=== PATIENT | female | born 1940 | race Caucasian/White ===

== ENCOUNTER 2017-01-09 07:53 | Inpatient (IN) | payer OTHER, MEDICARE ==
[2017-01-04 14:30] VITALS: BMI 31.0
--- NOTE | 2017-01-04 15:19 | PAT Medication Instructions ---
Service Date Jan 04, 2017. Current Home Medication List Atenolol (Tenormin), 50 MG PO BID Cyclobenzaprine Hcl (Flexeril), 10 MG PO TID PRN for Muscle Spasms Fluticasone Propionate (Flonase Nasal [place] *), 2 SPRAYS KAYLA HS PRN for STUFFY NOSE Gabapentin (Neurontin), 300 MG PO BID Hydrocodone/Acetaminophen 5MG/325MG ([place] 5MG/325MG), 1 TABLET PO HS PRN for Pain Levothyroxine (Levothroid), 0.05 MG PO QAM Lisinopril (Zestril), 10 MG PO QAM Meloxicam (Meloxicam), 15 MG PO QAM Nunica-3 Fatty Acids (Fish Oil), 1 CAP PO QAM Omeprazole (Prilosec), 20 MG PO AFTERNOON Prednisone (Prednisone), 5 MG PO Q2D Tramadol (Ultram), 1 TAB PO Q6H PRN for Pain Zoledronic Acid (Reclast), 1 DOSE INJ [id number] Medication Instructions For Your Scheduled Surgery - Hold the following medications as of 01/05/16: [place]-3 Fatty Acids (Fish Oil), 1 CAP PO QAM - Hold the following medications the morning of surgery: Cyclobenzaprine Hcl (Flexeril), 10 MG PO TID PRN for Muscle Spasms Lisinopril (Zestril), 10 MG PO QAM Meloxicam (Meloxicam), 15 MG PO QAM (otherwise okay to continue per surgeon) - Take the following medications the morning of surgery with a sip of water OTHERWISE NOTHING TO EAT OR DRINK AFTER MIDNIGHT: Hydrocodone/Acetaminophen 5MG/325MG ([place] 5MG/325MG), 1 TABLET PO HS PRN for Pain (may take up to 4 hours prior to surgery if needed) Tramadol (Ultram), 1 TAB PO Q6H PRN for Pain (may take up to 4 hours prior to surgery if needed) Atenolol (Tenormin), 50 MG PO BID Gabapentin (Neurontin), 300 MG PO BID Levothyroxine (Levothroid), 0.05 MG PO QAM Omeprazole (Prilosec), 20 MG PO AFTERNOON - Take the following medications as scheduled the night before surgery: Hydrocodone/Acetaminophen 5MG/325MG ([place] 5MG/325MG), 1 TABLET PO HS PRN for Pain Tramadol (Ultram), 1 TAB PO Q6H PRN for Pain Atenolol (Tenormin), 50 MG PO BID Gabapentin (Neurontin), 300 MG PO BID Cyclobenzaprine Hcl (Flexeril), 10 MG PO TID PRN for Muscle Spasms Fluticasone Propionate (Flonase Nasal [place] *), 2 SPRAYS KAYLA HS PRN for STUFFY NOSE If you have any questions please call us at [phone] or [phone] or [phone]
--- NOTE | 2017-01-04 16:09 | DIAGNOSTIC IMAGING REPORT ---
CHEST PREADMISSION(PA/LAT) HISTORY: Preop. COMPARISON: Chest 06/14/2014. FINDINGS: There is a left-sided dual-chamber pacemaker. The heart is stable in size. Eventration of right hemidiaphragm persists. No new focal lung consolidations. No evidence for pulmonary edema. No pleural effusions. No pneumothorax. Old, healed right-sided rib fracture. IMPRESSION: No significant change compared to the prior study. No acute process. Electronically signed by: Keny Bermudez M.D. 01/04/2017 4:08 PM Dictated Date/Time: 01/04/2017 4:05 PM
[2017-01-04 16:18] LABS: BASO % 0.4 %; BASO ABS # 0.03 K/uL (0-0.2); COMPLETE YES; EOS % 1.6 %; HEMATOCRIT 35.3 % (37-47); IG% 0.6 %; LYMPH % 31.8 %; LYMPH ABS # 2.17 K/uL (1.2-3.4); MEAN CELL VOLUME 94.6 fL (80-100); MEAN CORPUSCULAR HEMOGLOBIN 30.8 pg (25-34); MEAN CORPUSCULAR HGB CONC 32.6 g/dl (32-36); MEAN PLATELET VOLUME 10.9 fL (7.4-10.4); MONO % 6.6 %; PLATELET COUNT 182 K/uL (130-400); RED BLOOD COUNT 3.73 M/uL (4.2-5.4); WHITE BLOOD COUNT 6.82 K/uL (4.8-10.8)
[2017-01-04 16:22] LABS: URINE APPEARANCE CLEAR (CLEAR); URINE BILIRUBIN NEG (NEG); URINE COLOR YELLOW; URINE NITRITE NEG (NEG); URINE PH 5.5 (4.5-7.5); URINE SPECIFIC GRAVITY 1.025 (1.000-1.030); UROBILINOGEN NEG (NEG)
[2017-01-04 16:24] LABS: MANUAL MICROSCOPIC REQUIRED? NO; REVIEW REQ? NO
[2017-01-04 16:27] LABS: INR 0.9 (0.9-1.1); PARTIAL THROMBOPLASTIN RATIO 1.3; PROTHROMBIN TIME (PATIENT) 10.1 SECONDS (9.0-12.0)
[2017-01-04 17:20] LABS: BUN/CREATININE RATIO 23.3 (10-20); CALCIUM 8.7 mg/dl (8.5-10.1); CREATININE 1.1 mg/dl (0.60-1.20); POTASSIUM 4.4 mmol/L (3.5-5.1)
--- NOTE | 2017-01-07 08:53 | HISTORY & PHYSICAL EXAMINATION ---
DATE OF ADMISSION: 01/09/2017 CHIEF COMPLAINT: Right hip pain. HISTORY OF PRESENT ILLNESS: This 76-year-old white female presents to the office with complaints of right hip pain that has been ongoing for several months. Symptoms began specifically on 11/22/2016. There was no specific injury. She has tried prednisone as well as Mobic and activity modification without improvement. Pain is worse with weightbearing and is affecting her ADLs. No numbness or tingling. She did receive a cortisone injection in the hip joint without improvement. Pain is in the anterior flexion crease and radiates around the hip laterally. There is a history of previous left knee replacement which is doing well. She elects to proceed with a right total hip arthroplasty in hopes of alleviating her pain. Preoperative x-rays have been obtained. PAST MEDICAL HISTORY: Significant for osteoarthritis, actinic keratosis, chronic sinusitis, history of squamous cell carcinoma, hypertension, mitral valve prolapse, history of pericarditis, PVCs, rheumatoid arthritis, kidney stones, GERD, spinal stenosis, hypothyroidism and history of thrombocytopenia in 1963. She does have a pacemaker. PREVIOUS SURGERIES: Toe PIP joint arthroplasty with pinning, shave biopsies of the skin, bilateral foot surgery, tonsillectomy with adenoidectomy, open meniscectomy, knee arthroscopy in 1991, pacemaker placement in 2001 and 2009, left knee TKA 2001, right long finger surgery 2003, right shoulder surgery 2007, left patellar debridement 2014, cardiac ablation 1995 and 2001, left thumb [facility]MC joint reconstruction, and bilateral cataract surgery. ALLERGIES: KNOWN ALLERGY TO ASPIRIN WHICH CAUSES THROMBOCYTOPENIA. AUGMENTIN CAUSES DIARRHEA. DILAUDID CAUSES NAUSEA AND VOMITING. SULFA CAUSES A RASH. CURRENT MEDICATIONS: Atenolol 100 mg p.o. b.i.d., fish oil daily, Flexeril 10 mg p.o. p.r.n., gabapentin 300 mg p.o. b.i.d., Synthroid 50 mcg p.o. daily, lisinopril 10 mg p.o. daily, Mobic 15 mg p.o. daily, omeprazole 20 mg q.i.d., prednisone 5 mg daily, Reclast annually, tramadol 50 mg p.o. q. 6 hours p.r.n. FAMILY HISTORY: Significant for stroke and osteoarthritis. SOCIAL HISTORY: The patient is . Retired. No tobacco use, occasional ETOH use. REVIEW OF SYSTEMS: Significant for above stated conditions, otherwise unremarkable. PHYSICAL EXAMINATION: GENERAL: Well-developed, well-nourished elderly white female in no acute distress. Sitting on a bed. Alert and oriented. SKIN: Warm and dry with good turgor. No rashes or lesions. No ecchymosis or erythema. HEENT: Normocephalic, atraumatic. Eyes: PERRLA, EOMI. Ears: Hearing aides are present bilaterally. TMs are intact bilaterally with good light reflexes. No erythema or bulging. A tube is present in her left TM. Nares: Patent bilaterally without turbinate enlargement. Oropharynx: Without erythema or exudate. No lesions noted. Uvula midline. Fair dentition. Fillings are noted. Caps are noted. HEART: RRR. No MGR. LUNGS: Clear to auscultation bilaterally. No crackles, rhonchi or wheezing. Good air movement. ABDOMEN: Bowel sounds present x4, soft, nontender. No organomegaly. MUSCULOSKELETAL: Right hip has no obvious asymmetry or deformity. Hip flexion to greater than 100 degrees. There is pain associated with internal and external rotation. There is difficulty with attempts at hip extension. There is discomfort with palpation over the anterior flexion crease. No pain over the greater trochanter. Ambulatory with an antalgic gait. No crepitus palpable with motion. NEUROLOGIC: Cranial nerves II-XII are intact. Gross sensation is intact across the lower extremities by soft touch. DATA: Radiographic images previously obtained show moderate osteoarthritic change in the right hip. There is joint space narrowing, periarticular osteophytes, and subchondral sclerosis. No evidence for fracture. Films have been read by radiology. IMPRESSION: Right hip degenerative joint disease. PLAN: Informed written consent was obtained to proceed with right total hip arthroplasty. Postoperative prescriptions for Percocet and Coumadin will be provided at discharge from the hospital. Anticipate discharge to home with 2 weeks of home health services and then outpatient PT. Preoperative lab work, EKG and chest x-ray have been ordered. Medical clearance has already been received from Dr. Edson Gardner. She saw Dr. Coleman last week for medical clearance. Prescription has been provided for a rolling walker.
[~2017-01-09] VITALS: Ht 152.4 cm; Wt 71.7 kg
[2017-01-09] VITALS (9 sets, daily range): BP systolic 119–146; BP diastolic 69–90; PULSE 64–80; TEMP 36.4–36.9; O2SAT 96–99; Ht 152.4 cm; Wt 71.7 kg
[~2017-01-09 07:53] MED LIST: ATEN-175 PO; BUPIVACAINE 0.5 % 5 MG/1 ML PF 10ML VIAL ONE; CEFAZOLIN 2000 MG/60 ML D5W 60 ML IV SCH; CYCL10TA6 PO; FENTANYL CITRATE INJ 50 MCG/1 ML 2 ML VIAL ONE; FLNIN NAE; GABA-113 PO; HYDR-5688 PO; HYDROCORTISONE IV 100 MG in SYRINGE 0 ML IV SCH; LACTATED RINGER'S 1000ML IV SCH; LEVO-217 PO; LIDOCAINE HCL 2% 2 ML VIAL (20MG/ML) ONE; LISI-461 PO; MELO15TA4 PO; MIDAZOLAM HCL 1 MG/ML 2ML VIAL ONE; OMEGCAP2 PO; POVIDONE-IODINE OP SOLN 30 ML BTL ONE; PRED-301 PO; PRLSR20 PO; PROPOFOL IV EMULSION 10 MG/ML 20 ML VIAL IV ONE; ROPIVACAINE 5MG/ML 30 ML 150 MG, BUPIVACAINE/EPINEPHR 0.5% MPF 30 ML, KETOROLAC TROMETH... INFIL SCH; TRAM-10 PO; TRANEXAMIC ACID INJ 1,000 MG in SODIUM CHLORIDE 0.9% 100ML 100 ML IV SCH; ZOLE5INJ INJ
--- NOTE | 2017-01-09 08:48 | History & Physical Bridge Note ---
H&P Re-Evaluation Bridge Note: I have examined the patient, reviewed the History & Physical and in the interval since the performance of the History & Physical I have noted the following changes of clinical significance: No changes noted
[2017-01-09] MEDS ORDERED: MoRPHine SULFATE PF 1 MG/ML 10 ML AMP/VIAL ONE (09:04)
[2017-01-09 09:17] LABS: BUN/CREATININE RATIO 33.3 (10-20); CREATININE 0.91 mg/dl (0.60-1.20); POTASSIUM 4.3 mmol/L (3.5-5.1)
--- NOTE | 2017-01-09 10:41 | [facility] Post Operative Brief Note ---
Immediate Operative Summary Operative Date Jan 09, 2017. Pre-Operative Diagnosis Right Hip Degenerative Joint Disease Post-Operative Diagnosis Right Hip Degenerative Joint Disease Procedure(s) Performed Right Total Hip Arthroplasty--Uncemented Surgeon Dr. Bains Wood Web Weaving Machine Operator Surgeon(s) LINDSEY Bar Estimated Blood Loss 200cc Findings djd Fluids (cc crystalloids) 600cc Specimens A. Right Femoral Head Drains none Anesthesia spinal Complication(s) None Disposition Recovery Room / PACU
[2017-01-09] MEDS ORDERED: CYCLOBENZAPRINE HCL 10 MG TAB PO PRN (11:00)
[2017-01-09] MEDS ORDERED: ALUMINUM/MAGNESIUM/SIMETH (MAALOX MAX) 30 ML UDC PO PRN (11:00)
[2017-01-09] MEDS ORDERED: MAGNESIUM HYDROXIDE SUSP 30 ML UDC PO PRN (11:00)
[2017-01-09] MEDS ORDERED: BISACODYL 10 MG SUPP PR PRN (11:00)
[2017-01-09] MEDS ORDERED: METOCLOPRAMIDE HCL INJ 5 MG/ML 2 ML VIAL IV PRN (11:00)
[2017-01-09] MEDS ORDERED: ONDANSETRON INJ 2 MG/ML 2 ML VIAL IV PRN ×2 (11:00→11:15)
[2017-01-09] MEDS ORDERED: FLUTICASONE PROPIONATE NA SPR 16 GM BTL NAE PRN (11:00)
--- NOTE | 2017-01-09 11:13 | OPERATIVE REPORT ---
DATE OF CONSULTATION: 01/09/2017 PREOPERATIVE DIAGNOSIS: Right hip endstage degenerative joint disease. POSTOPERATIVE DIAGNOSIS: Right hip same. PROCEDURE: Right hip total hip arthroplasty using DePuy implants. SURGEON: Dr. Bains. CERAMIC PAINTER: Zbigniew Pa PA-C. HISTORY OF PRESENT ILLNESS: This 76-year-old white female presented to the office with complaints of right hip pain that have been ongoing for several months. Her symptoms began in late November. No specific injury. She tried conservative care measures without success. She elected to proceed with surgical intervention after being educated about potential risks and outcomes. Preoperative x-rays were obtained. OPERATION: The patient was administered spinal anesthetic and then taken to the operating room where she was given sedation. She was prepped and draped in the usual sterile fashion. Please see Dr. Bains's operative report for specifics of the procedure. I was present for the entire case from initial patient positioning through final wound closure. Assistance was provided in tissue retraction, hemostasis, trial implant placement, final implant placement, and final wound closure. The patient was taken to the recovery room in satisfactory condition. CLEO
[2017-01-09] MEDS ORDERED: FLUMAZENIL 0.1 MG/1 ML 10 ML VIAL IV PRN (11:15)
[2017-01-09] MEDS ORDERED: PROMETHAZINE HCL INJ 12.5 MG in SODIUM CHLORIDE 0.9% 50ML 50 ML IV PRN (11:15)
[2017-01-09] MEDS ORDERED: EpHEDrine SULFATE INJ 50 MG/ML AMP IV PRN (11:15)
[2017-01-09] MEDS ORDERED: NALOXONE HCL 0.4 MG/1 ML VIAL/CARP IV PRN (11:15)
[2017-01-09] MEDS ORDERED: ATROPINE SULFATE 0.1 MG/ML 5ML SYR IV PRN (11:15)
[2017-01-09] MEDS ORDERED: MoRPHine SULFATE 2 MG/ML CARP IV PRN ×2 (11:15→13:45)
--- NOTE | 2017-01-09 11:25 | OPERATIVE REPORT ---
DATE OF OPERATION: 01/09/2017 PREOPERATIVE DIAGNOSIS: Osteoarthritis right hip. POSTOPERATIVE DIAGNOSIS: Same. OPERATION PERFORMED: Noncemented right hip replacement. SURGEON: Dr. Bains. DEVELOPMENT TECHNICIAN: Zbigniew Pa PA-C. SECOND DEVELOPMENT TECHNICIAN: Medical student, [employer]. SUMMARY OF IMPLANTS: Size 48 shell acetabular cup hole eliminator, 6.5 x 25 screw, liner 32 x 48 neutral, high offset size 3 femoral stem and femoral head size 32+1. ESTIMATED BLOOD LOSS: 200 mL. CRYSTALLOID: 600 mL. PERIOPERATIVE SITUATION: Medically cleared female with intractable hip pain, wants to proceed with right hip replacement. OPERATION AND FINDINGS: OPERATION: The patient appropriately identified, site verified, consent verified, 2 grams of Ancef and 1 gram of TXA confirmed as being given. The right lower extremity was prepped and draped in the usual routine fashion with the patient in left lateral decubitus position. Posterior approach to the hip was made. Sharp dissection carried through skin and blunt dissection down to the fascia. This was then incised under direct vision. Care was taken to protect the sciatic nerve. Short external rotators were released and preserved. The capsule was released and preserved, the hip dislocated, the femoral neck resected. The labrum was quite edematous and degenerated anteriorly. It was all resected. Posterior osteophytes were resected. Serial reaming carried up to a 48 and a 48 shell acetabular cup impacted into position with excellent rim fit and then an additional 6.5 x 25 screw placed with excellent purchase. The trial liner seated. The femur was then flexed and internally rotated, care taken to protect the sciatic nerve. The proximal femur prepared with box cut, lateralizing rasp and serial broaching up to a size 3 high offset stem with a +1 and +5 head. The +1 kept stability and made the leg lengths relatively equal. It was slightly long with the other head. The hip was then dislocated. All remaining trial elements were removed and irrigated with Betadine, irrigated with Pulsavac, hole eliminator seated, permanent liner seated, permanent head and stem seated. The hip reduced. It was stable. It was then irrigated with Betadine, irrigated with Pulsavac and then the short external rotators and the capsule were repaired with #2 Vicryl, IT band and gluteus maximum fascia with #2 Vicryl, the subcutaneous fat with 2-0 Vicryl and the skin with stainless steel clips. The Orthomix was injected into superficial layers only. Estimated blood loss again was as noted. The wound was then appropriate dressed after the wound was closed with oneyda and then the patient transferred to recovery room in satisfactory condition having tolerated the procedure well. DVT prophylaxis will be per protocol. I attest to the content of the Intraoperative Record and any orders documented therein. Any exceptio ns are noted below.
[2017-01-09] MEDS ORDERED: OXYC-57 PO (11:45)
[2017-01-09] MEDS ORDERED: WARF2TAB PO (11:45)
--- NOTE | 2017-01-09 11:55 | PROGRESS NOTE ---
DATE: 01/09/2017 DATE: 01/09/2017. SUBJECTIVE: Postop check status post right total hip replacement. The patient is comfortable. Denies any pain. Denies any chest pain, shortness of breath, fever, chills, headache, nausea or vomiting. Vital signs are stable. She is afebrile. Neurovascular check is limited by spinal, still has effects of that. Wound dressing clean, dry and intact. Postop x-rays look excellent. ASSESSMENT: Status post right total hip replacement. Continue postop care pathway, mobilize when block has worn off. Postural precautions. Continue care pathway.
--- NOTE | 2017-01-09 12:37 | Anesthesiology Progress Note ---
Anesthesia Post Op Note Date & Time Jan 09, 2017 at 12:37 Vital Signs Pain Intensity: 0 Vital Signs Past 12 Hours Date Time Temp Pulse Resp B/P Pulse Ox O2 Delivery O2 Flow Rate FiO2 01/09/17 12:24 36.4 62 16 126/66 100 Nasal Cannula 2 01/09/17 11:44 53 15 100 01/09/17 11:44 54 14 01/09/17 11:43 144/64 01/09/17 11:39 53 14 01/09/17 11:39 53 14 100 01/09/17 11:38 107/83 01/09/17 11:34 55 18 01/09/17 11:34 57 18 100 01/09/17 11:33 146/64 01/09/17 11:29 53 13 100 01/09/17 11:29 53 13 01/09/17 11:28 118/78 01/09/17 11:24 55 19 01/09/17 11:24 54 19 143/69 100 01/09/17 11:19 52 14 100 01/09/17 11:19 52 14 01/09/17 11:18 123/64 01/09/17 11:14 56 14 100 01/09/17 11:14 56 14 01/09/17 11:13 131/63 01/09/17 11:09 53 16 01/09/17 11:09 51 14 100 01/09/17 11:08 138/68 01/09/17 11:05 63 13 01/09/17 11:05 54 13 01/09/17 11:03 137/67 01/09/17 11:00 55 11 01/09/17 11:00 57 11 100 01/09/17 10:58 134/73 01/09/17 10:55 36.1 56 12 127/70 100 Nasal Cannula 2 01/09/17 10:55 58 14 100 01/09/17 10:55 57 14 01/09/17 08:14 36.7 72 18 146/90 99 Room Air Notes Mental Status: alert / awake / arousable, participated in evaluation Pt Amnestic to Procedure: Yes Nausea / Vomiting: adequately controlled Pain: adequately controlled Airway Patency, RR, SpO2: stable & adequate BP & HR: stable & adequate Hydration State: stable & adequate Neuraxial Anesthesia: was administered, sensory block is resolving Anesthetic Complications: no major complications apparent
--- NOTE | 2017-01-09 13:29 | DIAGNOSTIC IMAGING REPORT ---
PELVIS 1 OR 2 VIEW ROUTINE CLINICAL HISTORY: R hip s/p TIMMY postoperative evaluation COMPARISON: 12/04/2011 DISCUSSION: Status post total right hip replacement. Good contact between prosthetic and underlying bone. Expected soft tissue postoperative change. IMPRESSION: Total right hip replacement in good position. Electronically signed by: Lawson Gonsalez M.D. 01/09/2017 1:28 PM Dictated Date/Time: 01/09/2017 1:27 PM
[2017-01-09] MEDS ORDERED: SODIUM CHLORIDE 0.9% IV SCH (13:30)
[2017-01-09] MEDS ORDERED: VANCOMYCIN IV SCH (13:30)
[2017-01-09] MEDS ORDERED: ZOLPIDEM TARTRATE 5 MG TAB PO PRN (13:45)
--- NOTE | 2017-01-09 13:45 | Medical Consult ---
Consultation Date of Consultation: Jan 09, 2017. Attending Physician: Kj Bains M.D. Reason for Consultation: Postop Medical Management History of Present Illness Patient seen and examined. 76 year old female with PMHx of Rheumatoid Arthritis on chronic prednisone, Tachy jacinto syndrome s/p pacemaker, Hypothyroidism and other problems listed below is seen in consultation for postop medical management following elective RTHA by Dr. Marcum. Patient reports feeling well. She denies pain, fevers, chills, URI symptoms, chest pain, SOB, nausea, vomiting, diarrhea, dysuria, calf pain and edema. Reports last BM was last night. Denies history of VTE. Requests something for sleep tonight. Past Medical/Surgical History Medical Problems: (1) Amputated finger Status: Chronic (2) GERD (gastroesophageal reflux disease) Status: Chronic (3) History of PSVT (paroxysmal supraventricular tachycardia) Status: Chronic (4) Hypothyroidism Status: Chronic (5) Osteoporosis Status: Chronic (6) Pacemaker Status: Chronic (7) Rheumatoid arthritis Status: Chronic (8) Tachy-jacinto syndrome Status: Chronic Surgical Problems: (1) H/O breast biopsy Status: Resolved (2) H/O foot surgery Status: Chronic (3) H/O shoulder surgery Status: Chronic (4) History of carpal tunnel surgery Status: Chronic (5) History of hip surgery Status: Chronic (6) History of osteomyelitis Status: Resolved (7) History of recent maxillofacial surgery Status: Resolved (8) Hx of tonsillectomy Status: Chronic Family History Abdominal aortic aneurysm (AAA) Hypertension Stroke Social History Smoking Status: Never Smoker Alcohol Use: socially Marital Status: Housing Status: lives with family Occupation Status: retired Allergies Coded Allergies: Sulfa Antibiotics (Verified Allergy, Mild, rash, 01/09/17) Aspirin (Verified Allergy, Unknown, THROMBOCYTOPENIA, 01/09/17) Phenylbutazone (Verified Allergy, Unknown, THROMBOCYTOPENIA, 01/09/17) Amoxicillin (Verified Adverse Reaction, Intermediate, severe diarrhea, 01/09) Clavulanic Acid (Verified Adverse Reaction, Intermediate, severe diarrhea , 01/09/17) Hydromorphone (Verified Adverse Reaction, Mild, NAUSEA AND VOMITING, ) Morphine (Verified Adverse Reaction, Mild, NAUSEA/VOMITTING, 01/09/17) Current Inpatient Medications Current Inpatient Medications Medications (Trade) Dose Ordered Sig/Nitesh Route Start Time Stop Time Status Last Admin Dose Admin Cefazolin Sodium 60 ml @ 100 mls/hr PREOP IV 01/09/17 06:00 01/09/17 18:00 01/09/17 09:11 100 MLS/HR Tranexamic Acid 1000 mg/Sodium Chloride 110 ml @ 660 mls/hr TODAY@0600 IV 01/09/17 06:00 01/09/17 18:00 01/09/17 08:50 660 MLS/HR Hydrocortisone Sodium Succinate/ Syringe (Solu-Cortef IV/ Syringe) 2 ml @ 4 mls/min PREOP IV 01/09/17 06:00 01/09/17 18:00 01/09/17 08:42 4 MLS/MIN Naloxone HCl (Narcan Inj) 0.2 mg Q2M PRN IV 01/09/17 11:15 01/09/17 16:15 Flumazenil (Romazicon Inj) 0.2 mg Q2M PRN IV 01/09/17 11:15 01/09/17 16:15 Ondansetron HCl 4 mg 4 mg ONE PRN IV 01/09/17 11:15 01/09/17 16:15 Promethazine HCl/ Sodium Chloride (Phenergan Inj/ Nss 50ml) 50.5 ml @ 202 mls/hr ONE PRN IV 01/09/17 11:15 01/09/17 16:15 Ephedrine Sulfate (EpHEDrine SULFATE INJ) 5 mg Q5M PRN IV 01/09/17 11:15 01/09/17 16:15 Atropine Sulfate 0.5 mg 0.5 mg Q1M PRN IV 01/09/17 11:15 01/09/17 16:15 Potassium Chloride/Dextrose/ Sod Cl (D5W And 1/2nss + 20meq KCl) 1,000 ml @ 100 mls/hr Q10H IV 01/09/17 14:00 01/10/17 13:59 Ketorolac Tromethamine (Toradol Inj) 15 mg Q6H IV. 01/09/17 16:00 01/10/17 15:59 Oxycodone HCl 1 TABLET FOR PAIN RATING... Q4H PRN PO 01/09/17 11:00 01/23/17 10:59 Acetaminophen/ Empty Bag (Ofirmev Iv/ Empty Iv Bag 100ml) 100 ml @ 400 mls/hr Q8H IV 01/09/17 16:00 01/10/17 15:59 UNV Acetaminophen (Tylenol Tab) 650 mg Q6H PRN PO 01/10/17 16:00 02/09/17 15:59 Magnesium Hydroxide (Milk Of Magnesia Susp) 30 ml Q6H PRN PO 01/09/17 11:00 02/08/17 10:59 Bisacodyl (Dulcolax Supp) 10 mg DAILY PRN UT 01/09/17 11:00 02/08/17 10:59 Docusate Sodium (coLACE CAP) 100 mg BID PO 01/09/17 21:00 02/08/17 20:59 Diphenhydramine HCl (Benadryl Inj) 25 mg Q8H PRN IV 01/09/17 11:00 02/08/17 10:59 Al Hydrox/Mg Hydrox/Simethicone (Maalox Max Susp) 15 ml Q4H PRN PO 01/09/17 11:00 02/08/17 10:59 Multivitamins (Multivitamin Tab) 1 tab QAM PO 01/10/17 09:00 02/09/17 08:59 Ondansetron HCl (Zofran Inj) 4 mg Q6H PRN IV 01/09/17 11:00 02/08/17 10:59 Metoclopramide HCl (Reglan Inj) 10 mg Q6H PRN IV 01/09/17 11:00 02/08/17 10:59 Ferrous Gluconate (Ferrous Gluconate Tab) 324 mg TIDM PO 01/09/17 17:45 02/08/17 17:44 Pantoprazole Sodium 40 mg 40 mg QAM PO 01/10/17 09:00 02/09/17 08:59 Cefazolin Sodium 2000 mg/Dextrose 60 ml @ 100 mls/hr Q8H IV 01/09/17 18:00 01/10/17 02:35 Dexamethasone Sodium Phosphate/ Syringe (Decadron Inj/ Syringe) 2.5 ml @ 1 mls/min TODAY@0730 ONCE IV 01/10/17 07:30 01/10/17 07:32 Atenolol (Tenormin Tab) 50 mg BID PO 01/09/17 21:00 02/08/17 20:59 Cyclobenzaprine HCl (Flexeril Tab) 10 mg TID PRN PO 01/09/17 11:00 02/08/17 10:59 Fluticasone Propionate (Flonase Nasal Turner) 2 sprays HS PRN KAYLA 01/09/17 11:00 02/08/17 10:59 Gabapentin (Neurontin Cap) 300 mg BID PO 01/09/17 21:00 02/08/17 20:59 Levothyroxine Sodium (Synthroid Tab) 50 mcg DAILYBB PO 01/10/17 06:00 02/09/17 06:59 Lisinopril (Zestril Tab) 10 mg QAM PO 01/10/17 09:00 02/09/17 08:59 Prednisone (PredniSONE TAB) 5 mg Q2D PO 01/10/17 11:00 02/09/17 10:59 UNV Morphine Sulfate give 2mg for pain 3-6 g... Q1H PRN IV 01/09/17 11:15 01/23/17 11:14 UNV Vancomycin HCl 1075 mg/Sodium Chloride 271.5 ml @ 125 mls/hr TODAY@1330 IV 01/09/17 13:30 01/09/17 15:41 Tranexamic Acid/ Sodium Chloride (Cyklokapron Inj/ Nss 100ml) 110 ml @ 660 mls/hr TODAY@1700 ONCE IV 01/09/17 17:00 01/09/17 17:09 Miscellaneous Information (Nursing Ortho Warfarin Nomogram Dose) 1 ea TODAY N/A 01/09/17 13:30 01/09/17 13:31 UNV Review of Systems See above for pertinent positives & negatives. A total of 10 systems reviewed and were otherwise negative. Physical Exam Date Time Temp Pulse Resp B/P Pulse Ox O2 Delivery O2 Flow Rate FiO2 01/09/17 13:28 36.8 67 17 123/76 99 Room Air 01/09/17 13:00 36.9 64 16 119/75 99 Room Air 01/09/17 13:00 99 Room Air 01/09/17 13:00 99 Room Air 01/09/17 12:24 36.4 62 16 126/66 100 Nasal Cannula 2 01/09/17 11:44 53 15 100 01/09/17 11:44 54 14 2/8/17 11:43 144/64 01/09/17 11:39 53 14 01/09/17 11:39 53 14 100 01/09/17 11:38 107/83 01/09/17 11:34 55 18 01/09/17 11:34 57 18 100 01/09/17 11:33 146/64 01/09/17 11:29 53 13 100 01/09/17 11:29 53 13 01/09/17 11:28 118/78 01/09/17 11:24 55 19 01/09/17 11:24 54 19 143/69 100 01/09/17 11:19 52 14 100 01/09/17 11:19 52 14 01/09/17 11:18 123/64 01/09/17 11:14 56 14 100 01/09/17 11:14 56 14 01/09/17 11:13 131/63 01/09/17 11:09 53 16 01/09/17 11:09 51 14 100 01/09/17 11:08 138/68 01/09/17 11:05 63 13 01/09/17 11:05 54 13 01/09/17 11:03 137/67 01/09/17 11:00 55 11 01/09/17 11:00 57 11 100 01/09/17 10:58 134/73 01/09/17 10:55 36.1 56 12 127/70 100 Nasal Cannula 2 01/09/17 10:55 58 14 100 01/09/17 10:55 57 14 01/09/17 08:14 36.7 72 18 146/90 99 Room Air General Appearance: + pertinent finding (Very pleasant WD/WN 76 year old female lying in bed in NAD with at bedside ) Head: normocephalic, atraumatic Eyes: PERRL, EOMI, sclerae normal ENT: hearing grossly normal, pharynx normal Neck: supple, no JVD Respiratory/Chest: chest non-tender, lungs clear, normal breath sounds, no respiratory distress, no accessory muscle use Cardiovascular: regular rate, rhythm, no edema, no gallop, no JVD, no murmur, normal peripheral pulses Abdomen/GI: normal bowel sounds, non tender, soft, no organomegaly Extremities/Musculoskelatal: no calf tenderness, normal capillary refill, no pedal edema, + pertinent finding (dressing I/C/D right hip ) Neurologic/Psych: alert, oriented x 3, + pertinent finding (no motor or sensory deficits noted on gross exam ) Skin: normal color, warm/dry, no rash Lymphatic: no adenopathy Laboratory Results Last 24 Hours Test 01/09/17 08:29 Sodium Level 144 mmol/L Potassium Level 4.3 mmol/L Chloride Level 109 mmol/L Carbon Dioxide Level 26 mmol/L Anion Gap 9.0 mmol/L Blood Urea Nitrogen 30 mg/dl Creatinine 0.91 mg/dl Est Creatinine Clear Calc Drug Dose 46.5 ml/min Estimated GFR () 71.0 Estimated GFR (Non- 61.3 BUN/Creatinine Ratio 33.3 Random Glucose 92 mg/dl Calcium Level 9.0 mg/dl Assessment & Plan RIGHT TOTAL HIP ARTHROPLASTY -POD#[address] Bains -Management as per ortho to include- pain control, bowel regimen, DVT prophylaxis, PT/OT, incentive spirometry, wound care -Ambien added prn HS for sleep -EBL 200ml, Follow H&H daily for postop anemia, preop was 11.5 and 35.3 -CBC, PRP, Mg daily H/O TACHYBRADY SYNDROME -s/p pacemaker -continue Atenolol HYPOTHYROIDISM -continue Synthroid RHEUMATOID ARTHRITIS -continue Prednisone -BP stable, no indication for stress dosing of steroids at this time -will hold Lisinopril to avoid hypotension -monitor closely GERD -continue PPI H/O MRSA -contact precautions -perioperative Abx per ortho DVT PROPHYLAXIS: per ortho CODE STATUS: FULL CODE DISPO:per ortho Patient seen in collaboration with Dr. Powell Thank you for this consultation. We will follow the patient with you during their hospital stay. You can reach a member of the [facility] Hospitalist Team 24/06 via pager @ [phone]. ATTENDING ADDENDUM Record reviewed. Patient interviewed and examined. Pt is asymptomatic, tolerating PO with pain controlled. She is afebrile and hemodynamically stable with physical exam unremarkable except for RLE is NVI with 2+ pulses, sensation and movement of toes intact. Dressing to R hip is CDI. 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 Please refer to her documentation for patient's history. I agree with the assessment and plan above. Nasra Powell, Hospitalist
[2017-01-09] MEDS: D5W AND 1/2NSS + 20MEQ KCL 1,000 ML IV SCH (14:10)
[2017-01-09] MEDS: KETOROLAC TROMETHAMINE 15 MG/ML VIAL IV. SCH ×2 (15:25→21:54)
[2017-01-09] MEDS: ACETAMINOPHEN IV 1,000 MG in EMPTY BAG 0 ML IV SCH (15:26)
[2017-01-09] MEDS ORDERED: WARFARIN SOD 5 MG TAB PO ONE (16:00)
[2017-01-09] MEDS ORDERED: TRANEXAMIC ACID INJ 1,000 MG in SODIUM CHLORIDE 0.9% 100ML 100 ML IV ONE ×4 (17:00)
[2017-01-09] MEDS: FERROUS GLUCONATE 324 MG TAB PO SCH (18:20)
[2017-01-09] MEDS: CEFAZOLIN IV 2,000 MG in DEXTROSE 5% 50ML 50 ML IV SCH (18:20)
[2017-01-09] MEDS: DiphenhydrAMINE HCL 50 MG/ML VIAL IV PRN (18:25)
[2017-01-09] MEDS: DOCUSATE SODIUM 100 MG CAP PO SCH (20:48)
[2017-01-09] MEDS: GABAPENTIN 300 MG CAP PO SCH (20:48)
[2017-01-09] MEDS: OXYCODONE HCL IR 5 MG TAB (IMMEDIATE RELEASE) PO PRN (21:54)
[2017-01-10] MEDS: D5W AND 1/2NSS + 20MEQ KCL 1,000 ML IV SCH ×2 (00:01→08:56)
[2017-01-10] MEDS: CEFAZOLIN IV 2,000 MG in DEXTROSE 5% 50ML 50 ML IV SCH (02:04)
[2017-01-10] MEDS: KETOROLAC TROMETHAMINE 15 MG/ML VIAL IV. SCH ×3 (03:33→10:44)
[2017-01-10 04:00] VITALS: BP 154/74; PULSE 67; TEMP 36.6; O2SAT 97
[2017-01-10] MEDS: DiphenhydrAMINE HCL 50 MG/ML VIAL IV PRN (04:21)
[2017-01-10] MEDS ORDERED: LEVOTHYROXINE 50 MCG TAB PO SCH (06:00)
[2017-01-10 06:01] LABS: BASO % 0.1 %; BASO ABS # 0.01 K/uL (0-0.2); COMPLETE YES; HEMATOCRIT 26.9 % (37-47); IG% 0.4 %; LYMPH % 5.4 %; LYMPH ABS # 0.71 K/uL (1.2-3.4); MEAN CELL VOLUME 93.1 fL (80-100); MEAN CORPUSCULAR HEMOGLOBIN 31.1 pg (25-34); MEAN CORPUSCULAR HGB CONC 33.5 g/dl (32-36); MEAN PLATELET VOLUME 10.8 fL (7.4-10.4); MONO % 8.8 %; NEUT % 85.3 %; PLATELET COUNT 158 K/uL (130-400); RED BLOOD COUNT 2.89 M/uL (4.2-5.4); WHITE BLOOD COUNT 13.17 K/uL (4.8-10.8)
[2017-01-10 06:11] LABS: INR 1.1 (0.9-1.1); PROTHROMBIN TIME (PATIENT) 12.1 SECONDS (9.0-12.0)
[2017-01-10 06:45] LABS: BUN/CREATININE RATIO 19.6 (10-20); CALCIUM 7.9 mg/dl (8.5-10.1); CREATININE 0.91 mg/dl (0.60-1.20); POTASSIUM 4.1 mmol/L (3.5-5.1)
[2017-01-10] MEDS: ACETAMINOPHEN IV 1,000 MG in EMPTY BAG 0 ML IV SCH ×2 (07:10)
--- NOTE | 2017-01-10 07:11 | PROGRESS NOTE ---
DATE: 01/10/2017 Postop right total hip replacement. The patient is comfortable, has no major issues with pain, shortness of breath, fever, chills, headache, chest pain, etc. Neurovascular check femoral sciatic nerve is excellent. Hip is located. Wound dressing clean, dry and intact. Abdomen soft. Cast nontender. Hematocrit stable at 26.9. INR is 1.1. Chemistry is acceptable. ASSESSMENT: Doing well. Continue with care pathway PT, OT. Social service consult. Coumadin per nomogram and potential discharge later today if she does well.
--- NOTE | 2017-01-10 07:15 | DISCHARGE SUMMARY ---
CONDITIONAL DISCHARGE CHIEF COMPLAINT: Right hip pain. HISTORY OF PRESENT ILLNESS: The patient underwent elective right total hip replacement. Her postop course has been uneventful. She mobilized well. Pain is well managed. PAST MEDICAL HISTORY: Remarkable for osteoarthritis, actinic keratosis, chronic sinusitis, history of squamous cell carcinoma, hypertension, mitral valve prolapse, history of pericarditis, rheumatoid arthritis, kidney stones, GERD, spinal stenosis, thyroid disease, thrombocytopenia. She does have a pacemaker. PREVIOUS SURGERIES: Toe surgery, multiple skin surgeries, bilateral foot surgery, adenoidectomy, multiple knee surgeries, knee replacement, I\T\D of a ring finger infection in the past, cardiac ablation, thumb reconstruction and cataract surgery. ALLERGIES: ASPIRIN WHICH CAUSES THROMBOCYTOPENIA, AUGMENTIN DIARRHEA, DILAUDID NAUSEA AND VOMITING, SULFA CAUSES RASH. MEDICATIONS: Atenolol b.i.d. 100 mg, fish oil, Flexeril 10 mg p.r.n., gabapentin 300 mg b.i.d., Synthroid 50 mcg daily, lisinopril 10 mg daily, Mobic 15 mg daily, omeprazole 20 mg q.i.d., prednisone 5 mg daily, Reclast annually, tramadol 50 mg p.o. q. 6 hours p.r.n. and she will discontinue the Mobic. Continue all other medications. FAMILY HISTORY: Remarkable for stroke and osteoarthritis. SOCIAL HISTORY: Reveals she is , retired. No tobacco or alcohol use. REVIEW OF SYSTEMS: Noncontributory. HOSPITAL COURSE: Has been uneventful. Hip is located. Wound dressing clean, dry and intact. Neurovascular check is normal. Placed on Coumadin for DVT prophylaxis. She will followup in the office in 2 weeks for staple removal. Potential discharge later today if she does well with PT, OT. If not, will be discharged on Saturday.
[2017-01-10] MEDS ORDERED: DEXAMETHASONE INJ 10 MG in SYRINGE 0 ML IV ONE (07:30)
--- NOTE | 2017-01-10 08:13 | Discharge Instructions ---
Discharge Instructions Admission Reason for Admission: Right Hip Osteoarthritis Discharge Discharge Diagnosis / Problem: Right hip s/p total hip replacement Discharge Goals Goal(s): Decrease discomfort, Improve function, Increase independence Activity Recommendations Activity Limitations: as noted below Lifting Limitations: gradually increase as tolerated Exercise/Sports Limitations: until after follow-up appointment Shower/Bathe: keep incision dry Driving or Machine Use: No driving until cleared by Dr. Bains Weightbearing Status: Right weightbearing (as tolerated) . Instructions / Follow-Up Instructions / Follow-Up New Medicine: * You will likely be taking one or more of these medicines: 1. Percocet - Take, as directed, when you need it, every four to six hours to control your pain. 2. Iron Sulfate - Take three times each day for the month after surgery to help you replace the blood lost during surgery. 3. Coumadin - Thins your blood to lessen the chance of forming a blood clot. The dose of this is different for each person and is based on your blood tests that are done twice a week. * The most common side effects of pain medicine and iron are nausea and constipation. If nausea or constipation is too much of a problem or if you have any questions about your new medicines or doses, call [facility] at . We will try to help you manage these issues. VERY IMPORTANT TO READ AND REVIEW" Blood Clots and Blood Thinning Medicine: * You are given Coumadin during the immediate post-operative period to lessen the risk of blood clots forming in your legs and/or lungs. Coumadin is usually given for six weeks after surgery. * The prescription is for 2 mg tablets. At discharge, you should understand your dose and take it all at the same time every day, preferably after dinner. * You need to get your blood checked 1 - 2 times per week for six weeks, or as directed. * If your dose needs to change, we will call you. Do not take your medication on the day of the blood test until we call you. * If you don't hear from us after your blood draws, keep taking the same dose. Pain: * The immediate post-operative period after hip replacement surgery is often quite painful. * You are given a prescription for pain medicine. You should take it, as directed, when you need it, especially before physical therapy and before going to bed. Pain that interferes with sleep is very common and can last several months. * You will likely need pain medicine for the first two to four weeks. It will not stop all of the pain. The pain will lessen and as you feel better, you may change to milder pain medicine such as Tylenol. * The most common side effects of pain medicine are nausea and constipation, so don't take more than you need. Physical Therapy: * Follow the "Hip Precautions Instructions." * In some cases, the executive secretary social welfare at the hospital will arrange to have a therapist come to your house for the first couple of weeks to help you learn these skills. * You need to practice on your own or with the help of a family member as needed. * When you learn these skills, most of the therapy can be done on your own. Home Exercise: * You were shown a series of exercises in the hospital. Do these exercises three to four times each day including the exercises you were shown in physical therapy. Walking: * Get up and walk several times each day. For the first four weeks, try not to stand or walk for more than one hour at a time. If you do stand or walk for more than one hour, you will not hurt anything, but your leg will likely swell. * As you feel comfortable, you may change from the walker or crutches to a cane and then to independent walking. SELF CARE INSTRUCTIONS AFTER TOTAL HIP REPLACEMENT Until the incision and soft tissues around your hip have healed, there is a possibility that the hip prosthesis could dislocate. A. Observe the following precautions to prevent dislocation: 1. Don't bend your hip greater than 90 degrees. 2. Avoid crossing your legs or ankles while standing or lying. 3. Sit with your feet placed 6 inches apart. 4. When sitting, keep your knees below your hips. Sit on a firm surface, avoid deep, soft chairs and couches. Use an elevated toilet seat in the bathroom. 5. Don't bend over at the waist. Use a long handled shoehorn and a sock aid to help you put on your shoes and socks. A plant breeder scientist can help you diamond picker objects that are too high or too low to reach. 6. Keep car riding to a minimum for at least one month after surgery. B. Your balance may be shaky for a while. Use crutches or a walker until directed by your doctor. C. Use hand rails when walking on stairs. D. Wear low heeled shoes with non-slip soles. E. Be sure that your floors are free of things that could trip you - throw rugs , electrical cords, small objects. Avoid wet and waxed floors, especially with crutches and canes. F. Try to walk several times a day with rest periods between. G. Continue with all the exercises taught to you in the hospital. Again, make walking a part of your daily routine. VERY IMPORTANT TO READ AND REVIEW A. Take Coumadin, or Lovenox (blood thinning medications) as directed by your doctor. If you are on Coumadin, have a pro-time (blood test) drawn according to your doctor's instructions. This will tell the doctor how well the Coumadin is thinning your blood. B. There are a few signs you need to watch for after you are home. If you notice any of the followin. Increased severe hip pain. Some pain is expected especially when you exercise. 2. Increased swelling in your leg or knee; pain or swelling of the calf muscle in either lower leg. 3. Any fluid drainage from the incision. 4. Shortness of breath or chest pain. TEDs/Elastic Stockings: * The white elastic stockings help limit swelling and prevent blood clots from forming in your legs. The more you wear them, the more they work. * Wear them for six weeks. Prevention of Infection: * Take antibiotics one hour before any dental cleaning, dental work, urological procedure, gastrointestinal procedure or any invasive surgery in order to prevent your new joint from getting infected. * You may get the antibiotics from the doctor performing the procedure or we will call in a prescription to the pharmacy of your choice. Call the office for a prescription at least 2 days prior to your appointment. Things to Watch For: * Drainage from the incision site that occurs more than one week after your surgery. * Severely increased leg pain or swelling. * Increased redness at the incision site. * Fever above 101 degrees Fahrenheit. * Unusual chest pain or shortness of breath. * Unusual pain or burning with urination. Current Hospital Diet Patient's current hospital diet: AHA Diet (Heart Healthy) Discharge Diet Recommended Diet: AHA Diet (Heart Healthy) Procedures Procedures Performed: Right Total Hip Arthroplasty--Uncemented Pending Studies Studies pending at discharge: no Medical Emergencies . Who to Call and When: Medical Emergencies: If at any time you feel your situation is an emergency, please call 911 immediately. . Non-Emergent Contact Non-Emergency issues call your: Primary Care Provider, Surgeon Call Non-Emergent contact if: temperature is above 100.5, wound has increased drainage, wound has increased redness, wound has increased pain, you have any medication questions . "Provider Documentation" section prepared by Zbigniew Pa PA-C. VTE Core Measure Inpt VTE Proph given/why not?: Warfarin (Coumadin), T.E.D. Stockings, SCD's [place] Drug Monitoring Program Search Results: patient reviewed within database, no issues identified
--- NOTE | 2017-01-10 08:15 | Orthopedic Progress Note ---
Orthopedic Progress Note Date of Service Jan 10, 2017. Subjective Post OP Day: 1 Reports: feeling well, pain controlled w PO medications, Denies: SOB, calf pain , chest pain, complaints, light headedness, nausea / vomiting Additional Notes: desires to go home today Objective calves soft nontender, N/V intact, hip located, capillary refill less than 2 sec., dressing C/D/I, incision C/D/I, A&O x3, toes mobile, CMS intact wound looks very good, minimal drainage on dressings Date Time Temp Pulse Resp B/P Pulse Ox O2 Delivery O2 Flow Rate FiO2 01/10/17 07:30 Room Air 01/10/17 04:00 36.6 67 18 154/74 97 Room Air 01/10/17 00:05 Room Air 01/09/17 23:30 36.6 70 16 122/79 99 Room Air 01/09/17 20:47 70 120/69 01/09/17 19:00 Room Air 01/09/17 18:54 36.4 75 18 142/74 99 Room Air 01/09/17 16:17 36.8 80 18 137/71 97 Room Air 01/09/17 15:05 36.8 72 16 124/70 98 Room Air 01/09/17 14:18 36.7 73 17 122/72 96 Room Air 01/09/17 13:28 36.8 67 17 123/76 99 Room Air 01/09/17 13:00 36.9 64 16 119/75 99 Room Air 01/09/17 13:00 99 Room Air 01/09/17 13:00 99 Room Air 01/09/17 12:24 36.4 62 16 126/66 100 Nasal Cannula 2 01/09/17 11:44 53 15 100 01/09/17 11:44 54 14 01/09/17 11:43 144/64 01/09/17 11:39 53 14 01/09/17 11:39 53 14 100 01/09/17 11:38 107/83 01/09/17 11:34 55 18 01/09/17 11:34 57 18 100 01/09/17 11:33 146/64 01/09/17 11:29 53 13 100 01/09/17 11:29 53 13 01/09/17 11:28 118/78 01/09/17 11:24 55 19 2/8/17 11:24 54 19 143/69 100 01/09/17 11:19 52 14 100 01/09/17 11:19 52 14 01/09/17 11:18 123/64 01/09/17 11:14 56 14 100 01/09/17 11:14 56 14 01/09/17 11:13 131/63 01/09/17 11:09 53 16 01/09/17 11:09 51 14 100 01/09/17 11:08 138/68 01/09/17 11:05 63 13 01/09/17 11:05 54 13 01/09/17 11:03 137/67 01/09/17 11:00 55 11 01/09/17 11:00 57 11 100 01/09/17 10:58 134/73 01/09/17 10:55 36.1 56 12 127/70 100 Nasal Cannula 2 01/09/17 10:55 58 14 100 01/09/17 10:55 57 14 Laboratory Results 24 Hours: Test 01/10/17 05:28 White Blood Count 13.17 K/uL Red Blood Count 2.89 M/uL Hemoglobin 9.0 g/dL Hematocrit 26.9 % Mean Corpuscular Volume 93.1 fL Mean Corpuscular Hemoglobin 31.1 pg Mean Corpuscular Hemoglobin Concent 33.5 g/dl Platelet Count 158 K/uL Mean Platelet Volume 10.8 fL Neutrophils (%) (Auto) 85.3 % Lymphocytes (%) (Auto) 5.4 % Monocytes (%) (Auto) 8.8 % Eosinophils (%) (Auto) 0.0 % Basophils (%) (Auto) 0.1 % Neutrophils # (Auto) 11.24 K/uL Lymphocytes # (Auto) 0.71 K/uL Monocytes # (Auto) 1.16 K/uL Eosinophils # (Auto) 0.00 K/uL Basophils # (Auto) 0.01 K/uL Prothromb Time International Ratio 1.1 Prothrombin Time 12.1 SECONDS Assessment & Plan Assessment: Right hip post op day 1 total hip arthroplasty Plan: PT/OT today anticipate D/C to home with home health later today if she does well with therapy coumadin per nomogram continue total hip precautions dressing changed by me. wound looks good. No active drainage. Discharge Planning Discharge Planning: home with home health Pain Management: Percocet DVT Prophylaxis: TEDs, SCDs, Coumadin Therapy: Physical Therapy
--- NOTE | 2017-01-10 08:16 | Medical Student: [facility] ---
Med Student Progress Note Date of Service Jan 10, 2017. Subjective Pt evaluation today including: conversation w/ patient, physical exam, chart review, lab review, review of studies Pain: 0/10 PO Intake: Tolerating AHA diet Voiding: no voiding problems, no incontinence SS is a 76 y/o 1 day s/p R TIMMY for osteoarthritis. She denies fever, chills, chest pain, or SOB. Pain is well-controlled on current regimen. She reports feeling well and would like to go home today. Review of Systems Constitutional: No chills, No fever Eyes: No problem reported ENT: No problem reported Respiratory: No shortness of breath Cardiac: No chest pain Breast: No problem reported Abdomen: No nausea, No pain, No problem reported, No vomiting Musculoskeletal: No joint pain, No muscle pain, No swelling Female : No problem reported Neurologic: No problem reported Psychiatric: No problem reported Heme: No abnormal bleeding/bruising Endo: No problem reported Skin: No problem reported All Other Systems: Reviewed and Negative Objective Vital Signs Date Time Temp Pulse Resp B/P Pulse Ox O2 Delivery O2 Flow Rate FiO2 01/10/17 07:30 Room Air 01/10/17 04:00 36.6 67 18 154/74 97 Room Air 01/10/17 00:05 Room Air 01/09/17 23:30 36.6 70 16 122/79 99 Room Air 01/09/17 20:47 70 120/69 01/09/17 19:00 Room Air 01/09/17 18:54 36.4 75 18 142/74 99 Room Air 01/09/17 16:17 36.8 80 18 137/71 97 Room Air 01/09/17 15:05 36.8 72 16 124/70 98 Room Air 01/09/17 14:18 36.7 73 17 122/72 96 Room Air 01/09/17 13:28 36.8 67 17 123/76 99 Room Air 01/09/17 13:00 36.9 64 16 119/75 99 Room Air 01/09/17 13:00 99 Room Air 01/09/17 13:00 99 Room Air 01/09/17 12:24 36.4 62 16 126/66 100 Nasal Cannula 2 01/09/17 11:44 53 15 100 01/09/17 11:44 54 14 01/09/17 11:43 144/64 01/09/17 11:39 53 14 01/09/17 11:39 53 14 100 01/09/17 11:38 107/83 01/09/17 11:34 55 18 01/09/17 11:34 57 18 100 01/09/17 11:33 146/64 01/09/17 11:29 53 13 100 01/09/17 11:29 53 13 01/09/17 11:28 118/78 01/09/17 11:24 55 19 01/09/17 11:24 54 19 143/69 100 01/09/17 11:19 52 14 100 01/09/17 11:19 52 14 01/09/17 11:18 123/64 01/09/17 11:14 56 14 100 01/09/17 11:14 56 14 01/09/17 11:13 131/63 01/09/17 11:09 53 16 01/09/17 11:09 51 14 100 01/09/17 11:08 138/68 01/09/17 11:05 63 13 01/09/17 11:05 54 13 01/09/17 11:03 137/67 01/09/17 11:00 55 11 01/09/17 11:00 57 11 100 01/09/17 10:58 134/73 01/09/17 10:55 36.1 56 12 127/70 100 Nasal Cannula 2 01/09/17 10:55 58 14 100 01/09/17 10:55 57 14 01/09/17 08:14 36.7 72 18 146/90 99 Room Air Physical Exam General Appearance: WD/WN, no apparent distress Skin: normal color, warm/dry, no rash Comments: Incision site on R hip is clean with very minimal serous drainage. No erythema, swelling, or evidence of wound dehiscence is visible at the site. Laboratory Results Last 24 Hours Test 01/09/17 08:29 01/10/17 05:28 Sodium Level 144 mmol/L 141 mmol/L Potassium Level 4.3 mmol/L 4.1 mmol/L Chloride Level 109 mmol/L 110 mmol/L Carbon Dioxide Level 26 mmol/L 22 mmol/L Anion Gap 9.0 mmol/L 9.0 mmol/L Blood Urea Nitrogen 30 mg/dl 18 mg/dl Creatinine 0.91 mg/dl 0.91 mg/dl Est Creatinine Clear Calc Drug Dose 46.5 ml/min 46.5 ml/min Estimated GFR () 71.0 71.0 Estimated GFR (Non- 61.3 61.3 BUN/Creatinine Ratio 33.3 19.6 Random Glucose 92 mg/dl 157 mg/dl Calcium Level 9.0 mg/dl 7.9 mg/dl White Blood Count 13.17 K/uL Red Blood Count 2.89 M/uL Hemoglobin 9.0 g/dL Hematocrit 26.9 % Mean Corpuscular Volume 93.1 fL Mean Corpuscular Hemoglobin 31.1 pg Mean Corpuscular Hemoglobin Concent 33.5 g/dl Platelet Count 158 K/uL Mean Platelet Volume 10.8 fL Neutrophils (%) (Auto) 85.3 % Lymphocytes (%) (Auto) 5.4 % Monocytes (%) (Auto) 8.8 % Eosinophils (%) (Auto) 0.0 % Basophils (%) (Auto) 0.1 % Neutrophils # (Auto) 11.24 K/uL Lymphocytes # (Auto) 0.71 K/uL Monocytes # (Auto) 1.16 K/uL Eosinophils # (Auto) 0.00 K/uL Basophils # (Auto) 0.01 K/uL RDW Standard Deviation 44.9 fL RDW Coefficient of Variation 13.3 % Immature Granulocyte % (Auto) 0.4 % Immature Granulocyte # (Auto) 0.05 K/uL Prothrombin Time 12.1 SECONDS Prothromb Time International Ratio 1.1 Assessment and Plan Assessment and Plan: ASSESSMENT: SS is a 76 y/o female day 1 s/p R TIMMY for osteoarthritis. Her pain is well-controlled and there is no evidence of any surgical complications. Pending evaluation from PT, recommend discharge later today. PLAN: 1. History of atrial fibrillation -Resume warfarin today per nomogram 2. S/P R TIMMY -Discharge today with outpatient follow-up
[2017-01-10 08:20] VITALS: BP 133/76; PULSE 60; TEMP 36.3; O2SAT 98
[2017-01-10] MEDS ORDERED: PSEUDOEPHEDRINE HCL 30 MG TAB PO PRN (08:30)
[2017-01-10] MEDS: GABAPENTIN 300 MG CAP PO SCH (08:55)
[2017-01-10] MEDS: FERROUS GLUCONATE 324 MG TAB PO SCH (08:55)
[2017-01-10] MEDS: DOCUSATE SODIUM 100 MG CAP PO SCH (08:55)
[2017-01-10] MEDS: OXYCODONE HCL IR 5 MG TAB (IMMEDIATE RELEASE) PO PRN ×2 (08:56→12:10)
[2017-01-10] MEDS ORDERED: MULTIVITAMIN TAB PO SCH (09:00)
[2017-01-10] MEDS ORDERED: PANTOprazole SOD 40 MG TAB PO SCH (09:00)
[2017-01-10] MEDS ORDERED: LISINOPRIL 10 MG TAB PO SCH (09:00)
[2017-01-10 11:25] VITALS: BP 120/77; PULSE 67; TEMP 36.7; O2SAT 97
--- NOTE | 2017-01-10 14:22 | Progress Note ---
Internal Med Progress Note Date of Service: Jan 10, 2017. Provider Documentation: SUBJECTIVE: The patient was seen and examined Complains of some pain at the operated hip No0 other complaints OBJECTIVE: Vital Signs-as noted below Exam: General-No distress at rest Eyes-normal ENT-normal Neck-supple Lungs-Clear to auscultate bilaterally Heart-Regular,no murmur appreciated Abdomen-Benign,no masses,bowel sound present Extremities-No edema Neuro-AAOx3 Lab data as noted below. ASSESSMENT & PLAN: RIGHT TOTAL HIP ARTHROPLASTY -POD# [address] Bains -Management as per ortho to include- pain control, bowel regimen, DVT prophylaxis, PT/OT, incentive spirometry, wound care -Memoien added prn HS for sleep -No acute Issue -Getting PT -Likely discharge today H/O TACHYBRADY SYNDROME -s/p pacemaker -continue Atenolol -no acute issue HYPOTHYROIDISM -continue Synthroid RHEUMATOID ARTHRITIS -continue Prednisone -BP stable, no indication for stress dosing of steroids at this time -will hold Lisinopril to avoid hypotension -monitor closely -No acuet Arthritis GERD -continue PPI H/O MRSA -contact precautions -perioperative Abx per ortho DVT PROPHYLAXIS: per ortho CODE STATUS: FULL CODE DISPO:per ortho Medically stable Vital Signs: Date Time Temp Pulse Resp B/P Pulse Ox O2 Delivery O2 Flow Rate FiO2 01/10/17 11:25 36.7 67 16 120/77 97 Room Air 01/10/17 11:10 36.3 60 16 98 Room Air 01/10/17 08:20 36.3 60 16 133/76 98 Room Air 01/10/17 07:30 Room Air 01/10/17 04:00 36.6 67 18 154/74 97 Room Air 01/10/17 00:05 Room Air 01/09/17 23:30 36.6 70 16 122/79 99 Room Air 01/09/17 20:47 70 120/69 01/09/17 19:00 Room Air 01/09/17 18:54 36.4 75 18 142/74 99 Room Air 01/09/17 16:17 36.8 80 18 137/71 97 Room Air 01/09/17 15:05 36.8 72 16 124/70 98 Room Air Lab Results: Results Past 24 Hours Test 01/10/17 05:28 Range/Units White Blood Count 13.17 4.8-10.8 K/uL Red Blood Count 2.89 4.2-5.4 M/uL Hemoglobin 9.0 12.0-16.0 g/dL Hematocrit 26.9 37-47 % Mean Corpuscular Volume 93.1 80-100 fL Mean Corpuscular Hemoglobin 31.1 25-34 pg Mean Corpuscular Hemoglobin Concent 33.5 32-36 g/dl Platelet Count 158 130-400 K/uL Mean Platelet Volume 10.8 7.4-10.4 fL Neutrophils (%) (Auto) 85.3 % Lymphocytes (%) (Auto) 5.4 % Monocytes (%) (Auto) 8.8 % Eosinophils (%) (Auto) 0.0 % Basophils (%) (Auto) 0.1 % Neutrophils # (Auto) 11.24 1.4-6.5 K/uL Lymphocytes # (Auto) 0.71 1.2-3.4 K/uL Monocytes # (Auto) 1.16 0.11-0.59 K/uL Eosinophils # (Auto) 0.00 0-0.5 K/uL Basophils # (Auto) 0.01 0-0.2 K/uL RDW Standard Deviation 44.9 36.4-46.3 fL RDW Coefficient of Variation 13.3 11.5-14.5 % Immature Granulocyte % (Auto) 0.4 % Immature Granulocyte # (Auto) 0.05 0.00-0.02 K/uL Prothrombin Time 12.1 9.0-12.0 SECONDS Prothromb Time International Ratio 1.1 0.9-1.1 Sodium Level 141 136-145 mmol/L Potassium Level 4.1 3.5-5.1 mmol/L Chloride Level 110 98-107 mmol/L Carbon Dioxide Level 22 21-32 mmol/L Anion Gap 9.0 3-11 mmol/L Blood Urea Nitrogen 18 7-18 mg/dl Creatinine 0.91 0.60-1.20 mg/dl Est Creatinine Clear Calc Drug Dose 46.5 ml/min Estimated GFR () 71.0 Estimated GFR (Non- 61.3 BUN/Creatinine Ratio 19.6 10-20 Random Glucose 157 70-99 mg/dl Calcium Level 7.9 8.5-10.1 mg/dl
[2017-01-10] MEDS ORDERED: WARFARIN SOD 5 MG TAB PO SCH (16:00)
[2017-01-10] MEDS ORDERED: ACETAMINOPHEN 325 MG TAB PO PRN (16:00)
== END 2017-01-10 12:59 | disposition home health service (06) | DRG 470 ==
LOC: ENRESERVTM → ENRESERVDT → C.ACU 07:53 → UNDOADMIN 08:50 → C.3E 08:50
PROVIDERS: ADMIT Physical Medicine & Rehabilitation Sports Medicine; ATTEND Physical Medicine & Rehabilitation Sports Medicine
PROC: 0SR90JA Replacement of Right Hip Joint with Synthetic Substitute, Uncemented, Open Approach (ICD-10-PCS; principal; 2017-01-09 10:40)
DX: M16.11 Unilateral primary osteoarthritis, right hip (principal); I44.2 Atrioventricular block, complete; M06.9 Rheumatoid arthritis, unspecified; K21.9 Gastro-esophageal reflux disease without esophagitis; E03.9 Hypothyroidism, unspecified; M81.0 Age-related osteoporosis without current pathological fracture; J32.9 Chronic sinusitis, unspecified; I34.1 Nonrheumatic mitral (valve) prolapse; M48.00 Spinal stenosis, site unspecified; Q24.9 Congenital malformation of heart, unspecified; I49.1 Atrial premature depolarization; I49.3 Ventricular premature depolarization; I10 Essential (primary) hypertension; M54.5 Low back pain; M54.2 Cervicalgia; D64.9 Anemia, unspecified; E66.9 Obesity, unspecified; Z68.30 Body mass index [BMI] 30.0-30.9, adult; Z96.652 Presence of left artificial knee joint; Z79.899 Other long term (current) drug therapy; Z86.14 Personal history of Methicillin resistant Staphylococcus aureus infection; Z86.2 Personal history of diseases of the blood and blood-forming organs and certain disorders involving the immune mechanism; Z86.79 Personal history of other diseases of the circulatory system; Z87.442 Personal history of urinary calculi; Z95.0 Presence of cardiac pacemaker; Z85.828 Personal history of other malignant neoplasm of skin; Z79.891 Long term (current) use of opiate analgesic; Z79.1 Long term (current) use of non-steroidal anti-inflammatories (NSAID); Z79.52 Long term (current) use of systemic steroids; Z79.83 Long term (current) use of bisphosphonates

== ENCOUNTER → 2017-02-04 | Outpatient (CLI) | payer OTHER, MEDICARE ==
[~2017-02-04] MED LIST changes: +ATEN50TA8 PO; -BUPIVACAINE 0.5 % 5 MG/1 ML PF 10ML VIAL ONE; -CEFAZOLIN 2000 MG/60 ML D5W 60 ML IV SCH; +DOXY100C2 PO; -FENTANYL CITRATE INJ 50 MCG/1 ML 2 ML VIAL ONE; +FLUT0.15 NAE; -HYDR-5688 PO; -HYDROCORTISONE IV 100 MG in SYRINGE 0 ML IV SCH; -LACTATED RINGER'S 1000ML IV SCH; -LIDOCAINE HCL 2% 2 ML VIAL (20MG/ML) ONE; -MIDAZOLAM HCL 1 MG/ML 2ML VIAL ONE; +NITR0.4S UT; -OMEGCAP2 PO; +OXYC-57 PO; -POVIDONE-IODINE OP SOLN 30 ML BTL ONE; +PRED10TA PO; -PROPOFOL IV EMULSION 10 MG/ML 20 ML VIAL IV ONE; +RIFA150C15 PO; -ROPIVACAINE 5MG/ML 30 ML 150 MG, BUPIVACAINE/EPINEPHR 0.5% MPF 30 ML, KETOROLAC TROMETH... INFIL SCH; +SYN50 PO; -TRANEXAMIC ACID INJ 1,000 MG in SODIUM CHLORIDE 0.9% 100ML 100 ML IV SCH; +WARF2TAB PO
--- NOTE | 2017-02-04 13:55 | DIAGNOSTIC IMAGING REPORT ---
RIGHT PELVIS UNILATERAL HIP 1 VIEW CLINICAL HISTORY: F/U S/P RIGHT TIMMY Right. Right hip pain. COMPARISON STUDY: Pelvis and right hip 01/09/2017. FINDINGS: There is a right total hip arthroplasty. The hardware appears intact. No acute fracture or dislocation. 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 IMPRESSION: 1. No acute fracture or dislocation within the pelvis or hips. 2. Right total arthroplasty. The hardware appears intact. Electronically signed by: Keny Bermudez M.D. 02/04/2017 1:53 PM Dictated Date/Time: 02/04/2017 1:52 PM
== END | disposition home or self-care (01) ==
LOC: C.RDSM 13:24
PROVIDERS: ATTEND Physical Medicine & Rehabilitation Sports Medicine
DX: Z96.641 Presence of right artificial hip joint (principal)

== ENCOUNTER 2017-03-16 09:17 | Observation (INO) | payer OTHER, MEDICARE ==
[~2017-03-16] VITALS: Ht 152.4 cm; Wt 72.2 kg
[2017-03-16] VITALS (18 sets, daily range): BP systolic 101–149; BP diastolic 58–108; PULSE 64–80; TEMP 36.2–36.9; O2SAT 94–100; Ht 152.4 cm; Wt 72.2 kg
[~2017-03-16 09:17] MED LIST changes: -ATEN50TA8 PO; -DOXY100C2 PO; -FLUT0.15 NAE; -MELO15TA4 PO; -NITR0.4S UT; -PRED10TA PO; -RIFA150C15 PO; -SYN50 PO; -TRAM-10 PO
[2017-03-16] MEDS ORDERED: ONDANSETRON 8 MG/54 ML D5W IV STA (09:42)
[2017-03-16] MEDS: FENTANYL CITRATE INJ 50 MCG/1 ML 2 ML VIAL IV PRN ×4 (09:59→12:05)
[2017-03-16] MEDS ORDERED: DOXY100C2 PO (10:00)
[2017-03-16] MEDS ORDERED: SYN50 PO (10:00)
[2017-03-16 10:04] LABS: BASO % 0.6 %; BASO ABS # 0.05 K/uL (0-0.2); COMPLETE YES; EOS % 1.9 %; HEMATOCRIT 37.7 % (37-47); IG% 2.1 %; LYMPH % 29.3 %; LYMPH ABS # 2.27 K/uL (1.2-3.4); MEAN CORPUSCULAR HEMOGLOBIN 30.4 pg (25-34); MEAN CORPUSCULAR HGB CONC 32.4 g/dl (32-36); MEAN PLATELET VOLUME 10.4 fL (7.4-10.4); MONO % 7.6 %; NEUT % 58.5 %; PLATELET COUNT 201 K/uL (130-400); RED BLOOD COUNT 4.01 M/uL (4.2-5.4); WHITE BLOOD COUNT 7.76 K/uL (4.8-10.8)
[2017-03-16] MEDS ORDERED: MELO15TA4 PO (10:08)
[2017-03-16 10:12] LABS: PARTIAL THROMBOPLASTIN RATIO 1.2; PROTHROMBIN TIME (PATIENT) 10.8 SECONDS (9.0-12.0)
--- NOTE | 2017-03-16 10:14 | DIAGNOSTIC IMAGING REPORT ---
RIGHT HIP 2 VIEWS HISTORY: Fall, hip pain-right. 2 m/o sp replacement Right COMPARISON: None. FINDINGS: There is a right total hip arthroplasty. There is superior dislocation of the femoral prosthesis in relation to the acetabular cup. No fractures identified. IMPRESSION: Right femoral prosthesis dislocation. No fractures. Electronically signed by: Keny Bermudez M.D. 03/16/2017 10:12 AM Dictated Date/Time: 03/16/2017 10:11 AM
[2017-03-16 10:17] LABS: CALCIUM 8.9 mg/dl (8.5-10.1); CREATININE 0.81 mg/dl (0.60-1.20); POTASSIUM 3.8 mmol/L (3.5-5.1)
--- NOTE | 2017-03-16 10:17 | EMERGENCY ROOM VISIT NOTE ---
Post-Moderate Sedation Plan General Date of Moderate Sedation Mar 16, 2017. Vital Signs: Vital Signs Past 12 Hours Date Time Temp Pulse Resp B/P Pulse Ox O2 Delivery O2 Flow Rate FiO2 03/16/17 09:23 37.2 83 18 104/71 98 Review - Discharge Plan Post Moderate Sedation Plan: The patient received incremental boluses of ketamine and propofol. Good sedation was achieved however the procedure could not be completed. Orthopedics felt the patient would need general anesthesia and will consult with them for intervention. On clinical assessment, the patient appears to have tolerated the conscious sedation without complications. Patient has recovered as anticipated. Patient will continue to be monitored by nursing and taken to the operative suite for further intervention for the persistent dislocation.
--- NOTE | 2017-03-16 10:17 | EMERGENCY ROOM VISIT NOTE ---
Pre-Mod Sedation Assessment General Date of Moderate Sedation: Mar 16, 2017. Vital Signs: Vital Signs Past 12 Hours Date Time Temp Pulse Resp B/P Pulse Ox O2 Delivery O2 Flow Rate FiO2 03/16/17 09:23 37.2 83 18 104/71 98 Review Cardiovascular: regular rate, rhythm, no edema, no JVD Abdomen: non tender, soft Lungs: chest non-tender, lungs clear, normal breath sounds, no respiratory distress Pre-Sedation Airway Assessment Oral Cavity: WNL Short Thick Neck: No Hx of Sleep Apnea: No Smoking Status: Never Smoker Mallampati Classification: Class I ASA Classification: Class III Procedure Planning Contraindications-for Mod Sed: None Notes The planned sedation has been discussed with the patient and consent obtained. I have identified the patient, determined the appropriateness of sedation and have assessed the patient immediately prior to the procedure. All medicine(s) and interventions are by my order.
[2017-03-16] MEDS ORDERED: KETAMINE HCL INJ 50 MG/ML 10 ML VIAL IV STA (10:21)
[2017-03-16] MEDS ORDERED: PROPOFOL IV EMULSION 10 MG/ML 20 ML VIAL IV STA (10:21)
--- NOTE | 2017-03-16 10:36 | HISTORY & PHYSICAL EXAMINATION ---
attDATE OF CONSULTATION: 03/16/2017 DATE OF CONSULTATION: 03/16/2017. HISTORY OF PRESENT ILLNESS: The patient is recently status post total hip replacement. This was done on 01/09/2017. She was in her usual state of good health until she slipped in the shower this morning sustaining a traumatic fall and dislocated her right hip replacement that was performed again on 01/09/2017. She has not eaten or drank in pain. She has some IV sedation by ER physician, Dr. Hernandez. He has consented her for conscious sedation and I will do a closed reduction. I have obtained verbal consent from her. PHYSICAL EXAMINATION: EXTREMITIES: Exam reveals the right leg to be shortened and internally rotated. Neurovascular check femoral sciatic nerve is intact. ABDOMEN: Soft, nontender. HEAD: Without trauma. X-rays are reviewed revealing a superior lateral dislocation. Likely occurred with her adducting and hyperflexing her leg with the fall. ASSESSMENT: Closed dislocation, right total hip replacement traumatically induced. At this point in time, we will proceed with closed reduction with sedation by ER physician. Again verbal consent obtained from patient. attemps at reduction in ER without success....will need general anesthesia. ROSAD
--- NOTE | 2017-03-16 11:13 | DIAGNOSTIC IMAGING REPORT ---
PELVIS ONE VIEW HISTORY: postreduction right hip COMPARISON: Right hip 03/16/2017. FINDINGS: Persistent superior dislocation of the right femoral prosthesis in relation to the acetabular cup. Degenerative changes at the symphysis pubis. No fractures within the visualized pelvis or hips. IMPRESSION: No change in the dislocated right femoral prosthesis Electronically signed by: Keny Bermudez M.D. 03/16/2017 11:11 AM Dictated Date/Time: 03/16/2017 11:10 AM
--- NOTE | 2017-03-16 11:28 | HISTORY & PHYSICAL EXAMINATION ---
DATE OF ADMISSION: 03/16/2017 CHIEF COMPLAINT: Right hip pain. HISTORY OF PRESENT ILLNESS: The patient slipped and fell in the shower sustained a traumatic induced right total hip replacement. Attempts at closed reduction in the ER were unsuccessful, could not get the patient to relax enough. X-rays did not reveal any fracture. PAST MEDICAL HISTORY: Remarkable for osteoarthritis, actinic keratosis, chronic sinusitis, history of squamous cell carcinoma, hypertension, mitral valve prolapse, history of pericarditis, PVCs, rheumatoid arthritis, kidney stones, GERD, spinal stenosis, hypothyroidism, thrombocytopenia, does have a pacemaker. PAST SURGICAL HISTORY: Include toe surgeries, left total knee replacement, multiple hand surgeries, shoulder surgery, left patellar tendon debridement, cardiac ablation x2, CMC reconstruction, and bilateral cataracts. PREADMISSION MEDICATIONS: Include atenolol, Flexeril, gabapentin, Synthroid, Mobic, omeprazole, prednisone, and Reclast. Also uses tramadol. FAMILY HISTORY: Remarkable for stroke and osteoarthritis. SOCIAL HISTORY: Reveals she is , retired, does not use tobacco or alcohol. REVIEW OF SYSTEMS: Reveals no chest pain, shortness of breath, fevers, chills or other trauma to her head or neck. PHYSICAL EXAMINATION: HEENT: Reveals to be without trauma. CHEST: Is clear. HEART: Regular rate and rhythm. I do not hear any loud murmur. ABDOMEN: Soft, nontender. NEUROLOGIC: Neurologic function in her upper and lower extremity within normal limits. LABORATORY WORK: Reveals no issues. X-ray reveals no fracture, dislocated hip. ASSESSMENT: Dislocated traumatically induced right total hip replacement. Will need general anesthesia to reduce. Consent obtained. Also obtained permission for open reduction if necessary. CLEO
[2017-03-16] MEDS ORDERED: ATROPINE SULFATE 0.1 MG/ML 5ML SYR IV PRN (11:45)
[2017-03-16] MEDS ORDERED: PHENYLEPHRINE 100MCG/ML 5ML SYR IV PRN (11:45)
[2017-03-16] MEDS ORDERED: ONDANSETRON INJ 2 MG/ML 2 ML VIAL IV PRN ×3 (11:45→15:45)
[2017-03-16] MEDS ORDERED: EpHEDrine SULFATE INJ 50 MG/ML AMP IV PRN (11:45)
[2017-03-16] MEDS ORDERED: FLUMAZENIL 0.1 MG/1 ML 10 ML VIAL IV PRN (11:45)
[2017-03-16] MEDS ORDERED: NALOXONE HCL 0.4 MG/1 ML VIAL/CARP IV PRN (11:45)
[2017-03-16] MEDS ORDERED: FENTANYL CITRATE INJ 50 MCG/1 ML 2 ML VIAL IV PRN (11:45)
[2017-03-16] MEDS ORDERED: HYDROmorphone INJ 2 MG/ML SYR/VIAL IV PRN (11:45)
[2017-03-16] MEDS ORDERED: MEPERIDINE HCL 25 MG/ML CARP IV PRN (11:45)
[2017-03-16] MEDS ORDERED: LABETALOL HCL IV 5 MG/ML 20ML IV PRN (11:45)
[2017-03-16] MEDS ORDERED: FENTANYL CITRATE INJ 50 MCG/1 ML 2 ML VIAL ONE ×2 (12:28→12:57)
[2017-03-16] MEDS ORDERED: ROCURONIUM BROMID 50MG/5ML SYR ONE (12:28)
[2017-03-16] MEDS ORDERED: PROPOFOL IV EMULSION 10 MG/ML 20 ML VIAL IV ONE (12:28)
[2017-03-16] MEDS ORDERED: LIDOCAINE HCL 2% 2 ML VIAL (20MG/ML) ONE (12:28)
[2017-03-16] MEDS ORDERED: SUCCINYLCHOLINE CHLORIDE 20 MG/ML 10 ML VIAL IV ONE (12:28)
--- NOTE | 2017-03-16 12:33 | [facility] Post Operative Brief Note ---
Immediate Operative Summary Operative Date Mar 16, 2017. Pre-Operative Diagnosis Traumatic dilocation of R hip TIMMY Post-Operative Diagnosis same Procedure(s) Performed closed reduction Surgeon ivett Cadd Drafter Surgeon(s) germán Estimated Blood Loss 0 Findings dilocated/stable post reduction Fluids (cc crystalloids) 300cc Specimens none Drains none Anesthesia General with succinylcholine Complication(s) None Disposition Recovery Room / PACU
--- NOTE | 2017-03-16 12:45 | Discharge Instructions ---
Discharge Instructions Date of Service Mar 16, 2017. Visit Reason for Visit: FALL Discharge Discharge Diagnosis / Problem: Right total hip dislocation Discharge Goals Goal(s): Decrease discomfort, Improve function, Increase independence Activity Recommendations Activity Limitations: per Instructions/Follow-up section Weightbearing Status: Left weightbearing (as tolerated), Right partial Anesthesia . Post Anesthesia Instructions: If you have had General Anesthesia or IV Sedation: * Do not drive today. * Resume driving when surgeon permits. * Do not make important decisions or sign legal documents today. * Call surgeon for: 1. Temperature elevations greater than 101 degrees F. 2. Uncontrollable pain. 3. Excessive bleeding. 4. Persistent nausea and vomiting. 5. Medication intolerance (nausea, vomiting or rash). * For nausea and vomiting use only clear liquids such as: tea, soda, bouillon until nausea subsides, then gradually increase diet as tolerated. * If you have any concerns or questions, call your surgeon's office. If physician is unavailable and it is an emergency, call 911 or go to the nearest emergency room. . Instructions / Follow-Up Instructions / Follow-Up DIET: * Resume previous diet. MEDICATIONS: * Please take your prescriptions as instructed at your pre-op appointment and/ or see medication discharge instructions listed above. * If concerns develop, call your physician's office at . SPECIAL CARE INSTRUCTIONS: * Ice to right hip as needed for pain/swelling * Keep knee immobilizer on right leg at all times. May loosen to readjust. * Use walker to assist with ambulation at all times * Partial weight bearing right lower extremity * Posterior hip precautions at all times. - Observe the following precautions to prevent dislocation: 1. Don't bend your hip greater than 90 degrees. 2. Avoid crossing your legs or ankles while standing or lying. 3. Sit with your feet placed 6 inches apart. 4. When sitting, keep your knees below your hips. Sit on a firm surface, avoid deep, soft chairs and couches. Use an elevated toilet seat in the bathroom. 5. Don't bend over at the waist. Use a long handled shoehorn and a sock aid to help you put on your shoes and socks. A media center specialist can help you continuous pickling line pickler helper objects that are too high or too low to reach. 6. Keep car riding to a minimum for at least one month after surgery. B. Your balance may be shaky for a while. Use crutches or a walker until directed by your doctor. C. Use hand rails when walking on stairs. D. Wear low heeled shoes with non-slip soles. E. Be sure that your floors are free of things that could trip you - throw rugs , electrical cords, small objects. Avoid wet and waxed floors, especially with crutches and canes. F. Try to walk several times a day with rest periods between. G. Continue with all the exercises taught to you in the hospital. Again, make walking a part of your daily routine. Call your doctor at [phone] if: * Temperature above 101 degrees * Pain not relieved by pain medicine ordered * There is increased drainage or redness from any incision * You have any unanswered questions, problems or concerns. FOLLOW UP VISIT: * If not already scheduled, please call the office at to schedule a follow-up appointment. * Call Dr. Bains's office to scheduled a 1 week follow up appointment. Diet Recommendations Recommended Home Diet: no limitations, resume previous diet Procedures Procedures Performed: closed reduction Pending Studies Studies pending at discharge: no Medical Emergencies . Who to Call and When: Medical Emergencies: If at any time you feel your situation is an emergency, please call [phone] immediately. . Non-Emergent Contact Non-Emergency issues call your: Surgeon Call Non-Emergent contact if: your pain is not controlled, your pain is worsening . . "Provider Documentation" section prepared by Michelle Mitchell. [place] Drug Monitoring Program Search Results: patient reviewed within database, no issues identified
--- NOTE | 2017-03-16 12:53 | OPERATIVE REPORT ---
DATE OF OPERATION: 03/16/2017 SURGEON: Kj Bains MD TREASURY SPECIALIST: Michelle Mitchell PA-C PREOPERATIVE DIAGNOSIS: Dislocated traumatically induced right total hip replacement. POSTOPERATIVE DIAGNOSIS: Same. OPERATION PERFORMED: Closed reduction. PERIOPERATIVE SITUATION: Medically cleared female who had an attempt at a deep sedation in the ER, but was unable to get enough relaxation. At this point in time we will proceed with succinylcholine induced general anesthetic LMA and reduction. PROCEDURE: The patient appropriately identified, site verified, consent verified, time out performed. The right lower extremity was reduced with significant traction, internal rotation, adduction and pressure on the trochanter, it then reduced with an audible and visible clunk. Post-reduction revealed the implant to be reduced with on untoward effects on the implant or on the bone. At this point in time, she will be weightbearing to tolerance, postural indiscretion precautions, can be discharged from holding area. Estimated blood loss trace. Crystalloid 300 mL. Follow up in the office in a week. No DVT prophylaxis required. I attest to the content of the Intraoperative Record and any orders documented therein. Any exceptio ns are noted below.
[2017-03-16] MEDS ORDERED: PRED10TA PO (12:54)
[2017-03-16] MEDS ORDERED: TRAM-10 PO (12:54)
[2017-03-16] MEDS ORDERED: SODIUM CHLORIDE 0.9% 1000ML 1,000 ML IV SCH (12:54)
--- NOTE | 2017-03-16 12:57 | DIAGNOSTIC IMAGING REPORT ---
HIP OR FILMS CLINICAL HISTORY: RIGHT HIP CLOSED REDUCTION COMPARISON STUDY: 03/16/2017. FLUOROSCOPY TIME: 22 seconds. FINDINGS: 4 fluoroscopic spot images. Patient is status post closed reduction of a right hip femoral prosthesis dislocation. Alignment appears anatomic. No fractures. IMPRESSION: Fluoroscopy provided for reduction of a right femoral prosthesis dislocation. The alignment appears anatomic. Electronically signed by: Keny Bermudez M.D. 03/16/2017 12:54 PM Dictated Date/Time: 03/16/2017 12:54 PM
[2017-03-16] MEDS ORDERED: MoRPHine SULFATE 2 MG/ML CARP IV PRN ×2 (13:00)
[2017-03-16] MEDS ORDERED: OXYCODONE/ACETAMINOPHEN 5-325 TAB PO PRN ×2 (13:00)
--- NOTE | 2017-03-16 13:13 | [facility] Operative Report ---
Operative Report Operative Date Mar 16, 2017. Pre-Operative Diagnosis Traumatic dislocation of R hip TIMMY Post-Operative Diagnosis Traumatic dislocation or right TIMMY Procedure(s) Performed Closed reduction right Total Hip Replacement Surgeon ivett Emergency Operator Surgeon(s) Michelle Mitchell PA-C Estimated Blood Loss 0 Findings dislocation right total hip replacement Fluids 300cc Specimens none Drains none Anesthesia General with succinylcholine Complication(s) None Disposition Recovery Room / PACU (stable) Indications Patient is a 76 year old female who presented to the ED after a slip in the shower today injuring her right hip. She is s/p a right total hip replacement in January with Dr. Bains. X-rays were taken, she was found to have a right total hip dislocation. Attempted closed reduction in the ED. She was not able to be relaxed enough, recommended to go to OR for reduction. Risks/ complications discussed, informed consent obtained. Description of Procedure Patient was taken to the operating room, no antibiotics were indication. She was sedated. Time out performed. Closed reduction was attempted and successful with fluoroscopy guidance. She was awakened and taken to the recovery room in stable condition. I was present the entire case,please see Dr. Bains's operative report for further details. I attest to the content of the Intraoperative Record and any orders documented therein. Any exceptions are noted below.
--- NOTE | 2017-03-16 13:29 | Anesthesiology Progress Note ---
Anesthesia Post Op Note Date & Time Mar 16, 2017 at 13:28 Vital Signs Pain Intensity: 3 Vital Signs Past 12 Hours Date Time Temp Pulse Resp B/P Pulse Ox O2 Delivery O2 Flow Rate FiO2 03/16/17 13:20 71 19 137/40 98 Nasal Cannula 2 03/16/17 13:10 68 22 132/66 100 Nasal Cannula 2 03/16/17 13:00 68 14 115/66 100 Mask 10 03/16/17 12:50 71 16 120/71 100 Mask 10 03/16/17 12:43 36.1 79 16 114/53 100 Mask 10 03/16/17 12:02 72 37 135/59 100 Room Air 03/16/17 11:37 72 32 145/83 100 Room Air 03/16/17 11:23 36.9 73 22 146/74 100 Room Air 03/16/17 11:15 72 12 131/67 100 Nasal Cannula 2.0 03/16/17 11:10 67 35 136/108 100 Non-Rebreather 03/16/17 11:04 64 22 127/77 100 Non-Rebreather 03/16/17 10:59 68 30 139/94 100 Non-Rebreather 03/16/17 10:55 66 24 146/76 100 03/16/17 10:51 67 28 101/85 100 Non-Rebreather 03/16/17 10:44 68 29 101/85 100 Non-Rebreather 03/16/17 10:41 70 11 149/76 100 Non-Rebreather 03/16/17 10:39 67 35 138/71 100 Non-Rebreather 03/16/17 10:37 69 03/16/17 09:23 37.2 83 18 104/71 98 Notes Mental Status: alert / awake / arousable, participated in evaluation Pt Amnestic to Procedure: Yes Nausea / Vomiting: adequately controlled Pain: adequately controlled Airway Patency, RR, SpO2: stable & adequate BP & HR: stable & adequate Hydration State: stable & adequate Anesthetic Complications: no major complications apparent
[2017-03-16] MEDS ORDERED: ONDANSETRON INJ 2 MG/ML 2 ML VIAL ONE (13:58)
[2017-03-16] MEDS ORDERED: KETOROLAC TROMETHAMINE 15 MG/ML VIAL IV. PRN (15:45)
[2017-03-16] MEDS ORDERED: ACETAMINOPHEN 325 MG TAB PO PRN (15:45)
[2017-03-16] MEDS ORDERED: TRAMADOL HCL 50 MG TAB PO PRN (16:00)
[2017-03-16] MEDS ORDERED: CYCLOBENZAPRINE HCL 5 MG TAB PO PRN (16:00)
--- NOTE | 2017-03-16 16:01 | DIAGNOSTIC IMAGING REPORT ---
CHEST ONE VIEW PORTABLE CLINICAL HISTORY: Right lower rib pain. COMPARISON STUDY: Chest radiograph January 04, 2017. FINDINGS: A dual lead left subclavian pacemaker is in place. Cardiomediastinal silhouette is stable. No evidence for pulmonary edema. Elevation/eventration of the right hemidiaphragm is unchanged. There is an old fracture of the posterior right fourth rib. No acute fracture is identified although sensitivity is diminished on this portable AP exam. There is no pneumothorax. IMPRESSION: 1. No acute findings. 2. No pneumothorax. No acute right rib fractures identified although sensitivity diminished on portable AP exam. Electronically signed by: Rashel Ochoa M.D. 03/16/2017 3:59 PM Dictated Date/Time: 03/16/2017 3:56 PM
--- NOTE | 2017-03-16 16:04 | DIAGNOSTIC IMAGING REPORT ---
RIGHT TIBIA/FIBULA 2 VIEWS ROUTINE CLINICAL HISTORY: Right lower leg pain. COMPARISON: Knee radiographs September 19, 2015. FINDINGS: Note is made of a transverse lucency through a healed fracture of the proximal shaft of the right fibula. This suggests an acute nondisplaced fracture superimposed upon a healed fracture. No acute fracture of the right tibia is identified. Postsurgical findings within the right midfoot are noted. Alignment of the right ankle and knee appears anatomic. IMPRESSION: Acute nondisplaced fracture extending through a healed fracture of the proximal shaft of the right fibula. Electronically signed by: Rashel Ochoa M.D. 03/16/2017 4:02 PM Dictated Date/Time: 03/16/2017 3:59 PM
--- NOTE | 2017-03-16 16:12 | PROGRESS NOTE ---
DATE: 03/16/2017 SUBJECTIVE: At this point in time the patient was noted on secondary survey by nursing that she had significant lower leg pain about 3 cm below the knee. She does have a remote history of osteopenia and fracture there. Secondary survey by me today reveals pain there. X-ray AP and lateral of the tib-fib reveals a nondisplaced bayonet type fracture through the old area of injury consistent with a blunt contusion. She states that there is ledge on the shower and her leg likely fell on to that when she landed on her right side. Also, complaining of some chest tenderness. She has a history of rib fractures. Chest x-ray taken today which will be officially read by radiology is pending. There is some subtle rib deformity, but no significant rib stepoff. There is old trauma there. ASSESSMENT: Status post traumatic dislocation of right hip associated with traumatic induced pain at fracture of the right fibula. Has some scuff dozier along the right leg as well, but there is no tenderness and no area of other bony injury noted or tendon injury noted. PLAN: At this point in time since she is so uncomfortable, weightbearing requires assist of 2, is to admit for observation overnight and get some PT, OT. Can be weightbearing to tolerance on the right leg. Will adjust pain medications as indicated. CLEO
--- NOTE | 2017-03-16 16:13 | Pharmacy Progress Note ---
Anticoagulant Dosing Consult Date of Service: Mar 16, 2017. Pharmacy Dosing Scope Pharmacy is consulted to initiate/evaluate heparin 5000 units SQ q12 dosing therapy, order appropriate labs and adjust drug dose/frequency. 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 Objective Height (Feet): 5 Height (Inches): 0 Weight (Kilograms): 72.200 Laboratory Results: Last 24 Hours Test 03/16/17 09:50 Activated Partial Thromboplast Time 30.1 SECONDS (21.0-31.0) Blood Urea Nitrogen 31 mg/dl (7-18) Creatinine 0.81 mg/dl (0.60-1.20) White Blood Count 7.76 K/uL (4.8-10.8) Red Blood Count 4.01 M/uL (4.2-5.4) Hemoglobin 12.2 g/dL (12.0-16.0) Hematocrit 37.7 % (37-47) Mean Corpuscular Volume 94.0 fL (80-100) Mean Corpuscular Hemoglobin 30.4 pg (25-34) Mean Corpuscular Hemoglobin Concent 32.4 g/dl (32-36) Platelet Count 201 K/uL (130-400) Mean Platelet Volume 10.4 fL (7.4-10.4) Neutrophils (%) (Auto) 58.5 % Lymphocytes (%) (Auto) 29.3 % Monocytes (%) (Auto) 7.6 % Eosinophils (%) (Auto) 1.9 % Basophils (%) (Auto) 0.6 % Neutrophils # (Auto) 4.54 K/uL (1.4-6.5) Lymphocytes # (Auto) 2.27 K/uL (1.2-3.4) Monocytes # (Auto) 0.59 K/uL (0.11-0.59) Eosinophils # (Auto) 0.15 K/uL (0-0.5) Basophils # (Auto) 0.05 K/uL (0-0.2) Partial Thromboplastin Ratio 1.2 Last 72 Hours Test 03/16/17 09:50 White Blood Count 7.76 K/uL Red Blood Count 4.01 M/uL Hemoglobin 12.2 g/dL Hematocrit 37.7 % Mean Corpuscular Volume 94.0 fL Mean Corpuscular Hemoglobin 30.4 pg Mean Corpuscular Hemoglobin Concent 32.4 g/dl Platelet Count 201 K/uL Mean Platelet Volume 10.4 fL Neutrophils (%) (Auto) 58.5 % Lymphocytes (%) (Auto) 29.3 % Monocytes (%) (Auto) 7.6 % Eosinophils (%) (Auto) 1.9 % Basophils (%) (Auto) 0.6 % Neutrophils # (Auto) 4.54 K/uL Lymphocytes # (Auto) 2.27 K/uL Monocytes # (Auto) 0.59 K/uL Eosinophils # (Auto) 0.15 K/uL Basophils # (Auto) 0.05 K/uL Prothromb Time International Ratio 1.0 Assessment & Plan Regarding PROPHYLACTIC heparin: Continue heparin 5000 units SQ every 12 hours. Labs: Will order CBC including platelets to be drawn every 3 days according to profiles. Ongoing Labs (P&T Approved): We will continue to monitor this patient and make adjustments as needed. Thank you.
[2017-03-16] MEDS ORDERED: [UNRECOGNIZED DRUG - REMARK] PRN (16:15)
--- NOTE | 2017-03-16 16:44 | EMERGENCY ROOM VISIT NOTE ---
History Report prepared by Amber: Thania Coats Under the Supervision of: Dr. Jono Hernandez M.D. 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 She rates her discomfort a 3/10 while resting. It worsens with movement. The patient was in her shower this morning when she slipped and fell onto her right side. She does mention that she has "grab bars" in her shower that helped ease her fall. The patient states that she can feel that her hip is "dislocated." She has a history of hip replacement surgery 2 months ago, on January 09 2017 , by Dr. Bains ([facility]). Patient denies recent anticoagulant use. She has not eaten since last night. Patient has a history of osteoarthritis and osteoporosis. Pt denies LOC, headache, visual changes, neck pain, chest pain, breathing difficulties, nausea, vomiting, abdominal pain, back pain, numbness, weakness, open wounds, active bleeding, or other complaints. 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 A total of ten systems were reviewed and were otherwise negative. Past Medical & Surgical Medical Problems: (1) Amputated finger (2) GERD (gastroesophageal reflux disease) (3) History of PSVT (paroxysmal supraventricular tachycardia) (4) Hypothyroidism (5) Osteoporosis (6) Pacemaker (7) Rheumatoid arthritis (8) Tachy-jacinto syndrome Surgical Problems: (1) H/O breast biopsy (2) H/O foot surgery (3) H/O shoulder surgery (4) History of carpal tunnel surgery (5) History of hip surgery (6) History of osteomyelitis (7) History of recent maxillofacial surgery (8) Hx of tonsillectomy Family History Abdominal aortic aneurysm (AAA) Hypertension Stroke Social History Smoking Status: Never Smoker Marital Status: Housing Status: lives with family Occupation Status: retired Current/Historical Medications Scheduled Atenolol (Tenormin), 50 MG PO BID Doxycycline Hyclate (Vibramycin), 100 MG PO BID Gabapentin (Neurontin), 300 MG PO BID Levothyroxine Sodium (Synthroid), 50 MCG PO QAM Lisinopril (Zestril), 10 MG PO QAM Meloxicam (Meloxicam), 15 MG PO DAILY Omeprazole (Prilosec), 20 MG PO AFTERNOON Prednisone Tab (Prednisone), 10 MG PO DIRECTED Zoledronic Acid (Reclast), 1 DOSE INJ [id number] Scheduled PRN Cyclobenzaprine Hcl (Flexeril), 10 MG PO TID PRN for Muscle Spasms Fluticasone Propionate (Flonase Nasal [place] *), 2 SPRAYS KAYLA HS PRN for STUFFY NOSE Tramadol (Ultram), 1-2 TAB PO Q6H PRN for Pain Allergies Coded Allergies: Sulfa Antibiotics (Verified Allergy, Mild, rash, 03/16/17) Aspirin (Verified Allergy, Unknown, THROMBOCYTOPENIA, 03/16/17) Phenylbutazone (Verified Allergy, Unknown, THROMBOCYTOPENIA, 03/16/17) Amoxicillin (Verified Adverse Reaction, Intermediate, severe diarrhea, ) Clavulanic Acid (Verified Adverse Reaction, Intermediate, severe diarrhea , 03/16/17) Hydromorphone (Verified Adverse Reaction, Mild, NAUSEA AND VOMITING, ) Morphine (Verified Adverse Reaction, Mild, NAUSEA/VOMITTING, 03/16/17) Physical Exam Vital Signs Date Time Temp Pulse Resp B/P Pulse Ox O2 Delivery O2 Flow Rate FiO2 03/16/17 16:00 36.2 85 16 110/64 98 Room Air 03/16/17 15:30 36.0 82 15 123/92 100 Room Air 03/16/17 15:00 36.0 81 14 106/66 100 Room Air 03/16/17 14:15 36.0 77 19 110/77 97 Room Air 03/16/17 14:00 36.0 78 18 125/60 97 Room Air 03/16/17 13:45 36.3 79 17 121/71 95 Room Air 03/16/17 13:33 36.2 80 15 125/64 94 Room Air 03/16/17 13:30 36.2 71 20 125/64 100 Nasal Cannula 2 03/16/17 13:20 71 19 137/40 98 Nasal Cannula 2 03/16/17 13:10 68 22 132/66 100 Nasal Cannula 2 03/16/17 13:00 68 14 115/66 100 Mask 10 03/16/17 12:50 71 16 120/71 100 Mask 10 03/16/17 12:43 36.1 79 16 114/53 100 Mask 10 03/16/17 12:02 72 37 135/59 100 Room Air 03/16/17 11:37 72 32 145/83 100 Room Air 03/16/17 11:23 36.9 73 22 146/74 100 Room Air 03/16/17 11:15 72 12 131/67 100 Nasal Cannula 2.0 03/16/17 11:10 67 35 136/108 100 Non-Rebreather 03/16/17 11:04 64 22 127/77 100 Non-Rebreather 03/16/17 10:59 68 30 139/94 100 Non-Rebreather 03/16/17 10:55 66 24 146/76 100 03/16/17 10:51 67 28 101/85 100 Non-Rebreather 03/16/17 10:44 68 29 101/85 100 Non-Rebreather 03/16/17 10:41 70 11 149/76 100 Non-Rebreather 03/16/17 10:39 67 35 138/71 100 Non-Rebreather 03/16/17 10:37 69 03/16/17 09:23 37.2 83 18 104/71 98 Physical Exam GENERAL: Awake, alert, uncomfortable appearing, in no significant distress. HENT: Normocephalic, atraumatic. Oropharynx unremarkable. EYES: Normal conjunctiva. Sclera non-icteric. NECK: Supple. No nuchal rigidity. FROM. No JVD. RESPIRATORY: Clear to auscultation. CARDIAC: Regular rate, normal rhythm. Extremities warm and well perfused. Pulses equal. ABDOMEN: Soft, non-distended. No tenderness to palpation. No rebound or guarding. No masses. RECTAL: Deferred. MUSCULOSKELETAL: Right hip tenderness noted. ROM limited secondary to pain, right lower extremity shortening noted. Upper extremity and left lower extremity atraumatic. Remainder or right lower extremity atraumatic. Chest examination reveals no tenderness. LOWER EXTREMITIES: Calves are equal size bilaterally and non-tender. No edema. No discoloration. NEURO: Normal sensorium. No sensory or motor deficits noted. SKIN: No rash or jaundice noted. Medical Decision & Procedures ER Provider Diagnostic Interpretation: X-ray: Per my interpretation, radiologist review. RIGHT HIP 2 VIEWS HISTORY: Fall, hip pain-right. 2 m/o sp replacement Right COMPARISON: None. FINDINGS: There is a right total hip arthroplasty. There is superior dislocation of the femoral prosthesis in relation to the acetabular cup. No fractures identified. IMPRESSION: Right femoral prosthesis dislocation. No fractures. Electronically signed by: Keny Bermudez M.D. 03/16/2017 10:12 AM Dictated Date/Time: 03/16/2017 10:11 AM PELVIS ONE VIEW HISTORY: postreduction right hip COMPARISON: Right hip 03/16/2017. FINDINGS: Persistent superior dislocation of the right femoral prosthesis in relation to the acetabular cup. Degenerative changes at the symphysis pubis. No fractures within the visualized pelvis or hips. IMPRESSION: No change in the dislocated right femoral prosthesis Electronically signed by: Keny Bermudez M.D. 03/16/2017 11:11 AM Dictated Date/Time: 03/16/2017 11:10 AM Laboratory Results 03/16/17 09:50 Red Blood Count 4.01, Mean Corpuscular Volume 94.0, Mean Corpuscular Hemoglobin 30.4, Mean Corpuscular Hemoglobin Concent 32.4, Mean Platelet Volume 10.4, Neutrophils (%) (Auto) 58.5, Lymphocytes (%) (Auto) 29.3, Monocytes (%) (Auto) 7.6, Eosinophils (%) (Auto) 1.9, Basophils (%) (Auto) 0.6, Neutrophils # (Auto) 4.54, Lymphocytes # (Auto) 2.27, Monocytes # (Auto) 0.59, Eosinophils # (Auto) 0.15, Basophils # (Auto) 0.05 03/16/17 09:50 Test 03/16/17 09:50 White Blood Count 7.76 K/uL (4.8-10.8) Red Blood Count 4.01 M/uL (4.2-5.4) Hemoglobin 12.2 g/dL (12.0-16.0) Hematocrit 37.7 % (37-47) Mean Corpuscular Volume 94.0 fL (80-100) Mean Corpuscular Hemoglobin 30.4 pg (25-34) Mean Corpuscular Hemoglobin Concent 32.4 g/dl (32-36) Platelet Count 201 K/uL (130-400) Mean Platelet Volume 10.4 fL (7.4-10.4) Neutrophils (%) (Auto) 58.5 % Lymphocytes (%) (Auto) 29.3 % Monocytes (%) (Auto) 7.6 % Eosinophils (%) (Auto) 1.9 % Basophils (%) (Auto) 0.6 % Neutrophils # (Auto) 4.54 K/uL (1.4-6.5) Lymphocytes # (Auto) 2.27 K/uL (1.2-3.4) Monocytes # (Auto) 0.59 K/uL (0.11-0.59) Eosinophils # (Auto) 0.15 K/uL (0-0.5) Basophils # (Auto) 0.05 K/uL (0-0.2) RDW Standard Deviation 49.0 fL (36.4-46.3) RDW Coefficient of Variation 14.3 % (11.5-14.5) Immature Granulocyte % (Auto) 2.1 % Immature Granulocyte # (Auto) 0.16 K/uL (0.00-0.02) Prothrombin Time 10.8 SECONDS (9.0-12.0) Prothromb Time International Ratio 1.0 (0.9-1.1) Activated Partial Thromboplast Time 30.1 SECONDS (21.0-31.0) Partial Thromboplastin Ratio 1.2 Anion Gap 7.0 mmol/L (3-11) Est Creatinine Clear Calc Drug Dose 52.4 ml/min Estimated GFR () 81.8 Estimated GFR (Non- 70.5 BUN/Creatinine Ratio 38.0 (10-20) Calcium Level 8.9 mg/dl (8.5-10.1) Laboratory results reviewed by me Medications Administered Medications (Trade) Dose Ordered Sig/Nitesh Route Start Time Stop Time Status Last Admin Dose Admin Fentanyl Citrate (Fentanyl Inj) 50 mcg Q15M PRN IV 03/16/17 09:45 03/30/17 09:44 03/16/17 12:05 50 MCG Ondansetron HCl (Zofran 8mg Iv) 8 mg NOW STAT IV 03/16/17 09:42 03/16/17 09:43 DC 03/16/17 09:59 8 MG Ketamine HCl (Ketalar Steri-Vial Inj) 30 mg NOW STAT IV 03/16/17 10:21 03/16/17 10:23 DC 03/16/17 10:21 50 MG Propofol (Diprivan Iv Emulsion 20ml Vial) 200 mg NOW STAT IV 03/16/17 10:21 03/16/17 10:23 DC 03/16/17 10:21 100 MG Fentanyl Citrate (Fentanyl Inj) 100 mcg STK-MED ONCE .ROUTE 03/16/17 12:57 03/16/17 12:58 DC 03/16/17 13:13 25 MCG Oxycodone/ Acetaminophen (Percocet 5-325mg Tab) 1 tab Q4H PRN PO 03/16/17 13:00 03/17/17 12:59 03/16/17 14:02 1 TAB Ondansetron HCl (Zofran Inj) 4 mg STK-MED ONCE .ROUTE 03/16/17 13:58 03/16/17 13:59 DC 03/16/17 13:53 4 MG Procedure Procedural Sedation Indication Right hip dislocation. Total time: 26 minutes. Written consent was obtained after the risks and benefits were explained to the patient, including, but not limited to aspiration, allergic reaction, breathing difficulties, cardiac complications, vomiting, pain, event recall, bleeding, and /or infection. Pre-sedation examination and paperwork completed. The patient was on 100% oxygen via NRB prior to the procedure. Continous end tidal CO2 monitoring, pulse oximetry, and cardiac monitoring were utilized. Suction, airway equipment, medications, respiratory equipment, and appropriate personnel were prepared prior to the initiation of the procedure. A time out was taken. Sedation was achieved utilizing a total of 40 mg of Ketamine and 100 mg of Propofol. The patient received incremental boluses of each. Please see the nursing note for details. After I observed the patient had reached the appropriate level of sedation the main procedure was performed without complication. Hip was unable to be reduced. Patient was monitored to full recovery then taken to OR by Dr. Bains ([facility]) for further intervention. ED Course 33: The patient was evaluated in room B7. A complete history and physical exam was performed. 0942: Ordered Zofran 8 mg IV 0945: Ordered Fentanyl Citrate 50 mcg IV. 0950: Upon x-ray review, it was determined that the patient's right hip has been dislocated. 1002: I discussed the patient's case with Dr. Bains ([facility]). He will further evaluate the patient. 1021: Ordered Propofol 200 mg IV, Ketamine HCL 30 mg IV. 1023: The patient was consented for procedural sedation and right hip reduction procedure. 1036: With Dr. Bains in room (B1), procedural sedation was initiated. See above procedure note. 1044: Dr. Bains began hip reduction procedure. 1056: Hip reduction was unsuccessful. Dr. Bains will take patient to OR for general anesthesia and further intervention. 1112: Upon reevaluation, the patient is doing okay. Medical Decision Triage Nursing notes reviewed. The patient's presentation and history were concerning for right hip dislocation. Etiologies such as soft tissue injury, fracture, dislocation, neurovascular compromise, compartment syndrome, as well as others were entertained. The patient was evaluated. Her right leg examination revealed findings concerning for right hip dislocation. She suffered no other trauma. X-ray imaging revealed the dislocation. The patient was consented for sedation and reduction. The patient was NPO since yesterday. I did consult with Dr. Bains orthopedics. He presented to the Emergency Room for reduction. I did sedate the patient. Reduction was attempted. Unfortunately despite several attempts the patient had a persistent dislocation. She recovered uneventfully from her sedation in the emergency department. She did exceptionally well with this. The patient was taken to the OR for further intervention. The chart was completed utilizing [employer] Speech voice recognition software. Grammatical errors, random word insertions, pronoun errors, and incomplete sentences are an occasional consequence of this system due to software limitations, ambient noise, and hardware issues. Any formal questions or concerns about the content, text, or information contained within the body of this dictation should be directly addressed to the physician for clarification. Consults Time Called: 1000 Consulting Physician: Dr. Bains ([facility]) Returned Call: 1002 I discussed the patient's case with Dr. Bains ([facility]). He will further evaluate the patient. Impression Primary Impression: Hip dislocation, right Scribe Attestation The scribe's documentation has been prepared under my direction and personally reviewed by me in its entirety. I confirm that the note above accurately reflects all work, treatment, procedures, and medical decision making performed by me. Departure Information Dispostion Being Evaluated By Surgeon Prescriptions Prednisone Tab (PREDNISONE) 10 Mg Tab 10 MG PO DIRECTED for 6 Days, #21 TAB TAPERED DOSE: TAKE 60MG X 1 DAY; TAKE 50 MG X 1 DAY, TAKE 40 MG X 1 DAY, TAKE 30MG X 1 DAY, TAKE 20MG X 1 DAY, TAKE 10 MG X 1 DAY Prov: Jennifer. Mitchell R (ORTHO) 03/16/17 Tramadol (Ultram) 50 Mg Tab 1-2 TAB PO Q6H Y for Pain, #50 TAB Prov: Jennifer. Mitchell R (ORTHO) 03/16/17 Referrals Leandra Coleman M.D. (PCP) Patient Instructions My [facility]
[2017-03-16] MEDS ORDERED: IV FLUIDS COMPLETED PRN (17:00)
[2017-03-16] MEDS ORDERED: LEVOTHYROXINE 50 MCG TAB PO ONE (17:31)
--- NOTE | 2017-03-16 17:37 | Medical Consult ---
Consultation Date of Consultation: Mar 16, 2017. Attending Physician: Jono Enciso M.D. Past Medical/Surgical History Medical Problems: (1) Hip dislocation, right Status: Acute Family History Abdominal aortic aneurysm (AAA) Hypertension Stroke Social History Smoking Status: Never Smoker Marital Status: Housing Status: lives with family Occupation Status: retired Allergies Coded Allergies: Sulfa Antibiotics (Verified Allergy, Mild, rash, 03/16/17) Aspirin (Verified Allergy, Unknown, THROMBOCYTOPENIA, 03/16/17) Phenylbutazone (Verified Allergy, Unknown, THROMBOCYTOPENIA, 03/16/17) Amoxicillin (Verified Adverse Reaction, Intermediate, severe diarrhea, ) Clavulanic Acid (Verified Adverse Reaction, Intermediate, severe diarrhea , 03/16/17) Hydromorphone (Verified Adverse Reaction, Mild, NAUSEA AND VOMITING, ) Morphine (Verified Adverse Reaction, Mild, NAUSEA/VOMITTING, 03/16/17) Current Inpatient Medications Current Inpatient Medications Medications (Trade) Dose Ordered Sig/Nitesh Route Start Time Stop Time Status Last Admin Dose Admin Sodium Chloride (Nss 1000ml) 1,000 ml @ 15 mls/hr Q24H IV 03/16/17 12:54 03/17/17 12:53 Oxycodone/ Acetaminophen (Percocet 5-325mg Tab) 1 tab Q4H PRN PO 03/16/17 13:00 03/17/17 12:59 03/16/17 14:02 1 TAB Oxycodone/ Acetaminophen (Percocet 5-325mg Tab) 2 tab Q4H PRN PO 03/16/17 13:00 03/17/17 12:59 Morphine Sulfate (MoRPHine SULFATE INJ) 1 mg Q1H PRN IV 03/16/17 13:00 03/17/17 12:59 Morphine Sulfate (MoRPHine SULFATE INJ) 2 mg Q1H PRN IV 03/16/17 13:00 03/17/17 12:59 Ondansetron HCl (Zofran Inj) 4 mg Q6H PRN IV 03/16/17 13:00 03/17/17 12:59 Ketorolac Tromethamine (Toradol Inj) 15 mg Q6 PRN IV. 03/16/17 15:45 03/19/17 15:44 Acetaminophen (Tylenol Tab) 650 mg Q6H PRN PO 03/16/17 15:45 5/15/17 15:44 Docusate Sodium (coLACE CAP) 100 mg BID PO 03/16/17 21:00 04/15/17 20:59 Pantoprazole Sodium (Protonix Tab) 40 mg QAM PO 03/17/17 09:00 04/16/17 08:59 Miscellaneous Information (Pharmacy Consult) 1 ea UD PRN N/A 03/16/17 16:15 04/15/17 16:14 Heparin Sodium (Porcine) (Heparin Sq 5000 Unit/0.5ml) 5,000 unit Q12 SQ 03/16/17 21:00 04/15/17 20:59 Tramadol HCl (Ultram Tab) 50 mg Q4H PRN PO 03/16/17 16:00 04/15/17 15:59 Atenolol (Tenormin Tab) 50 mg BID PO 03/16/17 21:00 04/15/17 20:59 Cyclobenzaprine HCl (Flexeril Tab) 5 mg TID PRN PO 03/16/17 16:00 04/15/17 15:59 Doxycycline Hyclate (Vibramycin Cap) 100 mg BID PO 03/16/17 21:00 03/18/17 21:01 Fluticasone Propionate (Flonase Nasal [place]) 2 sprays DAILY NA 03/17/17 09:00 04/16/17 08:59 Gabapentin (Neurontin Cap) 300 mg BID PO 03/16/17 21:00 04/15/17 20:59 Levothyroxine Sodium (Synthroid Tab) 50 mcg DAILYBB PO 03/17/17 06:00 04/16/17 06:59 Enalapril Maleate (Vasotec Tab) 10 mg QAM PO 03/17/17 09:00 04/16/17 08:59 Miscellaneous (Iv Fluids Completed) 1 ea PRN PRN N/A 03/16/17 17:00 03/16/18 16:59 Physical Exam Date Time Temp Pulse Resp B/P Pulse Ox O2 Delivery O2 Flow Rate FiO2 03/16/17 16:00 36.2 85 16 110/64 98 Room Air 03/16/17 15:30 36.0 82 15 123/92 100 Room Air 03/16/17 15:00 36.0 81 14 106/66 100 Room Air 03/16/17 14:15 36.0 77 19 110/77 97 Room Air 03/16/17 14:00 36.0 78 18 125/60 97 Room Air 03/16/17 13:45 36.3 79 17 121/71 95 Room Air 03/16/17 13:33 36.2 80 15 125/64 94 Room Air 03/16/17 13:30 36.2 71 20 125/64 100 Nasal Cannula 2 03/16/17 13:20 71 19 137/40 98 Nasal Cannula 2 03/16/17 13:10 68 22 132/66 100 Nasal Cannula 2 03/16/17 13:00 68 14 115/66 100 Mask 10 03/16/17 12:50 71 16 120/71 100 Mask 10 03/16/17 12:43 36.1 79 16 114/53 100 Mask 10 03/16/17 12:02 72 37 135/59 100 Room Air 03/16/17 11:37 72 32 145/83 100 Room Air 03/16/17 11:23 36.9 73 22 146/74 100 Room Air 03/16/17 11:15 72 12 131/67 100 Nasal Cannula 2.0 03/16/17 11:10 67 35 136/108 100 Non-Rebreather 03/16/17 11:04 64 22 127/77 100 Non-Rebreather 03/16/17 10:59 68 30 139/94 100 Non-Rebreather 03/16/17 10:55 66 24 146/76 100 03/16/17 10:51 67 28 101/85 100 Non-Rebreather 03/16/17 10:44 68 29 101/85 100 Non-Rebreather 03/16/17 10:41 70 11 149/76 100 Non-Rebreather 03/16/17 10:39 67 35 138/71 100 Non-Rebreather 03/16/17 10:37 69 03/16/17 09:23 37.2 83 18 104/71 98 Laboratory Results Last 24 Hours Test 03/16/17 09:50 White Blood Count 7.76 K/uL Red Blood Count 4.01 M/uL Hemoglobin 12.2 g/dL Hematocrit 37.7 % Mean Corpuscular Volume 94.0 fL Mean Corpuscular Hemoglobin 30.4 pg Mean Corpuscular Hemoglobin Concent 32.4 g/dl Platelet Count 201 K/uL Mean Platelet Volume 10.4 fL Neutrophils (%) (Auto) 58.5 % Lymphocytes (%) (Auto) 29.3 % Monocytes (%) (Auto) 7.6 % Eosinophils (%) (Auto) 1.9 % Basophils (%) (Auto) 0.6 % Neutrophils # (Auto) 4.54 K/uL Lymphocytes # (Auto) 2.27 K/uL Monocytes # (Auto) 0.59 K/uL Eosinophils # (Auto) 0.15 K/uL Basophils # (Auto) 0.05 K/uL RDW Standard Deviation 49.0 fL RDW Coefficient of Variation 14.3 % Immature Granulocyte % (Auto) 2.1 % Immature Granulocyte # (Auto) 0.16 K/uL Prothrombin Time 10.8 SECONDS Prothromb Time International Ratio 1.0 Activated Partial Thromboplast Time 30.1 SECONDS Partial Thromboplastin Ratio 1.2 Sodium Level 144 mmol/L Potassium Level 3.8 mmol/L Chloride Level 108 mmol/L Carbon Dioxide Level 29 mmol/L Anion Gap 7.0 mmol/L Blood Urea Nitrogen 31 mg/dl Creatinine 0.81 mg/dl Est Creatinine Clear Calc Drug Dose 52.4 ml/min Estimated GFR () 81.8 Estimated GFR (Non- 70.5 BUN/Creatinine Ratio 38.0 Random Glucose 104 mg/dl Calcium Level 8.9 mg/dl Assessment & Plan Thank you for this consultation. We will follow the patient with you during their hospital stay. You can reach a member of the [facility]ist Team 24/06 via pager @ . You can reach me via cell @ [phone]. .
--- NOTE | 2017-03-16 17:43 | History and Physical ---
History & Physical Date & Time of Service: Mar 16, 2017 at ~ 17:00 . Chief Complaint: pain right chest wall, right hip, right leg . Primary Care Physician: Leandra Coleman M.D. . History of Present Illness Source: patient, clinic records, hospital records 76 YO female followed by Dr. Coleman for Family Medicine, Dr. Gardner for Cardiology, and Dr. Bains for Orthopedics. History of paroxysmal SVT, left ventricular diastolic dysfunction, RA on chronic steroids, and other problems noted below. Slipped and fell in shower today. No associated angina, palpitations, neuro symptoms, loss of consciousness. Injured her right chest wall and right hip. Came to ED for evaluation. Found to have dislocation of right TIMMY. Dislocation reduced by Ortho. Attempted to ambulate with assistance after reduction, but experienced severe right leg pain. X-rays demonstrated fracture right fibula. Referred for admission. Doing fairl well postoperatively. No chest pain. No cough or dyspnea. Had some nausea and vomiting which has resolved. Pain fairly well-controlled. . Past Medical/Surgical History Chronic and Resolved Medical Problems: (1) Amputated finger Status: Chronic (2) GERD (gastroesophageal reflux disease) Status: Chronic (3) History of PSVT (paroxysmal supraventricular tachycardia) Status: Chronic (4) Hypothyroidism Status: Chronic (5) Osteoporosis Status: Chronic (6) Pacemaker Status: Chronic (7) Rheumatoid arthritis Status: Chronic (8) Tachy-jacinot syndrome Status: Chronic Surgical Problems: (1) H/O breast biopsy Status: Resolved (2) H/O foot surgery Status: Chronic (3) H/O shoulder surgery Status: Chronic (4) History of carpal tunnel surgery Status: Chronic (5) History of hip surgery Status: Chronic (6) History of osteomyelitis Status: Resolved (7) History of recent maxillofacial surgery Status: Resolved (8) Hx of tonsillectomy Status: Chronic . Family History Abdominal aortic aneurysm (AAA) Hypertension Stroke Social History Smoking Status: Never Smoker Alcohol Use: occasionally Marital Status: Occupational Status: retired Immunizations History of Tetanus Vaccine?: 1999 History of Pneumococcal: 1999 History of Hepatitis B Vaccine: 1982 Multi-Drug Resistant Organisms History of MDRO: Yes Type of MDRO: MRSA Allergies Coded Allergies: Sulfa Antibiotics (Verified Allergy, Mild, rash, 03/16/17) Aspirin (Verified Allergy, Unknown, THROMBOCYTOPENIA, 03/16/17) Phenylbutazone (Verified Allergy, Unknown, THROMBOCYTOPENIA, 03/16/17) Amoxicillin (Verified Adverse Reaction, Intermediate, severe diarrhea, ) Clavulanic Acid (Verified Adverse Reaction, Intermediate, severe diarrhea , 03/16/17) Hydromorphone (Verified Adverse Reaction, Mild, NAUSEA AND VOMITING, ) Morphine (Verified Adverse Reaction, Mild, NAUSEA/VOMITTING, 03/16/17) Home Medications Scheduled Atenolol (Tenormin), 50 MG PO BID Doxycycline Hyclate (Vibramycin), 100 MG PO BID Gabapentin (Neurontin), 300 MG PO BID Levothyroxine Sodium (Synthroid), 50 MCG PO QAM Lisinopril (Zestril), 10 MG PO QAM Meloxicam (Meloxicam), 15 MG PO DAILY Omeprazole (Prilosec), 20 MG PO AFTERNOON Prednisone Tab (Prednisone), 10 MG PO DIRECTED Zoledronic Acid (Reclast), 1 DOSE INJ [id number] Scheduled PRN Cyclobenzaprine Hcl (Flexeril), 10 MG PO TID PRN for Muscle Spasms Fluticasone Propionate (Flonase Nasal [place] *), 2 SPRAYS KAYLA HS PRN for STUFFY NOSE Tramadol (Ultram), 1-2 TAB PO Q6H PRN for Pain Review of Systems ENT: + nasal symptoms (receiving treatment for sinus infection) Respiratory: No cough, No shortness of breath Cardiovascular: No chest pain, No palpitations Abdomen: + nausea (postop), + vomiting (postop), No GI bleeding Genitourinary - Female: No dysuria, No hematuria Hematologic / Lymphatic: No abnormal bleeding/bruising Physical Exam Vital Signs Date Time Temp Pulse Resp B/P Pulse Ox O2 Delivery O2 Flow Rate FiO2 03/16/17 17:26 36.4 75 18 135/58 100 Room Air 03/16/17 16:55 36.6 75 18 125/64 100 Room Air 03/16/17 16:25 36.3 78 18 125/59 95 Room Air 03/16/17 16:00 36.2 85 16 110/64 98 Room Air 03/16/17 15:30 36.0 82 15 123/92 100 Room Air 03/16/17 15:00 36.0 81 14 106/66 100 Room Air 03/16/17 14:15 36.0 77 19 110/77 97 Room Air 03/16/17 14:00 36.0 78 18 125/60 97 Room Air 03/16/17 13:45 36.3 79 17 121/71 95 Room Air 03/16/17 13:33 36.2 80 15 125/64 94 Room Air 03/16/17 13:30 36.2 71 20 125/64 100 Nasal Cannula 2 03/16/17 13:20 71 19 137/40 98 Nasal Cannula 2 03/16/17 13:10 68 22 132/66 100 Nasal Cannula 2 03/16/17 13:00 68 14 115/66 100 Mask 10 03/16/17 12:50 71 16 120/71 100 Mask 10 03/16/17 12:43 36.1 79 16 114/53 100 Mask 10 03/16/17 12:02 72 37 135/59 100 Room Air 03/16/17 11:37 72 32 145/83 100 Room Air 03/16/17 11:23 36.9 73 22 146/74 100 Room Air 03/16/17 11:15 72 12 131/67 100 Nasal Cannula 2.0 03/16/17 11:10 67 35 136/108 100 Non-Rebreather 03/16/17 11:04 64 22 127/77 100 Non-Rebreather 03/16/17 10:59 68 30 139/94 100 Non-Rebreather 03/16/17 10:55 66 24 146/76 100 03/16/17 10:51 67 28 101/85 100 Non-Rebreather 03/16/17 10:44 68 29 101/85 100 Non-Rebreather 03/16/17 10:41 70 11 149/76 100 Non-Rebreather 03/16/17 10:39 67 35 138/71 100 Non-Rebreather 03/16/17 10:37 69 03/16/17 09:23 37.2 83 18 104/71 98 General Appearance: WD/WN, no apparent distress Head: normocephalic, atraumatic Eyes: EOMI, sclerae normal ENT: normal ENT inspection, pharynx normal Neck: supple, no adenopathy, thyroid normal, no JVD, trachea midline Respiratory/Chest: lungs clear, no respiratory distress, no accessory muscle use Cardiovascular: regular rate, rhythm, no edema, no gallop, no JVD, no murmur Abdomen/GI: normal bowel sounds, non tender, soft, no organomegaly, no pulsatile mass Extremities/Musculoskelatal: + pertinent finding (immobilizer applied RLE; no edema or calf tenderness LLE) Neurologic/Psych: operations assistant II-XII nml as tested (PERRL, EOMI), alert, oriented x 3 Skin: normal color, warm/dry Lymphatic: no adenopathy (no cervical adenopathy) Diagnostics Laboratory Results Results Past 24 Hours Test 03/16/17 09:50 Range/Units White Blood Count 7.76 4.8-10.8 K/uL Red Blood Count 4.01 4.2-5.4 M/uL Hemoglobin 12.2 12.0-16.0 g/dL Hematocrit 37.7 37-47 % Mean Corpuscular Volume 94.0 80-100 fL Mean Corpuscular Hemoglobin 30.4 25-34 pg Mean Corpuscular Hemoglobin Concent 32.4 32-36 g/dl Platelet Count 201 130-400 K/uL Mean Platelet Volume 10.4 7.4-10.4 fL Neutrophils (%) (Auto) 58.5 % Lymphocytes (%) (Auto) 29.3 % Monocytes (%) (Auto) 7.6 % Eosinophils (%) (Auto) 1.9 % Basophils (%) (Auto) 0.6 % Neutrophils # (Auto) 4.54 1.4-6.5 K/uL Lymphocytes # (Auto) 2.27 1.2-3.4 K/uL Monocytes # (Auto) 0.59 0.11-0.59 K/uL Eosinophils # (Auto) 0.15 0-0.5 K/uL Basophils # (Auto) 0.05 0-0.2 K/uL RDW Standard Deviation 49.0 36.4-46.3 fL RDW Coefficient of Variation 14.3 11.5-14.5 % Immature Granulocyte % (Auto) 2.1 % Immature Granulocyte # (Auto) 0.16 0.00-0.02 K/uL Prothrombin Time 10.8 9.0-12.0 SECONDS Prothromb Time International Ratio 1.0 0.9-1.1 Activated Partial Thromboplast Time 30.1 21.0-31.0 SECONDS Partial Thromboplastin Ratio 1.2 Sodium Level 144 136-145 mmol/L Potassium Level 3.8 3.5-5.1 mmol/L Chloride Level 108 98-107 mmol/L Carbon Dioxide Level 29 21-32 mmol/L Anion Gap 7.0 3-11 mmol/L Blood Urea Nitrogen 31 7-18 mg/dl Creatinine 0.81 0.60-1.20 mg/dl Est Creatinine Clear Calc Drug Dose 52.4 ml/min Estimated GFR () 81.8 Estimated GFR (Non- 70.5 BUN/Creatinine Ratio 38.0 10-20 Random Glucose 104 70-99 mg/dl Calcium Level 8.9 8.5-10.1 mg/dl Diagnostic Radiology RIGHT HIP 2 VIEWS. FINDINGS: There is a right total hip arthroplasty. There is superior dislocation of the femoral prosthesis in relation to the acetabular cup. No fractures identified. IMPRESSION: Right femoral prosthesis dislocation. No fractures. Electronically signed by: Keny Bermudez M.D. 03/16/2017 10:12 AM RIGHT TIBIA/FIBULA 2 VIEWS ROUTINE FINDINGS: Note is made of a transverse lucency through a healed fracture of the proximal shaft of the right fibula. This suggests an acute nondisplaced fracture superimposed upon a healed fracture. No acute fracture of the right tibia is identified. Postsurgical findings within the right midfoot are noted. Alignment of the right ankle and knee appears anatomic. IMPRESSION: Acute nondisplaced fracture extending through a healed fracture of the proximal shaft of the right fibula. Electronically signed by: Rashel Ochoa M.D. 03/16/2017 4:02 PM CHEST ONE VIEW PORTABLE FINDINGS: A dual lead left subclavian pacemaker is in place. Cardiomediastinal silhouette is stable. No evidence for pulmonary edema. Elevation/eventration of the right hemidiaphragm is unchanged. There is an old fracture of the posterior right fourth rib. No acute fracture is identified although sensitivity is diminished on this portable AP exam. There is no pneumothorax. IMPRESSION: 1. No acute findings. 2. No pneumothorax. No acute right rib fractures identified although sensitivity diminished on portable AP exam. Electronically signed by: Rashel Ochoa M.D. 03/16/2017 3:59 PM . Impression Assessment and Plan DISLOCATION RIGHT TIMMY Closed reduction performed by Ortho. FRACTURE RIGHT FIBULA Management per Ortho. RIGHT CHEST WALL PAIN No fractures appreciated by port chest x-ray, but may be difficult to visualize. Incentive spirometry. Follow-up imaging if pain persists. PAROXYSMAL SVT Currently in NSR. Continue atenolol. LEFT VENTRICULAR DIASTOLIC DYSFUNCTION No signs of CHF. Continue lisinopril. GERD Continue PPI. HYPOTHYROIDISM Continue levothyroxine. RA On chronic prednisone therapy. Received 50 mg prednisone today. Taper per Ortho. SINUSITIS Continue course of doxycycline. VTE PROPHYLAXIS Moderate risk for VTE. SQ heparin ordered. RESUSCITATION STATUS Full resuscitation. DISPOSITION Observation status on Med/Surg/Ortho. Expected discharge to home if able to ambulate comfortably. Family Medicine follow-up with Dr. Coleman. Orthopedics follow-up with Dr. Bains. . VTE Prophylaxis VTE Risk Assessment Done? Y/N: Yes Risk Level: Low Given or contraindicated: Unfractionated heparin SQ
[2017-03-16] MEDS ORDERED: SODIUM CHLORIDE 0.65% NA SOLN 45 ML (OCEAN) PRN (18:00)
[2017-03-16] MEDS ORDERED: LISINOPRIL 5 MG TAB PO ONE (18:00)
[2017-03-16] MEDS ORDERED: PANTOprazole SOD 40 MG TAB PO SCH (21:00)
[2017-03-16] MEDS: DOXYCYCLINE HYCLATE 100 MG CAP PO SCH (21:11)
[2017-03-16] MEDS: HEPARIN SOD 5000 UNIT/0.5 ML CARP SQ SCH (21:11)
[2017-03-16] MEDS: DOCUSATE SODIUM 100 MG CAP PO SCH (21:13)
[2017-03-16] MEDS: GABAPENTIN 300 MG CAP PO SCH (21:13)
[2017-03-17 03:07] VITALS: BP 102/62; PULSE 71; TEMP 36.6; O2SAT 96
[2017-03-17] MEDS ORDERED: LEVOTHYROXINE 50 MCG TAB PO SCH (06:00)
[2017-03-17 07:07] VITALS: BP 119/73; PULSE 75; TEMP 36.7; O2SAT 97
--- NOTE | 2017-03-17 07:49 | PROGRESS NOTE ---
DATE: 03/17/2017 She is sitting up in bed, listening to the radio. She has no major discomfort when at rest. She is starting to move a little bit better. She was able to get up and void. She denies any numbness or tingling. Does have some low back pain. Notes that the leg does not have any numbness or tingling. Vital signs are stable. She is afebrile. Physical examination reveals abdomen to be soft. Both lower extremities have normal femoral sciatic nerve functioning. Knee immobilizer was removed. Area of the nondisplaced fibular fracture without any major swelling. No sign of compartment syndrome. Hip exam is benign with motion. She does have a small bruise on the back near the SI joint, consistent with following in that area. There is no midline back pain. ASSESSMENT: Overall, doing well status post closed reduction of traumatically induced hip dislocation on the right. Also has an associated nondisplaced fibula fracture on the right. Plan is to continue with PT/OT. At this point in time, she is not quite sure if she is ready to be discharged today, but if she does well PT/OT and wants to be discharged. I will leave that up to medicine. Continue DVT prophylaxis for one more day with the subcutaneous heparin until she is up and movable more. She will follow up with us in the office in roughly a week. Discharge instructions per ortho are already available in the paperwork. CLEO
[2017-03-17] MEDS: DOCUSATE SODIUM 100 MG CAP PO SCH (08:54)
[2017-03-17] MEDS: GABAPENTIN 300 MG CAP PO SCH (08:54)
[2017-03-17] MEDS: DOXYCYCLINE HYCLATE 100 MG CAP PO SCH (08:54)
[2017-03-17] MEDS: HEPARIN SOD 5000 UNIT/0.5 ML CARP SQ SCH (08:55)
[2017-03-17] MEDS ORDERED: PANTOprazole SOD 40 MG TAB PO SCH (09:00)
[2017-03-17] MEDS ORDERED: ENALAPRIL MALEATE 10 MG TAB PO SCH (09:00)
[2017-03-17] MEDS ORDERED: FLUTICASONE PROPIONATE NA SPR 16 GM BTL SCH (09:00)
[2017-03-17] MEDS ORDERED: LISINOPRIL 10 MG TAB PO SCH (09:00)
[2017-03-17] MEDS ORDERED: NURSING VERBAL MED ORDER ONE (09:45)
[2017-03-17 12:00] VITALS: BP 111/68; PULSE 72; TEMP 36.9; O2SAT 97
--- NOTE | 2017-03-17 14:14 | Progress Note ---
Medicine Progress Note Date & Time of Visit: Mar 17, 2017 @ 11:15 . Subjective Doing better. Less RLE pain; ambulating with immobilizer without too much discomfort. Less right posterior chest wall / flank pain. Performing incentive spirometry. No angina or palpitations. No nausea or vomiting. . Objective Last 8 Hrs Date Time Temp Pulse Resp B/P Pulse Ox O2 Delivery O2 Flow Rate FiO2 03/17/17 12:00 36.9 72 16 111/68 97 Room Air 03/17/17 09:42 Room Air 03/17/17 07:07 36.7 75 16 119/73 97 Room Air Physical Exam: General- no distress Neck- no JVD Lungs- clear Heart- RRR Abdomen- + BS, soft, nontender Extremities- immobilizer applied to RLE; no edema or calf tenderness LLE Neuro- alert . Assessment & Plan DISLOCATION RIGHT TIMMY Closed reduction performed by Ortho. FRACTURE RIGHT FIBULA Nonsurgical management. Continue to use immobilizer. RIGHT CHEST WALL PAIN No fractures appreciated by port chest x-ray, but may be difficult to visualize. Continue incentive spirometry. Follow-up imaging if pain persists. PAROXYSMAL SVT Currently in NSR. Continue atenolol. LEFT VENTRICULAR DIASTOLIC DYSFUNCTION No signs of CHF. Continue lisinopril. GERD Continue PPI. HYPOTHYROIDISM Continue levothyroxine. RA On chronic prednisone therapy. Receiving prednisone pulse / taper per Ortho. SINUSITIS Finish course of doxycycline. VTE PROPHYLAXIS Moderate risk for VTE. Received SQ heparin. RESUSCITATION STATUS Full resuscitation. DISPOSITION Discharge to home with home health services. Family Medicine follow-up with Dr. Coleman. Orthopedics follow-up with Dr. Bains. . Consultants: Orthopedics - Dr. Bains . Procedures: reduction of dislocation right TIMMY physical therapy . Current Inpatient Medications: Current Inpatient Medications Medications (Trade) Dose Ordered Sig/Nitesh Route Start Time Stop Time Status Last Admin Dose Admin Ketorolac Tromethamine (Toradol Inj) 15 mg Q6 PRN IV. 03/16/17 15:45 03/19/17 15:44 Acetaminophen (Tylenol Tab) 650 mg Q6H PRN PO 03/16/17 15:45 04/15/17 15:44 Docusate Sodium (coLACE CAP) 100 mg BID PO 03/16/17 21:00 04/15/17 20:59 03/17/17 08:54 100 MG Miscellaneous Information (Pharmacy Consult) 1 ea UD PRN N/A 03/16/17 16:15 04/15/17 16:14 Heparin Sodium (Porcine) (Heparin Sq 5000 Unit/0.5ml) 5,000 unit Q12 SQ 03/16/17 21:00 04/15/17 20:59 03/17/17 08:55 5,000 UNIT Tramadol HCl (Ultram Tab) 50 mg Q4H PRN PO 03/16/17 16:00 04/15/17 15:59 Atenolol (Tenormin Tab) 50 mg BID PO 03/16/17 21:00 04/15/17 20:59 03/17/17 08:54 50 MG Cyclobenzaprine HCl (Flexeril Tab) 5 mg TID PRN PO 03/16/17 16:00 04/15/17 15:59 03/16/17 18:55 5 MG Doxycycline Hyclate (Vibramycin Cap) 100 mg BID PO 03/16/17 21:00 03/18/17 21:01 03/17/17 08:54 100 MG Fluticasone Propionate (Flonase Nasal [place]) 2 sprays DAILY NA 03/17/17 09:00 04/16/17 08:59 03/16/17 18:56 2 SPRAYS Gabapentin (Neurontin Cap) 300 mg BID PO 03/16/17 21:00 04/15/17 20:59 03/17/17 08:54 300 MG Levothyroxine Sodium (Synthroid Tab) 50 mcg DAILYBB PO 03/17/17 06:00 04/15/17 05:59 03/17/17 05:49 50 MCG Miscellaneous (Iv Fluids Completed) 1 ea PRN PRN N/A 03/16/17 17:00 03/16/18 16:59 Lisinopril (Zestril Tab) 10 mg QAM PO 03/17/17 09:00 04/16/17 08:59 03/17/17 08:54 10 MG Pantoprazole Sodium (Protonix Tab) 40 mg HS PO 03/16/17 21:00 04/15/17 20:59 03/16/17 21:14 40 MG Diphenhydramine HCl (Benadryl Cap) 25 mg Q6H PRN PO 4/15/17 18:00 04/15/17 17:59 03/16/17 18:56 25 MG Sodium Chloride ([place] Nasal [place]) 2 sprays Q4H PRN NA 03/16/17 18:00 04/15/17 17:59 Prednisone (PredniSONE TAB) 40 mg TODAY@1900 PO 03/17/17 19:00 03/17/17 19:01
[2017-03-17 19:41] VITALS: BP 111/68; PULSE 72; TEMP 36.9; O2SAT 97
--- NOTE | 2017-03-17 20:09 | Discharge Summary ---
Discharge Summary Date of Service Mar 17, 2017. Discharge Summary Admission Date: Mar 16, 2017 at 15:50 Discharge Date: Mar 16, 2017 Discharge Disposition: Home with services Principal Diagnosis: dislocation right TIMMY fracture right fibula . Secondary Diagnoses/Problems: Chronic and Resolved Medical Problems: (1) Amputated finger Status: Chronic (2) GERD (gastroesophageal reflux disease) Status: Chronic (3) History of PSVT (paroxysmal supraventricular tachycardia) Status: Chronic (4) Hypothyroidism Status: Chronic (5) Osteoporosis Status: Chronic (6) Pacemaker Status: Chronic (7) Rheumatoid arthritis Status: Chronic (8) Tachy-jacinto syndrome Status: Chronic Surgical Problems: (1) H/O breast biopsy Status: Resolved (2) H/O foot surgery Status: Chronic (3) H/O shoulder surgery Status: Chronic (4) History of carpal tunnel surgery Status: Chronic (5) History of hip surgery Status: Chronic (6) History of osteomyelitis Status: Resolved (7) History of recent maxillofacial surgery Status: Resolved (8) Hx of tonsillectomy Status: Chronic . Procedures: reduction of dislocation right TIMMY physical therapy . Consultations: Orthopedics - Dr. Bains . Medication Reconciliation New Medications: Prednisone Tab (Prednisone) 10 Mg Tab 10 MG PO DIRECTED for 6 Days, #21 TAB TAPERED DOSE: TAKE 60MG X 1 DAY; TAKE 50 MG X 1 DAY, TAKE 40 MG X 1 DAY, TAKE 30MG X 1 DAY, TAKE 20MG X 1 DAY, TAKE 10 MG X 1 DAY Tramadol (Ultram) 50 Mg Tab 1-2 TAB PO Q6H PRN for Pain, #50 TAB Continued Medications: Atenolol (Tenormin) 100 Mg Tab 50 MG PO BID Cyclobenzaprine Hcl (Flexeril) 10 Mg Tab 10 MG PO TID PRN for Muscle Spasms, #21 TAB Doxycycline Hyclate (Vibramycin) 100 Mg Cap 100 MG PO BID, #20 Fluticasone Propionate (Flonase Nasal [place] *) Inha 2 SPRAYS KAYLA HS PRN for STUFFY NOSE, 0 Refills Gabapentin (Neurontin) 300 Mg Cap 300 MG PO BID, CAP Levothyroxine Sodium (Synthroid) 50 Mcg Tab 50 MCG PO QAM Lisinopril (Zestril) 10 Mg Tab 10 MG PO QAM, TAB Meloxicam (Meloxicam) 15 Mg Tab 15 MG PO DAILY, #90 Omeprazole (Prilosec) 20 Mg Capcr 20 MG PO AFTERNOON, 0 Refills Zoledronic Acid (Reclast) 5 Mg/100 Ml Inj 1 DOSE INJ [id number] Discontinued Medications: Oxycodone/Acetaminophen 5MG/325MG (Percocet 5MG/325MG) Tab 1-2 TABLETS PO Q4H PRN for Pain, #30 TAB PAIN Prednisone (Prednisone) 5 Mg Tab 5 MG PO Q2D Admission Information HPI (per Admitting provider): 76 YO female followed by Dr. Coleman for Family Medicine, Dr. Gardner for Cardiology, and Dr. Bains for Orthopedics. History of paroxysmal SVT, left ventricular diastolic dysfunction, RA on chronic steroids, and other problems noted below. Slipped and fell in shower today. No associated angina, palpitations, neuro symptoms, loss of consciousness. Injured her right chest wall and right hip. Came to ED for evaluation. Found to have dislocation of right TIMMY. Dislocation reduced by Ortho. Attempted to ambulate with assistance after reduction, but experienced severe right leg pain. X-rays demonstrated fracture right fibula. Referred for admission. Doing fairl well postoperatively. No chest pain. No cough or dyspnea. Had some nausea and vomiting which has resolved. Pain fairly well-controlled. . Physical Exam (per Admitting): General Appearance: WD/WN, no apparent distress Head: normocephalic, atraumatic Eyes: EOMI, sclerae normal ENT: normal ENT inspection, pharynx normal Neck: supple, no adenopathy, thyroid normal, no JVD, trachea midline Respiratory/Chest: lungs clear, no respiratory distress, no accessory muscle use Cardiovascular: regular rate, rhythm, no edema, no gallop, no JVD, no murmur Abdomen/GI: normal bowel sounds, non tender, soft, no organomegaly, no pulsatile mass Extremities/Musculoskelatal: + pertinent finding (immobilizer applied RLE; no edema or calf tenderness LLE) Neurologic/Psych: rod puller II-XII nml as tested (PERRL, EOMI), alert, oriented x 3 Skin: normal color, warm/dry Lymphatic: no adenopathy (no cervical adenopathy) Hospital Course DISLOCATION RIGHT TIMMY Closed reduction performed by Ortho. FRACTURE RIGHT FIBULA Nonsurgical management. Continue to use immobilizer. RIGHT CHEST WALL PAIN No fractures appreciated by port chest x-ray, but may be difficult to visualize. Continue incentive spirometry. Follow-up imaging if pain persists. PAROXYSMAL SVT Currently in NSR. Continue atenolol. LEFT VENTRICULAR DIASTOLIC DYSFUNCTION No signs of CHF. Continue lisinopril. GERD Continue PPI. HYPOTHYROIDISM Continue levothyroxine. RA On chronic prednisone therapy. Receiving prednisone pulse / taper per Ortho. SINUSITIS Finish course of doxycycline. VTE PROPHYLAXIS Moderate risk for VTE. Received SQ heparin. RESUSCITATION STATUS Full resuscitation. DISPOSITION Discharge to home with home health services. Family Medicine follow-up with Dr. Coleman. Orthopedics follow-up with Dr. Bains. . Discharge Instructions Date of Service Mar 16, 2017. Visit Reason for Visit: FALL Discharge Discharge Diagnosis / Problem: Right total hip dislocation Discharge Goals Goal(s): Decrease discomfort, Improve function, Increase independence Activity Recommendations Activity Limitations: per Instructions/Follow-up section Weightbearing Status: Left weightbearing (as tolerated), Right partial Anesthesia . Post Anesthesia Instructions: If you have had General Anesthesia or IV Sedation: * Do not drive today. * Resume driving when surgeon permits. * Do not make important decisions or sign legal documents today. * Call surgeon for: 1. Temperature elevations greater than 101 degrees F. 2. Uncontrollable pain. 3. Excessive bleeding. 4. Persistent nausea and vomiting. 5. Medication intolerance (nausea, vomiting or rash). * For nausea and vomiting use only clear liquids such as: tea, soda, bouillon until nausea subsides, then gradually increase diet as tolerated. * If you have any concerns or questions, call your surgeon's office. If physician is unavailable and it is an emergency, call 911 or go to the nearest emergency room. . Instructions / Follow-Up Instructions / Follow-Up DIET: * Resume previous diet. MEDICATIONS: * Please take your prescriptions as instructed at your pre-op appointment and/ or see medication discharge instructions listed above. * If concerns develop, call your physician's office at . SPECIAL CARE INSTRUCTIONS: * Ice to right hip as needed for pain/swelling * Keep knee immobilizer on right leg at all times. May loosen to readjust. * Use walker to assist with ambulation at all times * Partial weight bearing right lower extremity * Posterior hip precautions at all times. - Observe the following precautions to prevent dislocation: 1. Don't bend your hip greater than 90 degrees. 2. Avoid crossing your legs or ankles while standing or lying. 3. Sit with your feet placed 6 inches apart. 4. When sitting, keep your knees below your hips. Sit on a firm surface, avoid deep, soft chairs and couches. Use an elevated toilet seat in the bathroom. 5. Don't bend over at the waist. Use a long handled shoehorn and a sock aid to help you put on your shoes and socks. A agile java developer can help you picker and sorter load and unload objects that are too high or too low to reach. 6. Keep car riding to a minimum for at least one month after surgery. B. Your balance may be shaky for a while. Use crutches or a walker until directed by your doctor. C. Use hand rails when walking on stairs. D. Wear low heeled shoes with non-slip soles. E. Be sure that your floors are free of things that could trip you - throw rugs , electrical cords, small objects. Avoid wet and waxed floors, especially with crutches and canes. F. Try to walk several times a day with rest periods between. G. Continue with all the exercises taught to you in the hospital. Again, make walking a part of your daily routine. Call your doctor at [phone] if: * Temperature above 101 degrees * Pain not relieved by pain medicine ordered * There is increased drainage or redness from any incision * You have any unanswered questions, problems or concerns. FOLLOW UP VISIT: * If not already scheduled, please call the office at to schedule a follow-up appointment. * Call Dr. Bians's office to scheduled a 1 week follow up appointment. Diet Recommendations Recommended Home Diet: no limitations, resume previous diet Procedures Procedures Performed: closed reduction Pending Studies Studies pending at discharge: no Medical Emergencies . Who to Call and When: Medical Emergencies: If at any time you feel your situation is an emergency, please call 911 immediately. . Non-Emergent Contact Non-Emergency issues call your: Surgeon Call Non-Emergent contact if: your pain is not controlled, your pain is worsening . . "Provider Documentation" section prepared by Michelle Mitchell. [place] Drug Monitoring Program Search Results: patient reviewed within database, no issues identified Addendum: Jennifer. Mitchell R (ORTHO) on 03/16/17 @ 20:32 Discharge Inst - Addendum Addendum Notes: Okay to readjust knee immobilizer as needed for comfort. Ice to right knee as needed for pain/swelling. Ankle pumps bilateral lower extremities to help with swelling and circulation Use walker to assist with ambulation at all times. Pain medication as prescribed. Follow up with [facility]/Dr. Bains in 1 week. Addendum Provider: Addendum Notes were documented by provider Michelle Mitchell. Addendum: Jono Enciso M.D. on 03/17/17 @ 14:18 Discharge Inst - Addendum Addendum Notes: Family Medicine follow-up with Dr. Coleman. Seek medical attention if you have: * temperature above 101 * chest pain or trouble breathing * abdominal pain, nausea, vomiting * diarrhea, dark stools or bloody stools * any unanswered questions or concerns Call [phone] if symptoms are severe. Call if you have any questions or problems. My cell # is [phone]. You can also reach a [facility] hospitalist on duty at [facility] 24 hours a day by calling [phone]. Please take good care of yourself. Jono Enciso . Addendum Provider: Addendum Notes were documented by provider Jono Enciso. Additional Copies To Leandra Coleman M.D.; Kj Bains M.D.
== END 2017-03-17 20:30 | disposition home health service (06) ==
LOC: ENRESERVTM → ENRESERVDT → EDBD 09:17 → C.EDB 09:19 → C.MSW 15:50
PROVIDERS: ADMIT Physical Medicine & Rehabilitation Sports Medicine; ATTEND Hospitalist
DX: T84.020A Dislocation of internal right hip prosthesis, initial encounter (principal); S82.454A Nondisplaced comminuted fracture of shaft of right fibula, initial encounter for closed fracture; W01.0XXA Fall on same level from slipping, tripping and stumbling without subsequent striking against object, initial encounter; Y93.E1 Activity, personal bathing and showering; R07.89 Other chest pain; M06.9 Rheumatoid arthritis, unspecified; J32.9 Chronic sinusitis, unspecified; K21.9 Gastro-esophageal reflux disease without esophagitis; E03.9 Hypothyroidism, unspecified; M81.0 Age-related osteoporosis without current pathological fracture; Z79.899 Other long term (current) drug therapy; Z96.641 Presence of right artificial hip joint; Z79.52 Long term (current) use of systemic steroids; Z53.8 Procedure and treatment not carried out for other reasons

== ENCOUNTER → 2017-03-22 | Outpatient (CLI) | payer OTHER, MEDICARE ==
[~2017-03-22] MED LIST changes: +ATEN50TA8 PO; +DOXY100C2 PO; +FLUT0.15 NAE; -LEVO-217 PO; +MELO15TA4 PO; +NITR0.4S UT; -OXYC-57 PO; +PRED10TA PO; +RIFA150C15 PO; +SYN50 PO; +TRAM-10 PO; -WARF2TAB PO
--- NOTE | 2017-03-22 14:38 | DIAGNOSTIC IMAGING REPORT ---
RIGHT TIBIA/FIBULA 2 VIEWS CLINICAL HISTORY: Right leg pain COMPARISON: 03/16/2017 DISCUSSION: Again evident is a nondisplaced transverse fracture through an old proximal fibular fracture. There is no change in alignment. No tibial fractures are evident. IMPRESSION: No change in alignment of the nondisplaced fracture extending through an old healed proximal fibular fracture Electronically signed by: Nuno Robin M.D. 03/22/2017 2:36 PM Dictated Date/Time: 03/22/2017 2:35 PM
--- NOTE | 2017-03-22 14:40 | DIAGNOSTIC IMAGING REPORT ---
RIGHT PELVIS UNILATERAL HIP 1 VIEW CLINICAL HISTORY: RIGHT HIP AND LOWER LEG PAIN Right COMPARISON STUDY: Pelvis and right hip 02/04/2017. FINDINGS: There is a right total hip arthroplasty. The hardware is intact. No acute fracture or dislocation within the pelvis or hips. Mild degenerative changes within the bilateral sacral iliac joints. 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 IMPRESSION: 1. No acute fracture or dislocation within the pelvis or hips. 2. Right total hip arthroplasty. The hardware appears intact. Electronically signed by: Keny Bermudez M.D. 03/22/2017 2:38 PM Dictated Date/Time: 03/22/2017 2:35 PM
== END | disposition home or self-care (01) ==
LOC: C.RDSM 14:15
PROVIDERS: ATTEND Physician Assistant
DX: S82.424A Nondisplaced transverse fracture of shaft of right fibula, initial encounter for closed fracture (principal); S73.001A Unspecified subluxation of right hip, initial encounter; X58.XXXA Exposure to other specified factors, initial encounter; Z96.641 Presence of right artificial hip joint

== ENCOUNTER → 2017-04-18 | Outpatient (CLI) | payer OTHER, MEDICARE ==
[~2017-04-18] MED LIST changes: -PRED10TA PO
--- NOTE | 2017-04-18 10:19 | DIAGNOSTIC IMAGING REPORT ---
RIGHT TIBIA/FIBULA 2 VIEWS CLINICAL HISTORY: Follow-up fibular fracture. COMPARISON STUDY: Right lower leg 03/22/2017. FINDINGS: There is progressive healing within the proximal right fibular fracture. The alignment remains unchanged. The tibia appears intact. No acute fractures identified. IMPRESSION: Progressive healing within the proximal right fibular fracture. Electronically signed by: Keny Bermudez M.D. 04/18/2017 10:17 AM Dictated Date/Time: 04/18/2017 10:16 AM
== END | disposition home or self-care (01) ==
LOC: C.RDSM 10:05
PROVIDERS: ATTEND Physician Assistant
DX: S82.831D Other fracture of upper and lower end of right fibula, subsequent encounter for closed fracture with routine healing (principal); X58.XXXD Exposure to other specified factors, subsequent encounter

== ENCOUNTER → 2017-05-27 | Outpatient (CLI) | payer OTHER, MEDICARE | END | disposition home or self-care (01) | LOC: C.RDSM 10:45 | PROVIDERS: ATTEND Physical Medicine & Rehabilitation Sports Medicine | DX: M89.8X6 Other specified disorders of bone, lower leg (principal) ==

== ENCOUNTER 2017-06-15 12:55 | Observation (INO) | payer OTHER, MEDICARE ==
[2017-06-15] VITALS (7 sets, daily range): BP systolic 122–144; BP diastolic 66–82; PULSE 65–72; TEMP 36.5–36.9; O2SAT 93–100; Ht 152.4 cm; Wt 80.0 kg
[~2017-06-15] VITALS: Ht 152.4 cm; Wt 80.0 kg
[~2017-06-15 12:55] MED LIST changes: -ATEN50TA8 PO; -FLUT0.15 NAE; -NITR0.4S UT; -PRED-301 PO; -RIFA150C15 PO
[2017-06-15] MEDS ORDERED: FLUT0.15 NAE (13:25)
[2017-06-15] MEDS ORDERED: RIFA150C15 PO (13:25)
[2017-06-15] MEDS ORDERED: NITR0.4S UT (13:25)
[2017-06-15] MEDS ORDERED: ATEN50TA8 PO (13:25)
[2017-06-15] MEDS ORDERED: PRED-301 PO (13:25)
[2017-06-15] MEDS ORDERED: FENTANYL CITRATE INJ 50 MCG/1 ML 2 ML VIAL IV ONE (14:00)
--- NOTE | 2017-06-15 14:30 | DIAGNOSTIC IMAGING REPORT ---
RIGHT HIP UNILATERAL 2 VIEWS CLINICAL HISTORY: fall Right pain COMPARISON: 03/16/2017 DISCUSSION: Total right hip replacement. Evidence for dislocation of the femoral prosthetic in relation to the acetabulum. Partially displaced in a superior fashion IMPRESSION: Dislocation right hip The above report was generated using voice recognition software. It may contain grammatical, syntax or spelling errors. Electronically signed by: Lawson Gonsalez M.D. 06/15/2017 2:29 PM Dictated Date/Time: 06/15/2017 2:27 PM
[2017-06-15] MEDS ORDERED: FENTANYL CITRATE INJ 50 MCG/1 ML 2 ML VIAL IV PRN (15:30)
[2017-06-15] MEDS ORDERED: PROPOFOL IV EMULSION 10 MG/ML 20 ML VIAL IV ONE ×2 (16:02→16:03)
[2017-06-15] MEDS ORDERED: KETAMINE HCL INJ 50 MG/ML 10 ML VIAL ONE (16:02)
[2017-06-15] MEDS ORDERED: NITROGLYCERIN 0.4 MG SL PER TAB CHARGE UT PRN (16:30)
[2017-06-15] MEDS ORDERED: TRAMADOL HCL 50 MG TAB PO PRN (16:30)
[2017-06-15] MEDS ORDERED: FLUTICASONE PROPIONATE NA SPR 16 GM BTL NAE PRN (16:30)
[2017-06-15] MEDS ORDERED: CYCLOBENZAPRINE HCL 10 MG TAB PO PRN (16:30)
--- NOTE | 2017-06-15 16:34 | DIAGNOSTIC IMAGING REPORT ---
RIGHT HIP UNILATERAL 2 VIEWS CLINICAL HISTORY: dislocation Right dislocation COMPARISON: None. DISCUSSION: The bones and joint spaces appear intact. There is no evidence of fracture, dislocation or bony disease. There is no evidence for soft tissue swelling. IMPRESSION: Anatomic alignment postreduction The above report was generated using voice recognition software. It may contain grammatical, syntax or spelling errors. Electronically signed by: Lawson Gonsalez M.D. 06/15/2017 4:32 PM Dictated Date/Time: 06/15/2017 4:32 PM
[2017-06-15] MEDS ORDERED: ONDANSETRON INJ 2 MG/ML 2 ML VIAL IV PRN (16:45)
[2017-06-15] MEDS ORDERED: OXYCODONE/ACETAMINOPHEN 5-325 TAB PO PRN (16:45)
--- NOTE | 2017-06-15 16:53 | History and Physical ---
History & Physical Date & Time of Service: Jun 15, 2017 at 16:45 Chief Complaint: right hip pain Primary Care Physician: Leandra Coleman M.D. History of Present Illness Source: patient, family Patient is a 76-year-old female. Patient Dr. Bains. She is status post right total hip arthroplasty. Index surgery in January. Traumatic dislocation secondary to a fall in March. He was pulling weeds out in the garden today when her hip dislocated again. She is brought to the emergency room for further evaluation and treatment she denies other injury there is no numbness or tingling. She last ate at 10 AM. Past Medical/Surgical History Medical Problems: (1) Amputated finger Status: Chronic (2) GERD (gastroesophageal reflux disease) Status: Chronic (3) History of PSVT (paroxysmal supraventricular tachycardia) Status: Chronic (4) Hypothyroidism Status: Chronic (5) Osteoporosis Status: Chronic (6) Pacemaker Status: Chronic (7) Rheumatoid arthritis Status: Chronic (8) Tachy-jacinto syndrome Status: Chronic Surgical Problems: (1) H/O breast biopsy Status: Resolved (2) H/O foot surgery Status: Chronic (3) H/O shoulder surgery Status: Chronic (4) History of carpal tunnel surgery Status: Chronic (5) History of hip surgery Status: Chronic (6) History of osteomyelitis Status: Resolved (7) History of recent maxillofacial surgery Status: Resolved (8) Hx of tonsillectomy Status: Chronic Family History Abdominal aortic aneurysm (AAA) Hypertension Stroke Social History Smoking Status: Never Smoker Marital Status: Occupational Status: retired Immunizations History of Tetanus Vaccine?: 1999 History of Pneumococcal: 1999 History of Hepatitis B Vaccine: 1982 Multi-Drug Resistant Organisms History of MDRO: Yes Type of MDRO: MRSA Allergies Coded Allergies: Sulfa Antibiotics (Verified Allergy, Mild, rash, 03/16/17) Aspirin (Verified Allergy, Unknown, THROMBOCYTOPENIA, 03/16/17) Phenylbutazone (Verified Allergy, Unknown, THROMBOCYTOPENIA, 03/16/17) Amoxicillin (Verified Adverse Reaction, Intermediate, severe diarrhea, ) Clavulanic Acid (Verified Adverse Reaction, Intermediate, severe diarrhea , 03/16/17) Hydromorphone (Verified Adverse Reaction, Mild, NAUSEA AND VOMITING, ) Morphine (Verified Adverse Reaction, Mild, NAUSEA/VOMITTING, 03/16/17) Home Medications Scheduled Atenolol (Tenormin), 50 MG PO BID Doxycycline Hyclate (Vibramycin), 100 MG PO DIRECTED Gabapentin (Neurontin), 300 MG PO TID Levothyroxine Sodium (Synthroid), 50 MCG PO QAM Lisinopril (Zestril), 10 MG PO QAM Meloxicam (Meloxicam), 15 MG PO DAILY Nitroglycerin (Nitrostat), 0.4 MG UT PRN Omeprazole (Prilosec), 20 MG PO AFTERNOON Prednisone (Prednisone), 5 MG PO 4XWK Rifampin (Rifadin), Unknown Dose PO DIRECTED Scheduled PRN Cyclobenzaprine Hcl (Flexeril), 10 MG PO HS PRN for Muscle Spasms Fluticasone Propionate (Nasal) (Flonase Allergy Relief), 2 SPRAYS KAYLA DAILY PRN for ALLERGIES Tramadol (Ultram), 1-2 TAB PO Q6H PRN for Pain Physical Exam Vital Signs Date Time Temp Pulse Resp B/P (MAP) Pulse Ox O2 Delivery O2 Flow Rate FiO2 06/15/17 16:00 36.8 72 16 130/66 98 Room Air 06/15/17 15:46 73 20 143/82 99 Room Air 06/15/17 14:24 77 06/15/17 13:50 75 19 132/87 98 Room Air 06/15/17 13:00 36.7 76 20 117/71 93 Room Air She is lying on the ER stretcher. Right hip and knee flexed and internally rotated. She is awake alert and oriented in no acute distress. 5 out of 5 ankle and toe plantar flexion and dorsiflexion strength 1+ her cells pedis pulses normal sensation there is no tenderness to palpation but movement of the right hip is painful Her chest is clear to auscultation bilaterally her heart is regular in rate and rhythm her abdomen is soft and nontender with active bowel sounds she does not have a cardiac murmur Diagnostics Diagnostic Radiology Prereduction radiographs demonstrate a posterior superior dislocation of a right total hip prosthesis without evidence of fracture. 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 I recommended conscious sedation and closed reduction. She has been nothing by mouth for [address] Almonte will administer conscious sedation. An informed consent is obtained in case a operative reduction is necessary. This was required to last time. I reviewed with her the risks of closed reduction which include things like bleeding pain nerve or blood vessel injury blood clot embolism heart attack stroke damaged implants recurrent instability foot drop I personally obtained informed consent and she agrees to proceed Procedure a timeout was performed. The procedure site was identified as the right hip I marked with my initials. Pinedo sedation was administered and after adequate relaxation and analgesia a gentle closed reduction maneuver was performed by flexing the hip to 90 and applying traction with gentle internal and internal and external rotation. The hip easily reduced within about 5 seconds. The hip was stable in flexion and abduction with external rotation. The hip dislocated with adduction to the midline any internal rotation beyond 80 of flexion. The hip was redislocated and reduced 1. Postreduction radiographs demonstrated a [place] reduction without evidence of complications such as fracture loosening or implant damage. My findings discussed with the patient's family. Given that this is her second dislocation within 5 months of surgery I have recommended that she be admitted to the hospital observation status and that we obtain a hip abduction brace for use. Abduction pillow. Her regular medicines will be continued. She can weight-bear as tolerated. Once she has the hip orthosis she can be discharged home. She can ambulate with a walker. Hip precautions will be reinforced. After the reduction maneuver her neurovascular function sensation motor function and pulses remained intact VTE Prophylaxis VTE Risk Assessment Done? Y/N: Yes Risk Level: Low
--- NOTE | 2017-06-15 17:46 | EMERGENCY ROOM VISIT NOTE ---
History Report prepared by Amber: Michelle Ly Under the Supervision of: Dr. Jt Arita D.O. First contact with patient: 13:49 Chief Complaint: HIP PAIN Stated Complaint: right hip pain History of Present Illness The patient is a 76 year old female who presents to the Emergency Room via ALS with complaints of persistent right hip pain starting this morning. The patient bent over to pull out a weed when she felt her right hip dislocation. She received 150 mcg Fentanyl and 4 mg Zofran prior to arrival with some relief in pain. She currently rates a pain intensity of 4/10. The patient has a history of hip dislocation occurring in March 2017 with similar symptoms. She had a hip replacement in January 2017. Source of History: patient Onset: this morning Position: other (right hip) Symptom Intensity: 4/10 Timing: other (persistent) Modifying Factors (Relieving): other (150 mcg Fentanyl and 4 mg Zofran prior to arrival with some relief in pain) Review of Systems See HPI for pertinent positives & negatives. A total of 10 systems reviewed and were otherwise negative. Past Medical & Surgical Medical Problems: (1) Amputated finger (2) GERD (gastroesophageal reflux disease) (3) History of PSVT (paroxysmal supraventricular tachycardia) (4) Hypothyroidism (5) Osteoporosis (6) Pacemaker (7) Rheumatoid arthritis (8) Tachy-jacinto syndrome Surgical Problems: (1) H/O breast biopsy (2) H/O foot surgery (3) H/O shoulder surgery (4) History of carpal tunnel surgery (5) History of hip surgery (6) History of osteomyelitis (7) History of recent maxillofacial surgery (8) Hx of tonsillectomy (9) S/P closed reduction of dislocated total hip prosthesis Family History Abdominal aortic aneurysm (AAA) Hypertension Stroke Social History Smoking Status: Never Smoker Marital Status: Housing Status: lives with family Occupation Status: retired Current/Historical Medications Scheduled Atenolol (Tenormin), 50 MG PO BID Doxycycline Hyclate (Vibramycin), 100 MG PO DIRECTED Gabapentin (Neurontin), 300 MG PO TID Levothyroxine Sodium (Synthroid), 50 MCG PO QAM Lisinopril (Zestril), 10 MG PO QAM Meloxicam (Meloxicam), 15 MG PO DAILY Nitroglycerin (Nitrostat), 0.4 MG UT PRN Omeprazole (Prilosec), 20 MG PO AFTERNOON Prednisone (Prednisone), 5 MG PO 4XWK Rifampin (Rifadin), Unknown Dose PO DIRECTED Scheduled PRN Cyclobenzaprine Hcl (Flexeril), 10 MG PO HS PRN for Muscle Spasms Fluticasone Propionate (Nasal) (Flonase Allergy Relief), 2 SPRAYS KAYLA DAILY PRN for ALLERGIES Tramadol (Ultram), 1-2 TAB PO Q6H PRN for Pain Allergies Coded Allergies: Sulfa Antibiotics (Verified Allergy, Mild, rash, 03/16/17) Aspirin (Verified Allergy, Unknown, THROMBOCYTOPENIA, 03/16/17) Phenylbutazone (Verified Allergy, Unknown, THROMBOCYTOPENIA, 03/16/17) Amoxicillin (Verified Adverse Reaction, Intermediate, severe diarrhea, ) Clavulanic Acid (Verified Adverse Reaction, Intermediate, severe diarrhea , 03/16/17) Hydromorphone (Verified Adverse Reaction, Mild, NAUSEA AND VOMITING, ) Morphine (Verified Adverse Reaction, Mild, NAUSEA/VOMITTING, 03/16/17) Physical Exam Vital Signs Date Time Temp Pulse Resp B/P (MAP) Pulse Ox O2 Delivery O2 Flow Rate FiO2 06/15/17 17:36 36.9 69 10 130/70 98 Nasal Cannula 2.0 06/15/17 17:26 70 4 132/79 87 06/15/17 17:21 66 8 142/72 91 06/15/17 17:16 66 3 155/83 98 06/15/17 17:16 Room Air 06/15/17 17:12 36.7 65 10 136/81 99 Nasal Cannula 2.0 06/15/17 17:11 65 8 136/81 98 06/15/17 17:09 99 Nasal Cannula 2.0 06/15/17 17:06 66 8 137/74 100 06/15/17 17:01 68 8 152/86 100 06/15/17 16:56 71 13 148/95 100 06/15/17 16:51 145/94 06/15/17 16:50 74 16 99 06/15/17 16:46 147/80 06/15/17 16:45 73 9 98 06/15/17 16:41 131/85 06/15/17 16:40 76 11 98 06/15/17 16:36 162/89 06/15/17 16:35 78 8 98 06/15/17 16:31 144/77 06/15/17 16:30 78 6 98 06/15/17 16:26 146/82 06/15/17 16:25 78 7 98 06/15/17 16:21 126/73 06/15/17 16:20 75 3 95 06/15/17 16:19 125/67 06/15/17 16:17 Nasal Cannula 6.0 06/15/17 16:16 120/71 06/15/17 16:15 77 0 69 06/15/17 16:14 Ambu-Bag 15.0 06/15/17 16:11 130/66 06/15/17 16:11 Nasal Cannula 6.0 06/15/17 16:10 75 11 94 06/15/17 16:00 36.8 72 16 130/66 98 Room Air 06/15/17 15:46 73 20 143/82 99 Room Air 06/15/17 14:24 77 06/15/17 13:50 75 19 132/87 98 Room Air 06/15/17 13:00 36.7 76 20 117/71 93 Room Air Physical Exam CONSTITUTIONAL/VITAL SIGNS: Reviewed / noted above. GENERAL: Non-toxic in appearance. INTEGUMENTARY: Warm, dry, and [place]. HEAD: Normocephalic. EYES: without scleral icterus or trauma. ENT/OROPHARYNX: clear and moist. LYMPHADENOPATHY/NECK: Is supple without lymphadenopathy or meningismus. RESPIRATORY: Lungs clear and equal. CARDIOVASCULAR: Regular rate and rhythm. GI/ABDOMEN: Soft and nontender. No organomegaly or pulsatile mass. No rebound or guarding. Normal bowel sounds. EXTREMITIES: Warm and well perfused. Shortening of right leg with some pain with movement, neurovascularly intact distally. BACK: No CVA tenderness. NEUROLOGICAL: Intact without focal deficits. PSYCHIATRIC: normal affect. MUSCULOSKELETAL: Normally developed with good muscle tone. Medical Decision & Procedures ER Provider Diagnostic Interpretation: X ray results and stated below per my interpretation and radiology interpretation. RIGHT HIP UNILATERAL 2 VIEWS CLINICAL HISTORY: fall Right pain COMPARISON: 03/16/2017 DISCUSSION: Total right hip replacement. Evidence for dislocation of the femoral prosthetic in relation to the acetabulum. Partially displaced in a superior fashion IMPRESSION: Dislocation right hip The above report was generated using voice recognition software. It may contain grammatical, syntax or spelling errors. Electronically signed by: Lawson Gonsalez M.D. 06/15/2017 2:29 PM Dictated Date/Time: 06/15/2017 2:27 PM RIGHT HIP UNILATERAL 2 VIEWS CLINICAL HISTORY: dislocation Right dislocation COMPARISON: None. DISCUSSION: The bones and joint spaces appear intact. There is no evidence of fracture, dislocation or bony disease. There is no evidence for soft tissue swelling. IMPRESSION: Anatomic alignment postreduction The above report was generated using voice recognition software. It may contain grammatical, syntax or spelling errors. Electronically signed by: Lawson Gonsalez M.D. 06/15/2017 4:32 PM Dictated Date/Time: 06/15/2017 4:32 PM Medications Administered Medications (Trade) Dose Ordered Sig/Nitesh Route Start Time Stop Time Status Last Admin Dose Admin Fentanyl Citrate (Fentanyl Inj) 100 mcg ONE ONCE IV 06/15/17 14:00 06/15/17 14:01 DC 06/15/17 14:00 100 MCG Fentanyl Citrate (Fentanyl Inj) 100 mcg Q1H PRN IV 06/15/17 15:30 06/29/17 15:29 06/15/17 15:44 100 MCG Procedure Procedural Sedation Indication Hip dislocation reduction. Total time: 22 minutes. Written consent was obtained after the risks and benefits were explained to the patient, including, but not limited to aspiration, allergic reaction, breathing difficulties, cardiac complications, vomiting, pain, event recall, bleeding, and /or infection. Pre-sedation examination and paperwork completed. The patient was on 100% oxygen via NRB prior to the procedure. Continuos end tidal CO2 monitoring, pulse oximetry, and cardiac monitoring were utilized. Suction, airway equipment, medications, respiratory equipment, and appropriate personnel were prepared prior to the initiation of the procedure. A time out was taken. Sedation was achieved utilizing 40 mg of IV Ketamine, 40 mg IV of Propofol. After I observed the patient had reached the appropriate level of sedation the main procedure was performed without complication. Sedation was discontinued and the monitoring continued. The patient recovered quickly from the effects of the medication without complication or adverse event. ED Course 1349: Previous medical records were reviewed. The patient was evaluated in room B08. A complete history and physical examination was performed. 1400: Fentanyl Inj 100 mcg IV 1428: I discussed the patient's case with Dr. Bridges, orthopedic surgeon with [facility]. He may attempt the conscious sedation and hip dislocation reduction in about an hour. 1530: Fentanyl Inj 100 mcg IV 1725: On reevaluation, the patient is resting comfortably. I discussed the results and findings with her. She verbalized agreement of the treatment plan. The patient will be evaluated for further management and care. Medical Decision Medication Reconciliation: I attest that I have personally reviewed the patient' s current medication list. Blood pressure Screening: Patient was found to have normal blood pressure on screening and does not require follow-up. Differential diagnosis: Etiologies such as fracture, dislocation, neurovascular compromise, compartment syndrome, soft tissue injury, as well as others were entertained. This is a 76-year-old female who presents to the ED with a chief complaint of right hip pain. The patient was bending over to steel pickler some weeds and feels like she dislocated her right hip. An x-ray shows a dislocation. This occurred around shortly prior to arrival. She last ate at around 10 AM. The patient's exam is suggestive of a hip dislocation as is her x-ray. I spoke with Dr. Bridges. He came in and relocated the hip. I provided conscious sedation using 40 mg of IV propofol and 40 mg of IV ketamine. The patient had a brief episode of apnea and hypoxia which was easily relieved with BVM ventilation for a short time. The patient awoke from the sedation without complication or other issues. The hip was relocated, subsequently dislocated and then was relocated again. The patient is being admitted by Dr. Bridges for observation. Consults Time Called: 1428 Consulting Physician: Dr. Bridges, orthopedic surgeon with [facility] Returned Call: [phone] I discussed the patient's case with Dr. Bridges, orthopedic surgeon with [facility]. He may attempt the conscious sedation and hip dislocation reduction in about an hour. Impression Primary Impression: Hip dislocation, right Scribe Attestation The scribe's documentation has been prepared under my direction and personally reviewed by me in its entirety. I confirm that the note above accurately reflects all work, treatment, procedures, and medical decision making performed by me. Departure Information Dispostion Being Evaluated By Hospitalist Leandra Moran M.D. (PCP) Patient Instructions My [facility]
[2017-06-15] MEDS ORDERED: ONDANSETRON INJ 2 MG/ML 2 ML VIAL IV STA (17:52)
[2017-06-15] MEDS ORDERED: IV FLUIDS COMPLETED PRN (18:45)
[2017-06-15] MEDS: DOCUSATE SODIUM 100 MG CAP PO SCH (21:37)
[2017-06-15] MEDS: RIFAMPIN 150 MG CAP PO SCH (21:38)
[2017-06-15] MEDS: DOXYCYCLINE HYCLATE 100 MG CAP PO SCH (21:38)
[2017-06-15] MEDS: GABAPENTIN 300 MG CAP PO SCH (21:39)
[2017-06-16 03:44] VITALS: BP 118/70; PULSE 67; TEMP 36.6; O2SAT 97
[2017-06-16] MEDS ORDERED: LEVOTHYROXINE 50 MCG TAB PO SCH (06:00)
[2017-06-16 07:13] VITALS: BP 118/75; PULSE 64; TEMP 36.6; O2SAT 100
[2017-06-16] MEDS: DOXYCYCLINE HYCLATE 100 MG CAP PO SCH (08:08)
[2017-06-16] MEDS: DOCUSATE SODIUM 100 MG CAP PO SCH (08:08)
[2017-06-16] MEDS: RIFAMPIN 150 MG CAP PO SCH (08:09)
[2017-06-16] MEDS: GABAPENTIN 300 MG CAP PO SCH (08:09)
[2017-06-16] MEDS ORDERED: LISINOPRIL 10 MG TAB PO SCH (09:00)
[2017-06-16] MEDS ORDERED: MELOXICAM 7.5 MG TAB PO SCH (09:00)
--- NOTE | 2017-06-16 09:09 | Progress Note ---
Progress Note Date of Service Jun 16, 2017. Progress Note Patient is sitting up comfortably in a chair. This point time she notes that she is ambulatory has been in the bathroom. She has no pain. Vital signs are stable she's afebrile. Neurovascular check femoral sciatic nerve is good. Assessment doing reasonably well. At this point and can be discharged. She cannot cross her leg beyond the midline with any internal rotation. We will get her set up with a brace as an outpatient. She'll be discharged with an abduction pillow. She was advised once again regarding postural indiscretion's and the potential need for a lot locked acetabular liner if she continues to have issues. She is amenable to discharge. Will follow up in the office in 1 week.
--- NOTE | 2017-06-16 09:12 | Discharge Summary ---
Orthopedic Discharge Summary Admission Date/Reason Jun 15, 2017 at 16:36 right hip pain. Discharge Date/Disposition Jun 16, 2017 Home Diagnosis Principal Diagnosis: Right hip instability status post closed reduction Secondary Diagnoses/Problems: See H&P Procedure(s) Performed Conscious sedation closed reduction, documentation of excellent stability with the exception of adduction and internal rotation. These position should be avoidable. She needs to be more compliant. He understands if this continues she'll need a lock acetabular liner. Vaccinations None Consultations None Medication Reconciliation Resume all preadmission medications, nothing new added. Admission Physical Exam As per Admitting History & Physical. Hospital Course Uneventful Discharge Instructions Please refer to the electronic Patient Visit Report (Discharge Instructions) for additional information.
--- NOTE | 2017-06-16 09:18 | Discharge Instructions ---
Discharge Instructions Date of Service Jun 16, 2017. Admission Reason for Admission: right hip pain Discharge Discharge Diagnosis / Problem: right hip postural instability Discharge Goals Goal(s): Improve function Activity Recommendations Activity Limitations: as noted below Lifting Limitations: no more than 5 pounds Exercise/Sports Limitations: none May Resume Sexual Activity: after follow-up appointment Shower/Bathe: may shower/bathe in 3 days (no tub bathing ) Weightbearing Status: Right weightbearing (as tolerated) New Medicine: * You will likely be taking one or more of these medicines: 1. Percocet - Take, as directed, when you need it, every four to six hours to control your pain. 2. Iron Sulfate - Take three times each day for the month after surgery to help you replace the blood lost during surgery. 3. Coumadin - Thins your blood to lessen the chance of forming a blood clot. The dose of this is different for each person and is based on your blood tests that are done twice a week. * The most common side effects of pain medicine and iron are nausea and constipation. If nausea or constipation is too much of a problem or if you have any questions about your new medicines or doses, call [facility] at . We will try to help you manage these issues. VERY IMPORTANT TO READ AND REVIEW" Blood Clots and Blood Thinning Medicine: * You are given Coumadin during the immediate post-operative period to lessen the risk of blood clots forming in your legs and/or lungs. Coumadin is usually given for six weeks after surgery. * The prescription is for 2 mg tablets. At discharge, you should understand your dose and take it all at the same time every day, preferably after dinner. * You need to get your blood checked 1 - 2 times per week for six weeks, or as directed. * If your dose needs to change, we will call you. Do not take your medication on the day of the blood test until we call you. * If you don't hear from us after your blood draws, keep taking the same dose. Pain: * The immediate post-operative period after hip replacement surgery is often quite painful. * You are given a prescription for pain medicine. You should take it, as directed, when you need it, especially before physical therapy and before going to bed. Pain that interferes with sleep is very common and can last several months. * You will likely need pain medicine for the first two to four weeks. It will not stop all of the pain. The pain will lessen and as you feel better, you may change to milder pain medicine such as Tylenol. * The most common side effects of pain medicine are nausea and constipation, so don't take more than you need. Physical Therapy: * Follow the "Hip Precautions Instructions." * In some cases, the director social at the hospital will arrange to have a therapist come to your house for the first couple of weeks to help you learn these skills. * You need to practice on your own or with the help of a family member as needed. * When you learn these skills, most of the therapy can be done on your own. Home Exercise: * You were shown a series of exercises in the hospital. Do these exercises three to four times each day including the exercises you were shown in physical therapy. Walking: * Get up and walk several times each day. For the first four weeks, try not to stand or walk for more than one hour at a time. If you do stand or walk for more than one hour, you will not hurt anything, but your leg will likely swell. * As you feel comfortable, you may change from the walker or crutches to a cane and then to independent walking. SELF CARE INSTRUCTIONS AFTER TOTAL HIP REPLACEMENT Until the incision and soft tissues around your hip have healed, there is a possibility that the hip prosthesis could dislocate. A. Observe the following precautions to prevent dislocation: 1. Don't bend your hip greater than 90 degrees. 2. Avoid crossing your legs or ankles while standing or lying. 3. Sit with your feet placed 6 inches apart. 4. When sitting, keep your knees below your hips. Sit on a firm surface, avoid deep, soft chairs and couches. Use an elevated toilet seat in the bathroom. 5. Don't bend over at the waist. Use a long handled shoehorn and a sock aid to help you put on your shoes and socks. A bilingual medical receptionist can help you shredder picker objects that are too high or too low to reach. 6. Keep car riding to a minimum for at least one month after surgery. B. Your balance may be shaky for a while. Use crutches or a walker until directed by your doctor. C. Use hand rails when walking on stairs. D. Wear low heeled shoes with non-slip soles. E. Be sure that your floors are free of things that could trip you - throw rugs , electrical cords, small objects. Avoid wet and waxed floors, especially with crutches and canes. F. Try to walk several times a day with rest periods between. G. Continue with all the exercises taught to you in the hospital. Again, make walking a part of your daily routine. VERY IMPORTANT TO READ AND REVIEW A. Take Coumadin, or Lovenox (blood thinning medications) as directed by your doctor. If you are on Coumadin, have a pro-time (blood test) drawn according to your doctor's instructions. This will tell the doctor how well the Coumadin is thinning your blood. B. There are a few signs you need to watch for after you are home. If you notice any of the followin. Increased severe hip pain. Some pain is expected especially when you exercise. 2. Increased swelling in your leg or knee; pain or swelling of the calf muscle in either lower leg. 3. Any fluid drainage from the incision. 4. Shortness of breath or chest pain. TEDs/Elastic Stockings: * The white elastic stockings help limit swelling and prevent blood clots from forming in your legs. The more you wear them, the more they work. * Wear them for six weeks. Prevention of Infection: * Take antibiotics one hour before any dental cleaning, dental work, urological procedure, gastrointestinal procedure or any invasive surgery in order to prevent your new joint from getting infected. * You may get the antibiotics from the doctor performing the procedure or we will call in a prescription to the pharmacy of your choice. Call the office for a prescription at least 2 days prior to your appointment. Things to Watch For: * Drainage from the incision site that occurs more than one week after your surgery. * Severely increased leg pain or swelling. * Increased redness at the incision site. * Fever above 101 degrees Fahrenheit. * Unusual chest pain or shortness of breath. * Unusual pain or burning with urination. . Instructions / Follow-Up Instructions / Follow-Up do no tale percocet/coumadin/iron supplements they are not for this admission Current Hospital Diet Patient's current hospital diet: Regular Diet Discharge Diet Recommended Diet: Regular Diet (resume previous diet) Procedures Procedures Performed: closed reduction with conscious sedation Pending Studies Studies pending at discharge: no Medical Emergencies . Who to Call and When: Medical Emergencies: If at any time you feel your situation is an emergency, please call 911 immediately. . Non-Emergent Contact Non-Emergency issues call your: Specialist . "Provider Documentation" section prepared by Kj Bains. . VTE Core Measure Inpt VTE Proph given/why not?: Treatment not indicated (not indicated)
[2017-06-16 09:49] VITALS: BP 118/75; PULSE 64; TEMP 36.6; O2SAT 100
[2017-06-16] MEDS ORDERED: PANTOprazole SOD 40 MG TAB PO SCH (12:00)
== END 2017-06-16 10:35 | disposition home or self-care (01) ==
LOC: EDBD 12:55 → C.EDB 12:56 → C.MSW 16:36 → EDBEDREQ 16:44 → ENRESERV 16:53 → C.MSW 18:00
PROVIDERS: ADMIT Physical Medicine & Rehabilitation Sports Medicine; ATTEND Physical Medicine & Rehabilitation Sports Medicine
DX: T84.020A Dislocation of internal right hip prosthesis, initial encounter (principal); X50.0XXA Overexertion from strenuous movement or load, initial encounter; Y93.H2 Activity, gardening and landscaping; Y92.007 Garden or yard of unspecified non-institutional (private) residence as the place of occurrence of the external cause; I49.5 Sick sinus syndrome; I47.1 Supraventricular tachycardia; K21.9 Gastro-esophageal reflux disease without esophagitis; E03.9 Hypothyroidism, unspecified; M81.0 Age-related osteoporosis without current pathological fracture; M06.9 Rheumatoid arthritis, unspecified; Z95.0 Presence of cardiac pacemaker; Z79.899 Other long term (current) drug therapy

== ENCOUNTER → 2017-07-29 | Outpatient (CLI) | payer OTHER, MEDICARE ==
[~2017-07-29] MED LIST changes: -ATEN-175 PO; +ATEN50TA8 PO; -FLNIN NAE; +FLUT0.15 NAE; +NITR0.4S UT; +PRED-301 PO; +RIFA150C15 PO; -ZOLE5INJ INJ
--- NOTE | 2017-07-29 08:21 | DIAGNOSTIC IMAGING REPORT ---
RIGHT PELVIS UNILATERAL HIP 1 VIEW CLINICAL HISTORY: 76 years-old Female presenting with S/P RIGHT TOTAL HIP ARTHROPLASTY Right. TECHNIQUE: Single frontal view of the pelvis and frog-leg lateral view of the right hip were obtained. COMPARISON: 03/22/2017. FINDINGS: Redemonstration of total right hip arthroplasty. No subluxation. No hardware competition is evident. No acute fracture. Heterotopic ossification along the posterior aspect of the greater trochanter. Significant deformity of the left superior and inferior pubic rami subjacent to the pubic symphysis. Apparent increased lucency at this region likely represents superimposed bowel gas. This is most consistent with osteitis pubis. Left hip joint congruent. IMPRESSION: Postsurgical changes of total right hip arthroplasty without evidence of hardware competition. No acute osseous injury. Electronically signed by: Vadim Guerrero M.D. 07/29/2017 8:20 AM Dictated Date/Time: 07/29/2017 8:18 AM
== END | disposition home or self-care (01) ==
LOC: C.RDSM 08:30
PROVIDERS: ATTEND Physician Assistant
DX: Z96.649 Presence of unspecified artificial hip joint (principal)

== ENCOUNTER → 2017-09-02 | Outpatient (CLI) | payer OTHER, MEDICARE | END | disposition home or self-care (01) | LOC: C.RDSM 12:27 | PROVIDERS: ATTEND Physical Medicine & Rehabilitation Sports Medicine | DX: M17.5 Other unilateral secondary osteoarthritis of knee (principal); Z96.651 Presence of right artificial knee joint ==

== ENCOUNTER → 2018-07-07 | Outpatient (CLI) | payer OTHER, MEDICARE ==
[~2018-07-07] MED LIST changes: +MELO-83 PO; -MELO15TA4 PO; -TRAM-10 PO
--- NOTE | 2018-07-08 08:39 | DIAGNOSTIC IMAGING REPORT ---
L ELBOW MIN 3 VIEWS CLINICAL HISTORY: Left elbow pain. COMPARISON: None FINDINGS: Alignment of the left elbow is anatomic. No fracture or suspicious lesion is noted. A few small soft tissue calcifications within the proximal left forearm are of no clinical significance. There is minimal osteophytosis of the left elbow. Anterior fat pad is slightly prominent. There is no definite evidence for a left elbow joint effusion. IMPRESSION: 1. No acute fracture. 2. Mild osteoarthritis of the left elbow. 3. Equivocal joint effusion, likely within normal limits. Electronically signed by: Rashel Ochoa M.D. 07/08/2018 8:38 AM Dictated Date/Time: 07/08/2018 8:35 AM
--- NOTE | 2018-07-08 08:43 | DIAGNOSTIC IMAGING REPORT ---
L SHOULDER MIN 2 VIEWS CLINICAL HISTORY: Left shoulder pain. COMPARISON: None FINDINGS: A left subclavian pacemaker is partially imaged. Alignment of the left shoulder is anatomic. No fracture or suspicious lesion is noted. Irregularity of the greater tuberosity is noted. Moderate osteoarthritis of the acromioclavicular joint is noted. There is mild glenohumeral joint osteoarthritis. IMPRESSION: 1. No acute fracture or dislocation of the left shoulder. 2. Moderate osteoarthritis of the left acromioclavicular joint and mild osteoarthritis of the glenohumeral joint. Electronically signed by: Rashel Ochoa M.D. 07/08/2018 8:42 AM Dictated Date/Time: 07/08/2018 8:41 AM
== END | disposition home or self-care (01) ==
LOC: C.RDSM 08:07
PROVIDERS: ATTEND Physician Assistant
DX: M25.522 Pain in left elbow (principal); M25.512 Pain in left shoulder

== ENCOUNTER 2020-05-16 07:59 | Inpatient (IN) ==
--- NOTE | 2020-05-03 16:18 | PAT Medication Instructions ---
Medication Instructions Date of Service May 03, 2020 Home Medications atenolol 50 mg PO BID cyclobenzaprine 10 mg PO Q6H PRN levothyroxine 50 mcg PO QAM lisinopril 10 mg PO QAM omeprazole 1 tab PO PM Flonase Sensimist 2 spray INTRANASAL QPM hydrochlorothiazide 25 mg PO 3XWK rosuvastatin [Crestor] 10 mg PO PM DO NOT take the morning of surgery cyclobenzaprine 10 mg PO Q6H PRN lisinopril 10 mg PO QAM hydrochlorothiazide 25 mg PO 3XWK Take morning of surgery With a small sip of water, OTHERWISE NOTHING TO EAT OR DRINK AFTER MIDNIGHT: atenolol 50 mg PO BID levothyroxine 50 mcg PO QAM Take evening before surgery atenolol 50 mg PO BID cyclobenzaprine 10 mg PO Q6H PRN (if needed) omeprazole 1 tab PO PM Flonase Sensimist 2 spray INTRANASAL QPM rosuvastatin [Crestor] 10 mg PO PM Other Notes If you have any questions please call us at [phone] or [phone] or [phone] or [phone]
--- NOTE | 2020-05-04 14:34 | Anesthesiology Consultation ---
Date of Service May 04, 2020 Assessment & Plan (1) Encounter for pre-operative examination: COVID Status: As of 05/02 nurse assessment, patient denies travel to endemic area, known exposure/sick contacts, symptoms, or testing for coronavirus. Her granddaughter was tested for covid 1 week ago but resulted negative. Cardio Clearance 03/15/20: Recommend uninterrupted continuation of atenolol throughout the perioperative period. Recommend holding lisinopril the morning of surgery, resuming postoperatively as hemodynamics permit. Standard pacemaker precautions (Medtronic) should be performed. *Pt has L sided pacemaker, for L TSA. Requesting pacer rep DOS, OR made aware. Chart Review Chart Review: Acceptable Risk for Surgery and Patient seen in Pre Admission Testing Teaching & Discussion Instructed NPO after midnight before surgery, except medications with 15 cc of water. Medication instructions provided according to the PAT guidelines. History Surgery Operation Date: 05/16/20 10:30 Proposed Procedures p Left Reverse Total Shoulder Arthroplasty - Carlos Mendoza, Height/Weight Height: 5 ft Weight: 67.8 kg Allergies Allergy/AdvReac Type Severity Reaction Status Date / Time aspirin Allergy Intermediate THROMBOCYTO Verified 05/02/20 14:12 PENIA phenylbutazone Allergy Intermediate THROMBOCYTO Verified 05/02/20 14:12 PENIA Sulfa (Sulfonamide Allergy Mild rash Verified 05/02/20 14:12 Antibiotics) clavulanic acid AdvReac Intermediate severe Verified 05/02/20 14:12 diarrhea hydromorphone AdvReac Mild NAUSEA AND Verified 05/02/20 14:12 VOMITING ketamine AdvReac Mild Hallucinati Verified 05/02/20 14:12 ons morphine AdvReac Mild NAUSEA/VOMI Verified 05/02/20 14:12 TTING Medications Home Medications Medication Instructions Recorded Confirmed Last Taken atenolol 50 mg PO BID 10/21/18 05/04/20 11/20/18 08:00 cyclobenzaprine 10 mg PO Q6H PRN 10/21/18 05/04/20 11/19/18 22:00 levothyroxine 50 mcg PO QAM 10/21/18 05/04/20 11/20/18 08:00 lisinopril 10 mg PO QAM 10/21/18 05/04/20 11/19/18 08:00 omeprazole 1 tab PO PM 10/21/18 05/04/20 11/19/18 16:00 Flonase Sensimist 2 spray INTRANASAL QPM 10/30/18 05/04/20 11/19/18 22:00 rosuvastatin [Crestor] 10 mg PO PM 05/02/20 05/04/20 Unknown Cold and Allergy PE 1 tab PO PRN 05/04/20 Unknown hydrochlorothiazide 25 mg tablet 25 mg PO Q OTHER DAY 05/04/20 05/04/20 Unknown hydrochlorothiazide 25 mg tablet 25 mg PO QAM 05/04/20 05/04/20 Unknown Past Medical History Medical History (Updated 05/05/20 @ 10:28 by Vaughn Shetty) 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 Placed for sinus arrest 2/2 esophageal spasm with strong vagal response. Rheumatoid arthritis Spinal stenosis CERVICAL AND LUMBAR Thrombocytopenia CAUSED FROM NSAID USE (MANY YEARS AGO) Exercise / Class Metabolic Activity III < 4 Walking/Shop/Light housework (Denies CP or SOB with ambuilation on one level; maybe mild SOB with 1 FOS but does not have stairs) Past Surgical History Surgical History History of adenoidectomy History of amputation RT MIDDLE FINGER (INFECTION) History of anesthesia reaction KETAMINE-BAD DREAMS History of arthroscopy RT SHOULDER - ATTEMPT TO REPAIR ROTATOR CUFF History of bunionectomy X2 ON RIGHT SIDE, X1 ON LEFT SIDE History of cardiac radiofrequency ablation 1995 AND 2001 (BOBBI RAMOS) History of carpal tunnel release RT History of cataract surgery RT/LEFT History of colonoscopy History of dilatation and curettage History of endoscopic sinus surgery History of esophagogastroduodenoscopy (EGD) History of myringotomy LEFT EAR History of repair of rotator cuff LEFT History of tonsillectomy History of tooth extraction History of total hip arthroplasty RT HIP (2 SURGERY) History of total knee replacement LEFT Hx of knee surgery LEFT KNEE (7 TOTAL SURGERIES) Hx of thumb surgery LEFT HAND Macular hole REPAIRED> RIGHT Past Anesthesia History No Hx of Anesthesia Complications (other than hallucinations with ketamine) and No Family Hx of Anesthesia Complications History of PONV No Hx of PONV and No Hx of Motion Sickness Social History Smoking Status: Never smoker Do You Dip or Chew Tobacco: No Hx Alcohol Use: Yes Alcohol type: wine alcohol intake frequency: a few times a week Hx Substance Use: No substance use type: does not use Review of Systems Pt denies any recent chest pain, shortness of breath, cough, fever or URI. +palpitations from SVT occasionally. Physical Exam Vital Signs BP: 98/54 P: 71bpm SPO2: 98% RA T: 98.7 F R: 16 ENMT Mouth: + dental bridge (upper and lower R side) and + dental restorations; no ch ipped teeth and no loose teeth Thyromental Distance: > or= 3.5 Finger Breadths (3.5) Mallampati Class: I Neck + short neck and + limited neck extension (mildly) Respiratory normal respiratory effort Auscultation: lungs clear to auscultation bilaterally Cardiovascular Rate/Rhythm: regular rate and regular rhythm Heart Sounds: no murmur Extremities: no edema Testing Laboratory Results PT 10.5 Seconds (9.0-12.0) 05/04/20 14:46 INR 1.0 (0.9-1.1) 05/04/20 14:46 APTT 39.3 Seconds (21.0-31.0) H 05/04/20 14:46 Blood Type O Positive 05/04/20 14:46 Antibody Screen NEGATIVE 05/04/20 14:46 04/22/20 WBC: 9.58 H/H: 11.6/35.8 PLATELETS: 231 05/02/20 SODIUM: 134 POTASSIUM: 4.7 CHLORIDE: 99 CO2: 25 BUN: 31 CREATININE: 1.1 GLUCOSE: 106 Electrocardiogram Date: 04/22/20 Findings: + SB @ (59bpm) Chest X-Ray Date: 05/04/20 Findings: + NAD Echocardiogram Date: 04/22/20 EF: 55-59% There is normal sinus rhythm during the examination. LV cavity size is normal. LV wall thickness and wall motion are normal. Mild MR and TR present. No evidence of pulmonary hypertension. Compared to prior study of 11/12/2018, there is no significant change. Stress Test Date: 05/17/15 Type: nuclear Resting EF: >70% Lexiscan nuclear cardiac stress test negative for ischemia. Gated SPECT imaging reveals normal myocardial thickening and wall motion. No prior study available for comparison. Other Testing Pacer Check 03/08/20 Model: [employer] Implant date: 12/19/01 with generator change 06/21/19 Presenting rhythm: NSR Monitored episodes: 1798 Atrial High Rate episodes of which the longest is 25 seconds with a ventricular response rate of 145 bpm (May be noise on lead.) 34 VHR episodes of which the longest is 4 minutes with a ventricular rate of 137 bpm Battery: 2.79 volts, est longevity 12.5 years Mode: AAI <=> DDD
--- NOTE | 2020-05-04 16:02 | XRay Report ---
XR chest Pre-admission PA/Lat CLINICAL HISTORY: PAT preoperative COMPARISON STUDY: 03/16/2017 FINDINGS: Bipolar cardiac pacemaker. Lungs are clear. Mild chronic elevation right hemidiaphragm. IMPRESSION: Chronic and postoperative change. No acute process. ACT 112: Negative or not required by law. The above report was generated using voice recognition software. It may contain grammatical, syntax or spelling errors. Electronically signed by: Lawson Gonsalez M.D. 05/04/2020 4:01 PM
[2020-05-04 16:31] LABS: Partial Thromboplastin Ratio 1.4; Partial Thromboplastin Time 39.3 Seconds (21.0-31.0); Prothrombin Time 10.5 Seconds (9.0-12.0)
--- NOTE | 2020-05-11 07:37 | History & Physical Report ---
Date of Service May 11, 2020 Assessment & Plan (1) Rotator cuff arthropathy of left shoulder: We will proceed with a left reverse shoulder arthroplasty. Postoperatively she will be placed in a sling and kept overnight in the hospital for postoperative medical management. She plans to go to [place] therapy as an outpatient upon discharge. Barby is a low risk for joint replacement surgery without any major comorbidities. Present on Admission?: Yes History of Present Illness Chief Complaint: Rotator cuff arthropathy of the left shoulder Primary Care Provider: Tim Looney PA-C Barby is a pleasant 79-year-old female who is been dealing with chronic left shoulder pain. I did a left shoulder arthroscopy on her over a year ago and found her to have advancing arthritis of her shoulder as well as a very thin rotator cuff. Later, she felt a tear in her shoulder and has been unable to el evate her arm. X-rays show progressive flattening of the humeral head. After failing conservative treatment, she has elected to proceed with a left reverse shoulder arthroplasty. Allergies Allergy/AdvReac Type Severity Reaction Status Date / Time aspirin Allergy Intermediate THROMBOCYTO Verified 05/02/20 14:12 PENIA phenylbutazone Allergy Intermediate THROMBOCYTO Verified 05/02/20 14:12 PENIA Sulfa (Sulfonamide Allergy Mild rash Verified 05/02/20 14:12 Antibiotics) clavulanic acid AdvReac Intermediate severe Verified 05/02/20 14:12 diarrhea hydromorphone AdvReac Mild NAUSEA AND Verified 05/02/20 14:12 VOMITING ketamine AdvReac Mild Hallucinati Verified 05/02/20 14:12 ons morphine AdvReac Mild NAUSEA/VOMI Verified 05/02/20 14:12 TTING Home Medications Home Medications Medication Instructions Recorded Confirmed Type atenolol 50 mg PO BID 10/21/18 05/04/20 History cyclobenzaprine 10 mg PO Q6H PRN 10/21/18 05/04/20 History levothyroxine 50 mcg PO QAM 10/21/18 05/04/20 History lisinopril 10 mg PO QAM 10/21/18 05/04/20 History omeprazole 1 tab PO PM 10/21/18 05/04/20 History Flonase Sensimist 2 spray INTRANASAL QPM 10/30/18 05/04/20 History rosuvastatin [Crestor] 10 mg PO PM 05/02/20 05/04/20 History Cold and Allergy PE 1 tab PO PRN 05/04/20 History hydrochlorothiazide 25 mg tablet 25 mg PO Q OTHER DAY 05/04/20 05/04/20 History hydrochlorothiazide 25 mg tablet 25 mg PO QAM 05/04/20 05/04/20 History Past Med/Surg History Medical History 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 Placed for sinus arrest 2/2 esophageal spasm with strong vagal response. Rheumatoid arthritis Spinal stenosis CERVICAL AND LUMBAR Thrombocytopenia CAUSED FROM NSAID USE (MANY YEARS AGO) Surgical History History of adenoidectomy History of amputation RT MIDDLE FINGER (INFECTION) History of anesthesia reaction KETAMINE-BAD DREAMS History of arthroscopy RT SHOULDER - ATTEMPT TO REPAIR ROTATOR CUFF History of bunionectomy X2 ON RIGHT SIDE, X1 ON LEFT SIDE History of cardiac radiofrequency ablation 1995 AND 2001 (BOBBI RAMOS) History of carpal tunnel release RT History of cataract surgery RT/LEFT History of colonoscopy History of dilatation and curettage History of endoscopic sinus surgery History of esophagogastroduodenoscopy (EGD) History of myringotomy LEFT EAR History of repair of rotator cuff LEFT History of tonsillectomy History of tooth extraction History of total hip arthroplasty RT HIP (2 SURGERY) History of total knee replacement LEFT Hx of knee surgery LEFT KNEE (7 TOTAL SURGERIES) Hx of thumb surgery LEFT HAND Macular hole REPAIRED> RIGHT Social History Preferred Language: Haitian Communication Ability: Effective Forensic Identification Specialist Required: No Beliefs That Will Affect Care: None Current Living Situation: Spouse Other Information That Helps Us Care for You: No Feels Safe at Home: Yes Safety Concerns: Feels Safe At This Time Smoking Status: Never smoker Do You Dip or Chew Tobacco: No ; Second Hand Exposure: No ; Tobacco Cessation Education Requested by Patient: No Hx Alcohol Use: Yes Alcohol type: wine Hx Substance Use: No Review of Systems Review of Systems: All systems reviewed & are unremarkable except as noted in HPI & below Physical Exam Constitutional: WD/WN, vitals as above Eyes: PERRL, conjunctivae normal, anicteric sclerae ENMT: external ear and nose normal, oropharynx normal Neck: trachea midline, no thyromegaly Respiratory: normal respiratory effort Cardiovascular: RRR, no murmur, no edema Gastrointestinal (Abdomen): normal bowel sounds, soft, nontender, no hepatosplenomegaly Musculoskeletal: Physical examination of the left shoulder reveals decreased range of motion and significant weakness. There is tenderness palpation along the anterior glenohumeral joint line. The right upper extremity is neurovascularly intact. Psychiatric: A+Ox3, euthymic affect Results & Data Results & Data ([facility]) Diagnostic Findings Radiographs of the left shoulder show some signs of osteoarthritis with blunting of the greater tuberosity and some superior migration of the humeral head on the glenoid. PG Care Time/CCT Total # of Minutes Spent Total Time Spent with Patient: Total time spent is greater than 50% in coordination of care (as documented) at patient's floor/unit and/or counseling patient: Coding Level of Care Code 27976 Initial Inpt Care Lvl 3 Diagnoses Rotator cuff arthropathy of left shoulder M12.812
--- NOTE | 2020-05-16 07:10 | History & Physical Bridge Note ---
Date of Service May 16, 2020 History & Physical Bridge Note I have examined the patient, reviewed the History & Physical and in the interval since the performance of the History & Physical I have noted the following changes of clinical significance: no changes noted
[~2020-05-16 07:59] MED LIST changes: +ACETAMINOPHEN 500 MG TAB PO SCH; -ATEN50TA8 PO; +CEFAZOLIN 1000MG 1,000 MG/7.5 ML SYR IV SCH; -CYCL10TA6 PO; -DOXY100C2 PO; +FAMOTIDINE 20 MG TAB PO SCH; -FLUT0.15 NAE; -GABA-113 PO; +GABAPENTIN 300 MG CAP PO SCH; -LISI-461 PO; +LR 15ML/HR IV SCH; +LR 60ML/HR IV SCH; -MELO-83 PO; -NITR0.4S UT; -PRED-301 PO; -PRLSR20 PO; -RIFA150C15 PO; +ROPIVACAINE 0.5% HCL/PF 150 MG, BUPIVACAINE 0.5% MPF 30 ML, EPINEPHrine 30MG/30ML (OR U... INSTIL SCH; -SYN50 PO; +TRANEXAMIC ACID / 0.7% NACL 1,000 MG/100 ML BAG IV SCH; +dexAMETHasone 4 MG TAB PO SCH
[2020-05-16] MEDS ORDERED: fentaNYL citrate 100 MCG/2 ML VIAL ONE (08:13)
[2020-05-16] MEDS ORDERED: MIDAZOLAM HCL 1 MG/ML 2ML VIAL ONE (08:13)
[2020-05-16] MEDS ORDERED: BUPIVACAINE 0.5 % 5 MG/1 ML PF 10ML VIAL ONE (08:27)
[2020-05-16] MEDS ORDERED: DEXAMETHASONE SOD INJ 4 MG/ML VIAL ONE (09:22)
[2020-05-16] MEDS ORDERED: LIDOCAINE HCL 2% 2 ML VIAL/AMP(20MG/ML) INFIL ONE (09:22)
[2020-05-16] MEDS ORDERED: ONDANSETRON INJ 2 MG/ML 2 ML VIAL ONE ×2 (09:22→11:04)
[2020-05-16] MEDS ORDERED: ROCURONIUM BROMIDE 10 MG/ML 5 ML VIAL IV ONE (09:22)
[2020-05-16] MEDS ORDERED: PROPOFOL IV EMULSION 10 MG/ML 20 ML VIAL IV ONE (09:22)
[2020-05-16] MEDS ORDERED: ORTHO JOINT ANESTHETIC ONE (10:39)
[2020-05-16] MEDS ORDERED: GLYCOPYRROLATE 0.2 MG/ML VIAL ONE (12:25)
[2020-05-16] MEDS ORDERED: NEOSTIGMINE METHYLSULFATE 5 MG/5 ML SYR ONE (12:25)
--- NOTE | 2020-05-16 12:32 | Operative Report ---
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 head of the biceps tendon Post-Op Diagnosis: Left Shoulder Degenerative Joint Disease with disease of the long head of the biceps tendon I identified the patient and participated in the time-out.: Yes Procedure Operation Date: 05/16/20 09:55 Actual Procedures p Left Reverse Total Shoulder Arthroplasty with open biceps tenodesis as a separate procedure (modifier 59) (Left) - Carlos Mendoza DO Surgeon Carlos Mendoza DO Secretary Administrative Assistant Carlos Sparks PAC Estimated Blood Loss 250 Findings Consistent with Post-Op Diagnosis Specimens Left humeral head Complications none Disposition Disposition: Recovery Room Indications Barby is a pleasant 79-year-old female who recently underwent a left arthros copic rotator cuff repair. Unfortunately she went on to develop advancing arthritis with collapse of the humeral head. After failing conservative treatment, she elected proceed with a left reverse shoulder arthroplasty. Description of Procedure A CPT code modifier 59: The long head of the biceps tendon was enlarged and inflamed consistent with tendinopathy. A tenodesis was opted. This was a separate and distinct portion of the procedure. For these reasons, a CPT code modifier 59 will be added to this case. Implants used: I used a [employer] Comprehensive reverse total shoulder arthroplasty system with a size 9 press fit micro-humeral stem, a standard humeral tray and a standard humeral bearing, a 25 mm mini baseplate with a 6.5 mm central screw and superior and inferior locking screws, and a size 36 mm eccentric glenosphere. Barby arrived at [facility] for the above procedure. She was seen in the preoperative holding area and the operative extremity was identified and signed. She was given a preoperative antibiotic, TXA, and an interscalene nerve block. She was taken back to the operating room, laid on table in supine position, and put under general anesthesia. She was then put into the beachchair position. The shoulder was then prepped and draped in sterile fashion. A timeout was done and the patient and the operative extremity was properly identified. A deltopectoral approach was used. Dissection was taken down through the fascia and the deltoid was retracted laterally and the conjoined tendon was retracted medially. The anterior shoulder was exposed. The biceps groove was opened up and the biceps tendon was examined extensively. The biceps tendon demonstrated enlargement and inflammatory changes consistent with longstanding inflammation in the context of osteoarthritis and cuff arthropathy. The long head of the biceps tendon was then tenodesed to the upper border of the pectoralis major. This was a separate and distinct portion of the procedure. The subscapularis was then directly released off the lesser tuberosity with a peel technique. The inferior capsule was released and the humeral head was dislocated. A canal finding reamer was sent down the center of the humeral canal. Sequential reaming up to a size 9 reamer was done. Off that reamer, a proximal humeral resection guide was placed. The proximal humerus was resected at 135 of inclination and 25 of retroversion. Osteophytes were then removed and the glenoid was exposed. Time was spent doing a complete capsular and labral release. The glenoid guide was then placed in the inferior aspect of the glenoid. A 3.2 mm Steinmann pin was then placed into the glenoid vault at 10 of inclination. The glenoid baseplate was then reamed. The final size 25 mm mini baseplate was then impacted in the place. A 6.5 mm central screw was then placed followed by superior and inferior locking screws. A 36 mm eccentric glenosphere was then impacted into place. Surrounding soft tissues were then injected with 100 cc an orthopedic pain control cocktail. The proximal humerus was then exposed. Sequential broaching of the humerus up to a size 9 micro-broach was done. Off that broach a standard humeral tray was trialed. The shoulder was then reduced, brought through a full range of motion, and felt to be stable. The shoulder was then dislocated and the broach was removed. The final size 9 micro press-fit humeral stem was then impacted into place. A standard humeral bearing was then snapped onto a standard humeral tray. The humeral tray was then impacted onto the humeral stem. The shoulder was once again reduced, brought through a full range of motion, and felt to be stable. The subscapularis was then tenodesed back to the lesser tuberosity with transosseous FiberWire sutures and side to side sutures with the arm in 45 of external rotation. A dilute betadyne lavage was then done for 3 minutes. The joint was then irrigated with normal saline solution. Hemostasis was obtained. The interval was closed with 2-0 Vicryl suture. The skin was then closed with 2-0 Vicryl and oneyda. A soft dressing was placed and the arm was rested in a regular arm sling. She was then extubated and transferred to a hospital bed. She taken to the postanesthesia care unit in stable condition. She tolerated the procedure well. Carlos Sparks PA-C, was present for the entire procedure. He was critical for patient positioning, prepping, draping, retraction exposure, wound closure and application of sterile dressing. I attest to the content of the Intraoperative Record and any orders documented therein. Any exceptions are noted below.
--- NOTE | 2020-05-16 13:28 | Anesthesiology Progress Note ---
Date of Service May 16, 2020 Anesthesia Post Procedure Vital Signs Vital Signs: Temp Pulse Pulse Resp BP Pulse Ox 05/16/20 13:20 36.4 C L 75 16 145/89 H 99 05/16/20 13:10 75 16 144/89 H 100 05/16/20 13:00 75 16 137/91 100 05/16/20 12:54 36.3 C L 75 14 148/77 H 100 05/16/20 08:32 36.6 C 62 18 147/79 H 100 Transfer of Care Handoff Completed per policy Notes Mental Status: alert / awake / arousable and participated in evaluation Patient Amnestic to Procedure: Yes Nausea / Vomiting: adequately controlled Pain: adequately controlled Airway Patency, RR, SpO2: stable & adequate BP & HR: stable & adequate Hydration State: stable & adequate Anesthetic Complications: no major complications apparent and Pt Satisfied with anesthetic care Notes: Block is functioning well
--- NOTE | 2020-05-16 13:42 | XRay Report ---
LEFT SHOULDER 2 VIEWS CLINICAL HISTORY: Postoperative examination. FINDINGS: 2 portable views of the left shoulder are compared to study dated 07/08/2018. The skeletal st ructures are osteopenic. A left shoulder arthroplasty is in near-anatomic alignment. No acute fractur e is seen. Productive degenerative change is noted at the acromioclavicular joint. Skin clips, subcut aneous gas, and soft tissue swelling are expected postoperative findings. Atelectasis is noted at the left lung base. A pacemaker projects over the left chest. IMPRESSION: Expected postoperative findings status post left shoulder arthroplasty. No acute fracture is seen. Electronically signed by: Medardo Elizondo M.D. 05/16/2020 1:41 PM
[2020-05-16] MEDS ORDERED: ONDANSETRON INJ 2 MG/ML 2 ML VIAL IV PRN (13:53)
[2020-05-16] MEDS ORDERED: MAGNESIUM HYDROXIDE SUSP 30 ML UDC PO PRN (13:53)
[2020-05-16] MEDS ORDERED: NALOXONE HCL 0.4 MG/1 ML VIAL/CARP IV PRN (13:53)
[2020-05-16] MEDS ORDERED: METOCLOPRAMIDE HCL INJ 5 MG/ML 2 ML VIAL IV PRN (13:53)
[2020-05-16] MEDS ORDERED: OXYCODONE HCL IR 5 MG TAB (IMMEDIATE RELEASE) PO PRN (13:53)
[2020-05-16] MEDS ORDERED: bisacodyL 10 MG SUPP PR PRN (13:53)
[2020-05-16] MEDS: SODIUM CHLORIDE 0.9% 1000ML 1,000 ML IV SCH (15:21)
[2020-05-16] MEDS: ACETAMINOPHEN 500 MG TAB PO SCH (15:22)
[2020-05-16] MEDS: KETOROLAC TROMETHAMINE 15 MG/ML VIAL IV SCH (17:55)
[2020-05-16] MEDS: CEFAZOLIN 2000MG 2,000 MG/15 ML SYR IV SCH (19:07)
[2020-05-16] MEDS ORDERED: CYCLOBENZAPRINE HCL 10 MG TAB PO PRN (20:35)
[2020-05-16] MEDS ORDERED: FLUTICASONE PROPIONATE NA SPR 16 GM BTL SCH (21:00)
[2020-05-16] MEDS ORDERED: SENNA 8.6 MG TAB PO SCH (21:00)
[2020-05-16] MEDS ORDERED: ROSUVASTATIN CALCIUM 10 MG TAB PO SCH (21:00)
[2020-05-16] MEDS ORDERED: PANTOprazole 40 MG TAB PO SCH (21:00)
[2020-05-16] MEDS ORDERED: lisinopriL 10 MG TAB PO SCH (21:00)
[2020-05-16] MEDS: DOCUSATE SODIUM 100 MG CAP PO SCH (21:19)
[2020-05-16] MEDS: ATENOLOL 50 MG TABLET PO SCH (21:22)
[2020-05-17] MEDS: KETOROLAC TROMETHAMINE 15 MG/ML VIAL IV SCH ×3 (00:38→11:44)
[2020-05-17] MEDS: ACETAMINOPHEN 500 MG TAB PO SCH ×2 (00:38→07:51)
[2020-05-17] MEDS: SODIUM CHLORIDE 0.9% 1000ML 1,000 ML IV SCH (02:04)
[2020-05-17] MEDS: CEFAZOLIN 2000MG 2,000 MG/15 ML SYR IV SCH (02:06)
[2020-05-17 05:42] LABS: Hematocrit (blood only) 31.3 % (37-47); Immature Granulocytes # (auto) 0.03 K/uL (0.00-0.02); Immature Granulocytes % (auto) 0.2 %; Lymphocytes # (auto) 0.68 K/uL (1.2-3.4); Lymphocytes % (auto) 5.6 %; Mean Corpuscular Hemoglobin 29.3 pg (25-34); Mean Corpuscular Hgb Conc 31.9 g/dL (32-36); Mean Corpuscular Volume 91.8 fL (80-100); Mean Platelet Volume 10.8 fL (7.4-10.4); Monocytes # (auto) 0.45 K/uL (0.11-0.59); Monocytes % (auto) 3.7 %; Neutrophils # (auto) 10.91 K/uL (1.4-6.5); Neutrophils % (auto) 90.5 %; Platelet Count 188 K/uL (130-400); RDW Coefficient of Variation 13.1 % (11.5-14.5); RDW Standard Deviation 43.7 fL (36.4-46.3); Red Blood Count 3.41 M/uL (4.2-5.4); White Blood Count 12.07 K/uL (4.8-10.8)
[2020-05-17 06:09] LABS: BUN Creatinine Ratio 20.9 (10-20); Calcium 7.7 mg/dl (8.5-10.1); Creatinine Clr Calc Pharmacy 36.8 ml/min; Est GFR (African American) 57.2; Est GFR (Non-African American) 49.3; Potassium 4.6 mmol/L (3.5-5.1)
[2020-05-17] MEDS ORDERED: LEVOTHYROXINE SODIUM 50 MCG TABLET PO SCH (06:30)
--- NOTE | 2020-05-17 07:03 | Orthopedic Progress Note ---
Date of Service May 17, 2020 Assessment & Plan (1) History of reverse total replacement of left shoulder joint: Overall she is doing very well. She is not having much pain in the left shoulder. She will be seen by physical therapy this morning for ambulation and range of motion exercises. She can be discharged home later today. She will follow-up with orthopedics in 2 weeks. Present on Admission?: Yes Viky Dior was seen and examined at bedside this morning. Overall she is doing very well. She is not having any pain in the left shoulder. She was able to get some sleep last night. She has no complaints. Physical Exam Musculoskeletal: On physical examination of the left shoulder, the dressing is clean and dry. She is wearing her sling as instructed. Her radial, median, and ulnar nerves are checked and intact at her wrist. Her axillary nerve was not checked yet. Results & Data ([facility]) Vital Signs (Past 12 Hours) Vital Signs Temp Pulse Resp BP Pulse Ox 05/17/20 03:05 36.3 C L 63 16 110/70 99 05/16/20 23:39 36.4 C L 63 16 117/62 95 Laboratory Results H & H 05/17/20 Range/Units 05:15 Hgb 10.0 L (12.0-16.0) g/dL Hct 31.3 L (37-47) % Coagulation 05/04/20 Range/Units 14:46 INR 1.0 (0.9-1.1) Diagnostic Findings Postoperative x-rays of the left shoulder show the prosthesis to be in anatomic alignment without any evidence of fracture, dislocation, or loosening. PG Care Time/CCT Total # of Minutes Spent Total Time Spent with Patient: Total time spent is greater than 50% in coordination of care (as documented) at patient's floor/unit and/or counseling patient: Coding Level of Care Code None Diagnoses History of reverse total replacement of left shoulder joint Z98.890
--- NOTE | 2020-05-17 07:05 | Discharge Summary ---
Date of Service May 17, 2020 Admission HPI Per Admitting Provider Barby is a pleasant 79-year-old female who is been dealing with chronic left shoulder pain. I did a left shoulder arthroscopy on her over a year ago and found her to have advancing arthritis of her shoulder as well as a very thin rotator cuff. Later, she felt a tear in her shoulder and has been unable to elevate her arm. X-rays show progressive flattening of the humeral head. After failing conservative treatment, she has elected to proceed with a left reverse shoulder arthroplasty. Principal Diagnosis Left reverse shoulder arthroplasty Discharge Data Allergies Allergy/AdvReac Type Severity Reaction Status Date / Time aspirin Allergy Intermediate THROMBOCYTO Verified 05/16/20 08:26 PENIA phenylbutazone Allergy Intermediate THROMBOCYTO Verified 05/16/20 08:26 PENIA Sulfa (Sulfonamide Allergy Mild rash Verified 05/16/20 08:26 Antibiotics) clavulanic acid AdvReac Intermediate severe Verified 05/16/20 08:26 diarrhea hydromorphone AdvReac Mild NAUSEA AND Verified 05/16/20 08:26 VOMITING ketamine AdvReac Mild Hallucinati Verified 05/16/20 08:26 ons morphine AdvReac Mild NAUSEA/VOMI Verified 05/16/20 08:26 TTING Consultations 05/16/20 13:53 Consult Case Management - Discharge Planning Routine Procedures Performed Operation Date: 05/16/20 09:55 Actual Procedures p Left Reverse Total Shoulder Arthroplasty(Left) - Carlos Mendoza DO Ordered Studies 05/16/20 05:00 US - OR guided needle placemen Routine Hospital Course (1) History of reverse total replacement of left shoulder joint: On May 16, 2020 Barby arrived at [facility] and underwent a left reverse shoulder arthroplasty without complication. She had a general anesthetic and a left interscalene nerve block. Postoperatively she was placed in a sling and transferred to the general orthopedic floors. Her hospital course was uneventful. On postop day #1 her H&H was stable and her pain was well controlled. She was able to participate well with physical therapy doing ambulation and range of motion exercises. She was then discharged home. She will follow-up with orthopedics in 2 weeks. Total Time Total Time Spent Total Time Spent (In Minutes): 20 Discharge Plan Discharge Items Patient Disposition: Home - Home Health Services Reason For Visit: Left Shoulder Degenerative Joint Disease Discharge Diagnosis: Left reverse shoulder arthroplasty Activity: As commented below Non-emergency contact: Surgeon Call non-emergency contact if: your wound has increased redness and your wound has increased drainage Follow-up/Referrals: Tim Looney PA-C [Primary Care Provider] - Diet: Regular Addtl Attending Provider Instructions: Activity and Therapy Recommendations: * If you are using [facility] then therapy will be provided at your home until they feel you have accomplished all of your goals. * If you are using [facility] then Physical Therapy will be provided until they feel you are ready to start Outpatient Physical Therapy. * If you are not using home therapy then Outpatient Physical Therapy should start about 3-5 days from your day of surgery. Therapy will last about 8-12 weeks * Wear your sling for 3 weeks, unless otherwise instructed. You may remove your sling to shower and to dress, but otherwise, you should be in your sling at all times, including while sleeping * The shoulder replacement is very stable and you can use your hand while in the sling * You were shown a series of exercises in the hospital. Do these exercises daily including the exercises you were shown in physical therapy. Medications: * Narcotic You will likely be sent home from the hospital with a prescription for the narcotic pain medication that worked best throughout your stay. * Other medications may be prescribed for specific circumstances. If you have any questions, please call the office at . * Resume previous home medications unless otherwise instructed Dressing Care: Leave the silver dressing on for 7 days. After 7 days you may remove the dressing. If the incision is not draining then you may leave the oneyda open to air. If there is a little bit of drainage or if the oneyda are getting stuck on your clothing then cover the incision with a dry dressing. The oneyda will be removed at your 2 week follow-up appointment. Showering: You may shower with the silver dressing in place. Do not scrub or soak the dressing. Pat it dry. After 7 days you may remove the dressing. At that time you can shower with the oneyda exposed. Let the soapy shower water run over the oneyda and pat them dry. Do not scrub or soak the incision. Things To Watch For: * Drainage from the incision site that occurs more than one week after your surgery. * Increased redness at the incision site. * Fever above 102 degrees Fahrenheit. * Unusual chest pain or shortness of breath. * Call [facility] at with any of the above problems Follow-Up Visit: Follow-up with Dr. Mendoza's PA (Carlos Sparks) 2-3 weeks after your day of surgery. He will remove your oneyda and answer any questions. If you have any additional questions or concerns, Dr Mendoza is usually in the office at the same time and will be available An appointment was probably scheduled when you signed-up for surgery in the office. If you have any questions call More detailed instructions as well as Frequently Asked Questions were provided in a folder by our office when you signed-up for surgery. Please review these instructions when you get home. If you have any further questions or concerns, please feel free to call the office at [phone] Pending Studies at Discharge: No Stand-Alone Forms: My [facility], Smoking Cessation Medications and DC Order Prescriptions: Continued cyclobenzaprine 10 mg Tablet 10 mg PO Q6H PRN (Reason: Pain) RF: 0 lisinopril 10 mg Tablet 10 mg PO QPM RF: 0 atenolol 50 mg Tablet 50 mg PO BID RF: 0 levothyroxine 50 mcg Capsule 50 mcg PO QAM RF: 0 omeprazole 20 mg Tablet,Disintegrat, Delay Rel 1 tab PO PM RF: 0 Flonase Sensimist 27.5 mcg/actuation [place],Suspension 2 spray INTRANASAL QPM RF: 0 rosuvastatin [Crestor] 10 mg Tablet 10 mg PO PM RF: 0 Cold and Allergy PE 4-10 mg Tablet 1 tab PO DAILY PRN (Reason: sinus headache) RF: 0 Discharge Orders: Discharge Order (Routine); Ordered 05/17/20 Ordered By: Carlos Mendoza Admission Data Admit Date/Time: 05/16/20 12:56 Attending Provider: Carlos Mendoza Admit Provider: Carlos Mendoza Primary Care Provider: Tim Looney Coding Level of Care Code D/C Day Management <30 mins Diagnoses History of reverse total replacement of left shoulder joint Z98.890
[2020-05-17] MEDS ORDERED: dexAMETHasone 4 MG TAB PO SCH (08:00)
[2020-05-17] MEDS: DOCUSATE SODIUM 100 MG CAP PO SCH (08:42)
[2020-05-17] MEDS: ATENOLOL 50 MG TABLET PO SCH (08:43)
[2020-05-17] MEDS ORDERED: MULTIVITAMIN TAB PO SCH (09:00)
== END 2020-05-17 12:10 | disposition home health service (06) | DRG 483 ==
LOC: ASU 07:59 → 3E 12:56
DX: M12.812 Other specific arthropathies, not elsewhere classified, left shoulder

== ENCOUNTER 2020-05-19 04:33 | Inpatient (IN) ==
--- NOTE | 2020-05-19 04:51 | Emergency Department Note ---
History of Present Illness General Chief complaint: Shortness of Breath/Dyspnea Stated complaint: SHORT OF BREATH Time Seen by Provider: 05/19/20 04:34 Source: patient Mode of arrival: ambulatory Limitations: no limitations History of Present Illness Provider complaint: shortness of breath, chest pain Onset (ago): hour(s) Location: chest and back Severity: moderate Pain Consistency: + constant Relieved By: + none Exacerbated By: + movement Associated symptoms: + shortness of breath; no fever/chills and no nausea /vomiting Treatments prior to arrival: none Is a 79-year-old female who presents from home via EMS due to complaints of shortness of breath and chest pain. Patient is 2 days status post left shoulder reverse arthroplasty by Dr. Mendoza. Patient states earlier in the day today she began having pain in her right back that seem to radiate into her right chest. Patient does have a prior cardiac history as well and has a pacemaker. Patient states at home she took a dose of Flexeril thinking it was related to her recent surgery. Patient denies using any additional Tylenol or ibuprofen. Patient states she has been taking medications to help have bowel movement. She states she still has an increased amount of gas but she has had a bowel movement. No difficulty urinating. Patient denies fevers or chills. EMS reported when they got to her house patient was tachypneic with room air sats of 89%. Patient was placed on 4 L/min via nasal cannula and oxygen saturations came up into the mid to upper 90s. Pt seen during a time of high acuity and national emergency pandemic while wearing PPE. Home Medications Home Medications Medication Instructions Recorded Confirmed Type atenolol 50 mg PO BID 10/21/18 05/19/20 History cyclobenzaprine 10 mg PO Q8H PRN 10/21/18 05/19/20 History levothyroxine 50 mcg PO QAM 10/21/18 05/19/20 History lisinopril 10 mg PO QPM 10/21/18 05/19/20 History omeprazole 1 tab PO DAILY 10/21/18 05/19/20 History rosuvastatin [Crestor] 10 mg PO PM 05/02/20 05/19/20 History fluticasone propionate 2 spray INTRANASAL PM 05/19/20 05/19/20 History tramadol 50 mg PO Q6H 05/19/20 05/19/20 History Allergies Allergy/AdvReac Type Severity Reaction Status Date / Time Sulfa (Sulfonamide Allergy Mild rash Verified 05/19/20 04:35 Antibiotics) aspirin AdvReac Intermediate THROMBOCYTO Verified 05/19/20 12:36 PENIA clavulanic acid AdvReac Intermediate severe Verified 05/19/20 04:35 diarrhea phenylbutazone AdvReac Intermediate THROMBOCYTO Verified 05/19/20 12:36 PENIA hydromorphone AdvReac Mild NAUSEA AND Verified 05/19/20 04:35 VOMITING ketamine AdvReac Mild Hallucinati Verified 05/19/20 04:35 ons morphine AdvReac Mild NAUSEA/VOMI Verified 05/19/20 04:35 TTING Past Med/Surg History Medical History 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 Placed for sinus arrest 2/2 esophageal spasm with strong vagal response. Rheumatoid arthritis Spinal stenosis CERVICAL AND LUMBAR Thrombocytopenia CAUSED FROM NSAID USE (MANY YEARS AGO) Surgical History History of adenoidectomy History of amputation RT MIDDLE FINGER (INFECTION) History of anesthesia reaction KETAMINE-BAD DREAMS History of arthroscopy RT SHOULDER - ATTEMPT TO REPAIR ROTATOR CUFF History of bunionectomy X2 ON RIGHT SIDE, X1 ON LEFT SIDE History of cardiac radiofrequency ablation 1995 AND 2001 (BOBBI RAMOS) History of carpal tunnel release RT History of cataract surgery RT/LEFT History of colonoscopy History of dilatation and curettage History of endoscopic sinus surgery History of esophagogastroduodenoscopy (EGD) History of myringotomy LEFT EAR History of repair of rotator cuff LEFT History of reverse total replacement of left shoulder joint (~05/2020) History of tonsillectomy History of tooth extraction History of total hip arthroplasty RT HIP (2 SURGERY) History of total knee replacement LEFT Hx of knee surgery LEFT KNEE (7 TOTAL SURGERIES) Hx of thumb surgery LEFT HAND Macular hole REPAIRED> RIGHT Family History Father AAA (abdominal aortic aneurysm) Stroke Hypertension Social History Preferred Language: German Communication Ability: Effective Nonprofit Manager Required: No Beliefs That Will Affect Care: None Current Living Situation: Alone Other Information That Helps Us Care for You: No Feels Safe at Home: Yes Safety Concerns: Feels Safe At This Time Smoking Status: Never smoker Second Hand Exposure: No ; Hx Alcohol Use: Yes Alcohol type: wine Hx Substance Use: No Review of Systems See HPI for pertinent positives & negatives. and A total of 10 systems reviewed and were otherwise negative Physical Exam Vital Signs Vital Signs - 24 hr 05/19/20 04:27 05/19/20 06:27 05/19/20 08:00 Temperature 37 C Temperature Source Oral Pulse Rate 85 Pulse Rate [Apical] 84 75 Pulse Rhythm [Apical] Regular Respiratory Rate 28 H 24 18 Respiratory Effort / Characteristics Short of Breath Non-Labored Respiratory Depth Deep Normal Blood Pressure 170/92 H Blood Pressure [Right Arm] 150/97 H 112/59 L Blood Pressure Mean 118 Blood Pressure Mean [Right Arm] 114 76 Blood Pressure Position Lying Pulse Oximetry 98 94 95 Oxygen Delivery Method Nasal Cannula Nasal Cannula Room Air Oxygen Flow Rate 2 2 Sepsis Recent Fever Within 48 Hours No Sepsis New/Unexplained Change in Mental Status No Sepsis Action Taken by Nursing No Action Required GENERAL: alert, ill appearing, well nourished, moderate distress, non-toxic EYE EXAM: normal conjunctiva, PERRL and EOM's grossly intact OROPHARYNX: no exudate, no erythema, lips, buccal mucosa, and tongue normal and mucous membranes are moist NECK: supple, no nuchal rigidity, no adenopathy, non-tender LUNGS: Clear to auscultation. Normal chest wall mechanics, no w/r/r HEART: no murmurs, S1 normal and S2 normal ABDOMEN: abdomen soft, non-tender, normo-active bowel sounds, no masses, no rebound or guarding. BACK: Back is symmetrical on inspection and there is no deformity, no midline tenderness, no CVA tenderness. SKIN: no rashes and no bruising UPPER EXTREMITIES: nml pulses b/l, LUE in sling with overlying patch anteriorly, no tenderness distal to shoulder LOWER EXTREMITIES: No pitting edema. FROM, nml pulses b/l. NEURO EXAM: Normal sensorium, cranial nerves II-XII grossly intact, normal speech, no gross weakness of arms, no gross weakness of legs. Gross sensation intact. Course Course 0510: Patient updated on results. Discussed CT imaging, patient in agreement. Patient still having significant pain. 0652: Patient updated on results. Discussed CT results. I did try to take patient off her oxygen and her saturations dropped to 89%. 0740: Case discussed with David Pedroza hospitalist services. Administered Medications Acetaminophen (Tylenol) 1,000 mg PO Q8H [facility] Stop: 06/18/20 13:59 Last Admin: 05/19/20 21:20 Dose: 1,000 mg Documented by: [id number] Admin: 05/19/20 13:45 Dose: 1,000 mg Documented by: [id number] Atenolol (Tenormin) 50 mg PO BID SAVI Stop: 06/18/20 20:59 Last Admin: 05/19/20 19:27 Dose: 50 mg Documented by: [id number] Cyclobenzaprine HCl (Flexeril) 10 mg PO Q8H PRN PRN Reason: Pain Stop: 06/18/20 10:07 Last Admin: 05/19/20 23:47 Dose: 10 mg Documented by: [id number] Admin: 05/19/20 10:57 Dose: 10 mg Documented by: [id number] Fentanyl Citrate (Fentanyl Citrate) 50 mcg IV Q15M PRN PRN Reason: Pain Stop: 06/02/20 05:13 Last Admin: 05/19/20 06:22 Dose: 50 mcg Documented by: [id number] Admin: 05/19/20 05:53 Dose: 50 mcg Documented by: [id number] Admin: 05/19/20 05:21 Dose: 50 mcg Documented by: [id number] Fluticasone Propionate (Flonase) 2 sprays KAYLA PM [facility] Stop: 06/18/20 20:59 Last Admin: 05/19/20 19:27 Dose: 2 sprays Documented by: [id number] Ceftriaxone Sodium 1,000 mg/ (Dextrose) 50 mls @ 100 mls/hr IV Q24H SAVI; Protocol Stop: 05/26/20 10:29 Last Infusion: 05/19/20 11:25 Dose: 0 mls/hr Documented by: [id number] Admin: 05/19/20 10:54 Dose: 100 mls/hr Documented by: [id number] Azithromycin 500 mg/ Dextrose 255 mls @ 125 mls/hr IV Q24H SAVI; Protocol Stop: 05/26/20 07:59 Last Infusion: 05/19/20 14:13 Dose: 0 mls/hr Documented by: [id number] Admin: 05/19/20 11:27 Dose: 125 mls/hr Documented by: [id number] Ketorolac Tromethamine (Toradol) 15 mg IV Q8H [facility] Stop: 05/24/20 17:59 Last Admin: 05/19/20 17:50 Dose: 15 mg Documented by: [id number] Lisinopril (Zestril) 10 mg PO QPM [facility] Stop: 06/18/20 20:59 Last Admin: 05/19/20 19:28 Dose: 10 mg Documented by: [id number] Rosuvastatin Calcium (Crestor) 10 mg PO PM S[facility]I Stop: 06/18/20 20:59 Last Admin: 05/19/20 19:27 Dose: 10 mg Documented by: [id number] Trolamine Salicylate (Myoflex) 1 appln EXT Q6H PRN PRN Reason: BACK/SHOULDER PAIN Stop: 06/18/20 12:35 Last Admin: 05/19/20 13:46 Dose: 1 appln Documented by: [id number] Discontinued Medications Diazepam (Valium) 1 mg IV NOW STA Stop: 05/19/20 06:22 Last Admin: 05/19/20 08:20 Dose: Not Given Documented by: [id number] Acetaminophen (Ofirmev) 1,000 mg in 100 mls @ 400 mls/hr IV NOW STA Stop: 05/19/20 06:36 Last Infusion: 05/19/20 06:42 Dose: 0 mls/hr Documented by: [id number] Admin: 05/19/20 06:25 Dose: 400 mls/hr Documented by: [id number] Sodium Chloride (Nss 1000ml) 1,000 mls @ 200 mls/hr IV .Q5H SAVI Stop: 05/19/20 11:59 Last Infusion: 05/19/20 14:50 Dose: 0 mls/hr Documented by: [id number] Admin: 05/19/20 09:50 Dose: 200 mls/hr Documented by: [id number] Ioversol (Optiray 320 125ml) 125 ml IV ONCE PRN PRN Reason: Interaction Checking Stop: 05/23/20 05:37 Last Admin: 05/19/20 05:38 Dose: 78 ml Documented by: [id number] Ketorolac Tromethamine (Toradol) 15 mg IV Q6H PRN PRN Reason: Moderate Pain Stop: 05/21/20 09:24 Last Admin: 05/19/20 10:57 Dose: 15 mg Documented by: [id number] Medical Decision Making Differential Diagnosis Differential diagnoses includes but is not limited to pneumonia, bronchitis, COPD/Asthma exacerbation, pneumothorax, pulmonary embolism, congestive heart failure, acute coronary syndrome Medical Records Attestation: I reviewed the patient's medical records. Home Medications Current Medication List: was personally reviewed by me Laboratory Data Attestation: I reviewed the patient's lab results. Result diagrams: 05/19/20 04:45 05/19/20 04:45 Lab Results 05/19/20 05/19/20 05/19/20 Range/Units 04:45 04:45 04:45 WBC 13.30 H (4.8-10.8) K/uL RBC 3.79 L (4.2-5.4) M/uL Hgb 11.6 L (12.0-16.0) g/dL Hct 35.5 L (37-47) % MCV 93.7 (80-100) fL MCH 30.6 (25-34) pg MCHC 32.7 (32-36) g/dL RDW Std Deviation 47.0 H (36.4-46.3) fL RDW Coeff of Octavia 13.9 (11.5-14.5) % Plt Count 232 (130-400) K/uL MPV 10.0 (7.4-10.4) fL Immature Gran % (Auto) 0.8 % Neut % (Auto) 79.3 % Lymph % (Auto) 12.7 % Cassia % (Auto) 6.7 % Eos % (Auto) 0.4 % Baso % (Auto) 0.1 % Immature Gran # (Auto) 0.10 H (0.00-0.02) K/uL Neut # (Auto) 10.56 H (1.4-6.5) K/uL Lymph # (Auto) 1.69 (1.2-3.4) K/uL Cassia # (Auto) 0.89 H (0.11-0.59) K/uL Eos # (Auto) 0.05 (0-0.5) K/uL Baso # (Auto) 0.01 (0-0.2) K/uL Sodium 140 (136-145) mmol/L Potassium 4.0 (3.5-5.1) mmol/L Chloride 106 (98-107) mmol/L Carbon Dioxide 28 (21-32) mmol/L Anion Gap 6.0 (3-11) BUN 17 (7-18) mg/dl Creatinine 0.80 (0.6-1.2) mg/dl Est Cr Clr Drug Dosing 50.5 ml/min Est GFR ( Amer) 81.3 Est GFR (Non-Af Amer) 70.1 BUN/Creatinine Ratio 20.8 H (10-20) Glucose 110 H (70-99) mg/dl Calcium 8.5 (8.5-10.1) mg/dl Magnesium 2.0 (1.8-2.4) mg/dl Total Bilirubin 0.6 (0.2-1) mg/dl AST 16 (15-37) U/L ALT 18 (12-78) U/L Alkaline Phosphatase 88 (45-117) U/L Troponin I < 0.015 (0-0.045) ng/ml NT-Pro-B Natriuret Pep 1169 (0-1800) pg/ml Total Protein 7.4 (6.4-8.2) gm/dl Albumin 3.3 L (3.4-5.0) gm/dl Globulin 4.1 H (2.5-4.0) gm/dl Albumin/Globulin Ratio 0.8 L (0.9-2) Lipase 54 L (73-393) U/L Procalcitonin 0.05 (0-0.5) ng/ml Imaging Data My Impression: X-ray: I interpreted the following studies. Chest: A single view study of the chest was reviewed and was negative for cardiomegaly, focal infiltrate, pulmonary edema, or wide mediastinum. POssible increased markings noted at right base and small right pleural effusion. Radiologist's Impression: CTA chest: No pulmonary embolism. Prominent main pulmonary arteries which can be seen in setting of pulmonary arterial hypertension. Mildly enlarged heart. No acute aortic syndrome. Postsurgical changes in the left shoulder with subcutaneous emphysema and fat stranding in the left chest wall. Partial left lower lobe collapse with consolidation. The consolidation is favored to represent atelectatic lung, less likely infection however it should remain on the differential. Correlate clinically. Right lower lobe lingular and middle lobe atelectasis. Small right pleural effusion. Radiologist: Moris Dykes MD ECG Data Attestation: I personally reviewed and interpreted this ECG as follows: Indication: + chest pain Rate (beats per minute): 90 Rhythm: + normal sinus ECG Intervals/blocks: + Normal QRS and + Normal QT ECG Malcolm: + Normal ECG ST segments: + ST depression (I, aVL) and + T-wave inversions (V2) Comparison ECG Date: from (02/15/2017) Blood Pressure Blood Pressure Findings: Elevated blood pressure Blood Pressure Disposition: further management by hospitalist MDM Narrative This is a 79-year-old female who presents from home 2 days postop from left shoulder surgery. Patient has had worsening pain throughout the day and then developed shortness of breath this evening. Patient with no prior pulmonary history. Patient does have extensive cardiac history. Patient was tachycardic on arrival, and EMS reported patient was hypoxic at 89% on room air upon their arrival as well. Patient kept on oxygen via nasal cannula as a precaution, labs drawn and sent, EKG performed. No evidence of dysrhythmia or MN on the EKG. Patient given medication for pain. Chest x-ray was slightly abnormal and given postop condition and advanced age I discussed with her additional CT imaging and she was in agreement. CT did not reveal any PE or pneumonia. Radiology did read likely atelectasis and small pleural effusion. No evidence of aneurysm or dissection. Patient's white blood cell count is slightly elevated compared to her last while she was admitted, although patient is afebrile. No change in her cough. Patient given additional medication for pain as well as a small dose of muscle relaxer. Due to concern for increased work of breathing, and relative hypoxia, I discussed case with hospitalist for additional evaluation and management. Given no clear consolidation we will did not start the patient on antibiotics, however this could be the evolution of a postop pulmonary infection. Patient was kept up-to-date on all results and was in agreement with plan. An order was placed for continuous cardiac monitoring. The monitor shows a rate of 96 with _normal sinus_ rhythm. Impression & Plan Dyspnea, Chest pain, Hypoxia Discharge Plan Visit Data *Final* Discharge Date/Time: 05/19/20 08:47 Chief Complaint: Shortness of Breath/Dyspnea Stated Complaint: SHORT OF BREATH ED Provider: Ginny Chilel Discharge Problem: Dyspnea, Chest pain, Hypoxia Patient Disposition: Admitted As Inpatient Discharge Instructions Interventions: ED Discharge Assessment Last Done: 05/19/20 08:47 Discharge Problem: Dyspnea Qualifiers: Dyspnea type: shortness of breath Qualified Code(s): R06.02 - Shortness of breath Chest pain Qualifiers: Chest pain type: unspecified Qualified Code(s): R07.9 - Chest pain, unspecified
[2020-05-19 05:00] LABS: Basophils # (auto) 0.01 K/uL (0-0.2); Basophils % (auto) 0.1 %; Eosinophils # (auto) 0.05 K/uL (0-0.5); Eosinophils % (auto) 0.4 %; Hematocrit (blood only) 35.5 % (37-47); Hemoglobin 11.6 g/dL (12.0-16.0); Immature Granulocytes % (auto) 0.8 %; Lymphocytes # (auto) 1.69 K/uL (1.2-3.4); Lymphocytes % (auto) 12.7 %; Mean Corpuscular Hemoglobin 30.6 pg (25-34); Mean Corpuscular Hgb Conc 32.7 g/dL (32-36); Mean Corpuscular Volume 93.7 fL (80-100); Monocytes # (auto) 0.89 K/uL (0.11-0.59); Monocytes % (auto) 6.7 %; Neutrophils # (auto) 10.56 K/uL (1.4-6.5); Neutrophils % (auto) 79.3 %; Platelet Count 232 K/uL (130-400); RDW Coefficient of Variation 13.9 % (11.5-14.5); Red Blood Count 3.79 M/uL (4.2-5.4)
[2020-05-19 05:14] LABS: Alanine Aminotransferase 18 U/L (12-78); Albumin Level 3.3 gm/dl (3.4-5.0); Aspartate Aminotransferase 16 U/L (15-37); BUN Creatinine Ratio 20.8 (10-20); Blood Urea Nitrogen 17 mg/dl (7-18); Calcium 8.5 mg/dl (8.5-10.1); Carbon Dioxide 28 mmol/L (21-32); Chloride 106 mmol/L (98-107); Creatinine Clr Calc Pharmacy 50.5 ml/min; Est GFR (African American) 81.3; Est GFR (Non-African American) 70.1; Glucose 110 mg/dl (70-99); Lipase 54 U/L (73-393); Sodium 140 mmol/L (136-145)
[2020-05-19 05:20] LABS: Albumin Globulin Ratio 0.8 (0.9-2); Alkaline Phosphatase 88 U/L (45-117); Bilirubin,Total 0.6 mg/dl (0.2-1); Globulin 4.1 gm/dl (2.5-4.0); NT Pro B Type Natriuretic Pept 1169 pg/ml (0-1800); Total Protein 7.4 gm/dl (6.4-8.2); Troponin I < 0.015 ng/ml (0-0.045)
[2020-05-19] MEDS: fentaNYL citrate 100 MCG/2 ML VIAL IV PRN ×3 (05:21→06:22)
[2020-05-19] MEDS ORDERED: OPTIRAY 320 125ml IV PRN (05:38)
[2020-05-19] MEDS ORDERED: DIAZEPAM 5 MG/ML INJ 10ML VIAL IV STA (06:21)
[2020-05-19] MEDS ORDERED: ACETAMINOPHEN 1,000 MG/100 ML VIAL IV STA (06:22)
[2020-05-19] MEDS ORDERED: SODIUM CHLORIDE 0.9% 1000ML 1,000 ML IV SCH (07:00)
--- NOTE | 2020-05-19 07:06 | XRay Report ---
XR chest 1V portable CLINICAL HISTORY: chest pain COMPARISON STUDY: Chest radiograph May 04, 2020. FINDINGS: Interval left shoulder arthroplasty is noted. There is a dual lead left subclavian pacemake r. Note is made of cardiomegaly without evidence for pulmonary edema. Small bilateral pleural effusio ns. Left basilar airspace opacity has developed. There is no pneumothorax. IMPRESSION: 1. Small bilateral pleural effusions with left basilar airspace opacity that may reflect atelectasis or pneumonia. 2. Cardiomegaly without evidence for pulmonary edema. ACT 112: Negative or not required by law. Electronically signed by: Rashel Ochoa M.D. 05/19/2020 7:05 AM
--- NOTE | 2020-05-19 07:29 | CT Scan Report ---
CT ANGIOGRAM OF THE CHEST CLINICAL HISTORY: Dyspnea. COMPARISON STUDY: Chest x-ray dated 05/19/2020. TECHNIQUE: Following the IV administration of 78 cc of Optiray 320, CT angiogram of the chest was per formed from the upper abdomen to the thoracic inlet utilizing the pulmonary embolus protocol. Images are reviewed in the axial, sagittal, and coronal planes. 3-D MIPS images are created and assessed. IV contrast was administered without complication. A dose lowering technique was utilized adhering to the principles of ALARA. The examination is degraded by motion artifact. CT DOSE: 392.59 mGy.cm FINDINGS: Thyroid: Atrophic. Thoracic aorta: The thoracic aorta is normal in caliber and demonstrates standard 3-vessel arch anato my. No dissection is seen. Pulmonary vasculature: The main pulmonary arteries are dilated indicating pulmonary artery hypertensi on. There are no filling defects identified in main, lobar, or segmental pulmonary branches to sugges t pulmonary embolus. Heart: A 2-lead cardiac pacemaker is present in the left chest wall. The heart is markedly enlarged a nd there is a small pericardial effusion. Lungs and pleural spaces: Evaluation of the lung parenchyma is degraded by motion artifact. There are small pleural effusions with dense consolidation at the left lung base. The trachea and central airw ays are clear. Mild intralobular septal thickening is noted. Mediastinum: There is no mediastinal lymphadenopathy. Brittani: Clear. Axillae: There is no axillary lymphadenopathy. Upper abdomen: The liver is steatotic. A small hiatal hernia is noted. Skeletal structures: The skeletal structures are osteopenic. Advanced degenerative change is noted in the right shoulder and the thoracic spine. There is chronic posttraumatic deformity of the manubrium . There are healed bilateral rib fractures. No lytic or blastic bony lesions are seen. A left shoulde r arthroplasty is in place. Soft tissues: Soft tissue induration with subcutaneous gas and fluid overlies the left shoulder. Skin clips are in place and is this is consistent with recent surgery. No organized fluid collection is i dentified. IMPRESSION: 1. There is no evidence of pulmonary embolus in the main, lobar, or segmental pulmonary arteries. 2. Marked cardiomegaly and cardiac pacemaker. 3. Mild intralobular septal thickening could be related to acute versus chronic congestive change. Cl inical correlation will be required. 4. Small pleural effusions. 5. Dense left basilar consolidation likely represents segmental atelectasis. Correlate clinically for evidence of an infectious/inflammatory pneumonitis. 6. Postoperative change is noted overlying the left shoulder. 7. Hepatic steatosis. 8. Additional findings as above. ACT 112: Negative or not required by law. Electronically signed by: Medardo Elizondo M.D. 05/19/2020 7:28 AM
--- NOTE | 2020-05-19 09:21 | History & Physical Report ---
Date of Service May 19, 2020 Assessment & Plan (1) Hypoxia: (2) Dyspnea: (3) Chest pain: Pt is 79 y/o F with PMH RA, HTN, dyslipidemia, tachybrady syndrome s/p pacemaker presented to ER with c/o SOB described as pain to anterior right chest and pain with deep inspiration starting yesterday. Denies fever/chills, cough. Reported O2 sat 89% on RA by EMS. In ER pt afebrile, P: 85, R: 28 down to 20, BP: 170/92 down to 112/59, 93% on RA up to 98% on 2L. WBC: 13, Hgb: 11.6. Negative troponin. Normal procalcitonin. No acute EKG changes. Pt had negative covid 19 testing on 05/11/2020 prior to shoulder surgery CXR: Small bilateral pleural effusions with left basilar airspace opacity that may reflect atelectasis or pneumonia. Cardiomegaly without evidence for pulmonary edema. CTA CHEST: no evidence of pulmonary embolus in the main, lobar, or segmental pulmonary arteries. Mild intralobular septal thickening could be related to acute versus chronic congestive change. Small pleural effusions. Dense left basilar consolidation likely represents segmental atelectasis. Dx Atelectasis vs Pneumonia. Most likely atelectasis as pt without fever, cough. PE and pneumothorax r/o on CTA chest -In ER given IVF, Tylenol, Fentanyl with moderate relief of chest and shoulder/neck pain -blood cultures pending -Will treat with Rocephin and Zithromax for now -Continue supplemental oxygen prn -Encourage incentive spirometry and ambulate as able -Scheduled Tylenol -CBC, BMP in am -fountain dispenser oracle specialist able to view CT chest and feels atelectasis more likely secondary to pt's absence of fever and cough and suggests incentive spirometery (4) Shoulder pain: Right posterior shoulder and neck pain. May be muscular secondary to sling -Pt reports h/o intolerance to pain meds -Scheduled Tylenol, Toradol prn (5) History of reverse total replacement of left shoulder joint: 05/16/2020 Left reverse total shoulder arthroplasty by Dr Mendoza Post op without significant left shoulder pain -Ortho consult (6) Tachy-jacinto syndrome: S/P pacemaker (7) HTN (hypertension): -Continue atenolol, lisinopril (8) Rheumatoid arthritis: Follows with Dr Rincon. Off Evista and not taking meloxicam or tramadol (9) Hypothyroidism: -Continue levothyroxine (10) GERD (gastroesophageal reflux disease): -Continue PPI DVT Prophylaxis -SCDs DNR/DNI as per discussion with pt Follows with Dr Looney for routine care Pt was seen and care coordinated with Dr Powell. See addendum History of Present Illness Chief Complaint: SOB Primary Care Provider: Jt Looney DO Pt is 79 y/o F with PMH RA, HTN, dyslipidemia, tachybrady syndrome s/p pac margot presented to ER with c/o SOB. Pt with recent left total reverse shoulder on 05/16/2020 and was discharged home on 05/17/2020. Pt states not having left shoulder pain but upon return home was having a lot of gas pains and took simethicone with some relief. She states wasn't eating or drinking as much secondary to gas pains. States was to keep arm in sling and slept in sling and upon awakening sling was irritating her neck and c/o pain to posterior right neck, shoulder and upper back. She thought it felt like muscular pain and took Flexeril with a little relief. Last night pain radiated from right upper back and neck to right chest. She reports pain to right chest and upper back with deep inspiration and admits to not taking deep breathes secondary to discomfort. Denies any cough, hemoptysis, fever/chills, N/V, diaphoresis, dizziness. Not taking anything else for pain. Reports having BM's, urinating without difficulty. It is reported that upon EMS arrival pt with O2 sats at 89% on RA. Denies CARSON, syncope, vision changes, orthopnea, palpitations, sore throat, choking, otalgia, rhinorrhea, abdominal pain, paresthesias, weakness, extremity edema, rashes, urinary symptoms. Allergies Allergy/AdvReac Type Severity Reaction Status Date / Time Sulfa (Sulfonamide Allergy Mild rash Verified 05/19/20 04:35 Antibiotics) aspirin AdvReac Intermediate THROMBOCYTO Verified 05/19/20 12:36 PENIA clavulanic acid AdvReac Intermediate severe Verified 05/19/20 04:35 diarrhea phenylbutazone AdvReac Intermediate THROMBOCYTO Verified 05/19/20 12:36 PENIA hydromorphone AdvReac Mild NAUSEA AND Verified 05/19/20 04:35 VOMITING ketamine AdvReac Mild Hallucinati Verified 05/19/20 04:35 ons morphine AdvReac Mild NAUSEA/VOMI Verified 05/19/20 04:35 TTING Home Medications Home Medications Medication Instructions Recorded Confirmed Type atenolol 50 mg PO BID 10/21/18 05/19/20 History cyclobenzaprine 10 mg PO Q8H PRN 10/21/18 05/19/20 History levothyroxine 50 mcg PO QAM 10/21/18 05/19/20 History lisinopril 10 mg PO QPM 10/21/18 05/19/20 History omeprazole 1 tab PO DAILY 10/21/18 05/19/20 History rosuvastatin [Crestor] 10 mg PO PM 05/02/20 05/19/20 History fluticasone propionate 2 spray INTRANASAL PM 05/19/20 05/19/20 History tramadol 50 mg PO Q6H 05/19/20 05/19/20 History Past Med/Surg History Medical History 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 Placed for sinus arrest 2/2 esophageal spasm with strong vagal response. Rheumatoid arthritis Spinal stenosis CERVICAL AND LUMBAR Thrombocytopenia CAUSED FROM NSAID USE (MANY YEARS AGO) Surgical History History of adenoidectomy History of amputation RT MIDDLE FINGER (INFECTION) History of anesthesia reaction KETAMINE-BAD DREAMS History of arthroscopy RT SHOULDER - ATTEMPT TO REPAIR ROTATOR CUFF History of bunionectomy X2 ON RIGHT SIDE, X1 ON LEFT SIDE History of cardiac radiofrequency ablation 1995 AND 2001 (BOBBI RAMOS) History of carpal tunnel release RT History of cataract surgery RT/LEFT History of colonoscopy History of dilatation and curettage History of endoscopic sinus surgery History of esophagogastroduodenoscopy (EGD) History of myringotomy LEFT EAR History of repair of rotator cuff LEFT History of reverse total replacement of left shoulder joint (~05/2020) History of tonsillectomy History of tooth extraction History of total hip arthroplasty RT HIP (2 SURGERY) History of total knee replacement LEFT Hx of knee surgery LEFT KNEE (7 TOTAL SURGERIES) Hx of thumb surgery LEFT HAND Macular hole REPAIRED> RIGHT Family History (Updated 05/19/20 @ 10:15 by Jayda Lugo PA-C) Father AAA (abdominal aortic aneurysm) Stroke Hypertension Social History Preferred Language: Citizen Of [place] Communication Ability: Effective Long Filler Cig[employer] Roller Machine Required: No Beliefs That Will Affect Care: None Current Living Situation: Alone Other Information That Helps Us Care for You: No Feels Safe at Home: Yes Safety Concerns: Feels Safe At This Time Smoking Status: Never smoker Second Hand Exposure: No ; Hx Alcohol Use: Yes Alcohol type: wine Hx Substance Use: No Review of Systems Review of Systems: All systems reviewed & are unremarkable except as noted in HPI & below Physical Exam Physical Exam: General: no acute distress, WDWN Head: normocephalic, atraumatic Eyes: PERRL, EOM's intact, conjunctiva non-injected, anicteric ENT: normal inspection external ears, nose, mucous membranes moist Neck: supple, trachea midline, +tenderness to palpation right posterior paraspinous muscles extending to trapezius region, no discoloration, ROM intact Lungs: On 2L O2 with sats at 96%, no respiratory distress, +diminished breath sounds worse at bases, faint rales bases, slight scattered wheezing CV: RRR, no murmur, no JVD, no pretibial edema Abd: normal BS, soft, non-tender Ext: no calf tenderness; Left shoulder with surgical dressing in place is dry, left arm in sling, able to move left hand and fingers. Right shoulder with ROM intact with some discomfort reproduced to right anterior chest and upper director oncology ior back/shoulder. Distal pulses intact bilateral upper and lower extremities with sensation to light touch bilateral upper and lower extremities Neuro: A&O x 3, no focal deficits noted, normal affect Skin: warm, dry Results & Data Results & Data ([facility]) Vital Signs (Past 12 Hours) Vital Signs Temp Pulse Pulse Resp BP BP Pulse Ox 05/19/20 08:00 75 18 112/59 L 95 05/19/20 06:27 84 24 150/97 H 94 05/19/20 04:27 37 C 85 28 H 170/92 H 98 Laboratory Results Short CBC 05/19/20 Range/Units 04:45 WBC 13.30 H (4.8-10.8) K/uL Hgb 11.6 L (12.0-16.0) g/dL Hct 35.5 L (37-47) % Plt Count 232 (130-400) K/uL BMP 05/19/20 04:45 Sodium 140 Potassium 4.0 Chloride 106 Carbon Dioxide 28 BUN 17 Creatinine 0.80 Glucose 110 H Calcium 8.5 Cardiac Enzymes 05/19/20 Range/Units 04:45 Troponin I < 0.015 (0-0.045) ng/ml Liver Function 05/19/20 Range/Units 04:45 Total Bilirubin 0.6 (0.2-1) mg/dl AST 16 (15-37) U/L ALT 18 (12-78) U/L Alkaline Phosphatase 88 (45-117) U/L Albumin 3.3 L (3.4-5.0) gm/dl Diagnostic Findings CXR: IMPRESSION: 1. Small bilateral pleural effusions with left basilar airspace opacity that may reflect atelectasis or pneumonia. 2. Cardiomegaly without evidence for pulmonary edema. CTA CHEST: IMPRESSION: 1. There is no evidence of pulmonary embolus in the main, lobar, or segmental pulmonary arteries. 2. Marked cardiomegaly and cardiac pacemaker. 3. Mild intralobular septal thickening could be related to acute versus chronic congestive change. Clinical correlation will be required. 4. Small pleural effusions. 5. Dense left basilar consolidation likely represents segmental atelectasis. Correlate clinically for evidence of an infectious/inflammatory pneumonitis. 6. Postoperative change is noted overlying the left shoulder. 7. Hepatic steatosis. 8. Additional findings as above. Code Status & VTE Plan VTE Prophylaxis Plan VTE Prophylaxis will be ordered: Yes Supervising Physician Co-Signing Physician Notes I have seen and examined the patient and have discussed the case with the provider above. I agree with the assessment and plan as stated with the following exceptions. 79 yo F s/p reverse TSA on the left by Dr. Mendoza on 05/16/20 presented with acute right upper back and right lateral chest pain. She has worn the left sided sling consistently per activity restrictions, which has likely played a role in the development of her pain. She has significant tenderness to palpation on the right paraspinal region, right mid-axillary intercostals and when palpating on the right anterior intercostals, she reports referred pain to her back. Normal ROM of her right shoulder. Bilateral hand strength intact with bilateral upper extremities are NVI. Skin is warm and dry. Left shoulder incision covered with surgical dressing and no surrounding erythema. Normal cardiac exam. Lungs are clear to auscultation throughout. No increased respiratory effort and no conversational dyspnea is present. She has a topical lidocaine patch which has not helped her much. CT chest revealed no PE, and some > atelectasis with a questionable area of consolidation at the base. She denies any cough, fevers, or chills. Procalcitonin is negative. Covering with empiric antibiotics for today, but feel this is more likely atelectasis instead of a post-operative pneumonia. Blood and sputum cultures are pending. She has had some relief from the Toradol, which I am scheduling q8h and alternating this with Tylenol q8h. Myoflex gel and ice to affected area. Ortho consulted to assist with comfort an placement of her sling moving forward so this pain has a chance to improve. Incentive spirometer q1 hours while awake and monitor for improvement in hypoxia. DO Andre (1) Dyspnea Dyspnea type: shortness of breath Qualified Code(s): R06.02 - Shortness of breath (2) Chest pain Chest pain type: unspecified Qualified Code(s): R07.9 - Chest pain, unspecified
[2020-05-19] MEDS ORDERED: POLYETHYLENE (MIRALAX) 17 GM PACK PO PRN (09:25)
[2020-05-19] MEDS ORDERED: KETOROLAC TROMETHAMINE 15 MG/ML VIAL IV PRN (09:25)
[2020-05-19] MEDS ORDERED: ONDANSETRON INJ 2 MG/ML 2 ML VIAL IV PRN (09:25)
[2020-05-19] MEDS: cefTRIAXone SODIUM 1,000 MG in DEXTROSE 5% 50 ML IV SCH (10:54)
[2020-05-19] MEDS: CYCLOBENZAPRINE HCL 10 MG TAB PO PRN ×2 (10:57→23:47)
[2020-05-19] MEDS: AZITHROMYCIN 500 MG in DEXTROSE 5% 250 ML IV SCH (11:27)
[2020-05-19] MEDS ORDERED: TROLAMINE SALICYLATE 10% CRM 255 APPLN/85 GM TUBE EXT PRN (12:36)
[2020-05-19] MEDS: ACETAMINOPHEN 500 MG TAB PO SCH ×2 (13:45→21:20)
--- NOTE | 2020-05-19 13:59 | Orthopedic Consultation ---
Date of Consultation May 19, 2020 Assessment & Plan (1) History of reverse total replacement of left shoulder joint: She seems to be doing well with her shoulder. She is not having much shoulder pain. She will be in an arm sling for a total of 3 weeks. Physical therapy is not necessary during her visit at this time. She can resume physical therapy when she returns home. I want her to keep her scheduled postoperative visit. Present on Admission?: Yes History of Present Illness Reason for Consultation: 3 days status post left reverse shoulder arthroplasty Attending Physician: Nasra Powell, DO History of Present Illness Barby is a pleasant 79-year-old female who is now 3 days status post a left reverse shoulder arthroplasty. She initially did well postoperatively and was discharged home. Unfortunately she began having a little bit of chest tightness and difficulty breathing. She came to the emergency room and chest x-ray showed possible mild pneumonia versus atelectasis. She was admitted to the hospital and started on some antibiotics. Orthopedics was consulted for her left shoulder. Allergies Allergy/AdvReac Type Severity Reaction Status Date / Time Sulfa (Sulfonamide Allergy Mild rash Verified 05/19/20 04:35 Antibiotics) aspirin AdvReac Intermediate THROMBOCYTO Verified 05/19/20 12:36 PENIA clavulanic acid AdvReac Intermediate severe Verified 05/19/20 04:35 diarrhea phenylbutazone AdvReac Intermediate THROMBOCYTO Verified 05/19/20 12:36 PENIA hydromorphone AdvReac Mild NAUSEA AND Verified 05/19/20 04:35 VOMITING ketamine AdvReac Mild Hallucinati Verified 05/19/20 04:35 ons morphine AdvReac Mild NAUSEA/VOMI Verified 05/19/20 04:35 TTING Home Medications Home Medications Medication Instructions Recorded Confirmed Type atenolol 50 mg PO BID 10/21/18 05/19/20 History cyclobenzaprine 10 mg PO Q8H PRN 10/21/18 05/19/20 History levothyroxine 50 mcg PO QAM 10/21/18 05/19/20 History lisinopril 10 mg PO QPM 10/21/18 05/19/20 History omeprazole 1 tab PO DAILY 10/21/18 05/19/20 History rosuvastatin [Crestor] 10 mg PO PM 05/02/20 05/19/20 History fluticasone propionate 2 spray INTRANASAL PM 05/19/20 05/19/20 History tramadol 50 mg PO Q6H 05/19/20 05/19/20 History Patient History Medical History 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 Placed for sinus arrest 2/2 esophageal spasm with strong vagal response. Rheumatoid arthritis Spinal stenosis CERVICAL AND LUMBAR Thrombocytopenia CAUSED FROM NSAID USE (MANY YEARS AGO) Surgical History History of adenoidectomy History of amputation RT MIDDLE FINGER (INFECTION) History of anesthesia reaction KETAMINE-BAD DREAMS History of arthroscopy RT SHOULDER - ATTEMPT TO REPAIR ROTATOR CUFF History of bunionectomy X2 ON RIGHT SIDE, X1 ON LEFT SIDE History of cardiac radiofrequency ablation 1995 AND 2001 (BOBBI RAMOS) History of carpal tunnel release RT History of cataract surgery RT/LEFT History of colonoscopy History of dilatation and curettage History of endoscopic sinus surgery History of esophagogastroduodenoscopy (EGD) History of myringotomy LEFT EAR History of repair of rotator cuff LEFT History of reverse total replacement of left shoulder joint (~05/2020) History of tonsillectomy History of tooth extraction History of total hip arthroplasty RT HIP (2 SURGERY) History of total knee replacement LEFT Hx of knee surgery LEFT KNEE (7 TOTAL SURGERIES) Hx of thumb surgery LEFT HAND Macular hole REPAIRED> RIGHT Family History Father AAA (abdominal aortic aneurysm) Stroke Hypertension Social History Preferred Language: [place] Communication Ability: Effective Corporate Driver Required: No Beliefs That Will Affect Care: None Current Living Situation: Alone Other Information That Helps Us Care for You: No Feels Safe at Home: Yes Safety Concerns: Feels Safe At This Time Smoking Status: Never smoker Second Hand Exposure: No ; Hx Alcohol Use: Yes Alcohol type: wine Hx Substance Use: No Review of Systems Review of Systems: All systems reviewed & are unremarkable except as noted in HPI & below Physical Exam Musculoskeletal: On physical examination of the left shoulder, the dressing is clean and dry. She is wearing her sling as instructed. Her radial median ulnar nerves are checked and intact at her wrist. Results & Data ([facility]) Vital Signs (Past 12 Hours) Vital Signs Temp Pulse Pulse Pulse Resp BP BP 05/19/20 11:08 36.7 C 93 H 21 111/72 05/19/20 09:37 90 05/19/20 09:07 36.9 C 89 20 136/67 05/19/20 08:00 75 18 112/59 L 05/19/20 06:27 84 24 150/97 H 05/19/20 04:27 37 C 85 28 H 170/92 H Pulse Ox 05/19/20 11:08 97 05/19/20 09:37 05/19/20 09:07 97 05/19/20 08:00 95 05/19/20 06:27 94 05/19/20 04:27 98 PG Care Time/CCT Total # of Minutes Spent Total Time Spent with Patient: Total time spent is greater than 50% in co ordination of care (as documented) at patient's floor/unit and/or counseling patient: Coding Level of Care Code None Diagnoses History of reverse total replacement of left shoulder joint Z98.890
--- NOTE | 2020-05-19 17:07 | Electrocardiogram Report ---
Test Reason : Blood Pressure : / mmHG Vent. Rate : 090 BPM Atrial Rate : 090 BPM P-R Int : 182 ms QRS Dur : 072 ms QT Int : 336 ms P-R-T Axes : 027 -08 121 degrees QTc Int : 411 ms Normal sinus rhythm Minimal voltage criteria for LVH, may be normal variant Nonspecific T wave abnormality Abnormal ECG When compared with ECG of 04-JAN-2017 15:20, Nonspecific T wave abnormality, worse in Inferior leads T wave inversion now evident in Lateral leads Confirmed by Pardeep Castañeda ([id number]) on 05/19/2020 5:06:47 PM Referred By: REFERRED SELF Confirmed By:Roddy Castañeda
[2020-05-19] MEDS: KETOROLAC TROMETHAMINE 15 MG/ML VIAL IV SCH (17:50)
[2020-05-19] MEDS: ATENOLOL 50 MG TABLET PO SCH (19:27)
[2020-05-19] MEDS ORDERED: lisinopriL 10 MG TAB PO SCH (21:00)
[2020-05-19] MEDS ORDERED: FLUTICASONE PROPIONATE NA SPR 16 GM BTL NAE SCH (21:00)
[2020-05-19] MEDS ORDERED: ROSUVASTATIN CALCIUM 10 MG TAB PO SCH (21:00)
[2020-05-20] MEDS: KETOROLAC TROMETHAMINE 15 MG/ML VIAL IV SCH ×2 (02:51→10:36)
[2020-05-20 06:18] LABS: Hematocrit (blood only) 31.3 % (37-47); Hemoglobin 10.2 g/dL (12.0-16.0); Mean Corpuscular Hgb Conc 32.6 g/dL (32-36); Mean Corpuscular Volume 92.1 fL (80-100); Mean Platelet Volume 8.7 fL (7.4-10.4); Platelet Count 209 K/uL (130-400); RDW Coefficient of Variation 13.8 % (11.5-14.5); RDW Standard Deviation 46.4 fL (36.4-46.3); White Blood Count 7.93 K/uL (4.8-10.8)
[2020-05-20] MEDS ORDERED: LEVOTHYROXINE SODIUM 50 MCG TABLET PO SCH (06:30)
[2020-05-20] MEDS: ACETAMINOPHEN 500 MG TAB PO SCH ×2 (06:38→14:32)
[2020-05-20 06:42] LABS: BUN Creatinine Ratio 18.2 (10-20); Calcium 8.2 mg/dl (8.5-10.1); Creatinine Clr Calc Pharmacy 59.5 ml/min; Est GFR (African American) 96.4; Est GFR (Non-African American) 83.2
[2020-05-20] MEDS: ATENOLOL 50 MG TABLET PO SCH (08:50)
[2020-05-20] MEDS ORDERED: PANTOprazole 40 MG TAB PO SCH (09:00)
[2020-05-20] MEDS: cefTRIAXone SODIUM 1,000 MG in DEXTROSE 5% 50 ML IV SCH (10:45)
[2020-05-20] MEDS: AZITHROMYCIN 500 MG in DEXTROSE 5% 250 ML IV SCH (11:29)
--- NOTE | 2020-05-20 13:21 | Discharge Summary ---
Date of Service May 20, 2020 Admission HPI Per Admitting Provider Pt is 79 y/o F with PMH RA, HTN, dyslipidemia, tachybrady syndrome s/p pacemaker presented to ER with c/o SOB. Pt with recent left total reverse shoulder on 05/16/2020 and was discharged home on 05/17/2020. Pt states not having left shoulder pain but upon return home was having a lot of gas pains and took simethicone with some relief. She states wasn't eating or drinking as much secondary to gas pains. States was to keep arm in sling and slept in sling and upon awakening sling was irritating her neck and c/o pain to posterior right neck, shoulder and upper back. She thought it felt like muscular pain and took Flexeril with a little relief. Last night pain radiated from right upper back and neck to right chest. She reports pain to right chest and upper back with deep inspiration and admits to not taking deep breathes secondary to discomfort. Denies any cough, hemoptysis, fever/chills, N/V, diaphoresis, dizziness. Not taking anything else for pain. Reports having BM's, urinating without difficulty. It is reported that upon EMS arrival pt with O2 sats at 89% on RA. Denies CARSON, syncope, vision changes, orthopnea, palpitations, sore throat, choking, otalgia, rhinorrhea, abdominal pain, paresthesias, weakness, extremity edema, rashes, urinary symptoms. Principal Diagnosis Transient hypoxia 2/2 atelectasis-resolved Musculoskeletal back/chest pain s/p shoulder surgery Discharge Exam General: no acute distress, WDWN Head: normocephalic, atraumatic Eyes: conjunctiva non-injected, anicteric ENT: normal inspection external ears, nose, mucous membranes moist Neck: supple, trachea midline Lungs: clear to auscultation bilaterally, normal respiratory effort. CV: RRR, no murmur, no JVD, no pretibial edema Abd: normal BS, soft, non-tender MSK: Left shoulder with surgical dressing in place is dry, left arm in sling, able to move left hand and fingers. Neuro: A&O x 3, no focal deficits noted, normal affect Skin: warm, dry Discharge Data Allergies Allergy/AdvReac Type Severity Reaction Status Date / Time Sulfa (Sulfonamide Allergy Mild rash Verified 05/19/20 04:35 Antibiotics) aspirin AdvReac Intermediate THROMBOCYTO Verified 05/19/20 12:36 PENIA clavulanic acid AdvReac Intermediate severe Verified 05/19/20 04:35 diarrhea phenylbutazone AdvReac Intermediate THROMBOCYTO Verified 05/19/20 12:36 PENIA hydromorphone AdvReac Mild NAUSEA AND Verified 05/19/20 04:35 VOMITING ketamine AdvReac Mild Hallucinati Verified 05/19/20 04:35 ons morphine AdvReac Mild NAUSEA/VOMI Verified 05/19/20 04:35 TTING Consultations 05/19/20 07:46 ED Decision to Admit Stat 05/19/20 09:25 Consult Case Management - Discharge Planning Routine Consult Orthopedic Surgery Routine Ordered Studies 05/19/20 05:10 CT angio chest PE protocol Urgent Hospital Course (1) Hypoxia: (2) Chest pain: (3) Shoulder pain: (4) History of reverse total replacement of left shoulder joint: 79-year-old female status post left reverse total shoulder arthroplasty by Dr. Mendoza on 05/16/2020. She was discharged home and subsequently developed right sided upper to mid back pain with radiation to her lateral chest wall in addition to significant dyspnea. She was seen in the ER with work-up including a CT chest with contrast. This revealed no evidence of PE, however, did reveal some left basilar consolidation likely maintenance representative of segmental atelectasis. She was mildly hypoxic requiring 2 L via nasal cannula. She denied any classic symptoms of pneumonia including no cough, fever, rigors. She was admitted to the hospitalist service and monitored on telemetry overnight. She was empirically placed on Rocephin and azithromycin for initial coverage of pneumonia however, she continued to do well clinically, initial blood cultures were negative and pro calcitonin was negative at 0.05. In the setting of history of C. difficile and with the lack of classic symptoms of pneumonia, antibiotics were discontinued at time of discharge, the next day. Additionally, overnight with pulmonary toilet and control of her pain her hypoxia resolved and she looked much better the following day. It was noted that on her chest CT there was a question of septal thickening that could be related to congestive changes. However with her clinical improvement without diuretics, congestive heart failure was thought to be less likely. Successful pain regimen for her included alternating Tylenol and Toradol every 4 hours and this was recommended going home with ibuprofen replacing Toradol. She was given guidance on long- term side effects of NSAID therapy. A close primary care follow-up was recommended to ensure she continues to have a smooth recovery process postoperatively and that her pain has resolved in the short-term. Her chest and back pain is thought to be secondary to her sling which has to be worn continuously per orthopedics. Orthopedics was consulted and recommended to continue the sling for a total of 3 weeks and keep her scheduled postoperative visit. She was discharged in stable condition. Also of note, she did get a two-step test prior to discharge which was negative. Total Time Total Time Spent Total Time Spent (In Minutes): 60 Total Time Includes: Examination of the Patient, Discharge Planning, Medication Reconciliation and Communication With Other Providers Discharge Plan Discharge Items Patient Disposition: Home - Self-Care Reason For Visit: HYPOXIA, CHEST AND L SHOULDER PAIN S/P SURGERY Discharge Diagnosis: Transient hypoxia 2/2 atelectasis-resolved Musculoskeletal back/chest pain s/p shoulder surgery Condition on Discharge: Good Activity: As commented below Activity Comment: per orthopedics post-op activity restrictions Non-emergency contact: Primary Care Provider Call non-emergency contact if: you have any medication questions, your symptoms worsen, your pain is not controlled, your pain is worsening, your pain is unusual for you, your pain is concerning for you and you have a fever Follow-up/Referrals: Jt Looney, [Primary Care Provider] - 05/25/20 11:40 am (05/25/2020 11:40 AM Provider Vipul Kelly MD Department Family [facility] ) Diet: Regular Addtl Attending Provider Instructions: Please take all medications as instructed on discharge list below. Please consider following the proposed plan for your current back/chest pain: alternate Ibuprofen 800mg every 8 hours with Tylenol 1000mg every 8 hours use ice packs and sports creams as tolerated Please continue to follow all previous orthopedic post-operative recommendations. It appears you do not have a pneumonia, however, please seek immediate medical attention if you experience fever, shaking chills/rigors, worsening shortness of breath, concerning chest pain or any other concerning symptoms. Please continue to use your incentive spirometer regularly. It is recommended that you follow-up with your primary care provider at the appointment time/date above. This will be important to ensure your breathing is improved and you are experiencing a smooth recovery from your recent operation. It was a pleasure taking care of you! Please call if you have any questions or problems. You can reach a [facility] Hospitalist on duty at [facility] 24 hours a day by calling [phone]. Take care of yourself. Nasra Powell, DO [facility] Hospitalist Pending Studies at Discharge: Yes Studies:: final blood cultures pending at time of discharge but are preliminarily negative. Stand-Alone Forms: My [facility], Smoking Cessation Medications and DC Order Prescriptions: New acetaminophen 500 mg Tablet 1,000 mg PO Q8H Qty: 100 RF: 0 ibuprofen 800 mg tablet 800 mg PO Q8H PRN (Reason: pain) Qty: 30 RF: 1 Continued cyclobenzaprine 10 mg Tablet 10 mg PO Q8H PRN (Reason: Pain) RF: 0 lisinopril 10 mg Tablet 10 mg PO QPM RF: 0 atenolol 50 mg Tablet 50 mg PO BID RF: 0 levothyroxine 50 mcg Capsule 50 mcg PO QAM RF: 0 omeprazole 20 mg Tablet,Disintegrat, Delay Rel 1 tab PO DAILY RF: 0 rosuvastatin [Crestor] 10 mg Tablet 10 mg PO PM RF: 0 tramadol 50 mg tablet 50 mg PO Q6H RF: 0 fluticasone propionate 50 mcg/actuation spray,suspension 2 spray INTRANASAL PM RF: 0 Discharge Orders: Discharge Order (Routine); Ordered 05/20/20 Ordered By: Nasra Powell Admission Data Admit Date/Time: 05/19/20 08:09 Attending Provider: Nasra Powell Admit Provider: Nasra Powell Primary Care Provider: Jt Looney Other Providers: Vaughn Marcano ; Carlos Mendoza
== END 2020-05-20 15:00 | disposition home or self-care (01) | DRG 206 ==
LOC: ED 04:33 → 2S 08:09 → 2W 21:43

== ENCOUNTER 2022-05-14 15:32 | Inpatient (IN) ==
[2022-05-14] MEDS ORDERED: XYLOCAINE 1%/SOD BICARB 20 ML VIAL INFIL ONE (15:40)
--- NOTE | 2022-05-14 15:48 | Emergency Department Note ---
History of Present Illness General Chief complaint: Fall Stated complaint: FALL Time Seen by Provider: 05/14/22 15:33 Source: patient Mode of arrival: EMS History of Present Illness Provider complaint: Syncope Onset (ago): minute(s) Location: head Pain Consistency: + now resolved Quality: + other (Passed out in the parking lot) Exacerbated By: + none Associated symptoms: + headaches and + syncope; no chest pain, no cough, no fever/chills, no nausea/vomiting or no shortness of breath This is an 81-year-old female who presents with a syncopal episode just prior to arrival. The patient was going to her car in a parking garage when she just suddenly passed out. She woke up on the ground. She injured her knee and her left head. She denies being on any blood thinners. She did have a slight headache prior to the syncopal episode but states that she is prone to headaches and they are triggered by changes in barometric pressure. She continues to have a headache at this time behind her left brow where she injured her head. She denies any nausea or vomiting. She had no symptoms prior to passing out. She does not remember what happened. She had no lightheadedness, palpitations, ta chycardia, chest discomfort or pain, shortness of breath, recent illness or cough. She does state that she thought she had a slight fever last week when she was in [place]. She had an infection to her left leg where she excellently cut it. She was originally on doxycycline and then placed on a different antibiotic which she stopped taking about a day or 2 ago because it was giving her a rash. She states the wound is now well-healed. Her tetanus is up-to-date. She denies any black or bloody stools, abdominal pain, vomiting, diarrhea or urinary symptoms. She does have a pacemaker due to a history of paroxysmal atrial tachycardia. Home Medications Medication Instructions Recorded Confirmed Type atenolol 50 mg tablet 50 mg PO BID 10/21/18 12/19/21 History cyclobenzaprine 10 mg tablet 10 mg PO Q8H PRN 10/21/18 12/19/21 History levothyroxine 50 mcg capsule 50 mcg PO QAM 10/21/18 12/19/21 History omeprazole 20 mg delayed 1 tab PO HS 10/21/18 12/19/21 History release,disintegrating tablet rosuvastatin 10 mg tablet (Crestor) 10 mg PO PM 05/02/20 12/19/21 History fluticasone propionate 50 2 spray INTRANASAL PM 05/19/20 12/19/21 History mcg/actuation nasal spray,suspension ibuprofen 800 mg tablet 800 mg PO Q8H PRN #30 tab 05/20/20 12/19/21 Rx acetaminophen 500 mg tablet 1,000 mg PO Q8H PRN 11/03/21 12/19/21 History losartan 50 mg tablet 50 mg PO QAM 11/03/21 12/19/21 History vitamin B complex 1 tab PO BID 11/03/21 12/19/21 History Allergies Allergy/AdvReac Type Severity Reaction Status Date / Time Sulfa (Sulfonamide Allergy Mild rash Verified 11/03/21 08:53 Antibiotics) aspirin AdvReac Intermediate THROMBOCYTO Verified 11/03/21 08:53 PENIA clavulanic acid AdvReac Intermediate severe Verified 11/03/21 08:53 diarrhea phenylbutazone AdvReac Intermediate THROMBOCYTO Verified 11/03/21 08:53 PENIA hydromorphone AdvReac Mild NAUSEA AND Verified 11/03/21 08:53 VOMITING ketamine AdvReac Mild Hallucinati Verified 11/03/21 08:53 ons morphine AdvReac Mild NAUSEA/VOMI Verified 11/03/21 08:53 TTING Past Med/Surg History Medical History 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 Placed for sinus arrest 2/2 esophageal spasm with strong vagal response. Rheumatoid arthritis Spinal cord stimulator status Spinal stenosis CERVICAL AND LUMBAR Thrombocytopenia CAUSED FROM NSAID USE (MANY YEARS AGO) Surgical History History of adenoidectomy History of amputation RT MIDDLE FINGER (INFECTION) History of anesthesia reaction KETAMINE-BAD DREAMS History of arthroscopy RT SHOULDER - ATTEMPT TO REPAIR ROTATOR CUFF History of bunionectomy X2 ON RIGHT SIDE, X1 ON LEFT SIDE History of cardiac radiofrequency ablation 1995 AND 2001 ([facility]) History of carpal tunnel release RT History of cataract surgery RT/LEFT History of colonoscopy History of dilatation and curettage History of endoscopic sinus surgery History of esophagogastroduodenoscopy (EGD) History of lumbar laminectomy (~07/2020) L4-L5 @ [facility] History of myringotomy LEFT EAR History of repair of rotator cuff LEFT History of reverse total replacement of left shoulder joint (~05/2020) History of tonsillectomy History of tooth extraction History of total hip arthroplasty RT HIP (2 SURGERY) History of total knee replacement LEFT Hx of knee surgery LEFT KNEE (7 TOTAL SURGERIES) Hx of thumb surgery LEFT HAND Macular hole REPAIRED> RIGHT S/P insertion of spinal cord stimulator (~07/2021) Family History Father AAA (abdominal aortic aneurysm) Hypertension Stroke Other No family history of adverse response to anesthesia Social History Smoking Status: Never smoker Second Hand Exposure: No; Hx Alcohol Use: Yes Alcohol type: wine Hx Substance Use: No Preferred Language: Maltese Communication Ability: Effective 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 and A total of 10 systems reviewed and were otherwise negative Physical Exam Vital Signs Vital Signs - 24 hr 05/14/22 15:40 05/14/22 16:08 05/14/22 16:19 Pulse Rate - Lying Pulse Rate - Sitting Pulse Rate - Standing Pulse Rate 81 Pulse Rate from SpO2 Sensor Respiratory Rate 14 17 Blood Pressure - Lying Blood Pressure - Sitting Blood Pressure- Standing Blood Pressure Blood Pressure [Left Arm] 160/120 H Blood Pressure Mean Blood Pressure Mean [Left Arm] 133 Pulse Oximetry Oxygen Delivery Method Sepsis Recent Fever Within 48 Hours No Sepsis New/Unexplained Change in Mental Status N/A Sepsis Action Taken by Nursing No Action Required 05/14/22 16:30 05/14/22 16:43 05/14/22 16:53 Pulse Rate - Lying Pulse Rate - Sitting Pulse Rate - Standing Pulse Rate 83 75 Pulse Rate from SpO2 Sensor 82 Respiratory Rate 16 18 Blood Pressure - Lying Blood Pressure - Sitting Blood Pressure- Standing Blood Pressure 160/120 H 170/75 H Blood Pressure [Left Arm] Blood Pressure Mean 133 106 Blood Pressure Mean [Left Arm] Pulse Oximetry 99 96 Oxygen Delivery Method Room Air Sepsis Recent Fever Within 48 Hours Sepsis New/Unexplained Change in Mental Status Sepsis Action Taken by Nursing 05/14/22 17:00 05/14/22 17:30 05/14/22 18:00 Pulse Rate - Lying Pulse Rate - Sitting Pulse Rate - Standing Pulse Rate 75 78 77 Pulse Rate from SpO2 Sensor 74 78 76 Respiratory Rate 17 17 15 Blood Pressure - Lying Blood Pressure - Sitting Blood Pressure- Standing Blood Pressure 154/73 H Blood Pressure [Left Arm] Blood Pressure Mean 100 Blood Pressure Mean [Left Arm] Pulse Oximetry 100 99 99 Oxygen Delivery Method Sepsis Recent Fever Within 48 Hours Sepsis New/Unexplained Change in Mental Status Sepsis Action Taken by Nursing 05/14/22 18:30 05/14/22 18:53 05/14/22 19:00 Pulse Rate - Lying 80 Pulse Rate - Sitting 81 Pulse Rate - Standing 87 Pulse Rate 80 82 Pulse Rate from SpO2 Sensor 80 Respiratory Rate 19 14 Blood Pressure - Lying 139/74 Blood Pressure - Sitting 140/88 Blood Pressure- Standing 147/94 H Blood Pressure Blood Pressure [Left Arm] Blood Pressure Mean Blood Pressure Mean [Left Arm] Pulse Oximetry 100 Oxygen Delivery Method Sepsis Recent Fever Within 48 Hours Sepsis New/Unexplained Change in Mental Status Sepsis Action Taken by Nursing 05/14/22 19:09 05/14/22 19:11 05/14/22 19:12 Pulse Rate - Lying Pulse Rate - Sitting Pulse Rate - Standing Pulse Rate 83 91 H 99 H Pulse Rate from SpO2 Sensor Respiratory Rate 12 21 23 Blood Pressure - Lying Blood Pressure - Sitting Blood Pressure- Standing Blood Pressure 139/71 140/94 142/94 H Blood Pressure [Left Arm] Blood Pressure Mean 93 109 110 Blood Pressure Mean [Left Arm] Pulse Oximetry Oxygen Delivery Method Sepsis Recent Fever Within 48 Hours Sepsis New/Unexplained Change in Mental Status Sepsis Action Taken by Nursing Constitutional: Vital signs reviewed. Eyes: Pupils are equal round reactive to light. Conjunctiva are noninjected. ENT: Pharynx is clear without erythema or exudate. Mucous membranes are moist. Tenderness over the left cheekbone with ecchymosis. No midline tenderness to the cervical spine. Respiratory: Clear to auscultation bilaterally. Breath sounds are equal bilaterally. Cardiovascular: Regular rate and rhythm. No rubs or gallops. GI: Soft, nondistended and nontender. Bowel sounds are present. Musculoskeletal: Small skin tear to the right knee without bony tenderness. 1 cm round lesion to the right lower calf healing without cellulitis. Large avulsion to the left knee over the entire anterior surface with diffuse bony tenderness. Normal distal pulses in both feet. No hip tenderness. Superficial abrasion and ecchymosis to the right second toe with some tenderness. No tenderness to the ankle. Tenderness to the left wrist and hand over the ulnar aspect. No deformity. Integumentary: No cyanosis. or jaundice. 5 cm laceration over the left brow. Neurologic: The patient is awake and alert. Cranial nerves II-XII are intact. Motor is 5 out of 5 all extremities. Sensation is intact to light touch all extremities. Normal speech. No pronator drift. Psychiatric: Normal affect. Not anxious appearing. Course Administered Medications Discontinued Medications Lidocaine HCl (Xylocaine 1%/Sod Bicarb 20 Ml Vial) 20 ml INFIL NOW ONE Stop: 05/14/22 15:41 Last Admin: 05/14/22 17:24 Dose: 20 ml Documented by: [id number] Medical Decision Making Differential Diagnosis Syncope, dysrhythmia, intracranial hemorrhage, facial fracture, metabolic derangement, pacemaker failure. Medical Records Attestation: I reviewed the patient's medical records. I did perform a limited focused review of portions of the patient's old chart on the electronic medical record. The patient has had no recent pertinent visits to this hospital. Home Medications Current Medication List: was personally reviewed by me Laboratory Data Attestation: I reviewed the patient's lab results. Result diagrams: 05/14/22 16:09 05/14/22 16:09 Lab Results 05/14/22 05/14/22 05/14/22 Range/Units 16:09 16:09 16:09 WBC 11.39 H (4.8-10.8) K/uL RBC 3.85 L (4.2-5.4) M/uL Hgb 12.2 (12.0-16.0) g/dL Hct 37.1 (37-47) % MCV 96.4 (80-100) fL MCH 31.7 (25-34) pg MCHC 32.9 (32-36) g/dL RDW Std Deviation 50.0 H (36.4-46.3) fL RDW Coeff of Octavia 14.0 (11.5-14.5) % Plt Count 222 (130-400) K/uL MPV 10.8 H (7.4-10.4) fL Immature Gran % (Auto) 1.8 % Neut % (Auto) 72.5 % Lymph % (Auto) 17.2 % Desha % (Auto) 7.6 % Eos % (Auto) 0.6 % Baso % (Auto) 0.3 % Neut # (Auto) 8.26 H (1.4-6.5) K/uL Lymph # (Auto) 1.96 (1.2-3.4) K/uL Desha # (Auto) 0.87 H (0.11-0.59) K/uL Eos # (Auto) 0.07 (0-0.5) K/uL Baso # (Auto) 0.03 (0-0.2) K/uL Immature Gran # (Auto) 0.20 H (0.00-0.02) K/uL Sodium 138 (136-145) mmol/L Potassium 4.1 (3.5-5.1) mmol/L Chloride 103 (98-107) mmol/L Carbon Dioxide 27 (21-32) mmol/L Anion Gap 8 (3-11) BUN 20 (6-23) mg/dl Creatinine 0.72 (0.6-1.2) mg/dl Est Cr Clr Drug Dosing Not Reportable Est GFR ( Amer) 91.0 ml/min Est GFR (Non-Af Amer) 78.5 ml/min BUN/Creatinine Ratio 27.8 H (10-20) Glucose 121 H (70-99(Fasting)) mg/dl POC Glucose (70-99) mg/dl Calcium 9.1 (8.5-10.1) mg/dl Magnesium 1.9 (1.7-2.4) mg/dl Total Bilirubin 0.5 (0.2-1.0) mg/dl AST 20 (13-39) U/L ALT 19 (7-52) U/L Alkaline Phosphatase 69 (34-104) U/L Troponin I High Sens 6.0 (0-14) pg/ml Total Protein 7.2 (6.0-8.3) gm/dl Albumin 4.2 (3.4-5.0) gm/dl Globulin 3.0 (2.5-4.0) gm/dl Albumin/Globulin Ratio 1.4 (0.9-2) TSH 4.090 (0.300-4.500) uIu/ml SARS-CoV-2, RNA, NAAT (NEGATIVE) 05/14/22 05/14/22 Range/Units 16:36 18:58 WBC (4.8-10.8) K/uL RBC (4.2-5.4) M/uL Hgb (12.0-16.0) g/dL Hct (37-47) % MCV (80-100) fL MCH (25-34) pg MCHC (32-36) g/dL RDW Std Deviation (36.4-46.3) fL RDW Coeff of Octavia (11.5-14.5) % Plt Count (130-400) K/uL MPV (7.4-10.4) fL Immature Gran % (Auto) % Neut % (Auto) % Lymph % (Auto) % Desha % (Auto) % Eos % (Auto) % Baso % (Auto) % Neut # (Auto) (1.4-6.5) K/uL Lymph # (Auto) (1.2-3.4) K/uL Desha # (Auto) (0.11-0.59) K/uL Eos # (Auto) (0-0.5) K/uL Baso # (Auto) (0-0.2) K/uL Immature Gran # (Auto) (0.00-0.02) K/uL Sodium (136-145) mmol/L Potassium (3.5-5.1) mmol/L Chloride (98-107) mmol/L Carbon Dioxide (21-32) mmol/L Anion Gap (3-11) BUN (6-23) mg/dl Creatinine (0.6-1.2) mg/dl Est Cr Clr Drug Dosing Est GFR ( Amer) ml/min Est GFR (Non-Af Amer) ml/min BUN/Creatinine Ratio (10-20) Glucose (70-99(Fasting)) mg/dl POC Glucose 101 H (70-99) mg/dl Calcium (8.5-10.1) mg/dl Magnesium (1.7-2.4) mg/dl Total Bilirubin (0.2-1.0) mg/dl AST (13-39) U/L ALT (7-52) U/L Alkaline Phosphatase (34-104) U/L Troponin I High Sens (0-14) pg/ml Total Protein (6.0-8.3) gm/dl Albumin (3.4-5.0) gm/dl Globulin (2.5-4.0) gm/dl Albumin/Globulin Ratio (0.9-2) TSH (0.300-4.500) uIu/ml SARS-CoV-2, RNA, NAAT NEGATIVE (NEGATIVE) Imaging Data Radiologist's Impression: Cervical Spine CT 05/14/22 15:40 CT cervical spine wo con CLINICAL HISTORY: fall eval for fx . Neck pain COMPARISON STUDY: No previous studies for comparison. CT DOSE: TECHNIQUE: Standard CT of the Cervical Spine was performed without IV contrast. A dose lowering technique was utilized adhering to the principles of ALARA. FINDINGS: Bones: Bones are osteopenic. There is no evidence for an acute fracture or malalignment. There is absence of perfusion of the arch of C1 anteriorly with smooth sclerotic margins present. The heights of the vertebral bodies are maintained. The vertebral bodies are in anatomic alignment. The odontoid is intact. Degenerative changes are seen at the atlantoaxial articulation. Disc spaces: There is marked disc space narrowing from C4 through T1 with endplate sclerosis and osteophyte formation. Apophyseal joints: Degenerative apophyseal joint disease is also seen bilaterally. Soft tissues: The prevertebral soft tissues are within normal limits. IMPRESSION: 1. Osteopenia with no acute osseous pathology. 2. Marked degenerative disc and degenerative joint disease. ACT 112: Negative or not required by law. Electronically signed by: Joseph Encinas M.D. 05/14/2022 5:[address] 05/14/22 15:40 CT SCAN OF THE FACIAL BONES WITHOUT IV CONTRAST CLINICAL HISTORY: Fall. COMPARISON STUDY: No priors. TECHNIQUE: High-resolution CT scan of the facial bones is performed. Images are reviewed in the axial, sagittal, and coronal planes. IV contrast was not administered for this examination. A dose lowering technique was utilized adhering to the principles of ALARA. FINDINGS: The skeletal structures are osteopenic. There is no evidence of facial bone fracture. The bony orbits are intact and the orbital contents are within normal limits noting bilateral ocular lens implants. The zygomatic arches, nasal bones, and pterygoid plates are preserved. The maxilla and mandible are intact. There are no layering blood products within the paranasal sinuses. The sinuses and mastoids are clear. The visualized calvarium and upper cervical spine are maintained. Partially imaged brain parenchyma is within normal limits. There is mild left temporal scalp contusion. IMPRESSION: There is no evidence of facial bone fracture. ACT 112: Negative or not required by law. Electronically signed by: eMdardo Elizondo M.D. 05/14/2022 5:07 PM Knee X-Ray 05/14/22 15:40 LEFT KNEE 2 VIEWS CLINICAL HISTORY: Fall with left knee pain. FINDINGS: AP and crosstable lateral views of the left knee are compared to study dated 09/02/2017. The skeletal structures are osteopenic. A hinged left knee arthroplasty is in near-anatomic alignment. There has been undersurface remodeling of the patella. No acute fracture is identified. No periprosthetic lucency is seen. There is a small joint effusion. Mild prepatellar soft tissue swelling is observed. IMPRESSION: No acute fracture is identified. Electronically signed by: Medardo Elizondo M.D. 05/14/2022 4:[address] 05/14/22 15:41 CT head/brain wo con CLINICAL HISTORY: syncope eval for bleed COMPARISON STUDY: No previous studies for comparison. CT DOSE: 888.61 mGy.cm TECHNIQUE: Standard CT of the Brain was performed without IV contrast. A dose lowering technique was utilized adhering to the principles of ALARA. FINDINGS: Extraaxial space: There is no evidence for subdural hematoma. There are no extra-axial fluid collections. Ventricles and cisterns: The ventricles are mildly dilated bilaterally. There is no evidence for midline shift or mass effect. Parenchyma: There is no subarachnoid or intraparenchymal hemorrhage. There is no evidence for an acute infarct or cerebral edema. There is mild cerebral cortical atrophy and decreased attenuation in the periventricular white matter representing remote small vessel disease. Basal ganglia calcifications are present bilaterally. There are no gross mass lesions. Osseous structures: There is no evidence for an acute fracture. The visualized paranasal sinuses are clear. The mastoid air cells are clear bilaterally. Soft tissues: There is no evidence for focal soft tissue swelling. IMPRESSION: 1. No acute intracerebral pathology. 2. Mild cerebral cortical atrophy and remote small vessel disease. ACT 112: Negative or not required by law. Electronically signed by: Joseph Encinas M.D. 05/14/2022 5:00 PM Chest X-Ray 05/14/22 15:48 XR chest 1V portable CLINICAL HISTORY: syncope eval pacemaker. . Evaluate cardiopulmonary status COMPARISON STUDY: 05/19/2020 TECHNIQUE: 1 view of the chest FINDINGS: Single frontal view of the chest demonstrates the cardiomediastinal silhouette to be within normal limits. There is no change in the patient's dual lead permanent cardiac pacer. There is again asymmetric elevation of the right hemidiaphragm. The lungs are clear of alveolar opacities. There is no evidence for pleural effusion. There is no evidence for vascular congestion. There is no acute osseous pathology. IMPRESSION: 1. No acute cardiopulmonary disease. There is no significant interval change. ACT 112: Negative or not required by law. Electronically signed by: Joseph Encinas M.D. 05/14/2022 4:40 PM Foot X-Ray 05/14/22 16:24 XR foot RT min 3V routine CLINICAL HISTORY: Status post fall with right foot pain. COMPARISON STUDY: No previous studies for comparison. TECHNIQUE: 3 right foot views FINDINGS: Bones: The bones are osteopenic. There is a qzrv-zk-zrbdhale Mir valgus deformity present. The patient is status post plate and screw fixation with fusion of the Lisfranc joint at the bases of the first and second metatarsals and first 2 cuneiform bones. There is no evidence for an acute fracture. There is a small calcaneal spur at the origin of the plantar fascia. There is no lytic or blastic lesion. Joints: Moderate to marked narrowing of the IP joints is present. There is mild narrowing of the first MTP joint. Moderate joint space narrowing is present involving the intertarsal and remaining tarsometatarsal joints. There is e vidence for mild pes planus deformity. Soft tissues: There is no focal soft tissue abnormality. There is no radiopaque foreign body. IMPRESSION: 1. No acute osseous pathology. 2. Previous internal fixation and degenerative changes. ACT 112: Negative or not required by law. Electronically signed by: Joseph Encinas M.D. 05/14/2022 4:56 PM Hand X-Ray 05/14/22 16:24 XR wrist LT w scaphoid, XR hand LT min 3V routine CLINICAL HISTORY: fall eval for fx. COMPARISON STUDY: No previous studies for comparison. TECHNIQUE: 5 left wrist and 3 left hand views FINDINGS: Bones: The bones are osteopenic. There is a nondisplaced fracture through the waist of the scaphoid bone. The remaining bones are intact with no evidence for additional fracture. There is no lytic or blastic lesion. Joints: The patient is status post resection of the scaphoid and lunate bones with marked degenerative change at the base of the first metacarpal. There is marked narrowing of the IP joints as well particularly the DIP joints. The remaining bones are in anatomic alignment. Soft tissues: There is no focal soft tissue abnormality. There is no radiopaque foreign body. IMPRESSION: 1. Nondisplaced fracture through the waist of the scaphoid bone. 2. Marked osteoarthritis. ACT 112: Negative or not required by law. Electronically signed by: Joseph Encinas M.D. 05/14/2022 4:52 PM Wrist X-Ray 05/14/22 16:24 XR wrist LT w scaphoid, XR hand LT min 3V routine CLINICAL HISTORY: fall eval for fx. COMPARISON STUDY: No previous studies for comparison. TECHNIQUE: 5 left wrist and 3 left hand views FINDINGS: Bones: The bones are osteopenic. There is a nondisplaced fracture through the waist of the scaphoid bone. The remaining bones are intact with no evidence for additional fracture. There is no lytic or blastic lesion. Joints: The patient is status post resection of the scaphoid and lunate bones with marked degenerative change at the base of the first metacarpal. There is marked narrowing of the IP joints as well particularly the DIP joints. The remaining bones are in anatomic alignment. Soft tissues: There is no focal soft tissue abnormality. There is no radiopaque foreign body. IMPRESSION: 1. Nondisplaced fracture through the waist of the scaphoid bone. 2. Marked osteoarthritis. ACT 112: Negative or not required by law. Electronically signed by: Joseph Encinas M.D. 05/14/2022 4:52 PM ECG Data Attestation: I personally reviewed and interpreted this ECG as follows: Indication: + syncope Rate (beats per minute): 79 Rhythm: + normal sinus ECG ST segments: + Nonspecific ST abnormalities; no ST elevation ECG Findings: no PVCs Comparison ECG Date: from (01/20/2020) Change: no significant change (Anterolateral ST depressions were present on previous EKG.) Head Trauma GCS Score: 15 MDM Narrative I did evaluate the patient as noted above. Patient is presenting with a syncopal episode. She had no prodromal symptoms prior to the incident. She woke up on the ground. She has injuries to her right foot, left knee and wrist. She does state that she has a pacemaker for paroxysmal atrial tachycardia. She denies being on any blood thinners. IV access was established. I did place an order for continuous cardiac monitoring. The monitor showed normal sinus rhythm at a rate of 80 bpm. Her pacemaker was interrogated. I did order and personally review the patient's 12-lead EKG as described above. She has anterior lateral ST depressions which were present on her previous EKG from 2019. She denies having any chest pain or shortness of breath. I did order and personally reviewed the images of the patient's chest x-ray as described above. There is no acute process. Pacemaker leads are in place. X-rays of the left knee and right foot show no evidence of fracture or dislocation. X-ray of the left hand and wrist demonstrate fracture to the scaphoid bone. She was placed in a sugar-tong Ortho-Glass splint. I did order and review the patient's blood work as noted in the electronic medical record. CBC demonstrates a white count 11.3. She is not anemic. Platelet count is 222. CMP is unremarkable. Glucose is 101. TSH is 4. High sensitive troponin is negative. I did order a CT of the head, facial bones and cervical spine. I did review the images myself as well as the radiology report as described above. There is no evidence of intracranial abnormality. No cervical or facial fractures are noted. I did discuss the test results with the patient and her daughter who is now at the bedside. The wounds were repaired by FLORY Tai. Please see her note for further details. I did discuss the case with the hospitalist and case folder. The interrogation report from the pacemaker still pending. Impression & Plan Syncope, Acute head injury, Avulsion of skin of left lower leg, Facial laceration, Fracture of left wrist Discharge Plan Visit Data Chief Complaint: Fall Stated Complaint: FALL ED Provider: Ghanshyam Thornton Discharge Problem: Syncope, Acute head injury, Avulsion of skin of left lower leg, Facial laceration, Fracture of left wrist Patient Disposition: Being Evaluated by Hospitalist Forms Stand Alone Forms: [facility] Prescriptions Prescriptions: No Action cyclobenzaprine 10 mg Tablet 10 mg PO Q8H PRN (Reason: Pain) RF: 0 atenolol 50 mg Tablet 50 mg PO BID RF: 0 levothyroxine 50 mcg Capsule 50 mcg PO QAM RF: 0 omeprazole 20 mg Tablet,Disintegrat, Delay Rel 1 tab PO HS RF: 0 rosuvastatin [Crestor] 10 mg Tablet 10 mg PO PM RF: 0 fluticasone propionate 50 mcg/actuation spray,suspension 2 spray INTRANASAL PM RF: 0 ibuprofen 800 mg tablet 800 mg PO Q8H PRN (Reason: pain) Qty: 30 RF: 1 losartan 50 mg Tablet 50 mg PO QAM RF: 0 acetaminophen 500 mg tablet 1,000 mg PO Q8H PRN (Reason: Pain) RF: 0 vitamin B complex Tablet 1 tab PO BID RF: 0 Referrals Referrals: Jt Looney DO [Primary Care Provider] - Discharge Problem: Syncope Qualifiers: Syncope type: unspecified Qualified Code(s): R55 - Syncope and collapse Acute head injury Qualifiers: Encounter type: initial encounter Qualified Code(s): S09.90XA - Unspecified injury of head, initial encounter Avulsion of skin of left lower leg Qualifiers: Encounter type: initial encounter Qualified Code(s): S81.802A - Unspecified open wound, left lower leg, initial encounter Facial laceration Qualifiers: Encounter type: initial encounter Qualified Code(s): S01.81XA - Laceration without foreign body of other part of head, initial encounter Fracture of left wrist Qualifiers: Encounter type: initial encounter Fracture type: closed Qualified Code(s): S62.102A - Fracture of unspecified carpal bone, left wrist, initial encounter for closed fracture
[2022-05-14 16:35] LABS: Basophils # (auto) 0.03 K/uL (0-0.2); Basophils % (auto) 0.3 %; Eosinophils # (auto) 0.07 K/uL (0-0.5); Eosinophils % (auto) 0.6 %; Hematocrit (blood only) 37.1 % (37-47); Hemoglobin 12.2 g/dL (12.0-16.0); Immature Granulocytes % (auto) 1.8 %; Lymphocytes # (auto) 1.96 K/uL (1.2-3.4); Lymphocytes % (auto) 17.2 %; Mean Corpuscular Hemoglobin 31.7 pg (25-34); Mean Corpuscular Hgb Conc 32.9 g/dL (32-36); Mean Corpuscular Volume 96.4 fL (80-100); Mean Platelet Volume 10.8 fL (7.4-10.4); Monocytes # (auto) 0.87 K/uL (0.11-0.59); Monocytes % (auto) 7.6 %; Neutrophils # (auto) 8.26 K/uL (1.4-6.5); Neutrophils % (auto) 72.5 %; Platelet Count 222 K/uL (130-400); Red Blood Count 3.85 M/uL (4.2-5.4); White Blood Count 11.39 K/uL (4.8-10.8)
--- NOTE | 2022-05-14 16:42 | XRay Report ---
XR chest 1V portable CLINICAL HISTORY: syncope eval pacemaker. . Evaluate cardiopulmonary status COMPARISON STUDY: 05/19/2020 TECHNIQUE: 1 view of the chest FINDINGS: Single frontal view of the chest demonstrates the cardiomediastinal silhouette to be within normal li mits. There is no change in the patient's dual lead permanent cardiac pacer. There is again asymmetri c elevation of the right hemidiaphragm. The lungs are clear of alveolar opacities. There is no eviden ce for pleural effusion. There is no evidence for vascular congestion. There is no acute osseous path ology. IMPRESSION: 1. No acute cardiopulmonary disease. There is no significant interval change. ACT 112: Negative or not required by law. Electronically signed by: Joseph Encinas M.D. 05/14/2022 4:40 PM
--- NOTE | 2022-05-14 16:53 | XRay Report ---
XR wrist LT w scaphoid, XR hand LT min 3V routine CLINICAL HISTORY: fall eval for fx. COMPARISON STUDY: No previous studies for comparison. TECHNIQUE: 5 left wrist and 3 left hand views FINDINGS: Bones: The bones are osteopenic. There is a nondisplaced fracture through the waist of the scaphoid b one. The remaining bones are intact with no evidence for additional fracture. There is no lytic or bl astic lesion. Joints: The patient is status post resection of the scaphoid and lunate bones with marked degenerativ e change at the base of the first metacarpal. There is marked narrowing of the IP joints as well part icularly the DIP joints. The remaining bones are in anatomic alignment. Soft tissues: There is no focal soft tissue abnormality. There is no radiopaque foreign body. IMPRESSION: 1. Nondisplaced fracture through the waist of the scaphoid bone. 2. Marked osteoarthritis. ACT 112: Negative or not required by law. Electronically signed by: Joseph Encinas M.D. 05/14/2022 4:52 PM
--- NOTE | 2022-05-14 16:53 | XRay Report ---
LEFT KNEE 2 VIEWS CLINICAL HISTORY: Fall with left knee pain. FINDINGS: AP and crosstable lateral views of the left knee are compared to study dated 09/02/2017. The skeletal structures are osteopenic. A hinged left knee arthroplasty is in near-anatomic alignment. T here has been undersurface remodeling of the patella. No acute fracture is identified. No periprosthe tic lucency is seen. There is a small joint effusion. Mild prepatellar soft tissue swelling is observ ed. IMPRESSION: No acute fracture is identified. Electronically signed by: Medardo Elizondo M.D. 05/14/2022 4:52 PM
--- NOTE | 2022-05-14 16:57 | XRay Report ---
XR foot RT min 3V routine CLINICAL HISTORY: Status post fall with right foot pain. COMPARISON STUDY: No previous studies for comparison. TECHNIQUE: 3 right foot views FINDINGS: Bones: The bones are osteopenic. There is a ggge-ub-khfmtoap Mir valgus deformity present. The patie nt is status post plate and screw fixation with fusion of the Lisfranc joint at the bases of the firs t and second metatarsals and first 2 cuneiform bones. There is no evidence for an acute fracture. The re is a small calcaneal spur at the origin of the plantar fascia. There is no lytic or blastic lesion . Joints: Moderate to marked narrowing of the IP joints is present. There is mild narrowing of the firs t MTP joint. Moderate joint space narrowing is present involving the intertarsal and remaining tarsom etatarsal joints. There is evidence for mild pes planus deformity. Soft tissues: There is no focal soft tissue abnormality. There is no radiopaque foreign body. IMPRESSION: 1. No acute osseous pathology. 2. Previous internal fixation and degenerative changes. ACT 112: Negative or not required by law. Electronically signed by: Joseph Encinas M.D. 05/14/2022 4:56 PM
--- NOTE | 2022-05-14 17:02 | CT Scan Report ---
CT head/brain wo con CLINICAL HISTORY: syncope eval for bleed COMPARISON STUDY: No previous studies for comparison. CT DOSE: 888.61 mGy.cm TECHNIQUE: Standard CT of the Brain was performed without IV contrast. A dose lowering technique was utilized adhering to the principles of ALARA. FINDINGS: Extraaxial space: There is no evidence for subdural hematoma. There are no extra-axial fluid collecti ons. Ventricles and cisterns: The ventricles are mildly dilated bilaterally. There is no evidence for midl ine shift or mass effect. Parenchyma: There is no subarachnoid or intraparenchymal hemorrhage. There is no evidence for an acut e infarct or cerebral edema. There is mild cerebral cortical atrophy and decreased attenuation in the periventricular white matter representing remote small vessel disease. Basal ganglia calcifications are present bilaterally. There are no gross mass lesions. Osseous structures: There is no evidence for an acute fracture. The visualized paranasal sinuses are clear. The mastoid air cells are clear bilaterally. Soft tissues: There is no evidence for focal soft tissue swelling. IMPRESSION: 1. No acute intracerebral pathology. 2. Mild cerebral cortical atrophy and remote small vessel disease. ACT 112: Negative or not required by law. Electronically signed by: Joseph Encinas M.D. 05/14/2022 5:00 PM
--- NOTE | 2022-05-14 17:09 | CT Scan Report ---
CT SCAN OF THE FACIAL BONES WITHOUT IV CONTRAST CLINICAL HISTORY: Fall. COMPARISON STUDY: No priors. TECHNIQUE: High-resolution CT scan of the facial bones is performed. Images are reviewed in the axia l, sagittal, and coronal planes. IV contrast was not administered for this examination. A dose lower ing technique was utilized adhering to the principles of ALARA. FINDINGS: The skeletal structures are osteopenic. There is no evidence of facial bone fracture. The b kimmy orbits are intact and the orbital contents are within normal limits noting bilateral ocular lens implants. The zygomatic arches, nasal bones, and pterygoid plates are preserved. The maxilla and dyllan ible are intact. There are no layering blood products within the paranasal sinuses. The sinuses and m astoids are clear. The visualized calvarium and upper cervical spine are maintained. Partially imaged brain parenchyma is within normal limits. There is mild left temporal scalp contusion. IMPRESSION: There is no evidence of facial bone fracture. ACT 112: Negative or not required by law. Electronically signed by: Medardo Elizondo M.D. 05/14/2022 5:07 PM
--- NOTE | 2022-05-14 17:10 | CT Scan Report ---
CT cervical spine wo con CLINICAL HISTORY: fall eval for fx . Neck pain COMPARISON STUDY: No previous studies for comparison. CT DOSE: TECHNIQUE: Standard CT of the Cervical Spine was performed without IV contrast. A dose lowering rajiv hnique was utilized adhering to the principles of ALARA. FINDINGS: Bones: Bones are osteopenic. There is no evidence for an acute fracture or malalignment. There is abs ence of perfusion of the arch of C1 anteriorly with smooth sclerotic margins present. The heights of the vertebral bodies are maintained. The vertebral bodies are in anatomic alignment. The odontoid is intact. Degenerative changes are seen at the atlantoaxial articulation. Disc spaces: There is marked disc space narrowing from C4 through T1 with endplate sclerosis and oste ophyte formation. Apophyseal joints: Degenerative apophyseal joint disease is also seen bilaterally. Soft tissues: The prevertebral soft tissues are within normal limits. IMPRESSION: 1. Osteopenia with no acute osseous pathology. 2. Marked degenerative disc and degenerative joint disease. ACT 112: Negative or not required by law. Electronically signed by: Joseph Encinas M.D. 05/14/2022 5:08 PM
[2022-05-14 17:22] LABS: Alanine Aminotransferase 19 U/L (7-52); Albumin Globulin Ratio 1.4 (0.9-2); Albumin Level 4.2 gm/dl (3.4-5.0); Alkaline Phosphatase 69 U/L (34-104); Anion Gap 8 (3-11); Aspartate Aminotransferase 20 U/L (13-39); BUN Creatinine Ratio 27.8 (10-20); Bilirubin,Total 0.5 mg/dl (0.2-1.0); Blood Urea Nitrogen 20 mg/dl (6-23); Calcium 9.1 mg/dl (8.5-10.1); Carbon Dioxide 27 mmol/L (21-32); Chloride 103 mmol/L (98-107); Est GFR (Non-African American) 78.5 ml/min; Glucose 121 mg/dl (70-99(Fasting)); Magnesium 1.9 mg/dl (1.7-2.4); Potassium 4.1 mmol/L (3.5-5.1); Sodium 138 mmol/L (136-145); Total Protein 7.2 gm/dl (6.0-8.3)
--- NOTE | 2022-05-14 18:44 | Electrocardiogram Report ---
Test Reason : Blood Pressure : / mmHG Vent. Rate : 079 BPM Atrial Rate : 079 BPM P-R Int : 180 ms QRS Dur : 068 ms QT Int : 394 ms P-R-T Axes : 044 001 020 degrees QTc Int : 451 ms Normal sinus rhythm Nonspecific ST and T wave abnormality Abnormal ECG When compared with ECG of 19-MAY-2020 04:38, Nonspecific T wave abnormality, improved in Inferior leads Confirmed by Pardeep Castañeda ([id number]) on 05/14/2022 6:44:05 PM Referred By: REFERRED SELF Confirmed By:Roddy Castañeda
--- NOTE | 2022-05-14 19:01 | Emergency Department Note ---
ED Visit Note .
[2022-05-14] MEDS ORDERED: NITROGLYCERIN SL 0.4 MG/TAB TAB SL PRN (22:26)
[2022-05-14] MEDS ORDERED: diphenhydrAMINE Capsule 25 MG CAP PO PRN (22:26)
[2022-05-14] MEDS ORDERED: SODIUM CHLORIDE 0.9% 1000ML 1,000 ML IV SCH (22:26)
[2022-05-14] MEDS ORDERED: Patient's HEIGHT &/or WEIGHT Needed SCH (22:45)
--- NOTE | 2022-05-14 23:14 | History and Physical Report ---
DATE OF ADMISSION: 05/14/2022. CHIEF COMPLAINT: Syncope and fall. HISTORY OF PRESENT ILLNESS: An 81-year-old female with past medical history significant for hypothyroidism, hyperlipidemia, chronic rhinitis, tachybrady syndrome, status post pacemaker, hypertension, GERD, history of diffuse esophageal spasm, osteoporosis, degenerative disc disease, sensorineural hearing loss bilateral, epiretinal membrane of the right eye, preseptal cellulitis of the right eye, psoriasis, history of long-term use of steroids, history of right hip replacement and DVT prophylaxis, history of supraventricular tachycardia, history of rheumatoid arthritis, medical marijuana, dizziness and ataxic gait presents with syncope. The [place]. She says she does not know how she fell. Next she remember was some bystanders helping her. She had bleeding from the left forehead. She has a big bruise on the left knee and called 911 and was brought to the hospital. She thinks she might have passed out for a couple of minutes, no premonitory symptoms. No chest pain, no shortness of breath, no dizziness. Vision in one eye is somewhat blurred vision, but she reports going to follow neuro ophthalmology at [facility] No earache, no runny nose, no sore throat, no cough, no fever, no chest pain or shortness of breath. Appetite is good. She has some difficulty swallowing dry food,because of diffuse esophageal spasms. No abdominal pain, no diarrhea or constipation. No blood in stools or black stools. Micturating okay. No swelling in the legs. She ambulates without support, but she has sometimes incontinence because of the history of cauda equina syndrome, back surgery and a back stimulator. Had PT and sometimes she has imbalance while ambulating. The patient also has a right lower peres wound since March. Initially, she was treated with doxycycline for 10 days. On tenth day, she again spiked fever and she was prescribed clindamycin. Says she might have taken that for 7-8 days, when she developed rash and clindamycin was stopped a couple of days ago and the wound in the right lower extremity is almost resolved.Patient thinks she had a temperature spike today. ALLERGIES: CLINDAMYCIN, SULFA ANTIBIOTICS, ASPIRIN, CLAVULANIC ACID, PHENYLBUTAZONE, HYDROMORPHONE, KETAMINE, MORPHINE. PAST MEDICAL HISTORY: As mentioned above. 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 MEDICATIONS: The patient is on Tylenol 1000 mg p.o. q.8 hours p.r.n., atenolol 50 mg p.o. b.i.d., cyclobenzaprine 10 mg p.o. q.8 hours p.r.n., diphenhydramine 25 mg p.o. p.r.n., Flonase 2 sprays intranasal p.m., ibuprofen 800 mg p.o. t.i.d. p.r.n., levothyroxine 50 mcg p.o. a.m., losartan 50 mg p.o. daily, omeprazole 1 tablet at bedtime, Crestor 10 mg p.o. p.m., vitamin B complex 1 tablet p.o. b.i.d. FAMILY HISTORY: Significant for, mother has arthritis. Father has heart disorder, hypertension, stroke. Mother has lung disorder, osteoporosis. SOCIAL HISTORY: . No smoking. Alcohol rarely. No drugs. Medical marijuana. REVIEW OF SYSTEMS: As per HPI. Rest of review of systems is negative. PHYSICAL EXAMINATION: GENERAL: The patient is of moderate build, not in acute distress. VITAL SIGNS: Temperature currently afebrile, pulse 99, respiratory rate 23, blood pressure 142/94, oxygen 100% on room air. HEENT: Pupils equal, round and reactive to light. Bruise seen on the left brow region, which was sutured. NECK: No JVD. No masses. CARDIOVASCULAR: S1 and S2 heard. Regular rate and rhythm. No murmur, no gallop. RESPIRATORY SYSTEM: Normal AP diameter. No accessory muscle use. No wheezing, no crackles. ABDOMEN: Soft. Bowel sounds are present, nontender, no distention. CENTRAL NERVOUS SYSTEM: Alert and awake. No facial droop. Speech is clear. Insight is good. Moves extremities. EXTREMITIES: Open bruise seen on the left knee, which was sutured in the ER. No edema or erythema seen. LABORATORY: WBC 11.3, hemoglobin 12.2, hematocrit 37.1, platelets 222. Sodium 138, potassium 4.1, chloride 103, CO2 27, BUN 20, creatinine 0.7, serum glucose 121, calcium 9.1, magnesium 1.9, total bilirubin 0.5, AST 20, ALT 19, alkaline phosphatase 69. Troponin I high sensitivity 6. TSH is 4.09. SARS-CoV-2 rapid test negative. Wrist x-ray shows nondisplaced fracture through the waist of the scaphoid bone on the left wrist. Left hand x-ray, nondisplaced fracture of the base of the scaphoid bone. Right foot x-ray, no acute findings. Chest x-ray, no acute findings. CT of the head, no acute findings. Left knee x-ray, no acute fractures identified. Facial CT no evidence of facial bone fracture. Cervical spine CT: Osteopenia with no acute osseous pathology, marked degenerative disc and degenerative joint disease. EKG: Normal sinus rhythm at a rate of 70, nonspecific ST-T wave abnormalities. ASSESSMENT AND PLAN: This 81-year-old female with a syncopal episode. 1. Syncope. The patient had right knee injury. No history of syncope in the past. Pacemaker interrogated in the ER. We will follow the results. We will monitor in the [place]. We will check orthostatics,gentle fluids. We will order echocardiogram, consult cardiology in the a.m. Closely monitor. 2. History of hypertension: Continue atenolol and losartan with holding parameters. 3. Hyperlipidemia: Continue statin. 4. Hypothyroidism. Continue Synthroid. 5. Gastroesophageal reflux disease: Continue omeprazole. 6. History of tachybrady syndrome, status post pacemaker. Follow the pacemaker interrogation. 7. History of esophageal spasms. 8. History of ataxic gait. PT, OT when stable. 9. Deep venous thrombosis prophylaxis: We will place on Lovenox. 10. Right knee open wound. We will empirically start on Rocephin for now to prevent any secondary infection. 11. Nondisplaced fracture through the waist of the scaphoid bone, status post splint in the ER. We will consult orthopedics in the a.m. DISPOSITION: Admit to med tele. PT/OT prior to discharge. Expect to discharge home and follow with family doctor. Job ID: [id number] [facility]
[2022-05-14] MEDS: ACETAMINOPHEN 325 MG TAB PO PRN (23:37)
[2022-05-14] MEDS: ROSUVASTATIN CALCIUM 10 MG TAB PO SCH (23:38)
[2022-05-14] MEDS: PANTOprazole 40 MG TAB PO SCH (23:39)
[2022-05-14] MEDS: ATENOLOL 50 MG TABLET PO SCH (23:39)
[2022-05-14] MEDS: cefTRIAXone SODIUM 1,000 MG in DEXTROSE 5% 50 ML IV SCH (23:40)
[2022-05-14] MEDS: FLUTICASONE PROPIONATE NA SPR 16 GM BTL SCH (23:40)
[2022-05-14] MEDS: VITAMIN B COMPLEX TAB PO SCH (23:40)
[2022-05-15] MEDS: ENOXAPARIN INJ 40 MG/0.4 ML SYR SQ SCH ×2 (00:25→20:35)
[2022-05-15] MEDS: CYCLOBENZAPRINE HCL 10 MG TAB PO PRN ×3 (00:51→23:13)
[2022-05-15] MEDS ORDERED: HYDROmorphone INJ 0.5 MG/0.5 ML SYR IV PRN (02:28)
[2022-05-15] MEDS ORDERED: KETOROLAC TROMETHAMINE 15 MG/ML VIAL IV ONE (02:32)
[2022-05-15] MEDS ORDERED: oxyCODONE HCL 10 MG TABCR (OxyCONTIN) PO STA (02:40)
[2022-05-15 04:28] LABS: Appearance Urine Clear (Clear); Bacteria Urine Automated Negative (Negative); Bilirubin Urine Negative (Negative); Blood Urine Negative (Negative); Cast Urine Automated 0 /lpf (0-5); Color Urine Yellow; Glucose Urine UA Negative (Negative); Ketones Urine Negative (Negative); Leukocyte Esterase Urine 1+ (Negative); Nitrite Urine Negative (Negative); Protein Urine Negative (Negative); RBC Urine Automated 0-4 /hpf (0-4); Specific Gravity Urine 1.015 (1.000-1.030); Urobilinogen Urine Negative (Negative); pH Urine 6.5 (4.5-7.5)
[2022-05-15] MEDS: LEVOTHYROXINE SODIUM 50 MCG TABLET PO SCH (06:17)
[2022-05-15 06:55] LABS: Basophils # (auto) 0.03 K/uL (0-0.2); Basophils % (auto) 0.3 %; Eosinophils # (auto) 0.07 K/uL (0-0.5); Eosinophils % (auto) 0.6 %; Hematocrit (blood only) 34.4 % (37-47); Hemoglobin 11.3 g/dL (12.0-16.0); Immature Granulocytes % (auto) 1.2 %; Lymphocytes # (auto) 1.57 K/uL (1.2-3.4); Lymphocytes % (auto) 14.4 %; Mean Corpuscular Hemoglobin 31.7 pg (25-34); Mean Corpuscular Hgb Conc 32.8 g/dL (32-36); Mean Corpuscular Volume 96.6 fL (80-100); Mean Platelet Volume 10.2 fL (7.4-10.4); Monocytes # (auto) 1.03 K/uL (0.11-0.59); Monocytes % (auto) 9.5 %; Neutrophils # (auto) 8.05 K/uL (1.4-6.5); Platelet Count 197 K/uL (130-400); RDW Standard Deviation 49.6 fL (36.4-46.3); Red Blood Count 3.56 M/uL (4.2-5.4); White Blood Count 10.88 K/uL (4.8-10.8)
[2022-05-15 06:56] LABS: Immature Granulocytes # (auto) 0.13 K/uL (0.00-0.02)
[2022-05-15 07:22] LABS: Calcium 8.2 mg/dl (8.5-10.1); Creatinine Clr Calc Pharmacy 54.3 ml/min; Est GFR (African American) 95.1 ml/min; Magnesium 1.8 mg/dl (1.7-2.4); Potassium 3.8 mmol/L (3.5-5.1)
[2022-05-15] MEDS: LOSARTAN POTASSIUM 50 MG TAB PO SCH (07:49)
[2022-05-15] MEDS: ATENOLOL 50 MG TABLET PO SCH ×2 (07:49→20:33)
[2022-05-15] MEDS: VITAMIN B COMPLEX TAB PO SCH ×2 (07:49→20:32)
[2022-05-15] MEDS: ACETAMINOPHEN 325 MG TAB PO PRN ×2 (07:49→23:13)
--- NOTE | 2022-05-15 11:34 | Orthopedic Consultation ---
Date of Consultation May 15, 2022 Assessment & Plan (1) Fracture of scaphoid bone of left wrist: A new splint was applied to the patient's left wrist. A well molded thumb spica splint made of Ortho-Glass Was applied to the patient's left wrist. She was neurovascularly intact before and after application of the splint. Patient now has full range of motion at her elbow joint. The dressing over the cat scratches was also changed. I recommended icing 3-4 times a day for 15 to 20 minutes. Patient states that she has been given IV Toradol as needed I advised her that she needs to be seen by her regular orthopedist in 10 to 14 days to have a cast applied to her left hand/wrist. Patient states that she follows with [facility] orthopedics in [facility] and will call them to set up an appointment when she is discharged from the hospital. Supervising Physician Co-Signing Physician Notes I reviewed the patient's radiographs showing a nondisplaced scaphoid waist fracture, SL interval widening with DISI deformity, and suture anchor in the base of the second metacarpal with absence of the trapezium consistent with prior surgery. I also reviewed her history and physical exam, and formulated the above plan, and agree with the above note. I performed the substantial portion of the visit as outlined above. History of Present Illness Reason for Consultation: Nondisplaced left scaphoid fracture Requesting Physician: Dr. Vadim Mulligan Attending Physician: Marifer Luna MD History of Present Illness This 81-year-old female seen today in consultation for nondisplaced Scaphoid fracture that she sustained yesterday When she had an apparent syncopal episode while downtown. Patient is not sure what caused her to pass out. She states that she has abrasions to both knees the left wrist pain and also had a laceration to the left side of her forehead that required suturing. Patient states that the current splint on her left upper extremity is very uncomfortable and limits her range of motion of her elbow she wonders if we could transition her to some sort of other splints to immobilize the fracture. 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 Patient states that she does have some numbness in the tip of her fingers, but states that this is not new. She has had it for several years and attributes it to having carpal tunnel syndrome. She states that she has no difficulty moving her digits. Allergies Allergy/AdvReac Type Severity Reaction Status Date / Time clindamycin Allergy Intermediate Rash Unverified 05/14/22 20:28 Sulfa (Sulfonamide Allergy Mild rash Verified 05/14/22 20:28 Antibiotics) aspirin AdvReac Intermediate THROMBOCYTO Verified 05/14/22 20:28 PENIA clavulanic acid AdvReac Intermediate severe Verified 05/14/22 20:28 diarrhea phenylbutazone AdvReac Intermediate THROMBOCYTO Verified 05/14/22 20:28 PENIA hydromorphone AdvReac Mild NAUSEA AND Verified 05/14/22 20:28 VOMITING ketamine AdvReac Mild Hallucinati Verified 05/14/22 20:28 ons morphine AdvReac Mild NAUSEA/VOMI Verified 05/14/22 20:28 TTING Home Medications Medication Instructions Recorded Confirmed Type atenolol 50 mg tablet 50 mg PO BID 10/21/18 05/14/22 History cyclobenzaprine 10 mg tablet 10 mg PO Q8H PRN 10/21/18 05/14/22 History levothyroxine 50 mcg capsule 50 mcg PO QAM 10/21/18 05/14/22 History omeprazole 20 mg delayed 1 tab PO HS 10/21/18 05/14/22 History release,disintegrating tablet rosuvastatin 10 mg tablet (Crestor) 10 mg PO PM 05/02/20 05/14/22 History fluticasone propionate 50 2 spray INTRANASAL PM 05/19/20 05/14/22 History mcg/actuation nasal spray,suspension ibuprofen 800 mg tablet 800 mg PO Q8H PRN #30 tab 05/20/20 05/14/22 Rx acetaminophen 500 mg tablet 1,000 mg PO Q8H PRN 11/03/21 05/14/22 History losartan 50 mg tablet 50 mg PO QAM 11/03/21 05/14/22 History vitamin B complex 1 tab PO BID 11/03/21 05/14/22 History diphenhydramine HCl 25 mg tablet 25 mg PO DIRECTED PRN 05/14/22 05/14/22 History (Allergy Medicine) triprolidine-pseudoephedrine 2.5 1 tab PO QID PRN 05/14/22 05/14/22 History mg-60 mg tablet Patient History Medical History 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 Placed for sinus arrest 2/2 esophageal spasm with strong vagal response. Rheumatoid arthritis Spinal cord stimulator status Spinal stenosis CERVICAL AND LUMBAR Thrombocytopenia CAUSED FROM NSAID USE (MANY YEARS AGO) Surgical History History of adenoidectomy History of amputation RT MIDDLE FINGER (INFECTION) History of anesthesia reaction KETAMINE-BAD DREAMS History of arthroscopy RT SHOULDER - ATTEMPT TO REPAIR ROTATOR CUFF History of bunionectomy X2 ON RIGHT SIDE, X1 ON LEFT SIDE History of cardiac radiofrequency ablation 1995 AND 2001 (BOBBI RAMOS) History of carpal tunnel release RT History of cataract surgery RT/LEFT History of colonoscopy History of dilatation and curettage History of endoscopic sinus surgery History of esophagogastroduodenoscopy (EGD) History of lumbar laminectomy (~07/2020) L4-L5 @ C History of myringotomy LEFT EAR History of repair of rotator cuff LEFT History of reverse total replacement of left shoulder joint (~05/2020) History of tonsillectomy History of tooth extraction History of total hip arthroplasty RT HIP (2 SURGERY) History of total knee replacement LEFT Hx of knee surgery LEFT KNEE (7 TOTAL SURGERIES) Hx of thumb surgery LEFT HAND Macular hole REPAIRED> RIGHT S/P insertion of spinal cord stimulator (~07/2021) Family History Father AAA (abdominal aortic aneurysm) Hypertension Stroke Other No family history of adverse response to anesthesia Social History Smoking Status: Never smoker Second Hand Exposure: No; Hx Alcohol Use: Yes Alcohol type: wine Hx Substance Use: No Preferred Language: [place] Communication Ability: Effective Yacht Rigger Required: No Beliefs That Will Affect Care: None marital status: / Current Living Situation: Alone Current Living Situation Comment: Lives with son and daughter in law Other Information That Helps Us Care for You: No Feels Safe at Home: Yes Safety Concerns: Feels Safe At This Time Assistive Devices: Cane and Walker Review of Systems Review of Systems: All systems reviewed & are unremarkable except as noted in Subjective Physical Exam Physical Exam: Left wrist: Sugar-tong splint was removed from the patient's left upper extremity. There is note of superficial abrasions over the dorsal surface of the wrist. Patient states that her cat scratched her a few days ago. A nonstick dressing was applied over these areas and kept in place with Kerlix. While the splint was off patient was able to flex and wrist without any pain or difficulty but had pain with extension. She also had pain with some passive radial deviation and resisted extension at the IP and MCP joint of her thumb. There was point tenderness to palpation over the anatomic snuffbox as well as the dorsal surface of the wrist/scaphoid. There is mild edema at this area but no erythema, ecchymosis or palpable bony deformity. Patient does have appropriate dexterity of her fingers. She was able to resist compression of digits 2 through 5. She was able to perform pincer grasp and had some slight weakness with distraction. She was able to detect light sensation to touch over the pads of all of her digits. Her peripheral pulses were 2+. Her capillary fill was less than 2 seconds. Patient is neurovascularly intact in the left upper extremity. She had full range of motion of her elbow and shoulder. Results & Data ([facility]) Vital Signs (Past 12 Hours) Vital Signs Temp Pulse Pulse Resp BP Pulse Ox 05/15/22 11:01 36.6 C 64 18 134/80 95 05/15/22 08:17 36.7 C 77 18 121/65 97 05/15/22 07:25 68 05/15/22 03:39 36.8 C 74 18 136/78 94 05/15/22 03:09 82 Diagnostic Findings Laboratory Results WBC 10.88 K/uL (4.8-10.8) H 05/15/22 05:30 RBC 3.56 M/uL (4.2-5.4) L 05/15/22 05:30 Hgb 11.3 g/dL (12.0-16.0) L 05/15/22 05:30 Hct 34.4 % (37-47) L 05/15/22 05:30 MCV 96.6 fL (80-100) 05/15/22 05:30 MCH 31.7 pg (25-34) 05/15/22 05:30 MCHC 32.8 g/dL (32-36) 05/15/22 05:30 RDW Std Deviation 49.6 fL (36.4-46.3) H 05/15/22 05:30 RDW Coeff of Octavia 14.0 % (11.5-14.5) 05/15/22 05:30 Plt Count 197 K/uL (130-400) 05/15/22 05:30 MPV 10.2 fL (7.4-10.4) 05/15/22 05:30 Immature Gran % (Auto) 1.2 % 05/15/22 05:30 Neut % (Auto) 74.0 % 05/15/22 05:30 Lymph % (Auto) 14.4 % 05/15/22 05:30 [place] % (Auto) 9.5 % 05/15/22 05:30 Eos % (Auto) 0.6 % 05/15/22 05:30 Baso % (Auto) 0.3 % 05/15/22 05:30 Neut # (Auto) 8.05 K/uL (1.4-6.5) H 05/15/22 05:30 Lymph # (Auto) 1.57 K/uL (1.2-3.4) 05/15/22 05:30 [place] # (Auto) 1.03 K/uL (0.11-0.59) H 05/15/22 05:30 Eos # (Auto) 0.07 K/uL (0-0.5) 05/15/22 05:30 Baso # (Auto) 0.03 K/uL (0-0.2) 05/15/22 05:30 Immature Gran # (Auto) 0.13 K/uL (0.00-0.02) H 05/15/22 05:30 Sodium 138 mmol/L (136-145) 05/15/22 05:30 Potassium 3.8 mmol/L (3.5-5.1) 05/15/22 05:30 Chloride 106 mmol/L (98-107) 05/15/22 05:30 Carbon Dioxide 27 mmol/L (21-32) 05/15/22 05:30 Anion Gap 5 (3-11) 05/15/22 05:30 BUN 17 mg/dl (6-23) 05/15/22 05:30 Creatinine 0.68 mg/dl (0.6-1.2) 05/15/22 05:30 Est Cr Clr Drug Dosing 54.3 ml/min 05/15/22 05:30 Est GFR ( Amer) 95.1 ml/min 05/15/22 05:30 Est GFR (Non-Af Amer) 82.0 ml/min 05/15/22 05:30 BUN/Creatinine Ratio 25.0 (10-20) H 05/15/22 05:30 Glucose 117 mg/dl (70-99(Fasting)) H 05/15/22 05:30 POC Glucose 101 mg/dl (70-99) H 05/14/22 16:36 Calcium 8.2 mg/dl (8.5-10.1) L 05/15/22 05:30 Magnesium 1.8 mg/dl (1.7-2.4) 05/15/22 05:30 Total Bilirubin 0.5 mg/dl (0.2-1.0) 05/14/22 16:09 AST 20 U/L (13-39) 05/14/22 16:09 ALT 19 U/L (7-52) 05/14/22 16:09 Alkaline Phosphatase 69 U/L (34-104) 05/14/22 16:09 Troponin I High Sens 4.7 pg/ml (0-14) 05/15/22 05:30 Total Protein 7.2 gm/dl (6.0-8.3) 05/14/22 16:09 Albumin 4.2 gm/dl (3.4-5.0) 05/14/22 16:09 Globulin 3.0 gm/dl (2.5-4.0) 05/14/22 16:09 Albumin/Globulin Ratio 1.4 (0.9-2) 05/14/22 16:09 TSH 4.090 uIu/ml (0.300-4.500) 05/14/22 16:09 Urine Color Yellow 05/15/22 04:02 Urine Appearance Clear (Clear) 05/15/22 04:02 Urine pH 6.5 (4.5-7.5) 05/15/22 04:02 Ur Specific [place] 1.015 (1.000-1.030) 05/15/22 04:02 Urine Protein Negative (Negative) 05/15/22 04:02 Urine Glucose (UA) Negative (Negative) 05/15/22 04:02 Urine Ketones Negative (Negative) 05/15/22 04:02 Urine Blood Negative (Negative) 05/15/22 04:02 Urine Nitrite Negative (Negative) 05/15/22 04:02 Urine Bilirubin Negative (Negative) 05/15/22 04:02 Urine Urobilinogen Negative (Negative) 05/15/22 04:02 Ur Leukocyte Esterase 1+ (Negative) H 05/15/22 04:02 Urine WBC (Auto) 10-30 /hpf (0-5) H 05/15/22 04:02 Urine RBC (Auto) 0-4 /hpf (0-4) 05/15/22 04:02 U Hyaline Cast (Auto) 0 /lpf (0-5) 05/15/22 04:02 U Epithel Cells (Auto) 5-10 /lpf (0-5) H 05/15/22 04:02 Urine Bacteria (Auto) Negative (Negative) 05/15/22 04:02 SARS-CoV-2, RNA, NAAT NEGATIVE (NEGATIVE) 05/14/22 18:[address] 05/14/22 15:40 CT cervical spine wo con CLINICAL HISTORY: fall eval for fx . Neck pain COMPARISON STUDY: No previous studies for comparison. CT DOSE: TECHNIQUE: Standard CT of the Cervical Spine was performed without IV contrast. A dose lowering technique was utilized adhering to the principles of ALARA. FINDINGS: Bones: Bones are osteopenic. There is no evidence for an acute fracture or malalignment. There is absence of perfusion of the arch of C1 anteriorly with smooth sclerotic margins present. The heights of the vertebral bodies are maintained. The vertebral bodies are in anatomic alignment. The odontoid is intact. Degenerative changes are seen at the atlantoaxial ar ticulation. Disc spaces: There is marked disc space narrowing from C4 through T1 with endplate sclerosis and osteophyte formation. Apophyseal joints: Degenerative apophyseal joint disease is also seen bilaterally. Soft tissues: The prevertebral soft tissues are within normal limits. IMPRESSION: 1. Osteopenia with no acute osseous pathology. 2. Marked degenerative disc and degenerative joint disease. ACT 112: Negative or not required by law. Electronically signed by: Joseph Encinas M.D. 05/14/2022 5:[address] 05/14/22 15:40 CT SCAN OF THE FACIAL BONES WITHOUT IV CONTRAST CLINICAL HISTORY: Fall. COMPARISON STUDY: No priors. TECHNIQUE: High-resolution CT scan of the facial bones is performed. Images are reviewed in the axial, sagittal, and coronal planes. IV contrast was not administered for this examination. A dose lowering technique was utilized adhering to the principles of ALARA. FINDINGS: The skeletal structures are osteopenic. There is no evidence of facial bone fracture. The bony orbits are intact and the orbital contents are within normal limits noting bilateral ocular lens implants. The zygomatic arches, nasal bones, and pterygoid plates are preserved. The maxilla and mandible are intact. There are no layering blood products within the paranasal sinuses. The sinuses and mastoids are clear. The visualized calvarium and upper cervical spine are maintained. Partially imaged brain parenchyma is within normal limits. There is mild left temporal scalp contusion. IMPRESSION: There is no evidence of facial bone fracture. ACT 112: Negative or not required by law. Electronically signed by: Medardo Elizondo M.D. 05/14/2022 5:07 PM Knee X-Ray 05/14/22 15:40 LEFT KNEE 2 VIEWS CLINICAL HISTORY: Fall with left knee pain. FINDINGS: AP and crosstable lateral views of the left knee are compared to study dated 09/02/2017. The skeletal structures are osteopenic. A hinged left knee arthroplasty is in near-anatomic alignment. There has been undersurface remodeling of the patella. No acute fracture is identified. No periprosthetic lucency is seen. There is a small joint effusion. Mild prepatellar soft tissue swelling is observed. IMPRESSION: No acute fracture is identified. Electronically signed by: Medardo Elizondo M.D. 05/14/2022 4:[address] 05/14/22 15:41 CT head/brain wo con CLINICAL HISTORY: syncope eval for bleed COMPARISON STUDY: No previous studies for comparison. CT DOSE: 888.61 mGy.cm TECHNIQUE: Standard CT of the Brain was performed without IV contrast. A dose lowering technique was utilized adhering to the principles of ALARA. FINDINGS: Extraaxial space: There is no evidence for subdural hematoma. There are no extra-axial fluid collections. Ventricles and cisterns: The ventricles are mildly dilated bilaterally. There is no evidence for midline shift or mass effect. Parenchyma: There is no subarachnoid or intraparenchymal hemorrhage. There is no evidence for an acute infarct or cerebral edema. There is mild cerebral cortical atrophy and decreased attenuation in the periventricular white matter representing remote small vessel disease. Basal ganglia calcifications are present bilaterally. There are no gross mass lesions. Osseous structures: There is no evidence for an acute fracture. The visualized paranasal sinuses are clear. The mastoid air cells are clear bilaterally. Soft tissues: There is no evidence for focal soft tissue swelling. IMPRESSION: 1. No acute intracerebral pathology. 2. Mild cerebral cortical atrophy and remote small vessel disease. ACT 112: Negative or not required by law. Electronically signed by: Joseph Encinas M.D. 05/14/2022 5:00 PM Chest X-Ray 05/14/22 15:48 XR chest 1V portable CLINICAL HISTORY: syncope eval pacemaker. . Evaluate cardiopulmonary status COMPARISON STUDY: 05/19/2020 TECHNIQUE: 1 view of the chest FINDINGS: Single frontal view of the chest demonstrates the cardiomediastinal silhouette to be within normal limits. There is no change in the patient's dual lead permanent cardiac pacer. There is again asymmetric elevation of the right hemidiaphragm. The lungs are clear of alveolar opacities. There is no evidence for pleural effusion. There is no evidence for vascular congestion. There is no acute osseous pathology. IMPRESSION: 1. No acute cardiopulmonary disease. There is no significant interval change. ACT 112: Negative or not required by law. Electronically signed by: Joseph Encinas M.D. 05/14/2022 4:40 PM Foot X-Ray 05/14/22 16:24 XR foot RT min 3V routine CLINICAL HISTORY: Status post fall with right foot pain. COMPARISON STUDY: No previous studies for comparison. TECHNIQUE: 3 right foot views FINDINGS: Bones: The bones are osteopenic. There is a [id number] Mir valgus deformity present. The patient is status post plate and screw fixation with fusion of the Lisfranc joint at the bases of the first and second metatarsals and first 2 cuneiform bones. There is no evidence for an acute fracture. There is a small calcaneal spur at the origin of the plantar fascia. There is no lytic or blastic lesion. Joints: Moderate to marked narrowing of the IP joints is present. There is mild narrowing of the first MTP joint. Moderate joint space narrowing is present involving the intertarsal and remaining tarsometatarsal joints. There is evidence for mild pes planus deformity. Soft tissues: There is no focal soft tissue abnormality. There is no radiopaque foreign body. IMPRESSION: 1. No acute osseous pathology. 2. Previous internal fixation and degenerative changes. ACT 112: Negative or not required by law. Electronically signed by: Joseph Encinas M.D. 05/14/2022 4:56 PM Hand X-Ray 05/14/22 16:24 XR wrist LT w scaphoid, XR hand LT min 3V routine CLINICAL HISTORY: fall eval for fx. COMPARISON STUDY: No previous studies for comparison. TECHNIQUE: 5 left wrist and 3 left hand views FINDINGS: Bones: The bones are osteopenic. There is a nondisplaced fracture through the waist of the scaphoid bone. The remaining bones are intact with no evidence for additional fracture. There is no lytic or blastic lesion. Joints: The patient is status post resection of the scaphoid and lunate bones with marked degenerative change at the base of the first metacarpal. There is marked narrowing of the IP joints as well particularly the DIP joints. The remaining bones are in anatomic alignment. Soft tissues: There is no focal soft tissue abnormality. There is no radiopaque foreign body. IMPRESSION: 1. Nondisplaced fracture through the waist of the scaphoid bone. 2. Marked osteoarthritis. ACT 112: Negative or not required by law. Electronically signed by: Joseph Encinas M.D. 05/14/2022 4:52 PM Wrist X-Ray 05/14/22 16:24 XR wrist LT w scaphoid, XR hand LT min 3V routine CLINICAL HISTORY: fall eval for fx. COMPARISON STUDY: No previous studies for comparison. TECHNIQUE: 5 left wrist and 3 left hand views FINDINGS: Bones: The bones are osteopenic. There is a nondisplaced fracture through the waist of the scaphoid bone. The remaining bones are intact with no evidence for additional fracture. There is no lytic or blastic lesion. Joints: The patient is status post resection of the scaphoid and lunate bones with marked degenerative change at the base of the first metacarpal. There is marked narrowing of the IP joints as well particularly the DIP joints. The remaining bones are in anatomic alignment. Soft tissues: There is no focal soft tissue abnormality. There is no radiopaque foreign body.
--- NOTE | 2022-05-15 12:29 | Cardiology Consultation ---
Date of Consultation May 15, 2022 Assessment & Plan (1) Syncope: (2) Tachy-jacinto syndrome: (3) Pacemaker: Patient is an 81-year-old female presents following an acute syncopal event with associated contusion and injuries. Patient notes abrupt loss of consciousness while walking across a parking lot. Notes some confusion after event. No cardiac complaints chest pain shortness of breath recently or currently. Troponins echocardiogram and EKGs without ischemic findings. Normal overall systolic function present. Initial pacemaker interrogation unrevealing. Plan: Continue current therapies and treatments. Maintain telemetry. Will formally interrogate pacemaker to assess for possible arrhythmia during time of event, minimal use of pacemaker usually. Patient not pacemaker dependent History of Present Illness Reason for Consultation: Syncope Requesting Physician: Dr. Luna Attending Physician: Marifer Luna MD History of Present Illness Patient is an 81-year-old female with ongoing cardiac history which includes 1. 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 History of esophageal spasm with associated strong vagal response inducing sinus node arrest status post dual chamber pacemaker implantation on December 19, [place] [place] with generator exchange on 07/14/2009 and 06/12/2019. Elevated ventricular lead threshold. LOWER RATE SET AT 45 BPM. 3. Electrophysiologic study on February 03, 2007 for recurrent palpitations demonstrating dual AV node physiology, no inducible atrial arrhythmias, and no evidence of an accessory bypass tract. 4. Dyslipidemia Patient presents this admission noting walking across the parking lot then suddenly suffered an acute syncopal spell and awakened after a brief period of unconsciousness. Patient suffered facial contusion/laceration bilateral knee contusions and left wrist fracture. Other than injury discomfort notes no complaints this morning. Denies any history of chest pain shortness of breath tachypalpitations or dizziness recently. No irritation at pacemaker site pacemaker function has been normal. No orthopnea or peripheral edema. Appetite and is good. She has been intermittently treated for infection of her right lower leg with variable antibiotic therapies and just completed a course of oral clindamycin. Cardiac evaluation this admission demonstrated normal cardiac enzymes, EKG, echocardiogram with preserved LV systolic function and pacemaker interrogation revealed no dysfunction Allergies Allergy/AdvReac Type Severity Reaction Status Date / Time clindamycin Allergy Intermediate Rash Unverified 05/14/22 20:28 Sulfa (Sulfonamide Allergy Mild rash Verified 05/14/22 20:28 Antibiotics) aspirin AdvReac Intermediate THROMBOCYTO Verified 05/14/22 20:28 PENIA clavulanic acid AdvReac Intermediate severe Verified 05/14/22 20:28 diarrhea phenylbutazone AdvReac Intermediate THROMBOCYTO Verified 05/14/22 20:28 PENIA hydromorphone AdvReac Mild NAUSEA AND Verified 05/14/22 20:28 VOMITING ketamine AdvReac Mild Hallucinati Verified 05/14/22 20:28 ons morphine AdvReac Mild NAUSEA/VOMI Verified 05/14/22 20:28 TTING Home Medications Medication Instructions Recorded Confirmed Type atenolol 50 mg tablet 50 mg PO BID 10/21/18 05/14/22 History cyclobenzaprine 10 mg tablet 10 mg PO Q8H PRN 10/21/18 05/14/22 History levothyroxine 50 mcg capsule 50 mcg PO QAM 10/21/18 05/14/22 History omeprazole 20 mg delayed 1 tab PO HS 10/21/18 05/14/22 History release,disintegrating tablet rosuvastatin 10 mg tablet (Crestor) 10 mg PO PM 05/02/20 05/14/22 History fluticasone propionate 50 2 spray INTRANASAL PM 05/19/20 05/14/22 History mcg/actuation nasal spray,suspension ibuprofen 800 mg tablet 800 mg PO Q8H PRN #30 tab 05/20/20 05/14/22 Rx acetaminophen 500 mg tablet 1,000 mg PO Q8H PRN 11/03/21 05/14/22 History losartan 50 mg tablet 50 mg PO QAM 11/03/21 05/14/22 History vitamin B complex 1 tab PO BID 11/03/21 05/14/22 History diphenhydramine HCl 25 mg tablet 25 mg PO DIRECTED PRN 05/14/22 05/14/22 History (Allergy Medicine) triprolidine-pseudoephedrine 2.5 1 tab PO QID PRN 05/14/22 05/14/22 History mg-60 mg tablet Patient History Medical History 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 Placed for sinus arrest 2/2 esophageal spasm with strong vagal response. Rheumatoid arthritis Spinal cord stimulator status Spinal stenosis CERVICAL AND LUMBAR Thrombocytopenia CAUSED FROM NSAID USE (MANY YEARS AGO) Surgical History History of adenoidectomy History of amputation RT MIDDLE FINGER (INFECTION) History of anesthesia reaction KETAMINE-BAD DREAMS History of arthroscopy RT SHOULDER - ATTEMPT TO REPAIR ROTATOR CUFF History of bunionectomy X2 ON RIGHT SIDE, X1 ON LEFT SIDE History of cardiac radiofrequency ablation 1995 AND 2001 ([facility]) History of carpal tunnel release RT History of cataract surgery RT/LEFT History of colonoscopy History of dilatation and curettage History of endoscopic sinus surgery History of esophagogastroduodenoscopy (EGD) History of lumbar laminectomy (~07/2020) [place] [facility] [place] History of myringotomy LEFT EAR History of repair of rotator cuff LEFT History of reverse total replacement of left shoulder joint (~05/2020) History of tonsillectomy History of tooth extraction History of total hip arthroplasty RT HIP (2 SURGERY) History of total knee replacement LEFT Hx of knee surgery LEFT KNEE (7 TOTAL SURGERIES) Hx of thumb surgery LEFT HAND Macular hole REPAIRED> RIGHT S/P insertion of spinal cord stimulator (~07/2021) Family History Father AAA (abdominal aortic aneurysm) Hypertension Stroke Other No family history of adverse response to anesthesia Social History Smoking Status: Never smoker Second Hand Exposure: No; Hx Alcohol Use: Yes Alcohol type: wine Hx Substance Use: No Preferred Language: Portuguese Communication Ability: Effective Link Trainer Mechanic Required: No Beliefs That Will Affect Care: None marital status: / Current Living Situation: Alone Current Living Situation Comment: Lives with son and daughter in law Other Information That Helps Us Care for You: No Feels Safe at Home: Yes Safety Concerns: Feels Safe At This Time Assistive Devices: Cane, Glasses, Hearing Aid - Bilateral and Walker Review of Systems Review of Systems: All systems reviewed & are unremarkable except as noted in HPI & below Physical Exam Constitutional: well developed and well nourished; no acute distress Eyes: PERRL, conjunctivae normal, anicteric sclerae Neck: trachea midline, no thyromegaly Respiratory: normal respiratory effort, lungs clear to auscultation Cardiovascular: RRR, no murmur, no edema Vessels: no JVD Extremities: no edema Gastrointestinal (Abdomen): normal bowel sounds, soft, nontender, no hepatosplenomegaly Musculoskeletal: no cyanosis or clubbing, extremities motor strength 5/5 Right arm casted Skin: Trauma: + evidence of skin trauma (Left forehead and mu-ism with sutured laceration) and + contusion (Bilateral knees) Results & Data ([facility]) Vital Signs (Past 12 Hours) Vital Signs Temp Pulse Pulse Resp BP Pulse Ox 05/15/22 11:01 36.6 C 64 18 134/80 95 05/15/22 08:17 36.7 C 77 18 121/65 97 05/15/22 07:25 68 05/15/22 03:39 36.8 C 74 18 136/78 94 05/15/22 03:09 82 Laboratory Results Laboratory Results - last 24 hr 05/14/22 05/14/22 05/14/22 16:09 16:09 16:09 WBC 11.39 H RBC 3.85 L Hgb 12.2 Hct 37.1 MCV 96.4 MCH 31.7 MCHC 32.9 RDW Std Deviation 50.0 H RDW Coeff of Octavia 14.0 Plt Count 222 MPV 10.8 H Immature Gran % (Auto) 1.8 Neut % (Auto) 72.5 Lymph % (Auto) 17.2 [place] % (Auto) 7.6 Eos % (Auto) 0.6 Baso % (Auto) 0.3 Neut # (Auto) 8.26 H Lymph # (Auto) 1.96 [place] # (Auto) 0.87 H Eos # (Auto) 0.07 Baso # (Auto) 0.03 Immature Gran # (Auto) 0.20 H Sodium 138 Potassium 4.1 Chloride 103 Carbon Dioxide 27 Anion Gap 8 BUN 20 Creatinine 0.72 Est Cr Clr Drug Dosing Not Reportable Est GFR ( Amer) 91.0 Est GFR (Non-Af Amer) 78.5 BUN/Creatinine Ratio 27.8 H Glucose 121 H POC Glucose Calcium 9.1 Magnesium 1.9 Total Bilirubin 0.5 AST 20 ALT 19 Alkaline Phosphatase 69 Troponin I High Sens 6.0 Total Protein 7.2 Albumin 4.2 Globulin 3.0 Albumin/Globulin Ratio 1.4 TSH 4.090 Urine Color Urine Appearance Urine pH Ur Specific [place] Urine Protein Urine Glucose (UA) Urine Ketones Urine Blood Urine Nitrite Urine Bilirubin Urine Urobilinogen Ur Leukocyte Esterase Urine WBC (Auto) Urine RBC (Auto) U Hyaline Cast (Auto) U Epithel Cells (Auto) Urine Bacteria (Auto) SARS-CoV-2, RNA, NAAT 05/14/22 05/14/22 05/15/22 16:36 18:58 04:02 WBC RBC Hgb Hct MCV MCH MCHC RDW Std Deviation RDW Coeff of Octavia Plt Count MPV Immature Gran % (Auto) Neut % (Auto) Lymph % (Auto) [place] % (Auto) Eos % (Auto) Baso % (Auto) Neut # (Auto) Lymph # (Auto) [place] # (Auto) Eos # (Auto) Baso # (Auto) Immature Gran # (Auto) Sodium Potassium Chloride Carbon Dioxide Anion Gap BUN Creatinine Est Cr Clr Drug Dosing Est GFR ( Amer) Est GFR (Non-Af Amer) BUN/Creatinine Ratio Glucose POC Glucose 101 H Calcium Magnesium Total Bilirubin AST ALT Alkaline Phosphatase Troponin I High Sens Total Protein Albumin Globulin Albumin/Globulin Ratio TSH Urine Color Yellow Urine Appearance Clear Urine pH 6.5 Ur Specific [place] 1.015 Urine Protein Negative Urine Glucose (UA) Negative Urine Ketones Negative Urine Blood Negative Urine Nitrite Negative Urine Bilirubin Negative Urine Urobilinogen Negative Ur Leukocyte Esterase 1+ H Urine WBC (Auto) 10-30 H Urine RBC (Auto) 0-4 U Hyaline Cast (Auto) 0 U Epithel Cells (Auto) 5-10 H Urine Bacteria (Auto) Negative SARS-CoV-2, RNA, NAAT NEGATIVE 05/15/22 05/15/22 05/15/22 05:30 05:30 05:30 WBC 10.88 H RBC 3.56 L Hgb 11.3 L Hct 34.4 L MCV 96.6 MCH 31.7 MCHC 32.8 RDW Std Deviation 49.6 H RDW Coeff of Octavia 14.0 Plt Count 197 MPV 10.2 Immature Gran % (Auto) 1.2 Neut % (Auto) 74.0 Lymph % (Auto) 14.4 [place] % (Auto) 9.5 Eos % (Auto) 0.6 Baso % (Auto) 0.3 Neut # (Auto) 8.05 H Lymph # (Auto) 1.57 [place] # (Auto) 1.03 H Eos # (Auto) 0.07 Baso # (Auto) 0.03 Immature Gran # (Auto) 0.13 H Sodium 138 Potassium 3.8 Chloride 106 Carbon Dioxide 27 Anion Gap 5 BUN 17 Creatinine 0.68 Est Cr Clr Drug Dosing 54.3 Est GFR ( Amer) 95.1 Est GFR (Non-Af Amer) 82.0 BUN/Creatinine Ratio 25.0 H Glucose 117 H POC Glucose Calcium 8.2 L Magnesium 1.8 Total Bilirubin AST ALT Alkaline Phosphatase Troponin I High Sens 4.7 Total Protein Albumin Globulin Albumin/Globulin Ratio TSH Urine Color Urine Appearance Urine pH Ur Specific [place] Urine Protein Urine Glucose (UA) Urine Ketones Urine Blood Urine Nitrite Urine Bilirubin Urine Urobilinogen Ur Leukocyte Esterase Urine WBC (Auto) Urine RBC (Auto) U Hyaline Cast (Auto) U Epithel Cells (Auto) Urine Bacteria (Auto) SARS-CoV-2, RNA, NAAT 05/15/22 11:22 WBC RBC Hgb Hct MCV MCH MCHC RDW Std Deviation RDW Coeff of Octavia Plt Count MPV Immature Gran % (Auto) Neut % (Auto) Lymph % (Auto) [place] % (Auto) Eos % (Auto) Baso % (Auto) Neut # (Auto) Lymph # (Auto) [place] # (Auto) Eos # (Auto) Baso # (Auto) Immature Gran # (Auto) Sodium Potassium Chloride Carbon Dioxide Anion Gap BUN Creatinine Est Cr Clr Drug Dosing Est GFR ( Amer) Est GFR (Non-Af Amer) BUN/Creatinine Ratio Glucose POC Glucose Calcium Magnesium Total Bilirubin AST ALT Alkaline Phosphatase Troponin I High Sens 3.3 Total Protein Albumin Globulin Albumin/Globulin Ratio TSH Urine Color Urine Appearance Urine pH Ur Specific [place] Urine Protein Urine Glucose (UA) Urine Ketones Urine Blood Urine Nitrite Urine Bilirubin Urine Urobilinogen Ur Leukocyte Esterase Urine WBC (Auto) Urine RBC (Auto) U Hyaline Cast (Auto) U Epithel Cells (Auto) Urine Bacteria (Auto) SARS-CoV-2, RNA, NAAT (1) Syncope Syncope type: unspecified Qualified Code(s): R55 - Syncope and collapse
--- NOTE | 2022-05-15 15:21 | Hospitalist Progress Note ---
Date of Service May 15, 2022 Assessment & Plan (1) Syncope: Plan: 81-year-old female with past medical history significant for diffuse esophageal spasm, hypothyroidism, hyperlipidemia, chronic rhinitis, tachybrady syndrome, status post pacemaker, hypertension, GERD, history of diffuse esophageal spasm, osteoporosis, degenerative disc disease, sensorineural hearing loss bilateral, epiretinal membrane of the right eye, preseptal cellulitis of the right eye, psoriasis, history of long-term use of steroids, history of right hip replacement and DVT prophylaxis, history of supraventricular tachycardia, history of rheumatoid arthritis, medical marijuana, dizziness and ataxic gait presented 05/14 with syncope. [place] and is not aware when she fell, next thing she remembers was some bystanders trying to help her. She states that she might have passed out for a couple of minutes, no premonitory symptoms but reports some confusion after the event. She is being managed for the following: #. Syncope #. History of tachybradycardia syndrome, status post pacemaker. #. Fall #. Left scaphoid fracture, nondisplaced #. Bilateral knee bruises, left forehead laceration Patient presented with syncope and fall [see above] Admitting imagings [CT C-spine, face CT, bilateral knee x-ray, head CT, CXR, foot x-ray, and x-ray, wrist x-ray] reviewed. Patient found to have left nondisplaced scaphoid fracture. Ortho evaluated, conservative management, follow-up with Ortho in 2 weeks upon discharge. Troponin trend negative. No history of syncope in the past, pacemaker interrogated in the ED -initial interrogation unrevealing, cardio to formally interrogate pacemaker. Cardiology on board. Continue with med telemetry, follow-up interrogation report. Ortho vitals negative. Maintain and replete electrolytes as appropriate. 05/15 echo: EF 55 to 60%, grade 1 diastolic dysfunction. Patient without chest pain or any discomfort in the chest. For knee wound and left forehead wound, empirically started on Rocephin 05/14 to prevent any secondary infection. Wound care consult. #. Other chronic medical conditions: HTN, HLD, hypothyroidism, GERD, tachybradycardia syndrome, status post pacemaker, esophageal spasms, ataxic gait Resume/continue home meds as and when able PT/OT when able Soft diet for history of SUHAS #. DVT prophylaxis: On Lovenox #. Full code Admission and Anticipated Discharge Date Admission Date: May 14, 2022 Subjective Patient seen and examined at bedside as a follow-up of syncope, likely arrhythmia induced and nondisplaced left scaphoid fracture. Patient was lying in bed, on room air, NAD, no new acute events overnight. Pat sheri reports eating okay. Patient reports headache getting better. Patient reports that she has extensive history of arrhythmia. Patient denies chest pain or palpitation or belly pain or acute changes in bowel or bladder habit lately. Physical Exam Physical Exam: GENERAL: Alert and oriented x3. NAD, on RA. HEENT: No pallor, no icterus. Pupils equal, round and reactive to light. Oral mucosa moist. Lt forehead with supraorbital suture, no s/s infection noted. NECK: No JVD, no neck masses. HEART: S1 and S2 heard. Regular rate and rhythm. No murmur, no gallop. RESPIRATORY SYSTEM: Normal AP diameter. No accessory muscle use. No wheezing, no crackles. ABDOMEN: Soft, bowel sounds present, nontender, no distention. CENTRAL NERVOUS SYSTEM: No facial droop. Speech is clear. Obeys simple commands. Moves extremities. EXTREMITIES: No edema, no erythema seen. Clean dressing b/l knee. Left thumb spica splint in place. Results & Data Results & Data ([facility]) Vital Signs (Past 12 Hours) Vital Signs Temp Pulse Pulse Resp BP Pulse Ox 05/15/22 11:01 36.6 C 64 18 134/80 95 05/15/22 08:17 36.7 C 77 18 121/65 97 05/15/22 07:25 68 05/15/22 03:39 36.8 C 74 18 136/78 94 05/15/22 03:09 82 (1) Syncope Syncope type: unspecified Qualified Code(s): R55 - Syncope and collapse
[2022-05-15] MEDS: KETOROLAC TROMETHAMINE 15 MG/ML VIAL IV PRN ×2 (15:59→23:15)
[2022-05-15] MEDS: ROSUVASTATIN CALCIUM 10 MG TAB PO SCH (20:32)
[2022-05-15] MEDS: PANTOprazole 40 MG TAB PO SCH (20:33)
[2022-05-15] MEDS: FLUTICASONE PROPIONATE NA SPR 16 GM BTL SCH (20:35)
[2022-05-15] MEDS: cefTRIAXone SODIUM 1,000 MG in DEXTROSE 5% 50 ML IV SCH (23:16)
[2022-05-16] MEDS: LEVOTHYROXINE SODIUM 50 MCG TABLET PO SCH (06:23)
[2022-05-16 08:36] LABS: Hematocrit (blood only) 36.9 % (37-47); Mean Corpuscular Hemoglobin 31.5 pg (25-34); Mean Corpuscular Hgb Conc 32.5 g/dL (32-36); Mean Corpuscular Volume 96.9 fL (80-100); Mean Platelet Volume 9.9 fL (7.4-10.4); Platelet Count 209 K/uL (130-400); RDW Standard Deviation 49.8 fL (36.4-46.3); Red Blood Count 3.81 M/uL (4.2-5.4); White Blood Count 8.29 K/uL (4.8-10.8)
[2022-05-16 08:55] LABS: Creatinine Clr Calc Pharmacy 47.3 ml/min; Est GFR (African American) 81.4 ml/min; Est GFR (Non-African American) 70.2 ml/min; Phosphorus 4.1 mg/dl (2.5-4.9); Potassium 4.2 mmol/L (3.5-5.1)
[2022-05-16] MEDS: ATENOLOL 50 MG TABLET PO SCH (09:33)
[2022-05-16] MEDS: LOSARTAN POTASSIUM 50 MG TAB PO SCH (09:33)
[2022-05-16] MEDS: VITAMIN B COMPLEX TAB PO SCH (09:33)
--- NOTE | 2022-05-16 11:49 | Electrocardiogram Report ---
Test Reason : Blood Pressure : / mmHG Vent. Rate : 079 BPM Atrial Rate : 079 BPM P-R Int : 166 ms QRS Dur : 072 ms QT Int : 400 ms P-R-T Axes : 050 015 055 degrees QTc Int : 458 ms Normal sinus rhythm Normal ECG When compared with ECG of 14-MAY-2022 16:12, Nonspecific T wave abnormality, improved in Anterolateral leads Confirmed by Pardeep Castañeda ([id number]) on 05/16/2022 11:49:33 AM Referred By: REFERRED SELF Confirmed By:Roddy Castañeda
--- NOTE | 2022-05-16 15:15 | Cardiology Progress Note ---
Date of Service May 16, 2022 Assessment & Plan (1) Syncope: (2) Tachy-jacinto syndrome: (3) Pacemaker: Plan: Patient is an 81-year-old female presents following an acute syncopal event with associated contusion and injuries. Patient notes abrupt loss of consciousness while walking across a parking lot. Notes some confusion after event. No cardiac complaints chest pain shortness of breath recently or currently. Troponins echocardiogram and EKGs without ischemic findings. Normal overall systolic function present. EKG 05/16/2022 normal. No arrhythmias on telemetry 05/16/2022 Impression: Syncopal event upon discerned etiology. Pacer interrogation without arrhythmias noted. Device reprogrammed for slightly higher low heart rate Plan: Continue current therapies and treatments. We will arrange for stress nuclear imaging post discharge Admission and Anticipated Discharge Date Admission Date: May 14, 2022 Subjective Patient seen and examined, chart, medications, telemetry reviewed. No further dizziness or lightheadedness. No syncope or near syncope. Ambulatory in room without difficulty. No chest pains or shortness of breath. Still discomfort at site of contusions. Physical Exam Constitutional: well developed and well nourished; no acute distress Eyes: PERRL, conjunctivae normal, anicteric sclerae Neck: trachea midline, no thyromegaly Respiratory: normal respiratory effort, lungs clear to auscultation Cardiovascular: RRR, no murmur, no edema Vessels: no JVD Extremities: no edema Gastrointestinal (Abdomen): normal bowel sounds, soft, nontender, no hepatosplenomegaly Musculoskeletal: no cyanosis or clubbing, extremities motor strength 5/5 Skin: Trauma: + evidence of skin trauma (Left forehead and jehovah's witness with sutured laceration) and + contusion (Bilateral knees) Results & Data ([facility]) Vital Signs (Past 12 Hours) Vital Signs Temp Pulse Pulse Resp BP Pulse Ox 05/16/22 11:37 36.8 C 76 16 123/60 99 05/16/22 07:58 36.8 C 64 16 128/78 97 05/16/22 07:27 71 05/16/22 03:57 64 (1) Syncope Syncope type: unspecified Qualified Code(s): R55 - Syncope and collapse
--- NOTE | 2022-05-16 18:07 | Discharge Summary ---
Date of Service May 16, 2022 Admission HPI Per Admitting Provider DATE OF ADMISSION: 05/14/2022. CHIEF COMPLAINT: Syncope and fall. HISTORY OF PRESENT ILLNESS: An 81-year-old female with past medical history significant for hypothyroidism, hyperlipidemia, chronic rhinitis, tachybrady syndrome, status post pacemaker, hypertension, GERD, history of diffuse esophageal spasm, osteoporosis, degenerative disc disease, sensorineural hearing loss bilateral, epiretinal membrane of the right eye, preseptal cellulitis of the right eye, psoriasis, history of long-term use of steroids, history of right hip replacement and DVT prophylaxis, history of supraventricular tachycardia, history of rheumatoid arthritis, medical marijuana, dizziness and ataxic gait presents with syncope. The [place]. She says she does not know how she fell. Next she remember was some bystanders helping her. She had bleeding from the left forehead. She has a big bruise on the left knee and called 911 and was brought to the hospital. She thinks she might have passed out for a couple of minutes, no premonitory symptoms. No chest pain, no shortness of breath, no dizziness. Vision in one eye is somewhat blurred vision, but she reports going to follow neuro ophthalmology at [facility] No earache, no runny nose, no sore throat, no cough, no fever, no chest pain or shortness of breath. Appetite is good. She has some difficulty swallowing dry food,because of diffuse esophageal spasms. No abdominal pain, no diarrhea or constipation. No blood in stools or black stools. Micturating okay. No swelling in the legs. She ambulates without support, but she has sometimes incontinence because of the history of cauda equina syndrome, back surgery and a back stimulator. Had PT and sometimes she has imbalance while ambulating. The patient also has a right lower peres wound since March. Initially, she was treated with doxycycline for 10 days. On tenth day, she again spiked fever and she was prescribed clindamycin. Says she might have taken that for 7-8 days, when she developed rash and clindamycin was stopped a couple of days ago and the wound in the right lower extremity is almost resolved.Patient thinks she had a temperature spike today. ALLERGIES: CLINDAMYCIN, SULFA ANTIBIOTICS, ASPIRIN, CLAVULANIC ACID, PHENYLBUTAZONE, HYDROMORPHONE, KETAMINE, MORPHINE. PAST MEDICAL HISTORY: As mentioned above. 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 MEDICATIONS: The patient is on Tylenol 1000 mg p.o. q.8 hours p.r.n., atenolol 50 mg p.o. b.i.d., cyclobenzaprine 10 mg p.o. q.8 hours p.r.n., diphenhydramine 25 mg p.o. p.r.n., Flonase 2 sprays intranasal p.m., ibuprofen 800 mg p.o. t.i.d. p.r.n., levothyroxine 50 mcg p.o. a.m., losartan 50 mg p.o. daily, omeprazole 1 tablet at bedtime, Crestor 10 mg p.o. p.m., vitamin B complex 1 tablet p.o. b.i.d. FAMILY HISTORY: Significant for, mother has arthritis. Father has heart diso rder, hypertension, stroke. Mother has lung disorder, osteoporosis. SOCIAL HISTORY: . No smoking. Alcohol rarely. No drugs. Medical marijuana. REVIEW OF SYSTEMS: As per HPI. Rest of review of systems is negative. Admission Exam Per Admitting Provider GENERAL: The patient is of moderate build, not in acute distress. VITAL SIGNS: Temperature currently afebrile, pulse 99, respiratory rate 23, blood pressure 142/94, oxygen 100% on room air. HEENT: Pupils equal, round and reactive to light. Bruise seen on the left brow region, which was sutured. NECK: No JVD. No masses. CARDIOVASCULAR: S1 and S2 heard. Regular rate and rhythm. No murmur, no gallop. RESPIRATORY SYSTEM: Normal AP diameter. No accessory muscle use. No wheezing, no crackles. ABDOMEN: Soft. Bowel sounds are present, nontender, no distention. CENTRAL NERVOUS SYSTEM: Alert and awake. No facial droop. Speech is clear. Insight is good. Moves extremities. EXTREMITIES: Open bruise seen on the left knee, which was sutured in the ER. No edema or erythema seen. Principal Diagnosis Syncope Fall Nondisplaced left scaphoid fracture Bilateral knee bruises, left forehead laceration Discharge Exam GENERAL: Alert and oriented x3. NAD, on RA. HEENT: No pallor, no icterus. Pupils equal, round and reactive to light. Oral mucosa moist. Lt forehead with supraorbital suture, no s/s infection noted. NECK: No JVD, no neck masses. HEART: S1 and S2 heard. Regular rate and rhythm. No murmur, no gallop. RESPIRATORY SYSTEM: Normal AP diameter. No accessory muscle use. No wheezing, no crackles. ABDOMEN: Soft, bowel sounds present, nontender, no distention. CENTRAL NERVOUS SYSTEM: No facial droop. Speech is clear. Obeys simple commands. Moves extremities. EXTREMITIES: No edema, no erythema seen. Clean dressing b/l knee for b/l knee bruise. Left thumb spica splint in place. Discharge Data Allergies Allergy/AdvReac Type Severity Reaction Status Date / Time clindamycin Allergy Intermediate Rash Unverified 05/14/22 20:28 Sulfa (Sulfonamide Allergy Mild rash Verified 05/14/22 20:28 Antibiotics) aspirin AdvReac Intermediate THROMBOCYTO Verified 05/14/22 20:28 PENIA clavulanic acid AdvReac Intermediate severe Verified 05/14/22 20:28 diarrhea phenylbutazone AdvReac Intermediate THROMBOCYTO Verified 05/14/22 20:28 PENIA hydromorphone AdvReac Mild NAUSEA AND Verified 05/14/22 20:28 VOMITING ketamine AdvReac Mild Hallucinati Verified 05/14/22 20:28 ons morphine AdvReac Mild NAUSEA/VOMI Verified 05/14/22 20:28 TTING Consultations 05/14/22 18:44 ED Decision to Admit Stat 05/15/22 08:00 Consult Cardiology Routine Consult Orthopedic Surgery Routine Ordered Studies 05/14/22 15:40 CT cervical spine wo con Stat CT facial bones wo con Stat 05/14/22 15:41 CT head/brain wo con Stat Hospital Course (1) Syncope: 81-year-old female with past medical history significant for diffuse esophageal spasm, hypothyroidism, hyperlipidemia, chronic rhinitis, tachybrady syndrome, status post pacemaker, hypertension, GERD, history of diffuse esophageal spasm, osteoporosis, degenerative disc disease, sensorineural hearing loss bilateral, epiretinal membrane of the right eye, preseptal cellulitis of the right eye, psoriasis, history of long-term use of steroids, history of right hip replacement and DVT prophylaxis, history of supraventricular tachycardia, history of rheumatoid arthritis, medical marijuana, dizziness and ataxic gait presented 05/14 with syncope. Patient states that [place] and is not aware when she fell, next thing she remembers was some bystanders trying to help her. She states that she might have passed out for a couple of minutes, no premonitory symptoms but reports some confusion after the event. She was managed for the following: #. Syncope #. History of tachybradycardia syndrome, status post pacemaker. #. Fall #. Left scaphoid fracture, nondisplaced #. Bilateral knee bruises, left forehead laceration Patient presented with syncope and fall [see above] Admitting imagings [CT C-spine, face CT, bilateral knee x-ray, head CT, CXR, foot x-ray, and x-ray, wrist x-ray] reviewed. Patient found to have left nondisplaced scaphoid fracture. Ortho evaluated, conservative management, follow-up with Ortho in 2 weeks upon discharge. Troponin trend negative. No history of syncope in the past, pacemaker interrogated, no arryhtmia noted, device reprogrammed for slightly higher low heart rate, Cardiology on board. Ortho vitals negative. Electrolytes wnl 05/15 echo: EF 55 to 60%, grade 1 diastolic dysfunction. Patient without chest pain or any discomfort in the chest. For knee wound and left forehead wound, empirically started on Rocephin 05/14 (keflex on discharge) to prevent any secondary infection. Wound care evaluated, pt to follow wound care instruction upon dc. #. Other chronic medical conditions: HTN, HLD, hypothyroidism, GERD, tachybradycardia syndrome, status post pacemaker, esophageal spasms, ataxic gait Resume/continue home meds as and when able PT/OT when able Soft diet for history of SUHAS #. DVT prophylaxis: On Lovenox #. Full code Patient being discharged home with following instruction at the point of discharge: Follow-up with your primary care physician within a week time. Follow-up with your cardiology as an outpatient. Plan for a stress nuclear imaging post discharge. You will be discharged on Keflex for 7 days as a prophylaxis for your wound. Follow-up with your primary care physician for further evaluation/management. Avoid driving until cleared by your PCP/cardiology as an outpatient. For your left scaphoid fracture, follow-up with orthopedics as an outpatient in 2 weeks. For your wound care, follow the instruction as per wound care nurse while inpatient. Take medications as prescribed. Total Time Total Time Spent Total Time Spent (In Minutes): 40 Discharge Plan Discharge Items Patient Disposition: Home - Self-Care Reason For Visit: SYNCOPE, FALL Discharge Diagnosis: Syncope Fall Nondisplaced left scaphoid fracture Bilateral knee bruises, left forehead laceration Activity: Resume your previous activity Activity Comment: Avoid driving until cleared by cardiology. Non-emergency contact: Primary Care Provider Call non-emergency contact if: you have any medication questions, your symptoms worsen and your temperature is above 101 Follow-up/Referrals: Jt Looney DO [Primary Care Provider] - Diet: Heart Healthy Addtl Attending Provider Instructions: Follow-up with your primary care physician within a week time. Follow-up with your cardiology as an outpatient. Plan for a stress nuclear imaging post discharge. You will be discharged on Keflex for 7 days as a prophylaxis for your wound. Follow-up with your primary care physician for further evaluation/management. Avoid driving until cleared by your PCP/cardiology as an outpatient. For your left scaphoid fracture, follow-up with orthopedics as an outpatient in 2 weeks. For your wound care, follow the instruction as per wound care nurse while inpatient. Take medications as prescribed. Pending Studies at Discharge: No Stand-Alone Forms: My [facility], Smoking Cessation Medications and DC Order Prescriptions: New cephalexin 500 mg capsule 500 mg PO BID 7 Days Qty: 14 RF: 0 Probiotic 3 billion cell capsule 3,000 mmu cells PO DAILY 7 Days Qty: 7 RF: 0 Continued cyclobenzaprine 10 mg Tablet 10 mg PO Q8H PRN (Reason: Pain) RF: 0 atenolol 50 mg Tablet 50 mg PO BID RF: 0 levothyroxine 50 mcg Capsule 50 mcg PO QAM RF: 0 omeprazole 20 mg Tablet,Disintegrat, Delay Rel 1 tab PO HS RF: 0 rosuvastatin [Crestor] 10 mg Tablet 10 mg PO PM RF: 0 fluticasone propionate 50 mcg/actuation spray,suspension 2 spray INTRANASAL PM RF: 0 ibuprofen 800 mg tablet 800 mg PO Q8H PRN (Reason: pain) Qty: 30 RF: 1 losartan 50 mg Tablet 50 mg PO QAM RF: 0 acetaminophen 500 mg tablet 1,000 mg PO Q8H PRN (Reason: Pain) RF: 0 vitamin B complex Tablet 1 tab PO BID RF: 0 Actifed 2.5-60 mg Tablet 1 tab PO QID PRN (Reason: Allergy Symptoms) RF: 0 diphenhydramine HCl [Allergy Medicine] 25 mg Tablet 25 mg PO DIRECTED PRN (Reason: Allergy Symptoms) RF: 0 Discharge Orders: Discharge Order (Routine); Ordered 05/16/22 Ordered By: Marifer Luna Admission Data Admit Date/Time: 05/14/22 20:52 Attending Provider: Marifer Luna Admit Provider: Chivo Fajardo Primary Care Provider: Jt Looney Other Providers: Chivo Fajardo ; Tadeo Guardado ; Marlon Comer ; Edson Gardner ; Ghanshyam Cardenas ; SergioMp salgado ; Lawson Solares ; Maria Antonia Calderon ; Kristine Smith ; Ava Lopez ; Sae Frias ; Carlos Mendoza
--- NOTE | 2022-05-17 09:32 | Electrocardiogram Report ---
Test Reason : Blood Pressure : / mmHG Vent. Rate : 079 BPM Atrial Rate : 079 BPM P-R Int : 166 ms QRS Dur : 072 ms QT Int : 400 ms P-R-T Axes : 050 015 055 degrees QTc Int : 458 ms Normal sinus rhythm Normal ECG When compared with ECG of 14-MAY-2022 16:12, Nonspecific T wave abnormality, improved in Anterolateral leads Confirmed by Pardeep Castañeda ([id number]) on 05/16/2022 11:49:33 AM Also confirmed by Pardeep Castañeda ([id number]), deputy editor in chief August Godinez ([id number]) on 05/17/2022 9:32:10 AM Referred By: REFERRED SELF Confirmed By:Roddy Castañeda
== END 2022-05-16 19:20 | disposition home or self-care (01) | DRG 312 ==
LOC: ED 15:32 → 2W 20:52

== ENCOUNTER 2023-03-08 11:03 | Observation (INO) ==
--- NOTE | 2023-02-15 12:25 | PAT Medication Instructions ---
Medication Instructions Date of Service February 15, 2023 Home Medications Medication Instructions Recorded tramadol 50 mg tablet 50 mg PO Q6H PRN pain #20 tabs 10/11/22 atenolol 50 mg tablet 50 mg PO BID cyclobenzaprine 10 mg tablet 10 mg PO Q8H PRN Pain levothyroxine 50 mcg capsule 50 mcg PO QAM omeprazole 20 mg delayed release,disintegrating tablet 1 tab PO H rosuvastatin 10 mg tablet (Crestor) 10 mg PO HS fluticasone propionate 50 mcg/actuation nasal spray,suspension 2 spray intranasal HS acetaminophen 500 mg tablet 1,000 mg PO Q8H PRN Pain diphenhydramine HCl 25 mg tablet (Allergy Medicine) 25 mg PO UD PRN Sleep triprolidine-pseudoephedrine 2.5 mg-60 mg tablet (Aprodine) 1 tab PO QID PRN Allergy Symptoms tramadol 50 mg tablet 50 mg PO Q6H PRN pain Probiotic 1 cap PO QAM chlorpheniramine 4 mg-phenylephrine 10 mg tablet 1 tab PO Q4H PRN seasonal allergies losartan 100 mg tablet 100 mg PO QAM vitamin B complex 1 tab PO BID DO NOT take the morning of surgery cyclobenzaprine 10 mg tablet 10 mg PO Q8H PRN Pain Probiotic 1 cap PO QAM losartan 100 mg tablet 100 mg PO QAM vitamin B complex 1 tab PO BID triprolidine-pseudoephedrine 2.5 mg-60 mg tablet (Aprodine) 1 tab PO QID PRN Allergy Symptoms chlorpheniramine 4 mg-phenylephrine 10 mg tablet 1 tab PO Q4H PRN seasonal allergies Take morning of surgery With a small sip of water, OTHERWISE NOTHING TO EAT OR DRINK AFTER MIDNIGHT: atenolol 50 mg tablet 50 mg PO BID levothyroxine 50 mcg capsule 50 mcg PO QAM acetaminophen 500 mg tablet 1,000 mg PO Q8H PRN Pain (if needed) tramadol 50 mg tablet 50 mg PO Q6H PRN pain (if needed) Take evening before surgery cyclobenzaprine 10 mg tablet 10 mg PO Q8H PRN Pain (if needed) omeprazole 20 mg delayed release,disintegrating tablet 1 tab PO HS rosuvastatin 10 mg tablet (Crestor) 10 mg PO HS fluticasone propionate 50 mcg/actuation nasal spray,suspension 2 spray intranasal HS acetaminophen 500 mg tablet 1,000 mg PO Q8H PRN Pain (if needed) diphenhydramine HCl 25 mg tablet (Allergy Medicine) 25 mg PO UD PRN Sleep (if needed) triprolidine-pseudoephedrine 2.5 mg-60 mg tablet (Aprodine) 1 tab PO QID PRN Allergy Symptoms (if needed) tramadol 50 mg tablet 50 mg PO Q6H PRN pain (if needed) chlorpheniramine 4 mg-phenylephrine 10 mg tablet 1 tab PO Q4H PRN seasonal allergies (if needed) vitamin B complex 1 tab PO BID Other Notes If you have any questions please call us at [phone] or [phone] or [phone] or [phone]
--- NOTE | 2023-02-19 13:36 | Anesthesiology Consultation ---
Date of Service February 19, 2023 Assessment & Plan (1) Encounter for pre-operative examination: - COVID screening: Per assessment on 02/19: No known COVID-19 positive contacts or current COVID-19 related symptoms. Travel screen negative. Patient vaccinated. At surgeon discretion if preop Covid testing being done. - Check BSG AM DOS - S/P Left reverse TSA (05/16/20): Grade view 1, Edouard#2, ETT 7.5 + PNB at [facility]. No issues noted per post-op anesthesia progress note. - Outpatient joint assessment: Pt currently scheduled for inpatient pathway. If surgeon requests review for outpatient joint pathway, patient is not recommended candidate for outpatient joint program from anesthesia standpoint. - Cardiology office visit (01/08/23): "Paroxysmal supraventricular tachycardia prior high vagal tone with pacemaker insertion. Clinically stable.. Sensed pacing when lying quietly at night.. Will likely reprogram pacemaker after surgery.. PLAN: Continue all current therapies.. No contraindications to shoulder surgery" - Positioning request: Vertigo/right ear crystal. Follows with Dr. Jd Joseph ([facility]). Per patient, request to keep slightly elevated and DO NOT turn her head to the right fast per patient request - Elevated PTT: Preop labs note elevated PTT at 37.6. Elevated at 39.3 on 05/04/20. Patient had left reverse TSA 05/16/20 without issue. Reviewed with Dr. Pabon. He requests PCP comment regarding isolated, elevated PTT. Patient seen by PCP (02/26/23): "Pre-op anesthesia asked us to see her regarding an elevated PTT. Pt notes she has always been slightly anemic. She has had extensive work-up. She notes that this is not new for her. She states that she does bruise easily at times which has been ongoing for years.. No further testing required from my stand point. Pt maximized for OR. She will call with any issues. Pt does have history of significant spasm requiring re-admission post op." - Pacer rep: [employer]. Reviewed case/cardiology note with Dr. Emanuel. He requests pacer rep present if possible (but would be personally okay to proceed without if pacer rep feels they do not need to be present). OR/Angela made aware. Per response from [employer] rep/Darryl Marrero 02/19/23 "they have a left-sided device (pacemaker) and having surgery on the opposing shoulder requires no reprogramming. Being out of the sterile field the OR staff can utilize a magnet if needed which they are comfortable doing/routinely do.. I would say magnet application would be appropriate if needed in the OR suite during their case." Reviewed pacer rep recommendations with Dr. Emanuel/Dr. Rodriguez- they are both okay with proceeding with pacer rep present DOS. Dr. Matt states that he would like clarification from cardiology regarding timing of reprogramming- Note written to cardiology regarding pacer rep recommendations- Awaiting response (Dr. Gardner/[facility]). Chart Review Chart Review: Patient seen in Pre Admission Testing Teaching & Discussion Pre-Anesthesia Teaching/Discussion Notes: Instructed NPO after midnight before surgery,except medications with 15 cc of water. Medication instructions provided according to the PAT guidelines. History Surgery Operation Date: 03/08/23 07:00 Proposed Procedures p Right Total Shoulder Arthroplasty Reverse - Carlos Mendoza, Height/Weight Height: 4 ft 10.5 in Weight: 65.4 kg Allergies Allergy/AdvReac Type Severity Reaction Status Date / Time clindamycin Allergy Intermediate Rash Verified 02/18/23 12:56 Sulfa (Sulfonamide Allergy Mild Rash Verified 02/18/23 12:56 Antibiotics) aspirin AdvReac Intermediate Thrombocyto Verified 02/18/23 12:56 penia clavulanic acid AdvReac Intermediate Severe Verified 02/18/23 12:56 diarrhea phenylbutazone AdvReac Intermediate Thrombocyto Verified 02/18/23 12:56 penia hydromorphone AdvReac Mild N/V Verified 02/18/23 12:56 ketamine AdvReac Mild Hallucinati Verified 02/15/23 09:47 ons morphine AdvReac Mild N/V Verified 02/18/23 12:56 Medications Home Medications Medication Instructions Recorded Confirmed Last Taken atenolol 50 mg tablet 50 mg PO BID 10/21/18 02/15/23 10/11/22 cyclobenzaprine 10 mg tablet 10 mg PO Q8H PRN Pain 10/21/18 02/15/23 05/18/20 levothyroxine 50 mcg capsule 50 mcg PO QAM 10/21/18 02/15/23 10/11/22 omeprazole 20 mg delayed 1 tab PO HS 10/21/18 02/15/23 10/11/22 release,disintegrating tablet rosuvastatin 10 mg tablet (Crestor) 10 mg PO HS 05/02/20 02/15/23 10/10/22 fluticasone propionate 50 2 spray intranasal HS 05/19/20 02/15/23 10/10/22 mcg/actuation nasal spray,suspension acetaminophen 500 mg tablet 1,000 mg PO Q8H PRN Pain 11/03/21 02/15/23 10/10/22 diphenhydramine HCl 25 mg tablet 25 mg PO UD PRN Sleep 05/14/22 02/15/23 10/10/22 (Allergy Medicine) triprolidine-pseudoephedrine 2.5 1 tab PO QID PRN Allergy Symptoms 05/14/22 02/15/23 10/10/22 mg-60 mg tablet (Aprodine) tramadol 50 mg tablet 50 mg PO Q6H PRN pain #20 tabs 10/11/22 02/15/23 Unknown Probiotic 1 cap PO QAM 02/15/23 02/15/23 Unknown chlorpheniramine 4 1 tab PO Q4H PRN seasonal allergies 02/15/23 02/15/23 Unknown mg-phenylephrine 10 mg tablet losartan 100 mg tablet 100 mg PO QAM 02/15/23 02/15/23 Unknown vitamin B complex 1 tab PO BID 02/15/23 02/15/23 Unknown Past Medical History Medical History 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 Gardner ([facility]) Hyperlipidemia Hypertension Hypothyroidism MVP (mitral valve prolapse) MV anatomy normal, trace MR per 05/2022 echo Osteoarthritis Osteoporosis Pacemaker [employer], last check 2022, placed for sinus arrest 2/2 esophageal spasm with strong vagal response Rheumatoid arthritis Spinal cord stimulator status Advised to bring remote DOS Spinal stenosis Cervical, lumbar Thrombocytopenia Remote hx felt to be medication related (resolved with medication/ASA discontinuation) Vertigo Vertigo/right ear crystal. Follows with Dr. Jd Joseph ([facility]). Per patient, request to keep slightly elevated and DO NOT turn her head to the right fast per patient request Exercise / Class Metabolic Activity III < 4 Walking/Shop/Light housework Past Family History Family History Father AAA (abdominal aortic aneurysm) Hypertension Stroke Other No family history of adverse response to anesthesia Past Surgical History Surgical History History of adenoidectomy History of amputation RT MIDDLE FINGER (INFECTION) History of anesthesia reaction KETAMINE-BAD DREAMS History of arthroscopy RT SHOULDER - ATTEMPT TO REPAIR ROTATOR CUFF History of bunionectomy X2 ON RIGHT SIDE, X1 ON LEFT SIDE History of cardiac radiofrequency ablation 1995 AND 2001 ([facility]) History of carpal tunnel release RT History of cataract surgery RT/LEFT History of colonoscopy History of dilatation and curettage History of endoscopic sinus surgery History of esophagogastroduodenoscopy (EGD) History of [place] [facility] [place] of myringotomy LEFT EAR History of repair of rotator cuff LEFT History of reverse total replacement of left shoulder joint Left reverse TSA (05/16/20): Grade view 1, Edouard#2, ETT 7.5 + PNB at [facility]. No issues noted per post-op anesthesia progress note. History of tonsillectomy History of tooth extraction History of total hip arthroplasty RT HIP (2 SURGERY) History of total knee replacement LEFT Hx of knee surgery LEFT KNEE (7 TOTAL SURGERIES) Hx of thumb surgery LEFT HAND Macular hole REPAIRED> RIGHT S/P insertion of spinal cord stimulator Past Anesthesia History No Family Hx of Anesthesia Complications and Other (Ketamine- bad dreams) History of PONV No Hx of PONV and Hx of Motion Sickness (Mild) Social History Smoking Status: Never smoker Do You Dip or Chew Tobacco: No Hx Alcohol Use: Yes Alcohol type: wine alcohol intake frequency: a few times a week Alcohol Intake Frequency Comment: maybe once per week Hx Substance Use: Yes substance use type: marijuana (medical- lotion (as needed for joint pain)) Review of Systems Patient denies chest pain, shortness of breath, fever, chills, cough, wheezing, palpitations. Physical Exam Vital Signs VITALS BP 137/70 P 65 TEMP WNL SP02 100%RA RESP 18 PHYSICAL Mildly cervical extension range of motion. Full TMJ range of motion. TMD 3 finger breaths Mallampati Score 1 Dentition: intact, + bridges (right upper/lower sides) Lungs: clear throughout to auscultation Cardiac: regular rate and rhythm, no murmurs noted Spine: normal Carotid arteries: negative bruit Extremities: no edema, right middle finger partial amputation Lab Results Anesthesia Preop Results Results Anesthesia Widget: WBC 8.07 K/ul (4.8-10.8) 02/19/23 Hgb 11.7 g/dl (12.0-16.0) L 02/19/23 Hct 35.7 % (37.0-47.0) L 02/19/23 Plt 270 K/uL (130-400) 02/19/23 Na 140 mmol/L (136-145) 02/19/23 K 4.3 mmol/L (3.5-5.1) 02/19/23 Cl 104 mmol/L (98-107) 02/19/23 CO2 28 mmol/L (21-32) 02/19/23 BUN 17 mg/dl (6-23) 02/19/23 Creat 0.75 mg/dl (0.6-1.2) 02/19/23 Glucose Level 101 mg/dl (70-99(Fasting)) H 02/19/23 PT 10.7 Seconds (9.0-12.0) 02/19/23 PTT 37.6 Seconds (21.0-31.0) H 02/19/23 INR 1.0 (0.9-1.1) 02/19/23 HA1c 6.1 % (4.5-5.6) H 02/19/23 Blood Type O Positive 02/19/23 Antibody Screen NEGATIVE 02/19/23 Testing Electrocardiogram Date: 01/08/23 NSR at 69bpm. TWA, consider anterior ischemia. NS TWA. EKG done at preop cardiology evaluation appt. Chest X-Ray Date: 02/19/23 FINDINGS: Dual lead pacemaker is seen. Spinal stimulator is seen. Reversed left shoulder arthroplasty noted. The cardiomediastinal silhouette is normal. The lungs are clear. No evidence of pleural effusion or pneumothorax. Eventration of the right hemidiaphragm noted. IMPRESSION: No acute chest disease. Echocardiogram Date: 05/15/22 EF 55-60%. No RWMA. Grade I DD. Mild AV sclerosis. Trace AR. Mild TR. Pacemaker lead RV. Stress Test Date: 11/12/18 Type: DSE Stress echo negative for inducible ischemia. Stress EKG nondiagnostic due to baseline abnormalities. Grade I DD. LVEF 55-59%. Grade I DD. Mitral valve anatomy normal. Mild secondary MR. Borderline increased cLV wall thickness. Cervical Spine Date: 02/19/23 FINDINGS: 3 lateral views of the cervical spine in the neutral, flexion, ex tension positions are compared to study dated 06/14/2014 and correlated with cervical spine CT dated 05/14/2022. The skeletal structures are osteopenic. There is no radiographic evidence of fracture or subluxation on these lateral images. Vertebral body height is maintained throughout the cervical spine. There is minimal anterolisthesis at C4-C5. Alignment is otherwise preserved. There is no bony subluxation on the flexion/extension views. There is straightening of the cervical lordosis. Anterior osteophytes are seen throughout. Productive degenerative change is noted at the atlantodental articulation. The spinolaminar line is maintained. The spinous processes appear intact. There is moderate to severe disc space narrowing at all cervical levels between C4-C5 to C7-T1. Posterior disc osteophyte complexes at these levels likely contribute to multilevel acquired compromise of the central canal. The prevertebral soft tissues are within normal limits. A left shoulder arthroplasty and cardiac pacemaker are noted. There is calcification of the nuchal ligament. IMPRESSION: No acute bony abnormality is seen involving the cervical spine on these lateral projections. There is no inducible bony subluxation seen on the flexion/extension views.. Osteopenia and spondylotic change as above. Other Testing Pacer check (12/24/22) [employer]. 6.58 years battery. AT burden 0.1%. AP 19.0%. RVP 19%. Mode AAI <=> DDD. COVID-19 Risk Screen Screening Information COVID-19 Screen Date: 02/19/23 Exposure 21 Days Family/Household +COVID Last 21 Days: No Exposure 10 Days Any COVID Exposure Last 10 Days: No Symptoms Last 10 Days Experienced COVID Sx Last 10 Days: No + COVID 0-90 Days COVID + in Last 0-90 Days: No
[~2023-03-08 11:03] MED LIST changes: +BUPIVACAINE 0.5 % 5 MG/1 ML PF 10ML VIAL ONE; -CEFAZOLIN 1000MG 1,000 MG/7.5 ML SYR IV SCH; +ORTHO JOINT MIX INFIL SCH; -ROPIVACAINE 0.5% HCL/PF 150 MG, BUPIVACAINE 0.5% MPF 30 ML, EPINEPHrine 30MG/30ML (OR U... INSTIL SCH; -TRANEXAMIC ACID / 0.7% NACL 1,000 MG/100 ML BAG IV SCH; +TRANEXAMIC ACID 1,000 MG **IV Intra-op IV SCH; +TRANEXAMIC ACID 1,000 MG **IV Pre-op IV SCH; +ceFAZolin 2000MG 2,000 MG/15 ML SYR IV SCH
--- NOTE | 2023-03-08 11:43 | History & Physical Bridge Note ---
Date of Service March 08, 2023 History & Physical Bridge Note I have examined the patient, reviewed the History & Physical and in the interval since the performance of the History & Physical I have noted the following changes of clinical significance: no changes noted
[2023-03-08] MEDS ORDERED: ePHEDrine sulfate 50 MG/ML AMP IV PRN (11:52)
[2023-03-08] MEDS ORDERED: ATROPINE SULFATE 0.1 MG/ML 10ML SYR IV PRN (11:52)
[2023-03-08] MEDS ORDERED: ONDANSETRON INJ 2 MG/ML 2 ML VIAL IV PRN ×2 (11:52→15:56)
[2023-03-08] MEDS ORDERED: fentaNYL citrate PF 100 MCG/2 ML VIAL IV PRN (11:52)
[2023-03-08] MEDS ORDERED: HYDROmorphone INJ 2 MG/ML SYR/VIAL IV PRN (11:52)
[2023-03-08] MEDS ORDERED: fentaNYL citrate PF 100 MCG/2 ML VIAL ONE (12:19)
[2023-03-08] MEDS ORDERED: ORTHO JOINT ANESTHETIC ONE (12:35)
[2023-03-08] MEDS ORDERED: PROPOFOL IV EMULSION 10 MG/ML 20 ML VIAL IV ONE (13:10)
[2023-03-08] MEDS ORDERED: ONDANSETRON INJ 2 MG/ML 2 ML VIAL ONE (13:10)
[2023-03-08] MEDS ORDERED: PHENYLEPHRINE HCL 10 MG/ML VIAL ONE (13:10)
[2023-03-08] MEDS ORDERED: PHENYLEPHRINE 100MCG/ML 5ML SYR ONE (13:20)
--- NOTE | 2023-03-08 13:59 | Operative Report ---
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 A tenodesis was opted. This was a separate and distinct portion of the procedure. For these reasons, a CPT code modifier 59 will be added to this case. Implants used: I used a [employer] Comprehensive reverse total shoulder arthroplasty system with a size 10 press fit micro humeral stem, a +6 offset humeral tray and a +3 retentive humeral bearing, a 25 mm small augment baseplate with a 6.5 mm central screw and superior and inferior locking screws, and a size 36 mm eccentric glenosphere. Barby arrived at [facility] for the above procedure. She was seen in the preoperative holding area and the operative extremity was identified and signed. She was given a preoperative antibiotic, TXA, and an interscalene nerve block. She was taken back to the operating room, laid on table in supine position, and put under general anesthesia. She was then put into the beachchair position. The shoulder was then prepped and draped in sterile fashion. A timeout was done and the patient and the operative extremity was properly identified. A deltopectoral approach was used. Dissection was taken down through the fascia and the deltoid was retracted laterally and the conjoined tendon was retracted medially. The anterior shoulder was exposed. The biceps groove was opened up and the biceps tendon was examined extensively. The biceps tendon demonstrated enlargement and inflammatory changes consistent with longstanding inflammation in the context of osteoarthritis and cuff arthropathy. The long head of the biceps tendon was then tenodesed to the upper border of the pectoralis major. This was a separate and distinct portion of the procedure. The subscapularis was then directly released off the lesser tuberosity with a peel technique. The inferior capsule was released and the humeral head was dislocated. A canal finding reamer was sent down the center of the humeral canal. Sequent ial reaming up to a size 10 reamer was done. Off that reamer, a proximal humeral resection guide was placed. The proximal humerus was resected at 135 of inclination and 25 of retroversion. Osteophytes were then removed and the glenoid was exposed. Time was spent doing a complete capsular and labral release. The glenoid guide was then placed in the inferior aspect of the glenoid. A 3.2 mm Steinmann pin was then placed into the glenoid vault at 10 of inclination. The glenoid baseplate was then reamed. The final size 25 mm small augment baseplate was then impacted in the place. A 6.5 mm central screw was then placed followed by superior and inferior locking screws. A 36 mm eccentric glenosphere was then impacted into place. Surrounding soft tissues were then injected with 100 cc an orthopedic pain control cocktail. The proximal humerus was then exposed. Sequential broaching of the humerus up to a size 10 broach was done. Off that broach a +6 offset and +3 retentive humeral tray was trialed. The shoulder was then reduced, brought through a full range of motion, and felt to be stable. The shoulder was then dislocated and the broach was removed. The final size 10 micro press-fit humeral stem was then impacted into place. A +3 retentive humeral bearing was then snapped onto a +6 offset humeral tray. The humeral tray was then impacted onto the humeral stem. The shoulder was once again reduced, brought through a full range of motion, and felt to be stable. The subscapularis was retracted and unable to be repaired. A dilute betadyne lavage was then done for 3 minutes. The joint was then irrigated with normal saline solution. Hemostasis was obtained. The interval was closed with 2-0 Vicryl suture. The skin was then closed with 2-0 Vicryl and oneyda. A Silverlon dressing was placed and the arm was rested in a regular arm sling. She was then extubated and transferred to a hospital bed. She taken to the postanesthesia care unit in stable condition. She tolerated the procedure well. Carlos Sparks PA-C, was present for the entire procedure. He was critical for patient positioning, prepping, draping, retraction exposure, wound closure and application of sterile dressing. I attest to the content of the Intraoperative Record and any orders documented therein. Any exceptions are noted below.
--- NOTE | 2023-03-08 14:55 | Anesthesiology Progress Note ---
Date of Service March 08, 2023 Anesthesia Post Procedure Vital Signs Vital Signs: Temp Pulse Pulse Resp BP Pulse Ox O2 Del Method 03/08/23 14:40 95 H 13 156/72 H 100 Oxymask 03/08/23 14:30 88 12 143/89 H 100 Oxymask 03/08/23 14:20 36.0 C L 62 16 163/79 H 99 Oxymask 03/08/23 11:26 36.5 C 66 21 160/96 H 98 Room Air O2 Flow Rate 03/08/23 14:40 4 03/08/23 14:30 6 03/08/23 14:20 6 03/08/23 11:26 Transfer of Care Handoff Completed per policy Notes Mental Status: alert / awake / arousable Patient Amnestic to Procedure: Yes Nausea / Vomiting: adequately controlled Pain: adequately controlled Airway Patency, RR, SpO2: stable & adequate BP & HR: stable & adequate Hydration State: stable & adequate Anesthetic Complications: no major complications apparent and Pt Satisfied with anesthetic care
--- NOTE | 2023-03-08 15:42 | XRay Report ---
XR shoulder RT min 2V routine CLINICAL HISTORY: Post shoulder surgery COMPARISON STUDY: None. FINDINGS: Status post reverse right total shoulder arthroplasty. The hardware appears intact. Skin st aples are in place. No acute fracture or dislocation. Moderate AC joint arthrosis. Old, healed right fourth rib fracture. Pacemaker wires and spinal stimulator leads are partially visualized. IMPRESSION: Status post reverse right total shoulder arthroplasty. No evidence for hardware complica tion. ACT 112: Negative or not required by law. Electronically signed by: Keny Bermudez M.D. 03/08/2023 3:41 PM
[2023-03-08] MEDS ORDERED: SODIUM CHLORIDE 0.9% 1000ML 1,000 ML IV SCH (15:56)
[2023-03-08] MEDS ORDERED: bisacodyL 10 MG SUPP PR PRN (15:56)
[2023-03-08] MEDS ORDERED: METOCLOPRAMIDE HCL INJ 5 MG/ML 2 ML VIAL IV PRN (15:56)
[2023-03-08] MEDS ORDERED: NALOXONE HCL 0.4 MG/1 ML VIAL/CARP IV PRN (15:56)
[2023-03-08] MEDS ORDERED: CYCLOBENZAPRINE HCL 10 MG TAB PO PRN (15:56)
[2023-03-08] MEDS ORDERED: [UNRECOGNIZED DRUG - OTHER] PO PRN (15:56)
[2023-03-08] MEDS ORDERED: MAGNESIUM HYDROXIDE SUSP 30 ML UDC PO PRN (15:56)
[2023-03-08] MEDS ORDERED: traMADol HCL 50 MG TABLET PO PRN (15:56)
[2023-03-08] MEDS ORDERED: CHLORPHENIRAMINE PHENYLEPHRINE PO PRN (15:56)
[2023-03-08] MEDS ORDERED: diphenhydrAMINE Capsule 25 MG CAP PO PRN (16:12)
[2023-03-08] MEDS ORDERED: LORATADINE 10 MG TAB PO PRN (16:28)
[2023-03-08] MEDS ORDERED: PANTOprazole 40 MG TAB PO SCH (21:00)
[2023-03-08] MEDS ORDERED: ROSUVASTATIN CALCIUM 10 MG TAB PO SCH (21:00)
[2023-03-08] MEDS ORDERED: SENNA 8.6 MG TAB PO SCH (21:00)
[2023-03-08] MEDS ORDERED: FLUTICASONE PROPIONATE NA SPR 16 GM BTL SCH (21:00)
[2023-03-08] MEDS: ceFAZolin 2000MG 2,000 MG/15 ML SYR IV SCH (21:21)
[2023-03-08] MEDS: ACETAMINOPHEN 500 MG TAB PO SCH (21:22)
[2023-03-08] MEDS: VITAMIN B COMPLEX TAB PO SCH (21:22)
[2023-03-08] MEDS: DOCUSATE SODIUM 100 MG CAP PO SCH (21:22)
[2023-03-08] MEDS: ATENOLOL 50 MG TABLET PO SCH (21:23)
[2023-03-09] MEDS: ACETAMINOPHEN 500 MG TAB PO SCH (05:44)
[2023-03-09] MEDS: ceFAZolin 2000MG 2,000 MG/15 ML SYR IV SCH (05:44)
[2023-03-09] MEDS ORDERED: LEVOTHYROXINE SODIUM 50 MCG TABLET PO SCH (06:30)
--- NOTE | 2023-03-09 07:34 | Orthopedic Progress Note ---
Date of Service March 09, 2023 Assessment & Plan (1) Status post reverse total replacement of right shoulder: Overall she is doing very well. She is having much pain in the left shoulder. She will be seen by physical therapy today for ambulation and range of motion exercises. She can be discharged home later today. She will follow-up with orthopedics in 2 weeks. Viky Dior was seen and examined at bedside this morning. Overall she is doing very well. She is not having much pain in the right shoulder. She was able to get some sleep last night. She has no complaints.. Review of Systems All systems reviewed & are unremarkable except as noted in HPI & below. Physical Exam On physical examination of the right shoulder, the dressing is clean and dry. She is wearing her sling as instructed. The nerve block is still in effect some.. Results & Data Results & Data Laboratory Results . Diagnostic Findings Postoperative x-rays of the right shoulder show the prosthesis to be in anatomic alignment without any evidence of fracture, dislocation, or loosening.. PG Care Time/CCT Total # of Minutes Spent Total Time Spent with Patient: Total time spent is greater than 50% in coordination of care (as documented) at patient's floor/unit and/or counseling patient: Coding Level of Care Code 02450 Post Operative Follow-Up Diagnoses Status post reverse total replacement of right shoulder Z96.611
--- NOTE | 2023-03-09 07:35 | Discharge Summary ---
Date of Service March 09, 2023 Principal Diagnosis Same as "Discharge Diagnosis" noted below under Discharge Instructions. Discharge Exam On physical examination of the right shoulder, the dressing is clean and dry. She is wearing her sling as instructed. The nerve block is still in effect some.. Discharge Data Procedures Performed Operation Date: 03/08/23 12:55 Actual Procedures p Right Total Shoulder Arthroplasty Reverse(Right) - Carlos Mendoza DO Ordered Studies 03/08/23 05:00 US - OR guided needle placemen Routine Hospital Course (1) Status post reverse total replacement of right shoulder: On March 08, 2023 Barby arrived at [facility] and underwent a left reverse shoulder replacement without complication. She had a general anesthetic and a left interscalene nerve block. Postoperatively she was placed in an arm sling and transferred to the general orthopedic floors. Her hospital course was uneventful. On postop day 1, her vital signs were stable and her pain was well controlled. She was able to participate well with physical therapy doing ambulation and range of motion exercises. She was then discharged home. She will follow-up with orthopedics in 2 weeks. PG Care Time/CCT Total # of Minutes Spent Total Time Spent with Patient: Total time spent is greater than 50% in coordination of care (as documented) at patient's floor/unit and/or counseling patient: Discharge Plan Discharge Items Patient Disposition: Home - Home Health Services Reason For Visit: Right Shoulder Degenerative Joint Disease Discharge Diagnosis: Right reverse shoulder replacement Activity: Per Instructions section Non-emergency contact: Surgeon Call non-emergency contact if: your wound has increased redness and your wound has increased drainage Follow-up/Referrals: Cha Esqueda DO [Primary Care Provider] - Diet: Regular Addtl Attending Provider Instructions: Activity and Therapy Recommendations: * If you are using [facility] then therapy will be provided at your home until they feel you have accomplished all of your goals. * If you are using [facility] then Physical Therapy will be provided until they feel you are ready to start Outpatient Physical Therapy. * If you are not using home therapy then Outpatient Physical Therapy should st art about 3-5 days from your day of surgery. Therapy will last about 8-12 weeks * Wear your sling for 3 weeks, unless otherwise instructed. You may remove your sling to shower and to dress, but otherwise, you should be in your sling at all times, including while sleeping * The shoulder replacement is very stable and you can use your hand while in the sling * You were shown a series of exercises in the hospital. Do these exercises daily including the exercises you were shown in physical therapy. Medications: * Other medications may be prescribed for specific circumstances. If you have any questions, please call the office at . * Resume previous home medications unless otherwise instructed Dressing Care: Leave the Silverlon dressing in place for 7 days. After 7 days you may remove the dressing. If the incision is not draining then you may leave the oneyda open to air. If there is a little bit of drainage or if the oneyda are getting stuck on your clothing then cover the incision with a dry dressing. The oneyda will be removed at your 2 week follow-up appointment. Showering: You may shower with the Silverlon dressing in place. Do not let the shower spray hit the dressing directly. Pat the Silverlon dressing dry. If the dressing becomes wet underneath, then simply remove the dressing. Keep the incision dry until you are 7 days out from the day of surgery. After 7 days you may remove the Silverlon dressing and shower with the oneyda exposed. Let soapy water run over the oneyda and pat them dry. Do not scrub or soak the incision. Things To Watch For: * Drainage from the incision site that occurs more than one week after your surgery. * Increased redness at the incision site. * Fever above 102 degrees Fahrenheit. * Unusual chest pain or shortness of breath. * Call [facility] at with any of the above problems Follow-Up Visit: Follow-up with Dr. Mendoza's PA (Carlos Sparks) 2-3 weeks after your day of surgery. He will remove your oneyda and answer any questions. If you have any additional questions or concerns, Dr Mendoza is usually in the office at the same time and will be available An appointment was probably scheduled when you signed-up for surgery in the office. If you have any questions call More detailed instructions as well as Frequently Asked Questions were provided in a folder by our office when you signed-up for surgery. Please review these instructions when you get home. If you have any further questions or concerns, please feel free to call the office at [phone] Pending Studies at Discharge: No Stand-Alone Forms: [facility], Smoking Cessation Medications and DC Order Prescriptions: New cyclobenzaprine 10 mg tablet 10 mg PO Q12H PRN (Reason: muscle spasm) Qty: 20 0RF ketorolac 10 mg tablet 10 mg PO Q6H PRN (Reason: pain) 5 Days Qty: 20 0RF Continued cyclobenzaprine 10 mg Tablet 10 mg PO Q8H PRN (Reason: Pain) atenolol 50 mg Tablet 50 mg PO BID levothyroxine 50 mcg Capsule 50 mcg PO QAM omeprazole 20 mg Tablet,Disintegrat, Delay Rel 1 tab PO HS rosuvastatin [Crestor] 10 mg Tablet 10 mg PO HS fluticasone propionate 50 mcg/actuation spray,suspension 2 spray INTRANASAL HS tramadol 50 mg tablet 50 mg PO Q6H PRN (Reason: pain) Qty: 20 0RF acetaminophen 500 mg tablet 1,000 mg PO Q8H PRN (Reason: Pain) Aprodine 2.5-60 mg Tablet 1 tab PO QID PRN (Reason: Allergy Symptoms) diphenhydramine HCl [Allergy Medicine] 25 mg Tablet 25 mg PO UD PRN (Reason: Sleep) Patient Comments: takes for sleep vitamin B complex Tablet 1 tab PO BID losartan 100 mg Tablet 100 mg PO QAM chlorpheniramine-phenylephrine 4-10 mg Tablet 1 tab PO Q4H PRN (Reason: seasonal allergies) Probiotic 1 cap PO QAM Admission Data Admit Date/Time: 03/08/23 14:20 Attending Provider: Carlos Mendoza Admit Provider: Carlos Mendoza Primary Care Provider: Cha Esqueda
[2023-03-09] MEDS ORDERED: dexAMETHasone 4 MG TAB PO SCH (08:00)
[2023-03-09] MEDS: ATENOLOL 50 MG TABLET PO SCH (08:59)
[2023-03-09] MEDS: DOCUSATE SODIUM 100 MG CAP PO SCH (08:59)
[2023-03-09] MEDS ORDERED: MULTIVITAMIN TAB PO SCH (09:00)
[2023-03-09] MEDS ORDERED: LOSARTAN POTASSIUM 50 MG TAB PO SCH (09:00)
[2023-03-09] MEDS: VITAMIN B COMPLEX TAB PO SCH (09:01)
== END 2023-03-09 11:50 | disposition home health service (06) ==
LOC: ASU 11:03 → 3E 11:03

== ENCOUNTER 2024-06-15 07:47 | Inpatient (IN) ==
--- OUTSIDE RECORDS SUMMARY | 2024-06-15 07:55 | External Medical Summary | Summary of Care ---
Author Name Unknown Organization [facility] Address [address] [address] Phone [phone] Care Team Providers Care Boatswain Mate Name Role Phone SabinoCha ch Primary Care Provider Encounter Details Date Type Department Care Team (Late st Contact Info) Description 06/12/2024 Orders Only PATIENT PORTAL DO NOT DELETE THIS DEPT USED BY LINDSE[facility] THOMPSON [id number] Allergies Active Allergy Reactions Criticality Noted Date Comments Aspirin 01/07/2001 thrombocytopenia Clavulanic Acid 11/09/2003 diarrhea Clindamycin 05/22/2022 Rash Raloxifene Rash 09/12/2020 Hydromorphone Low 10/29/2023 Other Reaction(s): N/V Ketamine Neuro complications (Please comment) 12/12/2018 Morphine 12/12/2016 Phenylbutazone 01/16/2001 thrombocytopenia Sulfa Antibiotics 01/07/2001 rash Tizanidine Low 07/31/2020 Causes severe dizziness and diaphoresis per patient Levocetirizine Other (Please comment) 4 Nightmares, dizziness, impaired balance. documented as of this encounter (statuses as of 06/12/2024) Medications Medication Sig Dispensed Refills Start Date End Date Status acetaminophen (TYLENOL) 500 MG TabletIndications:M usculoskeletal back pain Take 2 Tablets by mouth every 8 hours as needed for Pain, Mild. 100 Tab 05/23/2020 Active B Complex Vitamins Oral Capsule Take 1 Capsule by mouth in the morning and 1 Capsule before bedtime. Active Calcium Citrate-Vitamin D 315-5 MG-MCG Oral Tablet Take 2 Tablets by mouth every morning. 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 As needed. 270 Tablet 3 11/06/2023 Active Ibuprofen 200 MG Oral Tablet (Motrin) Take 1 Tablet by mouth every 4 hours as needed. Active Atenolol 50 MG Oral Tablet (Tenormin)Indicatio ns:Tachy-jacinto syndrome (HCC) Take 1 Tablet by mouth in the morning and 1 Tablet before bedtime. 200 Tablet 3 02/03/2024 Active Levothyroxine Sodium 50 MCG Oral Tablet (Levoxyl)Indication s:Hypothyroidism due to acquired atrophy of thyroid Take 1 Tablet by mouth daily first thing in the morning. (at least 30 min prior to breakfast or other meds) 100 Tablet 3 02/03/2024 Active Losartan Potassium 50 MG Oral Tablet (Cozaar)Indications :Essential hypertension with goal blood pressure less than 140/90 Take 1 Tablet by mouth in the morning. 100 Tablet 3 02/03/2024 Active Omeprazole 20 MG Oral Capsule Delayed Release (PriLOSEC)Indicatio ns:Gastroesophageal reflux disease without esophagitis Take 1 Capsule by mouth every afternoon. 100 Capsule 3 02/03/2024 Active Triamcinolone Acetonide 0.1 % External Cream (Aristocort) APPLY TO RED RASH TWICE DAILY NEEDED 80 g 2 02/18/2024 Active FiberCel Oral Powder Take by mouth. Active Fluticasone Propionate 50 MCG/ACT Nasal Suspension (Flonase)Indication s:Chronic rhinitis Administer 2 Sprays into nostril in the morning. 48 g 3 05/05/2024 Active Rosuvastatin Calcium 10 MG Oral Tablet (Crestor)Indication s:Dyslipidemia, goal LDL below 100 Take 1 Tablet by mouth every evening. 100 Tablet 3 05/05/2024 Active predniSONE 10 MG Oral Tablet (Deltasone)Indicati ons:DDD (degenerative disc disease), cervical Take 4 tabs for 2 days, 3 tabs for 2 days, 2 tabs for 2 days 1 tab for 2 days 20 Tablet 05/25/2024 Active Additional Information Patient not taking.Reported on 06/09/2024 traMADol HCl 50 MG Oral Tablet (Ultram) Take 1 Tablet by mouth every 6 hours as needed for Pain, Severe. 30 Tablet 06/03/2024 Active prednisoLONE Acetate 1 % Ophthalmic Suspension (Pred Forte) Instill 1 Drop into the right eye every 2 hours. 06/01/2024 Active LORazepam 0.5 MG Oral Tablet (Ativan) Take 1 Tablet by mouth 3 times a day as needed for Anxiety. 30 Tablet 06/09/2024 Active Ketoconazole 2 % External Shampoo (Nizoral) Apply topically to affected area every 3 days. Shampoo twice a week 360 mL 1 06/10/2024 Active Gabapentin 300 MG Oral Capsule (Neurontin)Indicati ons:Acute right-sided low back pain with right-sided sciatica Take 1 Capsule by mouth at bedtime. 30 Capsule 5 06/10/2024 Active documented as of this encounter (statuses as of 06/12/2024) Active Problems Problem Noted Date Diagnosed Date Pain of toe of right foot 03/03/2024 Hammertoe of right foot 03/03/2024 Type 2 diabetes mellitus without complication Dupuytren's disease of palm 07/31/2023 Paroxysmal SVT (supraventricular tachycardia) Ataxic gait 01/16/2022 Medical marijuana use 06/14/2021 Postoperative anemia due to acute blood loss Status post lumbar laminectomy 07/31/2020 H/O rheumatoid arthritis 06/20/2020 Essential hypertension with goal blood pressure less than 140/90 05/31/2020 Dyslipidemia, goal LDL below 100 12/15/2019 History of supraventricular tachycardia 03/05/20 19 Overview: Paroxysmal Historical. 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 Cardiac pacemaker in situ 12/31/2001 Other psoriasis GENERAL OSTEOARTHROSIS DISC DIS [id number] documented as of this encounter (statuses as of 06/12/2024) Resolved Problems Problem Noted Date Diagnosed Date Resolved Date Supraventricular tachycardia 02/03/2024 06/03/2024 Overview: Duplicate Nondisplaced fracture of mid dle third of navicular bone of left wrist with routine healing 07/25/2022 01/27/2024 Non-pressure chronic ulcer of right lower leg 06/26/20 22 04/04/2023 Cauda equina syndrome 06/26/20222023 Heart failure 06/26/2022 11/02/2022 Diabetes mellitus without complication 06/26/2022 06/03/2024 Overview: Duplicate Dizziness 01/16/2022 01/27/2024 Nausea and vomiting 01/16/2022 04/04/20 23 Psoriasis, unspecified 10/10/202105/18 Overview: Other psoriasis on PL Preseptal cellulitis of right eye 04/16/2019 01/27/2024 Personal history of healed o steoporosis fracture 03/17/2019 06/01/2020 Overview: Historical. Deep vein thrombosis (DVT) p rophylaxis prescribed at discharge 12/16/2017 04/04/2023 Rheumatoid arthritis involvi ng multiple sites with positive rheumatoid factor 12/12/2016 06/12/20 17 Rheumatoid arthritis of mult iple sites without rheumatoid factor 09/26/2016 06/20/2020 History of squamous cell carcinoma 04/20/2015 06/01/2020 Overview: Historical. History of actinic keratosis 04/20/2015 06/01/2020 Overview: Historical. Dysfunction of eustachian tube 09/25/2011 06/01/2020 Overview: Acute. VERTEBRAL FRACTURE, OSTEOPOROTIC 11/08/2008 08/28/2019 Overview: Per Osteoporotic Vertebral Fracture Protocol # 9 Cellulitis of finger 10/11/2005 007 ADVANCE DIRECTIVE INFORMATION 06/18/2005 06/01/2020 Overview: No, Advance Directive brochure given to patient at prior appointment. Historical. Other psoriasis 12/11/2004 12/04/2006 COLLES' FRACTURE-CLOSED 12/27/200301/2007 #[id number]\CORRONA\ENEWMAN 12/17/2003 Overview: Renamed Per Clinical Trials Billing Project. Pt is a participant in the [facility] (Consortium of Rheumatology Researchers of [place]) national data collection study. For further information please call Dr Medardo Orr or Halina Angulo, RN, CCRC at [phone] [facility] RESEARCH OTHER*[id number] 12/17/2003 05/29/2010 Overview: Renamed Per Clinical Trials Billing Project. Pt is a participant in the [facility] (Consortium of Rheumatology Researchers of [place]) national data collection study. For further information please call Dr Medardo Orr or Halina Angulo, RN, CCRC at [phone] Osteoporosis 03/05/2003 09/05/2011 PAROXYSMAL SVT- hx of 12/07/20022018 ARTHRITIS,RHEUMATOID 09/04/2001 016 INFORMATION 12/04/2006 Ankylosing spondylitis 01/04 Chronic sinusitis 06/15/2020 documented as of this encounter (statuses as of 06/12/2024) Immunizations Name Administration Dates Next Due COVID-19 mRNA, LNP-s, No Pre serve, 2-Dose Series (Moderna) 09/14/2021,01/29/2021,12/22/2020 COVID-19, MRNA-LNP, 23-24, P F, 30 MCG/0.3 mL, 12 YRS AND ABOVE, IM (PFIZER-Comirnat) 08/23/2023 COVID-19, mRNA, LNP-s, PF, B ooster, 100mcg/0.5mg (Moderna) 04/03/2022 Covid-19, Mrna, Lnp-s, Pf, B ivalent, 30 Mcg, IM, 12 yrs and above (Pfizer) 04/25/2023,09/05/2022 Pneumococcal Conjugate Vacc, 13 Valent (Prevnar) 07/02/2016 Pneumococcal Polysaccharide PPV23 (Pneumovax) 01/14/2008 Seasonal Influenza, PF, 6 M & above, IM , (FluLaval or Fluzone) 09/07/2019,09/03/2018,10/18/2017 09/07/2019 Seasonal Influenza, Quadriva lent Hd (Fluzone Hd) 09/13/2023,09/13/2022,08/22/2021 Seasonal Influenza, Quadriva lent Hd, 65+ Yrs 09/08/2020 Seasonal Influenza, Quadriva lent, No Preserve, IM 09/29/2016,07/15/2015 Seasonal Influenza, Split, I IV3, With Preserve, Inj 08/24/2014,08/25/2013,08/22/2012,1004/2011,09/01/2010,09/01/2009,09/16/20 08,09/24/2007,10/01/2006 TDAP (age 10 and older)(Boostrix) 10/10/2021 TDAP, Age 7 and older, IM (Adacel) 01/05/2011 Typhoid Parenteral 12/22/2010 Varicella Zoster Vaccine (Adult) 12/01/2007 Yellow Fever Vaccine, Live (YF-Vax) 05/02/2009 Zoster Vaccine Recombinant (Shingrix) 09/04/2021 ,12/15/2019,07/29/2019 09/28/2019 documented as of this encounter Social History Tobacco Use Types Packs/Day Years Used Date Smoking Tobacco: Never Passive Smoke Exposure: Past Smokeless Tobacco: Never Alcohol Use Standard Drinks/Week Comments Yes 0 (1 standard drink = 0.6 oz pur e alcohol) on occasion-wine once a week PHQ-2 Answer Date Recorded PHQ Adult Total Score 0 11/06/2023 Hunger Vital Sign Answer Date Recorded Within the past 12 months, y ou worried that your food would run out before you got the money to buy more. Never true 11/06/20 23 Within the past 12 months, t he food you bought just didn't last and you didn't have money to get more. Never true 11/06/2023 Childcare Answer Date Recorded Do you feel overwhelmed with taking care of a child, family member or friend? No 11/06/2023 Does your family need help f inding childcare? (Household - for ages 0-17 years) Not on file 11/06/2023 Clothing Answer Date Recorded Have you been unable to get clothing when it was really needed? No 11/06/2023 Is your family able to get c lothes or diapers when needed? (Household - for ages 0-17 years) Not on file 11/06/2023 Personal Safety Answer Date Recorded Do you feel unsafe or have concerns for your saf ety? No 11/06/2023 Do you have concerns for you r family's safety? (Household - for ages 0-17 years) Not on file 11/06/2023 Utilities Answer Date Recorded Do you have trouble paying y our heating, water, or electric bill? No 11/06/2023 Is your family able to pay t he heat, water, or electric bill? (Household - for ages 0-17 years) Not on file 11/06/2023 Does your family have access to good internet? (Household - for ages 0-17 years) Not on file 11/06/2023 Employment Status Answer Date Recorded Are you unemployed or without regular income? No 11/06/2023 Does the household have a re lar source of income? (Household - for ages 0-17 years) Not on file 11/06/2023 Social Connections Answer Date Recorded How often do you feel lonely or isolated from th ose around you? Never 11/06/2023 Financial Resource Strain Answer Date R ecorded Do you have any trouble payi ng for your medications, or do you think you might in the future? No 11/06/2023 Does your family have troubl e paying for medicine? (Household - for ages 0-17 years) Not on file 11/06/2023 Transportation Needs Answer Date Record ed READ ONLY Do you have troubl e getting a ride to medical visits or work? Never True 11/06/2023 Does your family have a hard time getting a ride to doctors visits? (Household - for ages 0-17 years) Not on file 11/06/2023 Has lack of transportation k ept you from medical appointments, meetings, work, or from getting things needed for daily living? Check all that apply. (Adult - for ages 18 years and over) Not on file 11/06/2023 Do you (or your family) have trouble finding or paying for a ride (transportation)? (Household - for ages 0-17 years) Not on file 11/06/2023 Housing Stability Answer Date Recorded Do you currently live in a s helter or have no steady place to sleep at night? No 11/06/2023 READ ONLY Do you think you a re at risk of becoming homeless? No 11/06/2023 Does your family worry about paying for your home or becoming homeless? (Household - for ages 0-17 years) Not on file 1 01/07/2023 Are you homeless or worried that you might be in the future? (Adult - for ages 18 years and over) Not on file Are you (or your family) cindy eless or worried that you might be in the future? (Household - for ages 0-17 years) Not on file Food Insecurity Answer Date Recorded Do you need food for this week? No 11/06/2023 Are you able to get enough f ood for your family? (Household - for ages 0-17 years) Not on file 11/06/2023 Does your family need food t his week? (Household - for ages 0-17 years) Not on file 11/06/2023 Do you always have enough fo od for your family? (Household - for ages 0-17 years) Not on file 11/06/2023 Sex and Gender Information Value Date Recorded Sex Assigned at Female 12/19/2020 1:59 PM EST Gender Identity Female 12/19/2020 1:59 PM EST Sexual Orientation Straight 12/19/2020 1: 59 PM EST Job Start Date Occupation Industry Not on file Not on file Not on file documented as of this encounter Functional Status Functional Status Response Date of Assess ment Are you deaf or do you have serious difficulty h earing? No 07/29/2020 Are you blind or do you have serious difficulty seeing, even when wearing glasses? No 07/29/2020 Do you have serious difficul ty walking or climbing stairs? (5 years old or older) No 07/29/2020 Do you have difficulty dress ing or bathing? (5 years old or older) No 07/29/2020 Because of a physical, menta l, or emotional condition, do you have difficulty doing errands alone such as visiting a doctor s office or shopping? (15 years old or older) No 07/29/20 20 Cognitive Status Response Date of Assessm ent Because of a physical, menta l, or emotional condition, do you have serious difficulty concentrating, remembering, or making decisions? (5 years old or older) No 07/29/2020 documented as of this encounter Plan of Treatment Upcoming Encounters Date Type Department Care Team (Late st Contact Info) Description 06/24/2024 8:40 AM EDT Office Visit Family Practice [address] [place] [address] [place] [id number] Cha Esqueda [address] [place] [address] Scheduled Procedures Name Priority Associated Diagnoses Date/Ti me COLONOSCOPY FLEXIBLE PROXIMAL DIAGNOSTIC Recall History of colon polyps Health Maintenance Due Date Last Done Comments *BISPHONATE OR OTHER ACCEPTABLE MEDICATION NEEDED FOR OSTEOPOROSIS (REFER TO SMARTSET #1146) 05/28/2020 COVID-19 Vaccine ( season) 2023 08/23/2023, 04/25/2023, 09/05/2022, Additional history exists Diabetic Foot Exam 06/06/2024 06/06/2023, 08/02/2022 Influenza Vaccine (FLU shot) (#1) 2024 09/13/2023, 09/13/2022, 08/22/2021, Additional history exists Albumin/Creatinine Ratio 08/06/2024 023, 08/02/2022, 12/20/2020 Diabetic Eye Exam 10/17/2024 10/17/2023, , 09/17/2023, Additional history exists HbA1c 11/04/2024 05/05/2024, 10/02, 04/04/2023, Additional history exists Depression Screening 11/06/2024 11/06/2023 GFR 05/05/2025 05/05/2024, 01/30, 10/17/2023, Additional history exists TSH 05/05/2025 05/05/2024, 0503/2023, 08/08/2022, Additional history exists Colonoscopy 07/19/2025 07/19/2020, 07/02, 12/30/2006 DTaP,Tdap,and Td Vaccines (3 - Td or Tdap) 10/10/2031 10/10/2021, 01/05/2011, 04/29/2001 Pneumococcal Vaccine: 65+ Years Completed 07/02/2016, 01/14/2008, 09/17/2001 VITAMIN D LEVEL ONCE IN A LIFETIME-USE SMARTSET# 17783 Completed 05/08/2018, 12/09/2015, 12/08/2014, Additional history exists DXA Scan Discontinued 07/13/2020, 05/03, 06/06/2015, Additional history exists RETIRED - COLONOSCOPY-EVERY 5 YRS AGES 18-100 Discontinued 07/19/2020, 07/19/2020, 12/30/2006 Zoster Vaccines Completed 09/04/2021, 12/02, 07/29/2019, Additional history exists HPV (Gardasil) Vaccine Aged Out No lo nger eligible based on patient's age to complete this topic Hepatitis B Vaccine Aged Out No longe r eligible based on patient's age to complete this topic MENINGOCOCCAL (MENACTRA/MENVEO) Aged Out No longer eligible based on patient's age to complete this topic documented as of this encounter Medical Devices Implanted Type Area Insurance Healthcare Representative Device Identifier Shelf Expiration Date Model / Serial / Lot Tube Modified T [id number] - [id number] Implanted:Qty: 1 on 07/25/2017 by Marcelino Madison DO at OR [facility] Left: Ear GYRUS : ENT 11/13/2026 [id number] / / [id number] Trident Hemispherical Muli - [id number] Implanted:Qty: 1 on 12/13/2017 by Pardeep Martinez MD at [place] [facility] Right: Hip CHELSEA : ORTHOPAEDICS 09/26/2022 [id number] / / [id number] Screw Acetabular 6.5mm Yuli 20m - [id number] Implanted:Qty: 1 on 12/13/2017 by Pardeep Martinez MD at [place] [facility] Right: Hip CHELSEA : ORTHOPAEDICS 10/07/[id number] / / [id number] Bone Screw Cancellous 65 45 - [id number] Implanted:Qty: 1 on 12/13/2017 by Pardeep Martinez MD at [place] [facility] Right: Hip CHELSEA : ORTHOPAEDICS 08/05/[id number]- / / [id number] Screw Acetabular 6.5mm Yuli 20m - [id number] Implanted:Qty: 1 on 12/13/2017 by Pardeep Martinez MD at [place] [facility] Right: Hip CHELSEA : ORTHOPAEDICS 10/07/2022 / / [id number] Liner 42mm - [id number] Implanted:Qty: 1 on 12/13/2017 by Pardeep Martinez MD at [place] [facility] Right: Hip CHELSEA : ORTHOPAEDICS 08/27/2021 [id number] / / [id number] Insert 28mm - [id number] Implanted:Qty: 1 on 12/13/2017 by Pardeep Martinez MD at [place] [facility] Right: Hip CHELSEA : ORTHOPAEDICS 07/03/2022 [id number] / / [id number] Head Delta Cer 12 14 28mm 5.0 - [id number] Implanted:Qty: 1 on 12/13/2017 by Pardeep Martinez MD at [place] [facility] Right: Hip SYNTHES : DEPUY 10/01/2022 [id number] / / [id number] Duragen Plus 1x3 Dp 1013 Min5 - [id number] - [id number] Implanted:Qty: 1 on 07/29/2020 by Tadeo Bonilla MD at [place] [facility] [employer]oz JEMIMA [id number] 05/01/2023 [id number] / [id number] / [id number] VectBudgetSimple Surescan Mri 1x8 Compact Implanted:Qty: 1 on 08/01/2021 by Arnoldo Regan MD at OR [facility] N/A: Back Medtronic 03/06/2025 [id number] / / [id number] Description:Part of a kit. Vectris Surescan Mri 1x8 Compact Implanted:Qty: 1 on 08/01/2021 by Arnoldo Regan MD at OR [facility] N/A: Back Medtronic 07/04/2025 [id number] / / [id number] Description:Part of a kit. Neurostimul Intellis Adaptiv - [id number] - [id number] Implanted:Qty: 1 on 08/01/2021 by Arnoldo Regan MD at OR [facility] N/A: Back [employer] 04/28/2022 [id number] / [id number] / Description:Part of a kit. Envelope Antibacterial Tyrx - [id number] Implanted:Qty: 1 on 08/01/2021 by Arnoldo Regan MD at OR [facility] N/A: Back MEDTRONIC : CRM 05/05/2022 [id number] / / [id number] documented as of this encounter Advance Directives Documents on File Type Date Recorded Patient Claims Customer Service Representative Expl anation Advance Directives and Living Will 11/20/2020 ADVANCE DIRECTIVE REVISED/DURABLE POA HEALTHCARE/LIVING WILL 11/05/19 Power of Assistant Finance Director 07/18/2017 POWER OF A TTORNEY POA * Full Code (Latest Code Status on File) Date Activated Date Inactivated Comments 07/29/2020 1:46 PM 08/03/2020 3:48 PM This order re flects the patients wishes and were consensually agreed upon. Question Answer Comments Discussion of Advance Directives occurred with: Patient Does the patient have a Living Will? No Does the patient have Health Care Power of Attor price? No * No Code Date Activated Date Inactivated Comments 04/16/2019 1:13 AM 04/17/2019 8:55 PM This order r eflects the patients wishes and were consensually agreed upon. Question Answer Comments Discussion of Advance Directives occurred with: Patient Does the patient have a Living Will? Yes, not cu rrently available Does the patient have Health Care Power of Assistant Finance Director? Yes, not currently available * Full Code Date Activated Date Inactivated Comments 12/13/2017 7:47 PM 12/15/2017 6:34 PM This order r eflects the patients wishes and were consensually agreed upon. Question Answer Comments Discussion of Advance Directives occurred with: Patient Does the patient have a Living Will? No Does the patient have Health Care Power of Attor price? No Care Teams Boatswain Mate Relationship Specialty Start Date End Date Cha Esqueda DO [address] [place] [address] PCP - General Family Medicine 05/25/24 documented as of this encounter
--- OUTSIDE RECORDS SUMMARY | 2024-06-15 07:55 | External Medical Summary | Summary of Care ---
Author Name Unknown Organization [facility] Address [address] [place] [address] Phone [phone] Care Team Providers Care Wet Cotton Feeder Name Role Phone Cha Esqueda Primary Care Provider [phone] Reason for Visit * Reason Onset Date Comments Advice 06/10/2024 Xray results Encounter Details Date Type Department Care Team (Late st Contact Info) Description 06/10/2024 Telephone Rheumatology [facility], [place] [address] [place] [address] Solomon Whipple PA-C [address] [facility] [place] [id number] Advice (Xray results) Allergies Active Allergy Reactions Criticality Noted Date Comments Aspirin 01/07/2001 thrombocytopenia Clavulanic Acid 11/09/2003 diarrhea Clindamycin 05/22/2022 Rash Raloxifene Rash 09/12/2020 Hydromorphone Low 10/29/2023 Other Reaction(s): N/V Ketamine Neuro complications (Please comment) 12/12/2018 Morphine 12/12/2016 Phenylbutazone 01/16/2001 thrombocytopenia Sulfa Antibiotics 01/07/2001 rash Tizanidine Low 07/31/2020 Causes severe dizziness and diaphoresis per patient Levocetirizine Other (Please comment) Nightmares, dizziness, impaired balance. documented as of this encounter (statuses as of 06/11/2024) Medications Medication Sig Dispensed Refills Start Date [...] as of this encounter (statuses as of 06/11/2024) Active Problems Problem Noted Date Diagnosed Date [...] 100 12/15/2019 History of supraventricular tachycardia 03/05/20 Overview: Paroxysmal Historical. 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 Pt is a participant in the [facility] (Consortium of Rheumatology Researchers of [place]) national data collection study. For further information please call Dr Medardo Orr or Halina Angulo, RN, CCRC at [phone] [facility] RESEARCH OTHER*[id number] 12/17/2003 05/29/2010 Overview: Renamed Per Clinical Trials Billing Project. Pt is a participant in the [facility] (Consortium of Rheumatology Researchers of [place]) national data collection study. For further information please call Dr Medardo Orr or Halina Angulo, RN, CCRC at [phone] Osteoporosis 03/05/2003 09/05/2011 PAROXYSMAL SVT- hx of 12/07/20022018 ARTHRITIS,RHEUMATOID 09/04/2001 016 INFORMATION 12/04/2006 Ankylosing spondylitis 01/04 Chronic sinusitis 06/15/2020 documented as of this encounter (statuses as of 06/11/2024) Immunizations Name Administration Dates Next Due COVID-19 mRNA, LNP-s, No Pre serve, 2-Dose Series (Moderna) 09/14/2021,01/29/2021,12/22/2020 COVID-19, MRNA-LNP, 23-24, P F, 30 MCG/0.3 mL, 12 YRS AND ABOVE, IM (PFIZER-Comirnaty) 08/23/2023 COVID-19, mRNA, LNP-s, PF, B ooster, [...] Influenza, Split, I IV3, With Preserve, Inj 08/24/2014,08/25/2013,08/22/2012,04/2011,09/01/2010,09/01/2009,09/16/20 08,09/24/2007,10/01/2006 TDAP (age 10 and older)(Boostrix) 10/10/2021 [...] 11/06/2023 Does the household have a re gular source of income? (Household - for ages [...] No 07/29/2020 documented as of this encounter Miscellaneous Notes * Telephone Encounter - Barby Chirinos OSA - 06/10/2024 3:46 PM EDT Patients daughter came to desk asking if Solomon could call to make the xray's stat because they are out to 11 day to get xrays read. documented in this encounter Plan of Treatment Upcoming Encounters Date Type Department Care Team (Late st Contact Info) Description 06/24/2024 8:40 AM EDT Office Visit Family Practice [address], [place] [address] [place] [address] Cha Esqueda, DO [address] [facility] [place] [address] Scheduled Procedures Name Priority Associated Diagnoses Date/Ti [...] 10/17/2023, Additional history exists TSH 05/05/2025 05/05/2024, 05/0 03/2023, 08/08/2022, Additional history exists Colonoscopy 07/19/2025 07/19/2020, 07/02, 12/30/2006 DTaP,Tdap,and Td Vaccines (3 - Td or Tdap) 10/10/2031 10/10/2021, 01/05/2011, 04/29/2001 Pneumococcal Vaccine: 65+ Years Completed 07/02/2016, 01/14/2008, 09/17/2001 VITAMIN D LEVEL ONCE IN A LIFETIME-USE SMARTSET# 29200 Completed 05/08/2018, 12/09/2015, 12/08/2014, Additional history exists [...] this encounter Medical Devices Implanted Type Area Occupational Work Experience Teacher Device Identifier Shelf Expiration Date Model / Serial / Lot Tube Modified T [id number] - [id number] Implanted:Qty: 1 on 07/25/2017 by Marcelino Madison DO at OR [facility] Left: Ear GYRUS : ENT 11/13/2026 [id number] / / [id number] Trident Hemispherical Muli - [id number] Implanted:Qty: 1 on 12/13/2017 by Pardeep Martinez MD at OR [facility] Right: Hip CHELSEA : ORTHOPAEDICS 09/26/2022 508-11-52E / / [id number] Screw Acetabular 6.5mm Yuli 20m - [id number] Implanted:Qty: 1 on 12/13/2017 by Padreep Martinez MD at OR [facility] [place] [facility] Right: Hip CHELSEA : ORTHOPAEDICS 10/07/202220291297-8721-1 / / [id number] Bone Screw Cancellous 65 45 - [id number] Implanted:Qty: 1 on 12/13/2017 by Pardeep Martinez MD at OR [facility] Right: Hip CHELSEA : ORTHOPAEDICS 08/05/202220290298-5067-1 / / [id number] Screw Acetabular 6.5mm Yuli 20m - [id number] Implanted:Qty: 1 on 12/13/2017 by Pardeep Martinez MD at OR [facility] [place] Right: Hip CHELSEA : ORTHOPAEDICS 10/07/202220291706-5807-1 / / [id number] Liner 42mm - [id number] Implanted:Qty: 1 on 12/13/2017 by Pardeep Martinez MD at OR [facility] Right: Hip CHELSEA : ORTHOPAEDICS 08/27/2021 626-00-42E / / [id number] Insert 28mm - [id number] Implanted:Qty: 1 on 12/13/2017 by Pardeep Martinez MD at OR [facility] [place] [facility] Right: Hip CHELSEA : ORTHOPAEDICS 07/03/2022 1236-2-848 / / [id number] Head Delta Cer 12 14 28mm 5.0 - [id number] Implanted:Qty: 1 on 12/13/2017 by Pardeep Martinez MD at OR [facility] Right: Hip SYNTHES : DEPUY 10/01/2022 [id number] / / [id number] Duragen Plus 1x3 Dp 1013 Min5 - [id number] - [id number] Implanted:Qty: 1 on 07/29/2020 by Tadeo Bonilla MD at OR [facility] ice [id number] 05/01/2023 [id number] / [id number] / [id number] Vectris Surescan Mri 1x8 Compact Implanted:Qty: 1 on 08/01/2021 by Arnoldo Regan MD at OR [facility] N/A: Back Medtronic 03/06/2025 [id number] / / [id number] Description:Part of a kit. Vectris Surescan Mri 1x8 Compact Implanted:Qty: 1 on 08/01/2021 by Arnoldo Regan MD at OR [facility] N/A: Back Medtronic 07/04/2025 [id number] / / [id number] Description:Part of a kit. Neurostimul Intellis Adaptiv - [id number] - [id number] Implanted:Qty: 1 on 08/01/2021 by Arnoldo Regan MD at OR [facility] N/A: Back [employer] 04/28/2022 [id number] / [id number] / Description:Part of a kit. Envelope Antibacterial Tyrx - [id number] Implanted:Qty: 1 on 08/01/2021 by Arnoldo Regan MD at OR [facility] N/A: Back MEDTRON[employer] : CRM 05/05/2022 [id number] / / [id number] documented as of this encounter Advance Directives Documents on File Type Date Recorded Patient Chair Inspector And Leveler Expl anation Advance Directives and Living Will 11/20/2020 ADVANCE DIRECTIVE REVISED/DURABLE POA HEALTHCARE/LIVING WILL 11/05/19 Power of Med Spa Manager 07/18/2017 POWER OF A TTORNEY POA * [...] the patient have Health Care Power of Med Spa Manager? Yes, not currently available * Full Code Date Activated Date Inactivated Comments 12/13/2017 7:47 PM 12/15/2017 6:34 PM This order r eflects the patients wishes and were consensually agreed upon. Question Answer Comments Discussion of Advance Directives occurred with: Patient Does the patient have a Living Will? No Does the patient have Health Care Power of Attor price? No Care Teams Wet Cotton Feeder Relationship Specialty Start Date End Date Cha Esqueda DO [address] [place] [address] PCP - General Family Medicine 05/25/24 documented as of this encounter
--- OUTSIDE RECORDS SUMMARY | 2024-06-15 07:55 | External Medical Summary | Summary of Care ---
Author Name Unknown Organization [facility] Address [address] [place] [address] Phone [phone] Care Team Providers Care Assessor Name Role Phone TroyjenCha ch Primary Care Provider [phone] Reason for Visit * Reason Comments Outpatient Testing Encounter Details Date Type Department Care Team (Late st Contact Info) Description 06/12/2024 3:00 PM EDT Laboratory Laboratory [facility] [address] [place] [id number] [place], [facility] [address] [place] [address] Acute right-sided low back pain with right-sided sciatica Allergies Active Allergy Reactions Criticality Noted Date [...] Historical. 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 Pt is a participant in the [facility] (Consortium of Rheumatology Researchers of [place]) national data collection study. For further information please call Dr Medardo Orr or Halina Angulo, RN, CCRC at [phone] [facility] RESEARCH OTHER*[id number] 12/17/2003 05/29/2010 Overview: Renamed Per Clinical Trials Billing Project. Pt is a participant in the [facility] (Consortium of Rheumatology Researchers of [place]) national data collection study. For further information please call Dr Medardo Orr or Halina Angulo, RN, CCRC at [phone] Osteoporosis 03/05/2003 09/05/2011 PAROXYSMAL SVT- hx of [...] Influenza, Split, I IV3, With Preserve, Inj 08/24/2014,08/25/2013,08/22/2012,10/04/2011,09/01/2010,09/01/2009,09/16/20 08,09/24/2007,10/01/2006 TDAP (age 10 and older)(Boostrix) 10/10/2021 [...] EDT Office Visit Family Practice [address], [place] [address] [place] [address] Cha Esqueda, [address] [place] [address] Pending Results Name Type Priority Associated Diagnoses Date /Time TPMT ACTIVITY Lab Routine Acute right-sided low back pain with right-sided sciatica 06/12/2024 3:01 PM EDT Scheduled Procedures Name Priority Associated Diagnoses Date/Ti [...] D LEVEL ONCE IN A LIFETIME-USE SMARTSET# 28203 Completed 05/08/2018, 12/09/2015, 12/08/2014, Additional history exists [...] this encounter Medical Devices Implanted Type Area Paperhanger Assistant Device Identifier Shelf Expiration Date Model / Serial / Lot Tube Modified T [id number] - [id number] Implanted:Qty: 1 on 07/25/2017 by Marcelino Madison DO at OR [facility] Left: Ear GYRUS : ENT 11/13/2026 [id number] / / [id number] Trident Hemispherical Muli - [id number] Implanted:Qty: 1 on 12/13/2017 by Pardeep Martinez MD at [place] [facility] Right: Hip CHELSEA : ORTHOPAEDICS 09/26/2022 508-11-52E / / [id number] Screw Acetabular 6.5mm Yuli 20m - [id number] Implanted:Qty: 1 on 12/13/2017 by Pardeep Martinez MD at [place] [facility] Right: Hip CHELSEA : ORTHOPAEDICS 10/07/20229640-0230- / / [id number] Bone Screw Cancellous 65 45 - [id number] Implanted:Qty: 1 on 12/13/2017 by Pardeep Martinez MD at [place] [facility] Right: Hip CHELSEA : ORTHOPAEDICS 08/05/202220290578-4752- / / [id number] Screw Acetabular 6.5mm Yuli 20m - [id number] Implanted:Qty: 1 on 12/13/2017 by Pardeep Martinez MD at [place] [facility] Right: Hip CHELSEA : ORTHOPAEDICS 10/07/20225773-2027- / / [id number] Liner 42mm - [id number] Implanted:Qty: 1 on 12/13/2017 by Pardeep Martinez MD at [place] [facility] Right: Hip CHELSEA : ORTHOPAEDICS 08/27/2021 626-00-42E / / [id number] Insert 28mm - [id number] Implanted:Qty: 1 on 12/13/2017 by Pardeep Martinez MD at [place] [facility] Right: Hip CHELSEA : ORTHOPAEDICS 07/03/2022 1236-2-848 / / [id number] Head Delta Cer 12 14 28mm 5.0 - [id number] Implanted:Qty: 1 on 12/13/2017 by Pardeep Martinez MD at [place] [facility] Right: Hip SYNTHES : DEPUY 10/01/2022 [id number] / / [id number] Duragen Plus 1x3 Dp 1013 Min5 - [id number] - [id number] Implanted:Qty: 1 on 07/29/2020 by Tadeo Bonilla MD at [place] [facility] [place] JEMIMA [id number] 05/01/2023 [id number] / [id number] / [id number] Vectris Surescan Mri 1x8 Compact Implanted:Qty: 1 on 08/01/2021 by Arnoldo Regan MD at OR [facility] N/A: Back Medtronic 03/06/2025 [id number] / / [id number] Description:Part of a kit. Vectris Surescan Mri 1x8 Compact Implanted:Qty: 1 on 08/01/2021 by Arnoldo Regan MD at OR [facility] N/A: Back Medtronic 07/04/2025 [id number] / / [id number] Description:Part of a kit. Neurostimul Intellis Adaptiv - [id number] - [id number] Implanted:Qty: 1 on 08/01/2021 by Arnoldo Regan MD at OR [facility] N/A: Back [employer] 04/28/2022 [id number] / [id number] / Description:Part of a kit. Envelope Antibacterial Tyrx - [id number] Implanted:Qty: 1 on 08/01/2021 by Arnoldo Regan MD at OR [facility] N/A: Back [employer]TR[employer] : CRM 05/05/2022 [id number] / / [id number] documented as of this encounter Visit Diagnoses Diagnosis Acute right-sided low back pain with right-sided sciatica documented in this encounter Advance Directives Documents on File Type Date Recorded Patient Information Systems Security Specialist Expl anation Advance Directives and Living Will 11/20/2020 ADVANCE DIRECTIVE REVISED/DURABLE POA HEALTHCARE/LIVING WILL 11/05/19 Power of Meat Pumper 07/18/2017 POWER OF A TTORNEY POA * [...] the patient have Health Care Power of Meat Pumper? Yes, not currently available * Full Code Date Activated Date Inactivated Comments 12/13/2017 7:47 PM 12/15/2017 6:34 PM This order r eflects the patients wishes and were consensually agreed upon. Question Answer Comments Discussion of Advance Directives occurred with: Patient Does the patient have a Living Will? No Does the patient have Health Care Power of Attor price? No Care Teams Assessor Relationship Specialty Start Date End Date Cha Esqueda DO [address] [place] [address] PCP - General Family Medicine 05/25/24 documented as of this encounter
--- OUTSIDE RECORDS SUMMARY | 2024-06-15 07:55 | External Medical Summary | Summary of Care ---
Author Name Unknown Organization [facility] Address [address] [place] [address] Phone [phone] Care Team Providers Care Net Architect Name Role Phone Cha Esqueda Primary Care Provider Reason for Visit * Reason Onset Date Comments Advice 06/10/2024 Xray results Encounter Details Date Type Department Care Team (Late st Contact Info) Description 06/10/2024 Telephone Rheumatology [facility] [address] [place] [address] Solomon Whipple PA-C [address] [facility] [place] [phone] Advice (Xray results) Allergies Active Allergy Reactions [...] Historical. 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 Pt is a participant in the [facility] (Consortium of Rheumatology Researchers of [place]) national data collection study. For further information please call Dr Medardo Orr or Halina Angulo, RN, CCRC at [phone] [facility] RESEARCH OTHER*[id number] 12/17/2003 05/29/2010 Overview: Renamed Per Clinical Trials Billing Project. Pt is a participant in the [facility] (Consortium of Rheumatology Researchers of [place]) national data collection study. For further information please call Dr Medardo Orr or Halina Angulo, RN, CCRC at [phone] Osteoporosis 03/05/2003 09/05/2011 PAROXYSMAL SVT- hx of [...] EDT Office Visit Family Practice [address], [place] [address] [place] [address] Cha Esqueda, DO [address] [place] [address] Scheduled Procedures Name Priority Associated Diagnoses Date/Ti [...] D LEVEL ONCE IN A LIFETIME-USE SMARTSET# 15829 Completed 05/08/2018, 12/09/2015, 12/08/2014, Additional history exists [...] this encounter Medical Devices Implanted Type Area Bench Tool Maker Device Identifier Shelf Expiration Date Model / Serial / Lot Tube Modified T [id number] - [id number] Implanted:Qty: 1 on 07/25/2017 by Marcelino Madison DO at OR [facility] Left: Ear GYRUS : ENT 11/13/2026 [id number] / / [id number] Trident Hemispherical Muli - [id number] Implanted:Qty: 1 on 12/13/2017 by Pardeep Martinez MD at OR [facility] Right: Hip CHELSEA : ORTHOPAEDICS 09/26/2022 508-11-52E / / [id number] Screw Acetabular 6.5mm Yuli 20m - [id number] Implanted:Qty: 1 on 12/13/2017 by Pardeep Martinez MD at OR [facility] Right: Hip CHELSEA : ORTHOPAEDICS 10/07/202220299793-5064-1 / / [id number] Bone Screw Cancellous 65 45 - [id number] Implanted:Qty: 1 on 12/13/2017 by Pardeep Martinez MD at OR [facility] Right: Hip CHELSEA : ORTHOPAEDICS 08/05/202220296019-6590-1 / / [id number] Screw Acetabular 6.5mm Yuli 20m - [id number] Implanted:Qty: 1 on 12/13/2017 by Pardeep Martinez MD at OR [facility] Right: Hip CHELSEA : ORTHOPAEDICS 10/07/202220295419-3233-1 / / [id number] Liner 42mm - [id number] Implanted:Qty: 1 on 12/13/2017 by Pardeep Martinez MD at OR [facility] Right: Hip CHELSEA : ORTHOPAEDICS 08/27/2021 626-00-42E / / [id number] Insert 28mm - [id number] Implanted:Qty: 1 on 12/13/2017 by Pardeep Martinez MD at OR [facility] Right: Hip CHELSEA : ORTHOPAEDICS 07/03/2022 1236-2-848 / / [id number] Head Delta Cer 12 14 28mm 5.0 - [id number] Implanted:Qty: 1 on 12/13/2017 by Pardeep Martinez MD at OR [facility] Right: Hip SYNTHES : DEPUY 10/01/2022 [id number] / / [id number] Duragen Plus 1x3 Dp 1013 Min5 - [id number] - [id number] Implanted:Qty: 1 on 07/29/2020 by Tadeo Bonilla MD at OR [facility] [place] [id number] 05/01/2023 [id number] / [id number] / [id number] Vectris Surescan Mri 1x8 Compact Implanted:Qty: 1 on 08/01/2021 by Arnoldo Regan MD at OR [facility] N/A: Back Medtronic 03/06/2025 [id number] / / [id number] Description:Part of a kit. Vectris Surescan Mri 1x8 Compact Implanted:Qty: 1 on 08/01/2021 by Arnoldo Regan MD at OR [facility] N/A: Back Medtronic 07/04/2025 [id number] / / [id number] Description:Part of a kit. Neurostimul Intellis Adaptiv - [id number] - [id number] Implanted:Qty: 1 on 08/01/2021 by Arnoldo Regan MD at OR [facility] N/A: Back [employer] 04/28/2022 [id number] / [id number] / Description:Part of a kit. Envelope Antibacterial Tyrx - [id number] Implanted:Qty: 1 on 08/01/2021 by Arnoldo Regan MD at OR [facility] N/A: Back [employer] : CRM 05/05/2022 [id number] / / [id number] documented as of this encounter Advance Directives Documents on File Type Date Recorded Patient Environmental Services Worker Expl anation Advance Directives and Living Will 11/20/2020 ADVANCE DIRECTIVE REVISED/DURABLE POA HEALTHCARE/LIVING WILL 11/05/19 Power of Remelt Furnace Expediter 07/18/2017 POWER OF A TTORNEY POA * [...] the patient have Health Care Power of Remelt Furnace Expediter? Yes, not currently available * Full Code Date Activated Date Inactivated Comments 12/13/2017 7:47 PM 12/15/2017 6:34 PM This order r eflects the patients wishes and were consensually agreed upon. Question Answer Comments Discussion of Advance Directives occurred with: Patient Does the patient have a Living Will? No Does the patient have Health Care Power of Attor price? No Care Teams Net Architect Relationship Specialty Start Date End Date Cha Esqueda DO [address] [place] [address] PCP - General Family Medicine 05/25/24 documented as of this encounter
--- OUTSIDE RECORDS SUMMARY | 2024-06-15 07:55 | External Medical Summary | Summary of Care ---
Author Name Unknown Organization [facility] Address [address] [place] [address] Phone [phone] Care Team Providers Care Shore Man Name Role Phone Cha Esqueda Primary Care Provider Reason for Visit * Reason Onset Date Comments Advice 06/10/2024 Xray results Encounter Details Date Type Department Care Team (Late st Contact Info) Description 06/10/2024 Telephone Rheumatology [facility], [place] [address] [place] [address] Solomon Whipple PA-C [address] [facility] [place] [id number] Advice (Xray results) Allergies Active Allergy Reactions [...] Historical. 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 Pt is a participant in the [facility] (Consortium of Rheumatology Researchers of [place]) national data collection study. For further information please call Dr Medardo Orr or Halina Angulo, RN, CCRC at [phone] [facility] RESEARCH OTHER*[id number] 12/17/2003 05/29/2010 Overview: Renamed Per Clinical Trials Billing Project. Pt is a participant in the [facility] (Consortium of Rheumatology Researchers of [place]) national data collection study. For further information please call Dr Medardo Orr or Halina Angulo, RN, CCRC at [phone] Osteoporosis 03/05/2003 09/05/2011 PAROXYSMAL SVT- hx of [...] EDT Office Visit Family Practice [address], [place] [address] [facility] [place] [address] Cha Esqueda, DO [address] [place] [address] Scheduled Procedures Name Priority Associated Diagnoses Date/Ti [...] D LEVEL ONCE IN A LIFETIME-USE SMARTSET# 17975 Completed 05/08/2018, 12/09/2015, 12/08/2014, Additional history exists [...] this encounter Medical Devices Implanted Type Area Hospitalist Physician Device Identifier Shelf Expiration Date Model / Serial / Lot Tube Modified T [id number] - [id number] Implanted:Qty: 1 on 07/25/2017 by Marcelino Madison DO at OR [facility] Left: Ear GYRUS : ENT 11/13/2026 [id number] / / [id number] Trident Hemispherical Muli - [id number] Implanted:Qty: 1 on 12/13/2017 by Pardeep Martinez MD at OR [facility] Right: Hip CHELSEA : ORTHOPAEDICS 09/26/2022 508-11-52E / / [id number] Screw Acetabular 6.5mm Yuli 20m - [id number] Implanted:Qty: 1 on 12/13/2017 by Pardeep Martinez MD at OR [facility] Right: Hip CHELSEA : ORTHOPAEDICS 10/07/202220294298-7656-1 / / [id number] Bone Screw Cancellous 65 45 - [id number] Implanted:Qty: 1 on 12/13/2017 by Pardeep Martinez MD at OR [facility] Right: Hip CHELSEA : ORTHOPAEDICS 08/05/202220292141-9638-1 / / [id number] Screw Acetabular 6.5mm Yuli 20m - [id number] Implanted:Qty: 1 on 12/13/2017 by Pardeep Martinez MD at OR [facility] Right: Hip CHELSEA : ORTHOPAEDICS 10/07/202220291230-1074-1 / / [id number] Liner 42mm - [id number] Implanted:Qty: 1 on 12/13/2017 by Pardeep Martinez MD at OR [facility] Right: Hip CHELSEA : ORTHOPAEDICS 08/27/2021 626-00-42E / / [id number] Insert 28mm - [id number] Implanted:Qty: 1 on 12/13/2017 by Pardeep Martinez MD at OR [facility] Right: Hip CHELSEA : ORTHOPAEDICS 07/03/2022 1236-2-848 / / [id number] Head Delta Cer 12 14 28mm 5.0 - [id number] Implanted:Qty: 1 on 12/13/2017 by Pardeep Martinez MD at OR [facility] Right: Hip SYNTHES : DEPUY 10/01/2022 [id number] / / [id number] Duragen Plus 1x3 Dp 1013 Min5 - [id number] - [id number] Implanted:Qty: 1 on 07/29/2020 by Tadeo Bonilla MD at OR [facility] [employer] [id number] 05/01/2023 [id number] / [id number] / [id number] Vectris Surescan Mri 1x8 Compact Implanted:Qty: 1 on 08/01/2021 by Arnoldo Regan MD at OR [facility] N/A: Back Medtronic 03/06/2025 [id number] / / [id number] Description:Part of a kit. Vectris Surescan Mri 1x8 Compact Implanted:Qty: 1 on 08/01/2021 by Arnoldo Regan MD at OR [facility] N/A: Back Medtronic 07/04/2025 [id number] / / [id number] Description:Part of a kit. Neurostimul Intellis Adaptiv - [id number] - [id number] Implanted:Qty: 1 on 08/01/2021 by Arnoldo Regan MD at OR [facility] N/A: Back [employer] 04/28/2022 [id number] / [id number] / Description:Part of a kit. Envelope Antibacterial Tyrx - [id number] Implanted:Qty: 1 on 08/01/2021 by Arnoldo Regan MD at OR [facility] N/A: Back [employer] : CRM 05/05/2022 [id number] / / [id number] documented as of this encounter Advance Directives Documents on File Type Date Recorded Patient Manager Database Administration Expl anation Advance Directives and Living Will 11/20/2020 ADVANCE DIRECTIVE REVISED/DURABLE POA HEALTHCARE/LIVING WILL 11/05/19 Power of Customer Success Advocate 07/18/2017 POWER OF A TTORNEY POA * [...] the patient have Health Care Power of Customer Success Advocate? Yes, not currently available * Full Code Date Activated Date Inactivated Comments 12/13/2017 7:47 PM 12/15/2017 6:34 PM This order r eflects the patients wishes and were consensually agreed upon. Question Answer Comments Discussion of Advance Directives occurred with: Patient Does the patient have a Living Will? No Does the patient have Health Care Power of Attor price? No Care Teams Shore Man Relationship Specialty Start Date End Date Cha Esqueda DO [address] [place] [address] PCP - General Family Medicine 05/25/24 documented as of this encounter
--- OUTSIDE RECORDS SUMMARY | 2024-06-15 07:55 | External Medical Summary | Summary of Care ---
Author Name Unknown Organization [facility] Address [address] [place] [address] Phone [phone] Care Team Providers Care Heat Welder Plastics Name Role Phone Cha Esqueda Primary Care Provider Reason for Visit * Reason Onset Date Comments Advice 06/10/2024 Xray results Encounter Details Date Type Department Care Team (Late st Contact Info) Description 06/10/2024 Telephone Rheumatology [facility] [place] [address] [place] [address] Solomon Whipple PA-C [address] [facility] [place] [id number] Advice (Xray results) Allergies Active Allergy Reactions [...] Status post right hip replacement 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 Pt is a participant in the [facility] (Consortium of Rheumatology Researchers of [place]) national data collection study. For further information please call Dr Medardo Orr or Halina Angulo, RN, CCRC at [phone] [facility] RESEARCH OTHER*[id number] 12/17/2003 05/29/2010 Overview: Renamed Per Clinical Trials Billing Project. Pt is a participant in the [facility] (Consortium of Rheumatology Researchers of [place]) national data collection study. For further information please call Dr Medardo Orr or Halina Angulo, RN, CCRC at [phone] Osteoporosis 03/05/2003 09/05/2011 PAROXYSMAL SVT- hx of [...] Valent (Prevnar) 07/02/2016 Pneumococcal Polysaccharide PPV23 (Pneumovax) 01/14/2008,09/17/2001 Seasonal Influenza, PF, 6 M & above, IM , (FluLaval or Fluzone) 09/07/2019,09/03/2018,10/18/2017 09/07/2019 Seasonal Influenza, Quadriva lent Hd (Fluzone Hd) 09/13/2023,09/13/2022,08/22/2021 Seasonal Influenza, Quadriva lent Hd, 65+ Yrs 09/08/2020 Seasonal Influenza, Quadriva lent, No Preserve, IM 09/29/2016,07/15/2015 Seasonal Influenza, Split, I IV3, With Preserve, Inj 08/24/2014,08/25/2013,08/22/2012,10/04/2011,09/01/2010,09/01/2009,09/16/20 08,09/24/2007,10/01/2006,10/01/2005,1 TD - Tetanus/Diptheria (ADULT) 04/29/2001 TDAP (age 10 and older)(Boostrix) 10/10/2021 TDAP, [...] encounter Miscellaneous Notes * Telephone Encounter - Solomon Whipple PA-C - 06/12/2024 1:42 PM EDT Spoke with patient. Took ativan this morning which made her drowsy and lethargic. She has no slurring per her report and do not appreciate any slurring when I was on the phone with her. Pain not abating with gabapentin thus far. Did not improve with prednisone so not related to RA and RA does not effect the lumbar spine. She has no further weakness on exam, but most likely would benefit from MRI, but likely will need PT and pain control first. Suspect lumbar source of pain. * Telephone Encounter - Barby Chirinos OSA [...] EDT Office Visit Family Practice [address], [place] [address] [place] [address] Cha Esqueda DO [address] [place] [address] Scheduled Procedures Name Priority Associated Diagnoses Date/Ti [...] D LEVEL ONCE IN A LIFETIME-USE SMARTSET# 85316 Completed 05/08/2018, 12/09/2015, 12/08/2014, Additional history exists [...] this encounter Medical Devices Implanted Type Area Stoneworking Sander Device Identifier Shelf Expiration Date Model / Serial / Lot Tube Modified T [id number] - [id number] Implanted:Qty: 1 on 07/25/2017 by Marcelino Madison DO at OR [facility] Left: Ear GYRUS : ENT 11/13/2026 [id number] / / [id number] Trident Hemispherical Muli - [id number] Implanted:Qty: 1 on 12/13/2017 by Pardeep Martinez MD at [place] [facility] Right: Hip CHELSEA : ORTHOPAEDICS 09/26/2022 508-11-52E / / [id number] Screw Acetabular 6.5mm Yuli 20m - [id number] Implanted:Qty: 1 on 12/13/2017 by Pardeep Martinez MD at OR [facility] Right: Hip CHELSEA : ORTHOPAEDICS 10/07/2022 5748-6728-1 / / [id number] Bone Screw Cancellous 65 45 - [id number] Implanted:Qty: 1 on 12/13/2017 by Pardeep Martinez MD at OR [facility] Right: Hip CHELSEA : ORTHOPAEDICS 08/05/202220290899-0157-1 / / [id number] Screw Acetabular 6.5mm Yuli 20m - [id number] Implanted:Qty: 1 on 12/13/2017 by Pardeep Martinez MD at OR [facility] Right: Hip CHELSEA : ORTHOPAEDICS 10/07/202220296083-4479-1 / / [id number] Liner 42mm - [id number] Implanted:Qty: 1 on 12/13/2017 by Pardeep Martinez MD at [place] [facility] Right: Hip CHELSEA : ORTHOPAEDICS 08/27/2021 626-00-42E / / [id number] Insert 28mm - [id number] Implanted:Qty: 1 on 12/13/2017 by Pardeep Martinez MD at OR [facility] Right: Hip CHELSEA : ORTHOPAEDICS 07/03/2022 1236-2-848 / / [id number] Head Delta Cer 12 14 28mm 5.0 - [id number] Implanted:Qty: 1 on 12/13/2017 by Pardeep Martinez MD at OR [facility] Right: Hip SYNTHES : DEPUY 10/01/2022 [id number] / / [id number] Duragen Plus 1x3 Dp 1013 Min5 - [id number] - [id number] Implanted:Qty: 1 on 07/29/2020 by Tadeo Bonilla MD at [place] [facility] [employer] JEMIMA [id number] 05/01/2023 [id number] / [id number] / [id number] Vectris Surescan Mri 1x8 Compact Implanted:Qty: 1 on 08/01/2021 by Arnoldo Regan MD at OR [facility] N/A: Back Medtronic 03/06/2025 [id number] / / [id number] Description:Part of a kit. Vectris Surescan Mri 1x8 Compact Implanted:Qty: 1 on 08/01/2021 by Arnoldo Regan MD at OR [facility] N/A: Back Medtronic 07/04/2025 [id number] / / [id number] Description:Part of a kit. Neurostimul Intellis Adaptiv - [id number] - [id number] Implanted:Qty: 1 on 08/01/2021 by Arnoldo Regan MD at OR [facility] N/A: Back [employer] 04/28/2022 [id number] / [id number] / Description:Part of a kit. Envelope Antibacterial Tyrx - [id number] Implanted:Qty: 1 on 08/01/2021 by Arnoldo Regan MD at OR [facility] N/A: Back [employer] : CRM 05/05/2022 [id number] / / [id number] documented as of this encounter Advance Directives Documents on File Type Date Recorded Patient Arranging Funeral Director Expl anation Advance Directives and Living Will 11/20/2020 ADVANCE DIRECTIVE REVISED/DURABLE POA HEALTHCARE/LIVING WILL 11/05/19 Power of Line Rider 07/18/2017 POWER OF A TTORNEY POA * [...] the patient have Health Care Power of Line Rider? Yes, not currently available * Full Code Date Activated Date Inactivated Comments 12/13/2017 7:47 PM 12/15/2017 6:34 PM This order r eflects the patients wishes and were consensually agreed upon. Question Answer Comments Discussion of Advance Directives occurred with: Patient Does the patient have a Living Will? No Does the patient have Health Care Power of Attor price? No Care Teams Heat Welder Plastics Relationship Specialty Start Date End Date Cha Esqueda DO [address] [place] [address] PCP - General Family Medicine 05/25/24 documented as of this encounter
--- OUTSIDE RECORDS SUMMARY | 2024-06-15 07:55 | External Medical Summary | Summary of Care ---
Author Name Unknown Organization [facility] Address [address] [place] [address] Phone [phone] Care Team Providers Care Radiographer Name Role Phone TroyjenCha ch Primary Care Provider [phone] Reason for Visit * Reason Comments Outpatient Testing Encounter Details Date Type Department Care Team (Late st Contact Info) Description 06/12/2024 3:00 PM EDT Laboratory Laboratory [facility] [address] [place] [phone] [place], [address] [place] [address] Acute right-sided low back pain with right-sided [...] Historical. Status post right hip replacement 09/30/2017 [facility] current use of systemic steroids 05/23 DDD [...] 12/31/2001 Other psoriasis GENERAL OSTEOARTHROSIS DISC DIS HZF-AYA-IETR documented as of this encounter (statuses as [...] Project. Pt is a participant in the [facility] (Consortium of Rheumatology Researchers of [place]) national data collection study. For further information please call Dr Medardo Orr or Halina Angulo, RN, CCRC at [phone] [facility] RESEARCH OTHER*[id number] 12/17/2003 05/29/2010 Overview: Renamed Per Clinical Trials Billing Project. Pt is a participant in the [facility] (Consortium of Rheumatology Researchers of [place]) national data collection study. For further information please call Dr Medardo Orr or Halina Angulo, RN, CCRC at [phone] Osteoporosis 03/05/2003 09/05/2011 PAROXYSMAL SVT- hx of [...] EDT Office Visit Family Practice [address], [place] [address] [place] [address] Cha Esqueda, [address] [place] [address] Pending Results Name Type Priority Associated Diagnoses [...] D LEVEL ONCE IN A LIFETIME-USE SMARTSET# 60882 Completed 05/08/2018, 12/09/2015, 12/08/2014, Additional history exists [...] this encounter Medical Devices Implanted Type Area Spar Finisher Device Identifier Shelf Expiration Date Model / Serial / Lot Tube Modified T [id number] - [id number] Implanted:Qty: 1 on 07/25/2017 by Marcelino Madison DO at OR [facility] Left: Ear GYRUS : ENT 11/13/2026 [id number] / / [id number] Trident Hemispherical Muli - [id number] Implanted:Qty: 1 on 12/13/2017 by Pardeep Martinez MD [place] [facility] Right: Hip CHELSEA : ORTHOPAEDICS 09/26/2022 508-11-52E / / [id number] Screw Acetabular 6.5mm Yuli 20m - [id number] Implanted:Qty: 1 on 12/13/2017 by Pardeep Martinez MD at [place] [facility] Right: Hip CHELSEA : ORTHOPAEDICS 10/07/20220208-2189- / / [id number] Bone Screw Cancellous 65 45 - [id number] Implanted:Qty: 1 on 12/13/2017 by Pardeep Martinez MD at [place] [facility] Right: Hip CHELSEA : ORTHOPAEDICS 08/05/202220292513-9683- / / [id number] Screw Acetabular 6.5mm Yuli 20m - [id number] Implanted:Qty: 1 on 12/13/2017 by Pardeep Martinez MD at [place] [facility] Right: Hip CHELSEA : ORTHOPAEDICS 10/07/20224372-1555- / / [id number] Liner 42mm - [id number] Implanted:Qty: 1 on 12/13/2017 by Pardeep Martinez MD at [place] [facility] Right: Hip CHELSEA : ORTHOPAEDICS 08/27/2021 626-00-42E / / [id number] Insert 28mm - [id number] Implanted:Qty: 1 on 12/13/2017 by Pardeep Martinez MD at [place] [facility] Right: Hip CHELSEA : ORTHOPAEDICS 07/03/2022 1236-2-848 / / [id number] Head Delta Cer 12 14 28mm 5.0 - [id number] Implanted:Qty: 1 on 12/13/2017 by Pardeep Martinez MD at [place] [facility] Right: Hip SYNTHES : DEPUY 10/01/2022 [id number] / / [id number] Duragen Plus 1x3 Dp 1013 Min5 - [id number] - [id number] Implanted:Qty: 1 on 07/29/2020 by Tadeo Bonilla MD at [place] [facility] [employer] JEMIMA [id number] 05/01/2023 [id number] / [id number] Vectris Surescan Mri 1x8 Compact Implanted:Qty: 1 on 08/01/2021 by Arnoldo Regan MD at OR [facility] N/A: Back Medtronic 03/06/2025 [id number] / / [id number] Description:Part of a kit. Vectris Surescan Mri 1x8 Compact Implanted:Qty: 1 on 08/01/2021 by Arnoldo Regan MD at OR [facility] N/A: Back Medtronic 07/04/2025 [id number] / / [id number] Description:Part of a kit. Neurostimul Intellis Adaptiv - [id number] - [id number] Implanted:Qty: 1 on 08/01/2021 by Arnoldo Regan MD at OR [facility] N/A: Back MEDTR[employer] 04/28/2022 [id number] / [id number] / Description:Part of a kit. Envelope Antibacterial Tyrx - [id number] Implanted:Qty: 1 on 08/01/2021 by Arnoldo Regan MD at OR [facility] N/A: Back [employer] : CRM 05/05/2022 [id number] / / [id number] documented as of this encounter Visit Diagnoses Diagnosis Acute right-sided low back pain with right-sided sciatica documented in this encounter Advance Directives Documents on File Type Date Recorded Patient Line Supply Expl anation Advance Directives and Living Will 11/20/2020 ADVANCE DIRECTIVE REVISED/DURABLE POA HEALTHCARE/LIVING WILL 11/05/19 Power of Correctional Program Specialist 07/18/2017 POWER OF A TTORNEY POA * [...] the patient have Health Care Power of Correctional Program Specialist? Yes, not currently available * Full Code Date Activated Date Inactivated Comments 12/13/2017 7:47 PM 12/15/2017 6:34 PM This order r eflects the patients wishes and were consensually agreed upon. Question Answer Comments Discussion of Advance Directives occurred with: Patient Does the patient have a Living Will? No Does the patient have Health Care Power of Attor price? No Care Teams Radiographer Relationship Specialty Start Date End Date Cha Esqueda DO [address] [place] [address] PCP - General Family Medicine 05/25/24 documented as of this encounter
--- OUTSIDE RECORDS SUMMARY | 2024-06-15 07:56 | External Medical Summary | Summary of Care ---
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 Pt is a participant in the [facility] (Consortium of Rheumatology Researchers of [place]) national data collection study. For further information please call Dr Medardo Orr or Halina Angulo, RN, CCRC at [phone] [facility] RESEARCH OTHER*[id number] 12/17/2003 05/29/2010 Overview: Renamed Per Clinical Trials Billing Project. Pt is a participant in the [facility] (Consortium of Rheumatology Researchers of [place]) national data collection study. For further information please call Dr Medardo Orr or Halina Angulo, RN, CCRC at [phone] Osteoporosis 03/05/2003 09/05/2011 PAROXYSMAL SVT- hx of [...] EDT Office Visit Family Practice [address], [place] [address] [facility] [address] Cha Esqueda, DO [address] [place] [address] Scheduled Procedures Name Priority Associated Diagnoses Date/Ti [...] D LEVEL ONCE IN A LIFETIME-USE SMARTSET# 28006 Completed 05/08/2018, 12/09/2015, 12/08/2014, Additional history exists [...] this encounter Medical Devices Implanted Type Area Engine Room Operator Device Identifier Shelf Expiration Date Model / Serial / Lot Tube Modified T [id number] - [id number] Implanted:Qty: 1 on 07/25/2017 by Marcelino Madison DO at OR [facility] Left: Ear GYRUS : ENT 11/13/2026 [id number] / / [id number] Trident Hemispherical Muli - [id number] Implanted:Qty: 1 on 12/13/2017 by Pardeep Martinez MD at OR [facility] Right: Hip CHELSEA : ORTHOPAEDICS 09/26/2022 508-11-52E / / [id number] Screw Acetabular 6.5mm Yuli 20m - [id number] Implanted:Qty: 1 on 12/13/2017 by Pardeep Martinez MD at OR [facility] Right: Hip CHELSEA : ORTHOPAEDICS 10/07/202220298218-4330-1 / / [id number] Bone Screw Cancellous 65 45 - [id number] Implanted:Qty: 1 on 12/13/2017 by Pardeep Martinez MD at OR [facility] Right: Hip CHELSEA : ORTHOPAEDICS 08/05/202220293478-9614-1 / / [id number] Screw Acetabular 6.5mm Yuli 20m - [id number] Implanted:Qty: 1 on 12/13/2017 by Pardeep Martinez MD at OR [facility] Right: Hip CHELSEA : ORTHOPAEDICS 10/07/202220292717-7579-1 / / [id number] Liner 42mm - [id number] Implanted:Qty: 1 on 12/13/2017 by Pradeep Martinez MD at OR [facility] Right: Hip CHELSEA : ORTHOPAEDICS 08/27/2021 626-00-42E / / [id number] Insert 28mm - [id number] Implanted:Qty: 1 on 12/13/2017 by Pardeep Martinez MD at OR [facility] Right: Hip CHELSEA : ORTHOPAEDICS 07/03/2022 1236-2-848 / / [id number] Head Delta Cer 12 14 28mm 5.0 - [id number] Implanted:Qty: 1 on 12/13/2017 by Pardeep Martinez MD at OR [facility] Right: Hip SYNTHES : DEPUY 10/01/2022 [id number] / / [id number] Duragen Plus 1x3 Dp 1013 Min5 - [id number] - [id number] Implanted:Qty: 1 on 07/29/2020 by Tadeo Bonilla MD at OR [facility] iLost [id number] 05/01/2023 [id number] / [id number] / [id number] Vectris Surescan Mri 1x8 Compact Implanted:Qty: 1 on 08/01/2021 by Arnoldo Regan MD at OR [facility] N/A: Back Medtronic 03/06/2025 [id number] / / [id number] Description:Part of a kit. Vectris Surescan Mri 1x8 Compact Implanted:Qty: 1 on 08/01/2021 by Arnoldo Regan MD at OR [facility] N/A: Back Medtronic 07/04/2025 [id number] / / [id number] Description:Part of a kit. Neurostimul Intellis Adaptiv - [id number] - [id number] Implanted:Qty: 1 on 08/01/2021 by Arnoldo Regan MD at OR [facility] N/A: Back [employer]TR[employer] 04/28/2022 22594 / [id number] / Description:Part of a kit. Envelope Antibacterial Tyrx - [id number] Implanted:Qty: 1 on 08/01/2021 by Arnoldo Regan MD at OR [facility] N/A: Back MEDTRON[employer] : CRM 05/05/2022 [id number] / / [id number] documented as of this encounter Advance Directives Documents on File Type Date Recorded Patient Coat Checker Expl anation Advance Directives and Living Will 11/20/2020 ADVANCE DIRECTIVE REVISED/DURABLE POA HEALTHCARE/LIVING WILL 11/05/19 Power of Chemical Test Engineer 07/18/2017 POWER OF A TTORNEY POA * [...] the patient have Health Care Power of Chemical Test Engineer? Yes, not currently available * Full Code Date Activated Date Inactivated Comments 12/13/2017 7:47 PM 12/15/2017 6:34 PM This order r eflects the patients wishes and were consensually agreed upon. Question Answer Comments Discussion of Advance Directives occurred with: Patient Does the patient have a Living Will? No Does the patient have Health Care Power of Attor price? No Care Teams Filler In Relationship Specialty Start Date End Date Cha Esqueda DO [address] [place] [address] PCP - General Family Medicine 05/25/24 documented as of this encounter
--- OUTSIDE RECORDS SUMMARY | 2024-06-15 07:56 | External Medical Summary | Summary of Care ---
Author Name Unknown Organization [facility] Address [address] [facility] [place] [address] Phone [phone] Care Team Providers Care Combat Engineer Name Role Phone Cha Esqueda Primary Care Provider [phone] Reason for Visit * Reason Comments Outpatient Testing Encounter Details Date Type Department Care Team (Late st Contact Info) Description 06/10/2024 3:10 PM EDT Laboratory Laboratory, [facility] [address] [place] [address] [facility] [address] [place] [address] Arrived Allergies Active Allergy Reactions Criticality Noted Date [...] as of this encounter (statuses as of 06/10/2024) Medications Medication Sig Dispensed Refills Start Date End Date Status acetaminophen (TYLENOL) 500 MG TabletIndications :Musculoskeletal back pain Take 2 Tablets by mouth every 8 hours as needed for Pain, Mild. 100 Tab 05/23/2020 Active B Complex Vitamins Oral Capsule Take 1 Capsule by mouth in the morning and 1 Capsule before bedtime. Active Calcium Citrate-Vitamin D 315-5 MG-MCG Oral Tablet Take 2 Tablets by mouth every morning. 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 As needed. 270 Tablet 3 11/06/2023 Active Ibuprofen 200 MG Oral Tablet (Motrin) Take 1 Tablet by mouth every 4 hours as needed. Active Atenolol 50 MG Oral Tablet (Tenormin)Indicat ions:Tachy-jacinto syndrome (HCC) Take 1 Tablet by mouth in the morning and 1 Tablet before bedtime. 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 (at least 30 min prior to breakfast or other meds) 100 Tablet 3 02/03/2024 Active Losartan Potassium 50 MG Oral Tablet (Cozaar)Indicatio ns:Essential hypertension with goal blood pressure less than 140/90 Take 1 Tablet by mouth in the morning. 100 Tablet 3 02/03/2024 Active Omeprazole 20 MG Oral Capsule Delayed Release (PriLOSEC)Indicat ions:Gastroesopha geal reflux disease without esophagitis Take 1 Capsule by mouth every afternoon. 100 Capsule 3 02/03/2024 Active Triamcinolone Acetonide 0.1 % External Cream (Aristocort) APPLY TO RED RASH TWICE DAILY NEEDED 80 g 2 02/18/2024 Active FiberCel Oral Powder Take by mouth. Active Fluticasone Propionate 50 MCG/ACT Nasal Suspension (Flonase)Indicati ons:Chronic rhinitis Administer 2 Sprays into nostril in the morning. 48 g 3 05/05/2024 Active Rosuvastatin Calcium 10 MG Oral Tablet (Crestor)Indicati ons:Dyslipidemia, goal LDL below 100 Take 1 Tablet by mouth every evening. 100 Tablet 3 05/05/2024 Active predniSONE 10 MG Oral Tablet (Deltasone)Indica tions:DDD (degenerative disc disease), cervical Take 4 tabs [...] needed for Anxiety. 30 Tablet 06/09/2024 Active Gabapentin 300 MG Oral Capsule (Neurontin)Indica tions:Acute right-sided low back pain with right-sided sciatica Take 1 Capsule by mouth at bedtime. 30 Capsule 5 06/10/2024 Active Ketoconazole 2 % External Shampoo (Nizoral) Apply topically to affected area every 3 days. Shampoo twice a week 120 mL 1 06/09/2024 Discontinue d(Refill) documented as of this encounter (statuses as of 06/10/2024) Active Problems Problem Noted Date Diagnosed Date [...] Historical. Status post right hip replacement 09/30/2017 oysterman current use of systemic steroids 05/23 DDD [...] 12/31/2001 Other psoriasis GENERAL OSTEOARTHROSIS DISC DIS WOI-THL-GCAM documented as of this encounter (statuses as of 06/10/2024) Resolved Problems Problem Noted Date Diagnosed Date [...] Project. Pt is a participant in the [facility] (Consortium of Rheumatology Researchers of [place]) national data collection study. For further information please call Dr Medardo Orr or Halina Angulo, RN, CCRC at [phone] [facility] RESEARCH OTHER*[id number] 12/17/2003 05/29/2010 Overview: Renamed Per Clinical Trials Billing Project. Pt is a participant in the [facility] (Consortium of Rheumatology Researchers of [place]) national data collection study. For further information please call Dr Medardo Orr or Halina Angulo, RN, CCRC at [phone] Osteoporosis 03/05/2003 09/05/2011 PAROXYSMAL SVT- hx of 12/07/20022018 ARTHRITIS,RHEUMATOID 09/04/2001 016 INFORMATION 12/04/2006 Ankylosing spondylitis 01/04 Chronic sinusitis 06/15/2020 documented as of this encounter (statuses as of 06/10/2024) Immunizations Name Administration Dates Next Due COVID-19 [...] EDT Office Visit Family Practice [address], [place] [address] [place] [address] Cha Esqueda, DO [address] [place] [address] Scheduled Procedures Name Priority Associated Diagnoses Date/Ti me COLONOSCOPY FLEXIBLE PROXIMAL DIAGNOSTIC Recall History of colon polyps Health Maintenance Due Date Last Done Comments *BISPHONATE OR OTHER ACCEPTABLE MEDICATION NEEDED FOR OSTEOPOROSIS (REFER TO SMARTSET #1146) 05/28/2020 COVID-19 Vaccine ( season) 2024 08/23/2023, 04/25/2023, 09/05/2022, Additional history exists Postponed from 10/18/2023 (Acute Illness) Diabetic Foot Exam 06/10/2024 06/06/2023, 08/02/2022 Postponed from 06/06/2024 (Acute Illness) Influenza Vaccine (FLU shot) (#1) 2024 09/13/2023, [...] D LEVEL ONCE IN A LIFETIME-USE SMARTSET# 54485 Completed 05/08/2018, 12/09/2015, 12/08/2014, Additional history exists [...] this encounter Medical Devices Implanted Type Area Learning Support Resource Room Teacher Device Identifier Shelf Expiration Date Model / Serial / Lot Tube Modified T [id number] - [id number] Implanted:Qty: 1 on 07/25/2017 by Marcelino Madison DO at OR [facility] Left: Ear GYRUS : ENT 11/13/2026 [id number] / / [id number] Trident Hemispherical Muli - [id number] Implanted:Qty: 1 on 12/13/2017 by Pardeep Martinez MD at OR [facility] Right: Hip CHELSEA : ORTHOPAEDICS 09/26/2022 508-11-52E / / [id number] Screw Acetabular 6.5mm Yuli 20m - [id number] Implanted:Qty: 1 on 12/13/2017 by Pardeep Martinez MD at OR [facility] Right: Hip CHELSEA : ORTHOPAEDICS 10/07/20223229-2036- / / [id number] Bone Screw Cancellous 65 45 - [id number] Implanted:Qty: 1 on 12/13/2017 by Pardeep Martinez MD at OR [facility] Right: Hip CHELSEA : ORTHOPAEDICS 08/05/20221513-8724- / / [id number] Screw Acetabular 6.5mm Yuli 20m - [id number] Implanted:Qty: 1 on 12/13/2017 by Pardeep Martinez MD at OR [facility] Right: Hip CHELSEA : ORTHOPAEDICS 10/07/20221705-4023- / / [id number] Liner 42mm - [id number] Implanted:Qty: 1 on 12/13/2017 by Pardeep Martinez MD at OR [facility] Right: Hip CHELSEA : ORTHOPAEDICS 08/27/2021 626-00-42E / / [id number] Insert 28mm - [id number] Implanted:Qty: 1 on 12/13/2017 by Pardeep Martinez MD at OR [facility] Right: Hip CHELSEA : ORTHOPAEDICS 07/03/2022 1236-2-848 / / [id number] Head Delta Cer 12 14 28mm 5.0 - [id number] Implanted:Qty: 1 on 12/13/2017 by Pardeep Martinez MD at OR [facility] Right: Hip SYNTHES : DEPUY 10/01/2022 [id number] / / [id number] Duragen Plus 1x3 Dp 1013 Min5 - [id number] - [id number] Implanted:Qty: 1 on 07/29/2020 by Tadeo Bonilla MD at OR [facility] NeedleCIGuestCentric Systems JEMIMA [id number] 05/01/2023 [id number] / [id number] / [id number] Vectris Surescan Mri 1x8 Compact Implanted:Qty: 1 on 08/01/2021 by Arnoldo Regan MD at OR [facility] N/A: Back Medtronic 03/06/2025 [id number] / / [id number] Description:Part of a kit. Vectris Surescan Mri 1x8 Compact Implanted:Qty: 1 on 08/01/2021 by Arnoldo Regan MD at OR [facility] N/A: Back Medtronic 07/04/2025 [id number] / / [id number] Description:Part of a kit. Neurostimul Intellis Adaptiv - [id number] - [id number] Implanted:Qty: 1 on 08/01/2021 by Arnoldo Regan MD at OR [facility] N/A: Back [employer] 04/28/2022 12161 / [id number] / Description:Part of a kit. Envelope Antibacterial Tyrx - [id number] Implanted:Qty: 1 on 08/01/2021 by Arnoldo Regan MD at OR [facility] N/A: Back [employer] : CRM 05/05/2022 [id number] / / [id number] documented as of this encounter Advance Directives Documents on File Type Date Recorded Patient Independent Insurance Adjuster Expl anation Advance Directives and Living Will 11/20/2020 ADVANCE DIRECTIVE REVISED/DURABLE POA HEALTHCARE/LIVING WILL 11/05/19 Power of Development Advisor 07/18/2017 POWER OF A TTORNEY POA * [...] the patient have Health Care Power of Development Advisor? Yes, not currently available * Full Code Date Activated Date Inactivated Comments 12/13/2017 7:47 PM 12/15/2017 6:34 PM This order r eflects the patients wishes and were consensually agreed upon. Question Answer Comments Discussion of Advance Directives occurred with: Patient Does the patient have a Living Will? No Does the patient have Health Care Power of Attor price? No Care Teams Combat Engineer Relationship Specialty Start Date End Date Cha Esqueda DO [address] [place] [address] PCP - General Family Medicine 05/25/24 documented as of this encounter
--- OUTSIDE RECORDS SUMMARY | 2024-06-15 07:56 | External Medical Summary | Summary of Care ---
Author Name Unknown Organization [facility] Address [address] [place] [address] Phone [phone] Care Team Providers Care Tractor Driver Name Role Phone Cha Esqueda Primary Care Provider Reason for Visit * Reason Onset Date Comments Advice 06/10/2024 Xray results Encounter Details Date Type Department Care Team (Late st Contact Info) Description 06/10/2024 Telephone Rheumatology [facility] [place] [address] [place] [address] Solomon Whipple PA-C [address] [facility] [place] [id number] Advice (Xray results) Allergies Active Allergy Reactions [...] Historical. Status post right hip replacement 09/30/2017 lobsterman current use of systemic steroids 05/23 DDD [...] 12/31/2001 Other psoriasis GENERAL OSTEOARTHROSIS DISC DIS IBH-TCW-AOIF documented as of this encounter (statuses as [...] Project. Pt is a participant in the [facility] (Consortium of Rheumatology Researchers of [place]) national data collection study. For further information please call Dr Medardo Orr or Halina Angulo, RN, CCRC at [phone] [facility] RESEARCH OTHER*[id number] 12/17/2003 05/29/2010 Overview: Renamed Per Clinical Trials Billing Project. Pt is a participant in the [facility] (Consortium of Rheumatology Researchers of [place]) national data collection study. For further information please call Dr Medardo Orr or Halina Angulo, RN, CCRC at [phone] Osteoporosis 03/05/2003 09/05/2011 PAROXYSMAL SVT- hx of [...] EDT Office Visit Family Practice [address], [place] [address] [place] [address] Cha Esqueda, DO [address] [place] [address] Scheduled Procedures Name Priority Associated Diagnoses Date/Ti [...] D LEVEL ONCE IN A LIFETIME-USE SMARTSET# 63800 Completed 05/08/2018, 12/09/2015, 12/08/2014, Additional history exists [...] this encounter Medical Devices Implanted Type Area Architecture Professor Device Identifier Shelf Expiration Date Model / Serial / Lot Tube Modified T [id number] - [id number] Implanted:Qty: 1 on 07/25/2017 by Marcelino Madison DO at OR [facility] Left: Ear GYRUS : ENT 11/13/2026 [id number] / / [id number] Trident Hemispherical Muli - [id number] Implanted:Qty: 1 on 12/13/2017 by Pardeep Martinez MD at OR [facility] Right: Hip CHELSEA : ORTHOPAEDICS 09/26/2022 508-11-52E / / [id number] Screw Acetabular 6.5mm Yuli 20m - [id number] Implanted:Qty: 1 on 12/13/2017 by Pardeep Martinez MD at OR [facility] Right: Hip CHELSEA : ORTHOPAEDICS 10/07/202220299678-4426-1 / / [id number] Bone Screw Cancellous 65 45 - [id number] Implanted:Qty: 1 on 12/13/2017 by Pardeep Martinez MD at OR [facility] Right: Hip CHELSEA : ORTHOPAEDICS 08/05/202220291852-9510-1 / / [id number] Screw Acetabular 6.5mm Yuli 20m - [id number] Implanted:Qty: 1 on 12/13/2017 by Pardeep Martinez MD at OR [facility] Right: Hip CHELSEA : ORTHOPAEDICS 10/07/202220298340-2911-1 / / [id number] Liner 42mm - [id number] Implanted:Qty: 1 on 12/13/2017 by Pardeep Martinez MD at OR [facility] Right: Hip CHELSEA : ORTHOPAEDICS 08/27/2021 626-00-42E / / [id number] Insert 28mm - [id number] Implanted:Qty: 1 on 12/13/2017 by Pardeep Martinez MD at OR [facility] Right: Hip CHELSEA : ORTHOPAEDICS 07/03/2022 1236-2-848 / / [id number] Head Delta Cer 12 14 28mm 5.0 - [id number] Implanted:Qty: 1 on 12/13/2017 by Pardeep Martinez MD at OR [facility] Right: Hip SYNTHES : DEPUY 10/01/2022 [id number] / / [id number] Duragen Plus 1x3 Dp 1013 Min5 - [id number] - [id number] Implanted:Qty: 1 on 07/29/2020 by Tadeo Bonilla MD at OR [facility] [employer] [id number] 05/01/2023 [id number] / [id number] / [id number] Vectris Surescan Mri 1x8 Compact Implanted:Qty: 1 on 08/01/2021 by Arnoldo Regan MD at OR [facility] N/A: Back Medtronic 03/06/2025 [id number] / / [id number] Description:Part of a kit. Vectris Surescan Mri 1x8 Compact Implanted:Qty: 1 on 08/01/2021 by Arnoldo Regan MD at OR [facility] N/A: Back Medtronic 07/04/2025 [id number] / / [id number] Description:Part of a kit. Neurostimul Intellis Adaptiv - [id number] - [id number] Implanted:Qty: 1 on 08/01/2021 by Arnoldo Regan MD at OR [facility] N/A: Back [employer] 04/28/2022 74996 / [id number] / Description:Part of a kit. Envelope Antibacterial Tyrx - [id number] Implanted:Qty: 1 on 08/01/2021 by Arnoldo Regan MD at OR [facility] N/A: Back [employer] : CRM 05/05/2022 [id number] / / [id number] documented as of this encounter Advance Directives Documents on File Type Date Recorded Patient Signwriter Expl anation Advance Directives and Living Will 11/20/2020 ADVANCE DIRECTIVE REVISED/DURABLE POA HEALTHCARE/LIVING WILL 11/05/19 Power of Cardiac Catheterization Technologist 07/18/2017 POWER OF A TTORNEY POA * [...] the patient have Health Care Power of Cardiac Catheterization Technologist? Yes, not currently available * Full Code Date Activated Date Inactivated Comments 12/13/2017 7:47 PM 12/15/2017 6:34 PM This order r eflects the patients wishes and were consensually agreed upon. Question Answer Comments Discussion of Advance Directives occurred with: Patient Does the patient have a Living Will? No Does the patient have Health Care Power of Attor price? No Care Teams Tractor Driver Relationship Specialty Start Date End Date Cha Esqueda DO [address] [place] [address] PCP - General Family Medicine 05/25/24 documented as of this encounter
--- OUTSIDE RECORDS SUMMARY | 2024-06-15 07:56 | External Medical Summary | Summary of Care ---
Author Name Unknown Organization [facility] Address [address] [place] [address] Phone [phone] Care Team Providers Care Advertising Solicitor Name Role Phone Cha Esqueda DO Primary Care Provider [phone] Reason for Referral * Evaluate & Treat - Unlimited Visits (Within 3 days (urgent)) - Authorized Specialty Diagnoses / Procedures Referred By Contsammi t Referred To Contact Rheumatology Diagnoses H/O rheumatoid arthritis Cha Esqueda DO [address] [place] [address] Referral ID Status Reason Start Date Expiration Date Visits Requested Visits Authorized [id number] Authorized Specialty Services Required 06/09/[phone] Question Answer Referral Priority Within 3 days (urgent) Where should this appointment be scheduled? [facility] Reason for referral: Inflammatory arthritis/Autoimmune or Connective Tissue Diseases - rheumatoid arthritis flare Comments Rheumatoid arthritis flare Reason for Visit * Reason Onset Date Comments Emergency Department Follow-Up 06/05/2024 Encounter Details Date Type Department Care Team (Late st Contact Info) Description 06/05/2024 Telephone Family Practice [address] [place] [address] [place] [address] Cha Esqueda DO [address] [place] [address] Emergency Department Follow-Up (7/5) Allergies Active Allergy Reactions Criticality Noted Date Comments Aspirin 01/07/2001 thrombocytopenia Clavulanic Acid 11/09/2003 diarrhea Clindamycin 05/22/2022 Rash Raloxifene Rash 09/12/2020 Ketamine Neuro complications (Please comment) 12/12/2018 Morphine 12/12/2016 Phenylbutazone 01/16/2001 thrombocytopenia Sulfa Antibiotics 01/07/2001 rash Tizanidine Low 07/31/2020 Causes severe dizziness and diaphoresis per patient Levocetirizine Other (Please comment) Nightmares, dizziness, impaired balance. documented as of this encounter (statuses as of 06/09/2024) Medications Medication Sig Dispensed Refills Start Date [...] As needed. 270 Tablet 3 11/06/2023 Active Ketoconazole 2 % External Shampoo (Nizoral) Apply topically to affected area every 3 days. Shampoo twice a week 11/06/2023 Active Ibuprofen 200 MG Oral Tablet [...] for 2 days 20 Tablet 05/25/2024 Active traMADol HCl 50 MG Oral Tablet (Ultram) Take 1 Tablet by mouth every 6 hours as needed for Pain, Severe. 30 Tablet 06/03/2024 Active documented as of this encounter (statuses as of 06/09/2024) Active Problems Problem Noted Date Diagnosed Date [...] Historical. Status post right hip replacement 09/30/2017 supervisor intermediates current use of systemic steroids 05/23 DDD [...] 12/31/2001 Other psoriasis GENERAL OSTEOARTHROSIS DISC DIS EIQ-LYO-CBIA documented as of this encounter (statuses as of 06/09/2024) Resolved Problems Problem Noted Date Diagnosed Date [...] factor 12/12/2016 06/12/20 17 Rheumatoid arthritis [facility] without rheumatoid factor 09/26/2016 06/20/2020 History [...] Orr or Halina Angulo, RN, CCRC at [phone] [facility] RESEARCH OTHER*[id number] 12/17/2003 05/29/2010 Overview: Renamed Per Clinical Trials Billing Project. Pt is a participant in the [employer] (Consortium of Rheumatology Researchers of [place]) national data collection study. For further information please call Dr Medardo Orr or Halina Angulo, RN, CCRC at [phone] Osteoporosis 03/05/2003 09/05/2011 PAROXYSMAL SVT- hx of 12/07/20022018 ARTHRITIS,RHEUMATOID 09/04/2001 016 INFORMATION 12/04/2006 Ankylosing spondylitis 01/04 Chronic sinusitis 06/15/2020 documented as of this encounter (statuses as of 06/09/2024) Immunizations Name Administration Dates Next Due COVID-19 [...] (15 years old or older) No 07/29/20 Cognitive Status Response Date of Assessm ent Because of a physical, menta l, or emotional condition, do you have serious difficulty concentrating, remembering, or making decisions? (5 years old or older) No 07/29/2020 documented as of this encounter Miscellaneous Notes * Telephone Encounter - Cha Esqueda DO - 06/09/2024 3:14 PM EDT Order signed. * Telephone Encounter - Leandra Valderrama RN - 06/08/2024 12:48 PM EDT Call to pt-states pain about the same. Has cramping and hard to get out of bed in the morning-goes directly to kitchen and takes tramadol. Also using ibuprofen for discomfort. She did not go to the urgent care over the weekend. States she had labs done in ER on 06/04/24-pt has appt tomorrow with Dr Esqueda-told would get the results so have for her appt-states aer WBC and TSH were off, magnesium was low but they gave her some magnesium in ER. Viral studies normal. Pt has appt with eye provider today for her iritis-told to have him fax over his note once completed-fax number given. Pt agreeableto soon appt with rheumatology-she asked if we would facilitate-said would have better luck gettingher in. Pt is moving to [place] 07/02/24. Rheumatology referral pended. * Telephone Encounter - Cha Esqueda DO - 06/08/2024 9:56 AM EDT As per previous message, pt needs to reach out to rheumatology and she was just on prednisone. Theymay choose to do a longer taper or evaluate for medication specifically for her RA. Is there something specific she is requesting? We can try to facilitate a quick appt but we really need to have rheumatology involved. * Telephone Encounter - Leandra Valderrama RN - 06/05/2024 3:39 PM EDT Emergency Department Follow Up: When was patient seen: 06/04/24 Which ED: [facility] What were they seen for: leg injury/pain What testing did they have done: ekg, lab work, and urine tests What did ED think was wrong (dx): weakness, bilateral leg pain, rheumatoid arthritis, h/o recent steroid use Any new medications prescribed: none How is patient feeling today: Pt having a lot of pain between her knees and hips both legs-started Saturday. She has to use a walker to walk. She is using her ultram q 6 hrs and not helping. She is trying heating pad, TENS, flexeril, ultram-nothing helping. States is impacting her ability to live alone-needs help getting out to bed, up from chairs, etc. States no redness swelling in legs. Area around hips is tender to touch. Recently diagnosed with iritis. Has swollen nodes in arms and elbows. Her eye doctor and ER doctor feel it may be a flare up of her rheumatoid arthritis.Had recent rx of steroids and not sure if once finished caused rebound reaction or if steroid masked symptoms until was done. Pt wanted to come in to see Dr Ramirez but it was near end of day and he was booked with pts.Spoke with Dr Ramirez and said she was just checked in ER and should use medications at home as directed. Told pt I will speak with Dr Esqueda on Saturday when she is back in office for any further recommendations. Pt will go to urgent care over weekend if having further problems. Pt has appt with Y[facility]an already scheduled for 06/09/24 for suture removal from ER visit on 05/31/24. Pt very frustrated and uncomfortable. Patient concerns today: Message forwarded to Dr Esqueda as FYI documented in this encounter Plan of Treatment Upcoming Encounters Date Type Department Care Team (Late st Contact Info) Description 06/09/2024 3:40 PM EDT Office Visit Family [address] [place] [address] Cha Esqueda DO [address] [place] [address] 06/10/2024 2:00 PM EDT Office Visit Rheumatology [facility] [address] [place] [address] Solomon Whipple PA-C [address] [place] [address] 06/24/2024 8:40 AM EDT Office Visit [address] [place] [address] Cha Esqueda DO [address] [place] [address] Scheduled Procedures Name Priority Associated Diagnoses Date/Ti me COLONOSCOPY FLEXIBLE PROXIMAL DIAGNOSTIC Recall History of colon polyps Scheduled Referrals Name Type Priority Associated Diagnoses Order Schedule RHEUMATOLOGY REFERRAL OP Referral Within 3 days (urgent) H/O rheumatoid arthritis Ordered: 06/09/2024 Health Maintenance Due Date Last Done Comments *BISPHONATE OR OTHER ACCEPTABLE MEDICATION NEEDED FOR OSTEOPOROSIS (REFER TO SMARTSET #1146) 05/28/2020 COVID-19 Vaccine (2022-24 season) 2023 08/23/2023, 04/25/2023, 09/05/2022, Additional history [...] D LEVEL ONCE IN A LIFETIME-USE SMARTSET# 62833 Completed 05/08/2018, 12/09/2015, 12/08/2014, Additional history exists [...] this encounter Medical Devices Implanted Type Area Radio News Anchor Device Identifier Shelf Expiration Date Model / Serial / Lot Tube Modified T [id number] - [id number] Implanted:Qty: 1 on 07/25/2017 by Marcelino Madison DO at OR [facility] Left: Ear GYRUS : ENT 11/13/2026 [id number] / / [id number] Trident Hemispherical Muli - [id number] Implanted:Qty: 1 on 12/13/2017 by Pardeep Martinez MD at [facility] Right: Hip CHELSEA : ORTHOPAEDICS 09/26/2022 [id number] / / [id number] Screw Acetabular 6.5mm Yuli 20m - [id number] Implanted:Qty: 1 on 12/13/2017 by Pardeep Martinez MD at [place] [facility] [place] Right: Hip CHELSEA : ORTHOPAEDICS 10/07/[id number] / / [id number] Bone Screw Cancellous 65 45 - [id number] Implanted:Qty: 1 on 12/13/2017 by Pardeep Martinez MD at [facility] Right: Hip CHELSEA : ORTHOPAEDICS 08/05/[id number] / / [id number] Screw Acetabular 6.5mm Yuli 20m - [id number] Implanted:Qty: 1 on 12/13/2017 by Pardeep Martinez MD at [place] [facility] [place] Right: Hip CHELSEA : ORTHOPAEDICS 10/07/[id number] / / [id number] Liner 42mm - [id number] Implanted:Qty: 1 on 12/13/2017 by Pardeep Martinez MD at [facility] Right: Hip CHELSEA : ORTHOPAEDICS 08/27/2021 [id number] / / [id number] Insert 28mm - [id number] Implanted:Qty: 1 on 12/13/2017 by Pardeep Martinez MD at [facility] Right: Hip CHELSEA : ORTHOPAEDICS 07/03/2022 [id number] / / [id number] Head Delta Cer 12 14 28mm 5.0 - [id number] Implanted:Qty: 1 on 12/13/2017 by Pardeep Martinez MD at [place] [facility] [place] Right: Hip SYNTHES : DEPUY 10/01/2022 [id number] / / [id number] Duragen Plus 1x3 Dp 1013 Min5 - [id number] - [id number] Implanted:Qty: 1 on 07/29/2020 by Tadeo Bonilla MD at [place] [facility] [place] hoohbe JEMIMA [id number] 05/01/2023 [id number] / [id number] / [id number] Vectris Surescan Mri 1x8 Compact Implanted:Qty: 1 on 08/01/2021 by Arnoldo Regan MD at OR [facility] N/A: Back Medtronic 03/06/2025 [id number] / / [id number] Description:Part of a kit. Vectris Surescan Mri 1x8 Compact Implanted:Qty: 1 on 08/01/2021 by Arnoldo Regan MD at OR [facility] N/A: Back Medtronic 07/04/2025 [id number] / / [id number] Description:Part of a kit. Neurostimul Intellis Adaptiv - [id number] - [id number] Implanted:Qty: 1 on 08/01/2021 by Arnoldo Regan MD at OR [facility] N/A: Back [employer] 04/28/2022 [id number] / [id number] / Description:Part of a kit. Envelope Antibacterial Tyrx - [id number] Implanted:Qty: 1 on 08/01/2021 by Arnoldo Regan MD at OR [facility] N/A: Back [employer] : CRM 05/05/2022 [id number] / / [id number] documented as of this encounter Visit Diagnoses Diagnosis H/O rheumatoid arthritis- Primary Personal history of arthritis documented in this encounter Advance Directives Documents on File Type Date Recorded Patient Concrete Plant Laborer Expl anation Advance Directives and Living Will 11/20/2020 ADVANCE DIRECTIVE REVISED/DURABLE POA HEALTHCARE/LIVING WILL 11/05/19 Power of Parts Puller 07/18/2017 POWER OF A TTORNEY POA * [...] the patient have Health Care Power of Parts Puller? Yes, not currently available * Full Code Date Activated Date Inactivated Comments 12/13/2017 7:47 PM 12/15/2017 6:34 PM This order r eflects the patients wishes and were consensually agreed upon. Question Answer Comments Discussion of Advance Directives occurred with: Patient Does the patient have a Living Will? No Does the patient have Health Care Power of Attor price? No Care Teams Advertising Solicitor Relationship Specialty Start Date End Date Cha Esqueda DO [address] [place] [address] PCP - General Family Medicine 05/25/24 documented as of this encounter
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
--- OUTSIDE RECORDS SUMMARY | 2024-06-15 07:56 | External Medical Summary | Summary of Care ---
Author Name Unknown Organization [facility] Address [address] [place] [address] Phone [phone] Care Team Providers Care Specialist Employee Labor Relations Name Role Phone Cha Rodriguez DO Primary Care Provider Encounter Details Date Type Department Care Team (Late st Contact Info) Description 06/10/2024 Refill Family Practice [address] [place] [phone] Cha Rodriguez DO [address] [place] [address] Allergies Active Allergy Reactions Criticality Noted Date [...] 06/10/2024 Active Gabapentin 300 MG Oral Capsule (Neurontin)Indica tions:Acute right-sided low back pain with right-sided sciatica Take 1 Capsule by mouth at bedtime. 30 Capsule 5 06/10/2024 Active Ketoconazole 2 % External Shampoo (Nizoral) Apply topically to affected area every 3 days. Shampoo twice a week 120 mL 1 06/09/2024 4 Discontinue d(Refill) documented as of this encounter [...] Historical. 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 Pt is a participant in the [employer] (Consortium of Rheumatology Researchers of [place]) national data collection study. For further information please call Dr Medardo Orr or Halina Angulo, RN, CCRC at [phone] Osteoporosis 03/05/2003 09/05/2011 PAROXYSMAL SVT- hx of [...] Miscellaneous Notes * Telephone Encounter - Cha Rodriguez DO - 06/10/2024 3:31 PM EDTSigned Prescriptions: Disp Refills Ketoconazole 2 % External Shampoo (Nizoral)360 mL 1 Sig: Apply topically to affected area every 3 days. 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 Please review and approve if appropriate. Pending Prescriptions: Disp Refills Ketoconazole 2 % External Shampoo (Nizora*360 mL 1 Sig: Apply topically to affected area every 3 days. Shampoo twice a week Last Visit: 06/09/2024 (in office), Visit date not found (telemedicine) 06/24/2024 If no future appointments scheduled, and last appointment is greater than a year ago, please schedule patient for an appointment Last date the medication was ordered: 06/09/2024 Patient Phone Numbers Labs: Lab Results Component Value Date/Time CREAT 0.8 05/05/2024 08:50 AM CREAT 0.75 02/19/2023 12:00 AM CREAT 0.9 12/20/2020 01:52 PM POTASSIUM 4.2 05/05/2024 08:50 AM POTASSIUM 4.3 02/19/2023 12:00 AM POTASSIUM 4.4 12/20/2020 01:52 PM TSH 5.50 (H) 05/05/2024 08:50 AM TSH 2.88 12/20/2020 01:52 PM LDLCALC 72 05/05/2024 08:50 AM LDLCALC 11/09/2019 08:38 AM Uninterpretable, recommend direct LDL cholesterol testing. LDLDIRECT 46 08/08/2022 10:39 AM LDLDIRECT 51 12/20/2020 01:52 PM LDLDIRECT 53 04/22/2020 01:27 PM ALT 15 02/12/2024 08:39 AM ALT 12 12/20/2020 01:52 PM HGBA1C 5.9 (H) 05/05/2024 08:50 AM HGBA1C 6.1 (A) 02/19/2023 12:00 AM HGBA1C 6.3 (H) 07/12/2020 11:31 AM documented in this encounter Plan of Treatment Upcoming Encounters Date Type Department Care Team (Late st Contact Info) Description 06/24/2024 8:40 AM EDT Office Visit Family Practice [address] [place] [id number] Cha Rodriguez DO [address] [place] [address] Scheduled Procedures Name Priority Associated Diagnoses Date/Ti [...] D LEVEL ONCE IN A LIFETIME-USE SMARTSET# 52406 Completed 05/08/2018, 12/09/2015, 12/08/2014, Additional history exists [...] this encounter Medical Devices Implanted Type Area Rag Cutting Machine Tender Device Identifier Shelf Expiration Date Model / Serial / Lot Tube Modified T [id number] - [id number] Implanted:Qty: 1 on 07/25/2017 by Marcelino Madison DO at OR [facility] Left: Ear GYRUS : ENT 11/13/2026 [id number] / / [id number] Trident Hemispherical Muli - [id number] Implanted:Qty: 1 on 12/13/2017 by Pardeep Martinez MD at OR [facility] Right: Hip CHELSEA : ORTHOPAEDICS 09/26/2022 [id number] / / [id number] Screw Acetabular 6.5mm Yuli 20m - [id number] Implanted:Qty: 1 on 12/13/2017 by Pardeep Martinez MD at OR [facility] Right: Hip CHELSEA : ORTHOPAEDICS 10/07/[id number]- / / [id number] Bone Screw Cancellous 65 45 - [id number] Implanted:Qty: 1 on 12/13/2017 by Pardeep Martinez MD at OR [facility] Right: Hip CHELSEA : ORTHOPAEDICS 08/05/[id number]- / / [id number] Screw Acetabular 6.5mm Yuli 20m - [id number] Implanted:Qty: 1 on 12/13/2017 by Pardeep Martinez MD at OR [facility] Right: Hip CHELSEA : ORTHOPAEDICS 10/07/[id number]- / / [id number] Liner 42mm - [id number] Implanted:Qty: 1 on 12/13/2017 by Pardeep Martinez MD at OR [facility] Right: Hip CHELSEA : ORTHOPAEDICS 08/27/2021 [id number] / / [id number] Insert 28mm - [id number] Implanted:Qty: 1 on 12/13/2017 by Pardeep Martinez MD at OR [facility] Right: Hip CHELSEA : ORTHOPAEDICS 07/03/2022 [id number] / / [id number] Head Delta Cer 12 14 28mm 5.0 - [id number] Implanted:Qty: 1 on 12/13/2017 by Pardeep Martinez MD at OR [facility] Right: Hip SYNTHES : DEPUY 10/01/2022 [id number] / / [id number] Duragen Plus 1x3 Dp 1013 Min5 - [id number] - [id number] Implanted:Qty: 1 on 07/29/2020 by Tadeo Bonilla MD at OR [facility] Immusoft JEMIMA [id number] 05/01/2023 [id number] / [id number] / [id number] Vectris Surescan Mri 1x8 Compact Implanted:Qty: 1 on 08/01/2021 by Arnoldo Regan MD at OR [facility] N/A: Back Medtronic 03/06/2025 [id number] / / [id number] Description:Part of a kit. Vectris Surescan Mri 1x8 Compact Implanted:Qty: 1 on 08/01/2021 by Arnoldo Regan MD at OR [facility] N/A: Back Medtronic 07/04/2025 [id number] / / [id number] Description:Part of a kit. Neurostimul Intellis Adaptiv - [id number] - [id number] Implanted:Qty: 1 on 08/01/2021 by Arnoldo Regan MD at OR [facility] N/A: Back [employer] 04/28/2022 [id number] / [id number] / Description:Part of a kit. Envelope Antibacterial Tyrx - [id number] Implanted:Qty: 1 on 08/01/2021 by Arnoldo Regan MD at OR [facility] N/A: Back [employer]ON[employer] : CRM 05/05/2022 [id number] / / [id number] documented as of this encounter Advance Directives Documents on File Type Date Recorded Patient Blintze Roller Expl anation Advance Directives and Living Will 11/20/2020 ADVANCE DIRECTIVE REVISED/DURABLE POA HEALTHCARE/LIVING WILL 11/05/19 Power of Garment Turner 07/18/2017 POWER OF A TTORNEY POA * [...] the patient have Health Care Power of Garment Turner? Yes, not currently available * Full Code Date Activated Date Inactivated Comments 12/13/2017 7:47 PM 12/15/2017 6:34 PM This order r eflects the patients wishes and were consensually agreed upon. Question Answer Comments Discussion of Advance Directives occurred with: Patient Does the patient have a Living Will? No Does the patient have Health Care Power of Attor price? No Care Teams Specialist Employee Labor Relations Relationship Specialty Start Date End Date Cha Rodriguez DO [address] [place] [address] PCP - General Family Medicine 05/25/24 documented as of this encounter
--- NOTE | 2024-06-15 08:16 | Emergency Department Note ---
Impression & Plan Right sided sciatica, Herniation of intervertebral disc at L3-L4 level, Intractable back pain ED Provider Note Name: NEHAL GOODRICH Age: 83 Sex: Female Arrives Via: Ambulance Informant: Patient & Daughter ED Provider: David Ram MD Chief Complaint: Right low back and hip pain Impression: As per impressions above Medical Decision Making: Pleasant 83-year-old female with a history of lumbar surgery years ago and a spinal stimulator since then. She arrives with 2 weeks worsening lower back pain which was severely aggravated this morning while sitting on the toilet. Pain is quite low in the right hip and then extends over her hip into the back of the knee. There is no evidence of DVT by examination. She does not have any neurovascular compromise. There is no rash. Patient is quite uncomfortable requiring multiple rounds of IV fentanyl. Given persistent pain imaging was obtained. CT of the lumbar spine and pelvis reveal L3-L4 disc herniation along with a small L4 compression fracture. Due to the degree of pain patient is having we discussed attempting home discharge with oral medications versus hospitalization for pain control. She does not feel she would be elbow tolerate this at home any longer. She was given IV Decadron for inflammatory control and hospitalist was consulted for further management. In the setting of no clear evidence of need for emergent surgical intervention we will hold off on consulting spine surgeon in the ER. Did discuss MRI but given her pacemaker we will need to make sure cardiology on board with proceeding prior to doing so. Triage/Nursing Notes reviewed by Me Differential:Musculoskeletal, disc herniation, fracture, metastatic disease, cord compression, discitis, sciatica, cauda equina, infection, aortic disease, renal colic, gastrointestinal, as well as other pathologies. Vital Signs: reviewed and remarkable for HTN Interventions: Fentanyl IV x 3, Decadron 10 mg IV Labs:ED labs Reviewed by me and remarkable for no significant abnormalities Imaging:CT of the lumbar spine and pelvis as per my interpretation there is slight compression deformity of L4. No other acute fracture or dislocation appreciated. Radiologist note disc herniation at 3 4 Consults:[facility] hospitalist service was consulted. I discussed the case with them and they will evaluate and bring in for further management. Plan: Disposition:Hospitalization. Condition: Good History of Present Illness: 83-year-old female arrives for evaluation of right hip pain. Patient notes posterior right hip pain that radiates down her right thigh into her knee. Ongoing for the last 2 weeks. Exacerbated by packing for moving. She has been seen by multiple providers both at this ER her PCP and rheumatology for this same pain. Has had images which were reportedly unremarkable. She notes she has been on NSAIDs and gabapentin and pain had been improving slightly until this morning when she twisted while going to the bathroom. She notes severe pain in the right buttock at this time. Much worse with palpation and movement. No weakness in her legs. She denies any leg swelling, sensation change or discoloration. She has not had any falls, trauma, injuries. She denies any current low back pain but does have a significant back pain history including previous lumbar surgery and spinal stimulator. Patient is not on any blood thinners. She had been on steroids about a month ago for iritis though has been off them. There was some concern of possible steroid- induced myopathy however she denies any actual weakness and states she is tolerated steroids multiple times before. Her daughter notes an episode of the patient being forgetful and not remembering a day. This may have something to do with having started gabapentin and taking her doses of Ativan that day. It has not reoccurred. Past Medical History:See Below Home Medications:See Below Allergies:See Below Vitals:Blood Pressure: 164/84, Pulse 74, RR 15, T 36.6C, O2 100% on RA Physical Exam: GENERAL: Patient is uncomfortable appearing and in moderate distress. RESPIRATORY: No dyspnea. Clear to auscultation and equal bilaterally. CARDIOVASCULAR: Regular rate and rhythm.No murmur appreciated. GASTROINTESTINAL: Abdomen soft, non-tender, no peritonitis. BACK: No midline tenderness, no CVA tenderness EXTREMITIES: Tenderness palpation over the right lateral buttock just medial to hip surgery scar. Distal pulses sensation and movement are intact. Some mild pain with range of motion of the right knee. Dressing over the right lower peres which she states was due to a wound 2 weeks ago. Normal motion all extremities, no cyanosis, no edema. NEUROLOGIC: Alert and oriented. No focal neurologic deficits appreciated SKIN: No rash, no jaundice, no diaphoresis. PSYCH: Appropriate GCS: 15 ED Course: Times/Reassessments: Waxing and waning pain though unable to ambulate without severe pain despite IV narcotics David Ram MD Past Med/Surg History Problem List Intractable back pain (Acute) Herniation of intervertebral disc at L3-L4 level (Acute) Right sided sciatica (Acute) History of recent steroid use (Acute) Rheumatoid arthritis (Acute) Bilateral leg pain (Acute) Weakness (Acute) Traumatic open wound of right lower leg (Acute) Painful orthopaedic hardware Biceps tendonitis on right Carpal tunnel syndrome, left Idiopathic polyneuropathy Cervical radicular pain Lumbosacral radiculopathy Lumbar post-laminectomy syndrome Lumbar spinal stenosis Status post reverse total replacement of right shoulder (~03/2023) Encounter for pre-operative examination Hypothyroidism (Chronic) Tachy-jacinto syndrome (Chronic) Rheumatoid arthritis (Chronic) Pacemaker (Chronic) GERD (gastroesophageal reflux disease) (Chronic) Osteoporosis (Chronic) History of PSVT (paroxysmal supraventricular tachycardia) (Chronic) Amputated finger (Chronic) History of hip surgery (Chronic) History of carpal tunnel surgery (Chronic) Status post total knee replacement (Acute 07/01/14) Hx of tonsillectomy (Chronic) H/O shoulder surgery (Chronic) H/O foot surgery (Chronic) S/P closed reduction of dislocated total hip prosthesis Dyspnea (Acute) Chest pain (Acute) Hypoxia (Acute) Shoulder pain HTN (hypertension) Medial meniscus tear Carpal tunnel syndrome Syncope (Acute) Acute head injury (Acute) Avulsion of skin of left lower leg (Acute) Facial laceration (Acute) Fracture of left wrist (Acute) Fracture of scaphoid bone of left wrist Traumatic open wound of lower leg (Acute) Encounter for pre-operative examination S/P carpal tunnel release Hip pain, left Traumatic wound (Acute) History of reverse total replacement of left shoulder joint Left reverse TSA (05/16/20): Grade view 1, Edouard#2, ETT 7.5 + PNB at [facility]. No issues noted per post-op anesthesia progress note. Medical History (Updated 06/15/24 @ 14:28 by David Ram MD) Iritis Borderline diabetic Hx of Clostridium difficile infection 2019, treated > "cleared" History of pericarditis 1998 Hx of supraventricular tachycardia Follows with Dr. Gardner ([facility]) Vertigo Vertigo/right ear crystal. Follows with Dr. Jd Joseph ([facility] Vestibular center). 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, s/p slow AV node pathway ablation in 1997 Hyperlipidemia Hypertension Hx MRSA infection 15 years ago in finger (since removed), has been tested since > "cleared" Osteoporosis Spinal stenosis Cervical, lumbar Rheumatoid arthritis Osteoarthritis Esophageal spasm Occasional episodes over the last 20+ years GERD (gastroesophageal reflux disease) Hypothyroidism Thrombocytopenia Remote hx felt to be medication related (resolved with medication/ASA discontinuation) MVP (mitral valve prolapse) MV anatomy normal, trace MR per 05/2022 echo Pacemaker Med[employer], last check 2022, placed for sinus arrest 2/2 esophageal spasm with strong vagal response Surgical History S/P insertion of spinal cord stimulator History of lumbar laminectomy L4-L5 @ [facility] History of dilatation and curettage History of repair of rotator cuff LEFT History of bunionectomy X2 ON RIGHT SIDE, X1 ON LEFT SIDE Hx of knee surgery LEFT KNEE (7 TOTAL SURGERIES) History of endoscopic sinus surgery History of anesthesia reaction KETAMINE-BAD DREAMS History of total hip arthroplasty RT HIP (2 SURGERY) History of total knee replacement LEFT History of carpal tunnel release RT Hx of thumb surgery LEFT HAND History of amputation RT MIDDLE FINGER (INFECTION) History of arthroscopy RT SHOULDER - ATTEMPT TO REPAIR ROTATOR CUFF History of esophagogastroduodenoscopy (EGD) History of colonoscopy History of tooth extraction History of tonsillectomy History of adenoidectomy History of myringotomy LEFT EAR Macular hole REPAIRED> RIGHT History of cataract surgery RT/LEFT History of cardiac radiofrequency ablation 1995 AND 2001 ([facility]OS) Family History (Updated 06/15/24 @ 13:00 by Amada Sevilla PA-C) Father , age 78 of a stroke AAA (abdominal aortic aneurysm) Hypertension Stroke Mother , age 89 of sepsis COPD (chronic obstructive pulmonary disease) Sepsis Mother COPD (chronic obstructive pulmonary disease) Other No family history of adverse response to anesthesia Social History Smoking Status: Never smoker Second Hand Exposure: Yes (hx- smoked a pipe); Do You Dip or Chew Tobacco: No; Hx Alcohol Use: Yes Alcohol type: wine Alcohol Intake Frequency: Monthly or Less Hx Substance Use: No Preferred Language: Uzbek Communication Ability: Effective Visual Impairment: Partially Limited Hearing Ability: Use of Hearing Aid Athletic Monitor Required: No Beliefs That Will Affect Care: None and Scientologist marital status: / Current Living Situation: Alone current occupational status: retired current occupation: former [employer] RN Feels Safe at Home: Yes Diet: regular Assistive Devices: Cane, Glasses, Hearing Aid - Bilateral and Walker Allergies Allergies Allergy/AdvReac Type Severity Reaction Status Date / Time clindamycin Allergy Intermediate Rash Verified 06/15/24 08:57 Sulfa (Sulfonamide Allergy Mild Rash Verified 06/15/24 08:57 Antibiotics) aspirin AdvReac Intermediate Thrombocyto Verified 06/15/24 08:57 penia clavulanic acid AdvReac Intermediate Severe Verified 06/15/24 08:57 diarrhea phenylbutazone AdvReac Intermediate Thrombocyto Verified 06/15/24 08:57 penia hydromorphone AdvReac Mild N/V Verified 06/15/24 08:57 ketamine AdvReac Mild Hallucinati Verified 06/15/24 08:57 ons morphine AdvReac Mild N/V Verified 06/15/24 08:57 Home Meds Home Medications Medication Instructions Recorded Confirmed atenolol 50 mg tablet 50 mg PO BID 10/21/18 06/15/24 levothyroxine 50 mcg capsule 50 mcg PO QAM 10/21/18 06/15/24 omeprazole 20 mg delayed 1 tab PO HS 10/21/18 06/15/24 release,disintegrating tablet fluticasone propionate 50 2 spray intranasal HS 05/19/20 06/15/24 mcg/actuation nasal spray,suspension acetaminophen 500 mg tablet 1,000 mg PO Q8H PRN Pain 11/03/21 06/15/24 diphenhydramine HCl 25 mg tablet 25 mg PO UD PRN Sleep 05/14/22 06/15/24 (Allergy Medicine) vitamin B complex 1 tab PO BID 02/15/23 06/15/24 chlorpheniramine 4 1 tab PO Q4H PRN seasonal allergies 07/09/23 06/15/24 mg-phenylephrine 10 mg tablet gabapentin 300 mg capsule 300 mg PO DAILY 06/12/24 06/15/24 lorazepam 0.5 mg tablet (Ativan) 0.5 mg PO TID PRN Anxiety 06/12/24 06/15/24 prednisolone sodium phosphate 1 % 1 drp ophthalmic (eye) Q2H 06/12/24 06/15/24 eye drops ibuprofen 200 mg tablet 200 mg PO Q6H PRN PAIN/FEVER 06/15/24 06/15/24 losartan 50 mg tablet 50 mg PO QAM 06/15/24 06/15/24 rosuvastatin 10 mg tablet 10 mg PO HS 06/15/24 06/15/24 Previous Rx's Medication Instructions Recorded tramadol 50 mg tablet 50 mg PO Q6H PRN pain #20 tabs 10/11/22 cyclobenzaprine 10 mg tablet 10 mg PO Q12H PRN muscle spasm #20 03/06/23 tabs Results & Data (ED) Vital Signs Vital Signs - 24 hr 06/15/24 07:48 06/15/24 07:56 06/15/24 08:05 Temperature 36.6 C 36.6 C Temperature Source Oral Oral Pulse Rate 77 75 Pulse Rate [Right Finger] 74 Respiratory Rate 13 15 Respiratory Effort / Characteristics Non-Labored Non-Labored Blood Pressure 164/84 H Blood Pressure [Right Arm] 164/84 H Blood Pressure Mean 110 Blood Pressure Mean [Right Arm] 110 Blood Pressure Position Lying Blood Pressure Position [Right Arm] Lying Pulse Oximetry 93 100 Oxygen Delivery Method Room Air Room Air Oxygen Flow Rate Sepsis Recent Fever Within 48 Hours No Sepsis New/Unexplained Change in Mental Status N/A Sepsis Action Taken by Nursing No Action Required 06/15/24 10:02 06/15/24 10:22 06/15/24 12:29 Temperature Temperature Source Pulse Rate 72 Pulse Rate [Right Finger] 69 Respiratory Rate 16 Respiratory Effort / Characteristics Non-Labored Blood Pressure Blood Pressure [Right Arm] 164/68 H Blood Pressure Mean Blood Pressure Mean [Right Arm] 100 Blood Pressure Position Blood Pressure Position [Right Arm] Lying Pulse Oximetry 99 99 Oxygen Delivery Method Nasal Cannula Room Air Oxygen Flow Rate 2 Sepsis Recent Fever Within 48 Hours Sepsis New/Unexplained Change in Mental Status Sepsis Action Taken by Nursing 06/15/24 12:35 Temperature Temperature Source Pulse Rate Pulse Rate [Right Finger] 70 Respiratory Rate 17 Respiratory Effort / Characteristics Non-Labored Blood Pressure Blood Pressure [Right Arm] 170/91 H Blood Pressure Mean Blood Pressure Mean [Right Arm] 117 Blood Pressure Position Blood Pressure Position [Right Arm] Lying Pulse Oximetry 99 Oxygen Delivery Method Room Air Oxygen Flow Rate Sepsis Recent Fever Within 48 Hours Sepsis New/Unexplained Change in Mental Status Sepsis Action Taken by Nursing Laboratory Data 06/15/24 08:23 06/15/24 08:23 Lab Results 06/15/24 Range/Units 08:23 WBC 8.59 (4.8-10.8) K/ul RBC 3.68 L (4.20-5.40) M/uL Hgb 11.3 L (12.0-16.0) g/dl Hct 35.1 L (37.0-47.0) % MCV 95.4 (80.0-100.0) fL MCH 30.7 (25.0-34.0) pg MCHC 32.2 (32.0-36.0) g/dL RDW Std Deviation 43.2 (36.4-46.3) fL RDW Coeff of Octavia 12.4 (11.5-14.5) % Plt Count 153 (130-400) K/uL MPV 11.5 (9.4-12.4) fL Immature Gran % (Auto) 0.5 % Neut % (Auto) 74.1 % Lymph % (Auto) 17.5 % Mccormick % (Auto) 5.0 % Eos % (Auto) 2.3 % Baso % (Auto) 0.6 % Neut # (Auto) 6.37 (1.40-6.50) K/uL Lymph # (Auto) 1.50 (1.20-3.40) K/uL Mccormick # (Auto) 0.43 (0.11-0.59) K/uL Eos # (Auto) 0.20 (0.00-0.50) K/uL Baso # (Auto) 0.05 (0.00-0.20) K/uL Immature Gran # (Auto) 0.04 (0.01-0.20) K/uL ESR 35 H (0-30) mm/hr Sodium 140 (136-145) mmol/L Potassium 4.4 (3.5-5.1) mmol/L Chloride 106 (98-107) mmol/L Carbon Dioxide 28 (21-32) mmol/L Anion Gap 6 (3-11) BUN 26 H (6-23) mg/dl Creatinine 1.04 (0.6-1.2) mg/dl Est Cr Clr Drug Dosing 32.4 ml/min Est GFR ( Amer) 57.5 ml/min Est GFR (Non-Af Amer) 49.6 ml/min BUN/Creatinine Ratio 25.0 H (10-20) Glucose 93 (70-99(Fasting)) mg/dl Calcium 9.5 (8.6-10.3) mg/dl C-Reactive Protein 1.51 H (0-0.5) mg/dl Administered Medications Discontinued Medications Dexamethasone Sodium Phosphate (DexamethasonePf 10 Mg/Ml Vial) 10 mg IV NOW ONE Stop: 06/15/24 12:08 Last Admin: 06/15/24 12:14 Dose: 10 mg Documented By: DONN Fentanyl Citrate (Fentanyl Citrate Pf 100 Mcg/2 Ml Vial) 50 mcg IV NOW STA Stop: 06/15/24 08:13 Last Admin: 06/15/24 08:27 Dose: 50 mcg Documented By: DONN Fentanyl Citrate (Fentanyl Citrate Pf 100 Mcg/2 Ml Vial) 100 mcg IV NOW STA Stop: 06/15/24 09:22 Last Admin: 06/15/24 09:27 Dose: 100 mcg Documented By: DONN Fentanyl Citrate (Fentanyl Citrate Pf 100 Mcg/2 Ml Vial) 75 mcg IV NOW STA Stop: 06/15/24 12:08 Last Admin: 06/15/24 12:13 Dose: 75 mcg Documented By: DONN Hydromorphone HCl (Hydromorphone Inj 1 Mg/Ml Syringe) 1 mg IV NOW STA Stop: 06/15/24 09:08 Last Admin: 06/15/24 09:12 Dose: Not Given Documented By: DONN Sodium Chloride (Nss) 500 mls @ 999 mls/hr IV .Q31M ONE Stop: 06/15/24 08:42 Last Infusion: 06/15/24 09:10 Dose: Infused Documented By: Admin: 06/15/24 08:35 Dose: 999 mls/hr Documented By: DONN Ondansetron HCl (Ondansetron Inj 2 Mg/Ml 2 Ml Vial) 4 mg IV NOW STA Stop: 06/15/24 08:13 Last Admin: 06/15/24 08:28 Dose: 4 mg Documented By: DONN Imaging Data Radiologist's Impression: Lumbar Spine CT 06/15/24 09:21 CT SCAN OF THE LUMBAR SPINE WITHOUT IV CONTRAST CLINICAL HISTORY: Right-sided sciatica. COMPARISON STUDY: CT lumbar spine dated 07/18/2023. TECHNIQUE: CT scan of the lumbar spine is performed from the lower thoracic spine to the sacrum. Images are reviewed in the axial, sagittal, and coronal planes. IV contrast was not administered for this examination. A dose lowering technique was utilized adhering to the principles of ALARA. CT DOSE: 1745.06 mGy.cm FINDINGS: The skeletal structures are osteopenic. There is an acute to subacute appearing superior endplate compression fracture of L4 with mild loss of height. No retropulsion of fragments is seen. Mild paravertebral edema is noted. Vertebral body height is otherwise maintained throughout the lumbar spine. There is a right-sided pars defect at L5. There is a 10 mm of anterolisthesis at L5- S1. There is minimal retrolisthesis is seen at L1-L2, L2-L3, and L3-L4. There is mild hyperlordosis of the lumbar spine. Anterior and lateral marginal osteophytes are seen throughout. No lytic or blastic lesion is seen. The transverse processes appear intact. There is postoperative change from laminectomy at L3-S1. A neurostimulator device is present in the right supragluteal tissues. Leads enter the central spinal canal at T11-T12 and extend superiorly into the thoracic region. There is moderate to severe disc space narrowing at all lumbar levels, greatest at L2-L3 and L5-S1. Posterior disc osteophyte complexes are seen at all lumbar levels. There is a large right posterolateral disc protrusion at L3-L4 with an inferiorly extruded fragment. This is best seen on axial image #195 and impinges on the transiting right-sided nerve roots. This contributes to severe right-sided neural foraminal stenosis at L3-L4 with impingement on the exiting right L3 nerve root. There is also severe left-sided neural foraminal stenosis at this level with impingement on the exiting left L3 nerve root. There is also moderate to severe bilateral neural foraminal stenosis at L4-L5 and L5-S1. The visualized sacrum and bony pelvis appear intact. Postoperative change is seen posterior to the thecal sac, and there is fatty atrophy of the paraspinous musculature. No retroperitoneal lymphadenopathy is seen. There are chronic/healed bilateral posterior rib fractures. IMPRESSION: 1. There is an acute to subacute appearing superior endplate compression fracture of L4 with mild loss of height. No retropulsion of fragments is seen. Correlate for point tenderness. 2. No additional acute fracture is seen. 3. Large right posterolateral disc protrusion at L3-L4 with an inferiorly extruded fragment. 4. Additional degenerative and postsurgical changes as above. ACT 112: Negative or not required by law. Electronically signed by: Medardo Elizondo M.D. 06/15/2024 12:[address] 06/15/24 09:21 CT pelvis wo con CLINICAL HISTORY: severe right hip pain TECHNIQUE: Helical axial images of the pelvis were obtained and displayed at 5 and 1 mm intervals. Automated dose lowering techniques and/or adjustment according to patient size were utilized for this exam. This exam was performed without intravenous contrast. COMPARISON: Comparison is made to pelvis radiograph 07/29/2017 FINDINGS: Bladder: Unremarkable. Reproductive organs: Unremarkable. Bowel: Unremarkable. Lymph nodes Pelvic: Unremarkable. Mesenteric: Unremarkable. Peritoneum: Normal Vessels: Atherosclerotic calcifications are seen. Abdominal wall: Bilateral fat-containing inguinal hernias. Bones: Right total hip arthroplasty is seen. Degenerative changes are seen most prominently at the pubic symphysis. There are acute appearing fractures of the superior endplate of L4 which are partially visualized. No retropulsion is seen although there are severe bilateral degenerative changes with likely severe neuroforaminal stenosis. IMPRESSION: Acute fractures of the superior endplate of L4. Degenerative changes with severe neuroforaminal stenosis of L4-L5 partially visualized. No other acute abnormalities and in particular no evidence of right hip fracture. ACT 112: Negative or not required by law. Electronically signed by: Rolly Wilks M.D. 06/15/2024 11:27 AM Discharge Plan Visit Data Chief Complaint: Hip Pain Stated Complaint: R HIP PAIN ED Provider: David Ram Discharge Problem: Right sided sciatica, Herniation of intervertebral disc at L3-L4 level, Intractable back pain Forms Stand Alone Forms: My [employer] Prescriptions Prescriptions: No Action lorazepam [Ativan] 0.5 mg tablet 0.5 mg PO TID PRN (Reason: Anxiety) gabapentin 300 mg capsule 300 mg PO DAILY prednisolone sodium phosphate 1 % drops 1 drp ophthalmic (eye) Q2H atenolol 50 mg Tablet 50 mg PO BID levothyroxine 50 mcg Capsule 50 mcg PO QAM omeprazole 20 mg Tablet,Disintegrat, Delay Rel 1 tab PO HS fluticasone propionate 50 mcg/actuation spray,suspension 2 spray INTRANASAL HS tramadol 50 mg tablet 50 mg PO Q6H PRN (Reason: pain) Qty: 20 0RF acetaminophen 500 mg tablet 1,000 mg PO Q8H PRN (Reason: Pain) diphenhydramine HCl [Allergy Medicine] 25 mg Tablet 25 mg PO UD PRN (Reason: Sleep) Patient Comments: takes for sleep vitamin B complex Tablet 1 tab PO BID cyclobenzaprine 10 mg tablet 10 mg PO Q12H PRN (Reason: muscle spasm) Qty: 20 0RF chlorpheniramine-phenylephrine 4-10 mg tablet 1 tab PO Q4H PRN (Reason: seasonal allergies) losartan 50 mg tablet 50 mg PO QAM ibuprofen 200 mg Tablet 200 mg PO Q6H PRN (Reason: PAIN/FEVER) rosuvastatin 10 mg tablet 10 mg PO HS Referrals Referrals: Cha Esqueda DO [Primary Care Provider] -
[2024-06-15] MEDS: fentaNYL citrate PF 100 MCG/2 ML VIAL IV STA ×3 (08:27→12:13)
[2024-06-15] MEDS: ONDANSETRON INJ 2 MG/ML 2 ML VIAL IV STA (08:28)
[2024-06-15] MEDS: SODIUM CHLORIDE 0.9% 500 ML IV ONE (08:35)
[2024-06-15 08:43] LABS: Basophils # (auto) 0.05 K/uL (0.00-0.20); Basophils % (auto) 0.6 %; Eosinophils % (auto) 2.3 %; Hematocrit (blood only) 35.1 % (37.0-47.0); Hemoglobin 11.3 g/dl (12.0-16.0); Immature Granulocytes # (auto) 0.04 K/uL (0.01-0.20); Immature Granulocytes % (auto) 0.5 %; Lymphocytes % (auto) 17.5 %; Mean Corpuscular Hemoglobin 30.7 pg (25.0-34.0); Mean Corpuscular Hgb Conc 32.2 g/dL (32.0-36.0); Mean Corpuscular Volume 95.4 fL (80.0-100.0); Mean Platelet Volume 11.5 fL (9.4-12.4); Monocytes # (auto) 0.43 K/uL (0.11-0.59); Neutrophils # (auto) 6.37 K/uL (1.40-6.50); Neutrophils % (auto) 74.1 %; Platelet Count 153 K/uL (130-400); RDW Coefficient of Variation 12.4 % (11.5-14.5); RDW Standard Deviation 43.2 fL (36.4-46.3); Red Blood Count 3.68 M/uL (4.20-5.40); White Blood Count 8.59 K/ul (4.8-10.8)
[2024-06-15 09:09] LABS: C Reactive Protein 1.51 mg/dl (0-0.5); Calcium 9.5 mg/dl (8.6-10.3); Creatinine Clr Calc Pharmacy 32.4 ml/min; Est GFR (African American) 57.5 ml/min; Est GFR (Non-African American) 49.6 ml/min; Potassium 4.4 mmol/L (3.5-5.1)
[2024-06-15] MEDS: HYDROmorphone INJ 1 MG/ML SYRINGE IV STA (09:12)
--- NOTE | 2024-06-15 11:28 | CT Scan Report ---
CT pelvis wo con CLINICAL HISTORY: severe right hip pain TECHNIQUE: Helical axial images of the pelvis were obtained and displayed at 5 and 1 mm intervals. Au tomated dose lowering techniques and/or adjustment according to patient size were utilized for this e xam. This exam was performed without intravenous contrast. COMPARISON: Comparison is made to pelvis radiograph 07/29/2017 FINDINGS: Bladder: Unremarkable. Reproductive organs: Unremarkable. Bowel: Unremarkable. Lymph nodes Pelvic: Unremarkable. Mesenteric: Unremarkable. Peritoneum: Normal Vessels: Atherosclerotic calcifications are seen. Abdominal wall: Bilateral fat-containing inguinal hernias. Bones: Right total hip arthroplasty is seen. Degenerative changes are seen most prominently at the pu bic symphysis. There are acute appearing fractures of the superior endplate of L4 which are partially visualized. No retropulsion is seen although there are severe bilateral degenerative changes with li laina severe neuroforaminal stenosis. IMPRESSION: Acute fractures of the superior endplate of L4. Degenerative changes with severe neuroforaminal steno sis of L4-L5 partially visualized. No other acute abnormalities and in particular no evidence of righ t hip fracture. ACT 112: Negative or not required by law. Electronically signed by: Rolly Wilks M.D. 06/15/2024 11:27 AM
[2024-06-15] MEDS: dexAMETHasone**PF** 10 MG/ML VIAL IV ONE (12:14)
--- NOTE | 2024-06-15 12:29 | CT Scan Report ---
CT SCAN OF THE LUMBAR SPINE WITHOUT IV CONTRAST CLINICAL HISTORY: Right-sided sciatica. COMPARISON STUDY: CT lumbar spine dated 07/18/2023. TECHNIQUE: CT scan of the lumbar spine is performed from the lower thoracic spine to the sacrum. Imag es are reviewed in the axial, sagittal, and coronal planes. IV contrast was not administered for this examination. A dose lowering technique was utilized adhering to the principles of ALARA. CT DOSE: 1745.06 mGy.cm FINDINGS: The skeletal structures are osteopenic. There is an acute to subacute appearing superior en dplate compression fracture of L4 with mild loss of height. No retropulsion of fragments is seen. Mil d paravertebral edema is noted. Vertebral body height is otherwise maintained throughout the lumbar s pine. There is a right-sided pars defect at L5. There is a 10 mm of anterolisthesis at L5-S1. There i s minimal retrolisthesis is seen at L1-L2, L2-L3, and L3-L4. There is mild hyperlordosis of the lumba r spine. Anterior and lateral marginal osteophytes are seen throughout. No lytic or blastic lesion is seen. The transverse processes appear intact. There is postoperative change from laminectomy at L3-S 1. A neurostimulator device is present in the right supragluteal tissues. Leads enter the central spi nal canal at T11-T12 and extend superiorly into the thoracic region. There is moderate to severe disc space narrowing at all lumbar levels, greatest at L2-L3 and L5-S1. Posterior disc osteophyte complex es are seen at all lumbar levels. There is a large right posterolateral disc protrusion at L3-L4 with an inferiorly extruded fragment. This is best seen on axial image #195 and impinges on the transitin g right-sided nerve roots. This contributes to severe right-sided neural foraminal stenosis at L3-L4 with impingement on the exiting right L3 nerve root. There is also severe left-sided neural foraminal stenosis at this level with impingement on the exiting left L3 nerve root. There is also moderate to severe bilateral neural foraminal stenosis at L4-L5 and L5-S1. The visualized sacrum and bony pelvis appear intact. Postoperative change is seen posterior to the thecal sac, and there is fatty atrophy of the paraspinous musculature. No retroperitoneal lymphadenopathy is seen. There are chronic/healed bilateral posterior rib fractures. IMPRESSION: 1. There is an acute to subacute appearing superior endplate compression fracture of L4 with mild los s of height. No retropulsion of fragments is seen. Correlate for point tenderness. 2. No additional acute fracture is seen. 3. Large right posterolateral disc protrusion at L3-L4 with an inferiorly extruded fragment. 4. Additional degenerative and postsurgical changes as above. ACT 112: Negative or not required by law. Electronically signed by: Medardo Elizondo M.D. 06/15/2024 12:28 PM
--- NOTE | 2024-06-15 14:09 | History & Physical Report ---
Date of Service June 15, 2024 Assessment & Plan (1) Intractable back pain: Plan: This is an 83 y/o female with rheumatoid arthritis, hypothyroidism, HTN, hyperlipidemia, GERD, osteoporosis, and other history as outlined below who presents to the ED today with worsening pain in the right hip and buttock area. This was preceded by flare of lower back pain, that was treated with course of prednisone. She was evaluated by rheumatology due to concern that this was a potential RA flare but they did not think the clinical picture was c/w a flare. She has been trying to manage her pain at home but symptoms are worsening so came to the ED for evaluation. In the ED, she required multiple doses of IV medication to get pain under some level of control, and there were concerns regarding her ability to ambulate safely at home. CT showed acute to subacute superior endplate compression fracture of L4 w/ mild loss of height, large right posterolateral disc protrusion at L3-L4 w/ an inferiorly extruded fragment. Pt referred for admission for IV pain control and additional evaluation. - Admit to med surg - IV dexamethasone 4 mg Q8 hrs - Scheduled IV acetaminophen 1000 mg Q8hrs - Lidocaine patch - PRN oxycodone, tramadol for breakthrough due to pt's multiple allergies - Continue gabapentin started last week - Consult pain management for additional recommendations - Consult ortho spine due to abnormalities on CT - cannot get an MRI due to pt's pacemaker and spinal stimulator - PT/OT evaluations (2) Herniation of intervertebral disc at L3-L4 level: Plan: See plan for #1 (3) Rheumatoid arthritis: Plan: Chronic, stable Follows with rheumatology who did not think current symptoms were consistent with a flare (4) Traumatic open wound of right lower leg: Plan: Following with outpatient wound care, completed coure of cephalexin Consult wound care nurse during this admission (5) Hypothyroidism: Plan: Chronic, stable Continue outpatient levothyroxine (6) GERD (gastroesophageal reflux disease): Plan: Chronic, stable Continue PPI therapy Plan Pt seen and reviewed with collaborating physician, Dr. Marcano. Plan of care discussed and as outlined above. Code status: DNR/DNI (daughter, Yocasta, is POA if patient unable to make decisions for herself) DVT prophylaxis: subQ heparin Admit to med surg for pain control and additional evaluation. Libia Sevilla PA-C History of Present Illness Chief Complaint: worsening right hip and buttock pain Primary Care Provider: Cha Esqueda DO This is an 83 y/o female with rheumatoid arthritis, hypothyroidism, HTN, hyperlipidemia, GERD, osteoporosis, and other history as outlined below who presents to the ED today with worsening pain in the right hip and buttock area. Pt reports the pain started about ten days ago with a severe cramping in the area. She does note having lower back pain in later May that was treated with a course of prednisone with improvement though not full resolution. She was seen in the ED on 06/04 for the hip pain but a specific cause was not identified though she was told her symptoms may be related to a flare of her known RA. She saw her PCP then rheumatology in follow-up who told her that the clinical pattern was not consistent with an RA flare. She has been taking Tramadol alternating with ibuprofen 600 mg so that she is taking something every three hours. Last week, she was given gabapentin to try, which she has been taking at . She also has cyclobenzaprine but has been holding this since starting the gabapentin. She is moving to [place] in two weeks so she has been packing her house up and moving boxes, which she thinks may be contributing to her symptoms. She also has increased stress due to the upcoming move so she was given lorazepam to try, which she took last week but had a reaction becoming more lethargic and having visual hallucinations so she has not taken this again. She describes the pain as soreness and aching in the right hip and right buttock area. Pain radiates to her upper thigh, both anterior and posterior at times, less to the right groin. Initially, the Tramadol and ibuprofen seemed to be keeping the pain manageable. However, today, she was sitting on the toilet and turned to the side with resultant severe pain in the area. Since then, she is having trouble ambulating due to the severity of the pain. She received multiple doses of Fentanyl in the ED, which has helped, but pain still significant so she was referred for admission. Pt notes recent diagnosis of iritis for which she is following with [facility] and is on prednisolone drops. She had a recent traumatic wound to her RLE from a car door that was sutured initially in the ED, sutures since removed, pt following with wound care. She has been using a walker/cane but limited ambulation over the last several days due to pain - leg has not given out on her, no overt weakness. Allergies Allergy/AdvReac Type Severity Reaction Status Date / Time clindamycin Allergy Intermediate Rash Verified 06/15/24 08:57 Sulfa (Sulfonamide Allergy Mild Rash Verified 06/15/24 08:57 Antibiotics) aspirin AdvReac Intermediate Thrombocyto Verified 06/15/24 08:57 penia clavulanic acid AdvReac Intermediate Severe Verified 06/15/24 08:57 diarrhea phenylbutazone AdvReac Intermediate Thrombocyto Verified 06/15/24 08:57 penia hydromorphone AdvReac Mild N/V Verified 06/15/24 08:57 ketamine AdvReac Mild Hallucinati Verified 06/15/24 08:57 ons morphine AdvReac Mild N/V Verified 06/15/24 08:57 Home Medications Medication Instructions Recorded Confirmed Type atenolol 50 mg tablet 50 mg PO BID 10/21/18 06/15/24 History levothyroxine 50 mcg capsule 50 mcg PO QAM 10/21/18 06/15/24 History omeprazole 20 mg delayed 1 tab PO HS 10/21/18 06/15/24 History release,disintegrating tablet fluticasone propionate 50 2 spray intranasal HS 05/19/20 06/15/24 History mcg/actuation nasal spray,suspension acetaminophen 500 mg tablet 1,000 mg PO Q8H PRN Pain 11/03/21 06/15/24 History tramadol 50 mg tablet 50 mg PO Q6H PRN pain #20 tabs 10/11/22 06/15/24 Rx vitamin B complex 1 tab PO BID 02/15/23 06/15/24 History cyclobenzaprine 10 mg tablet 10 mg PO Q12H PRN muscle spasm #20 03/06/23 06/15/24 Rx tabs gabapentin 300 mg capsule 300 mg PO HS 06/12/24 06/15/24 History lorazepam 0.5 mg tablet (Ativan) 0.5 mg PO TID PRN Anxiety 06/12/24 06/15/24 History prednisolone sodium phosphate 1 % 1 drp ophthalmic (eye) Q2H 06/12/24 06/15/24 History eye drops ibuprofen 200 mg tablet 600 mg PO Q6H PRN PAIN/FEVER 06/15/24 06/15/24 History ketoconazole 2 % shampoo 1 applic topical 2XWK PRN Rash 06/15/24 06/15/24 History losartan 50 mg tablet 50 mg PO QAM 06/15/24 06/15/24 History rosuvastatin 10 mg tablet 10 mg PO HS 06/15/24 06/15/24 History triamcinolone acetonide 0.1 % 1 applic topical BID PRN psoriasis 06/15/24 06/15/24 History topical cream Past Med/Surg History Problem List Intractable back pain (Acute) Herniation of intervertebral disc at L3-L4 level (Acute) Right sided sciatica (Acute) History of recent steroid use (Acute) Rheumatoid arthritis (Acute) Bilateral leg pain (Acute) Weakness (Acute) Traumatic open wound of right lower leg (Acute) Painful orthopaedic hardware Biceps tendonitis on right Carpal tunnel syndrome, left Idiopathic polyneuropathy Cervical radicular pain Lumbosacral radiculopathy Lumbar post-laminectomy syndrome Lumbar spinal stenosis Status post reverse total replacement of right shoulder (~03/2023) Encounter for pre-operative examination Hypothyroidism (Chronic) Tachy-jacinto syndrome (Chronic) Rheumatoid arthritis (Chronic) Pacemaker (Chronic) GERD (gastroesophageal reflux disease) (Chronic) Osteoporosis (Chronic) History of PSVT (paroxysmal supraventricular tachycardia) (Chronic) Amputated finger (Chronic) History of hip surgery (Chronic) History of carpal tunnel surgery (Chronic) Status post total knee replacement (Acute 07/01/14) Hx of tonsillectomy (Chronic) H/O shoulder surgery (Chronic) H/O foot surgery (Chronic) S/P closed reduction of dislocated total hip prosthesis Dyspnea (Acute) Chest pain (Acute) Hypoxia (Acute) Shoulder pain HTN (hypertension) Medial meniscus tear Carpal tunnel syndrome Syncope (Acute) Acute head injury (Acute) Avulsion of skin of left lower leg (Acute) Facial laceration (Acute) Fracture of left wrist (Acute) Fracture of scaphoid bone of left wrist Traumatic open wound of lower leg (Acute) Encounter for pre-operative examination S/P carpal tunnel release Hip pain, left Traumatic wound (Acute) History of reverse total replacement of left shoulder joint Left reverse TSA (05/16/20): Grade view 1, Edouard#2, ETT 7.5 + PNB at [facility]. No issues noted per post-op anesthesia progress note. Medical History (Updated 06/15/24 @ 18:48 by Amada Sevilla PA-C) Iritis Borderline diabetic Hx of Clostridium difficile infection 2019, treated > "cleared" History of pericarditis 1998 Hx of supraventricular tachycardia Follows with Dr. Gardner ([facility]) Vertigo Vertigo/right ear crystal. Follows with Dr. Jd Joseph ([facility]). 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, s/p slow AV node pathway ablation in 1997 Hyperlipidemia Hypertension Hx MRSA infection 15 years ago in finger (since removed), has been tested since > "cleared" Osteoporosis Spinal stenosis Cervical, lumbar Rheumatoid arthritis Osteoarthritis Esophageal spasm Occasional episodes over the last 20+ years GERD (gastroesophageal reflux disease) Hypothyroidism Thrombocytopenia Remote hx felt to be medication related (resolved with medication/ASA discontinuation) MVP (mitral valve prolapse) MV anatomy normal, trace MR per 05/2022 echo Pacemaker Medtronic, last check 2022, placed for sinus arrest 2/2 esophageal spasm with strong vagal response Surgical History S/P insertion of spinal cord stimulator History of lumbar laminectomy L4-L5 @ [facility] History of dilatation and curettage History of repair of rotator cuff LEFT History of bunionectomy X2 ON RIGHT SIDE, X1 ON LEFT SIDE Hx of knee surgery LEFT KNEE (7 TOTAL SURGERIES) History of endoscopic sinus surgery History of anesthesia reaction KETAMINE-BAD DREAMS History of total hip arthroplasty RT HIP (2 SURGERY) History of total knee replacement LEFT History of carpal tunnel release RT Hx of thumb surgery LEFT HAND History of amputation RT MIDDLE FINGER (INFECTION) History of arthroscopy RT SHOULDER - ATTEMPT TO REPAIR ROTATOR CUFF History of esophagogastroduodenoscopy (EGD) History of colonoscopy History of tooth extraction History of tonsillectomy History of adenoidectomy History of myringotomy LEFT EAR Macular hole REPAIRED> RIGHT History of cataract surgery RT/LEFT History of cardiac radiofrequency ablation 1995 AND 2001 ([facility]) Family History (Updated 06/15/24 @ 13:00 by Amada Sevilla PA-C) Father , age 78 of a stroke AAA (abdominal aortic aneurysm) Hypertension Stroke Mother , age 89 of sepsis COPD (chronic obstructive pulmonary disease) Sepsis Mother COPD (chronic obstructive pulmonary disease) Other No family history of adverse response to anesthesia Social History Smoking Status: Never smoker Second Hand Exposure: Yes (hx- smoked a pipe); Do You Dip or Chew Tobacco: No; Hx Alcohol Use: No Hx Substance Use: No Preferred Language: Lithuanian Communication Ability: Effective Visual Impairment: Partially Limited Hearing Ability: Use of Hearing Aid Bindery Supervisor Required: No Beliefs That Will Affect Care: None marital status: / Current Living Situation: Alone current occupational status: retired current occupation: former [employer] RN Other Information That Helps Us Care for You: No Feels Safe at Home: Yes Safety Concerns: Feels Safe At This Time Diet: regular Assistive Devices: Glasses Review of Systems Review of Systems: All systems reviewed & are unremarkable except as noted in HPI & below Constitutional: no fever and no chills Ear, Nose, Mouth, Throat: no nasal congestion and no sore throat Respiratory: no cough and no dyspnea Cardiovascular: no chest pain, no palpitations and no syncope Gastrointestinal: no abdominal pain, no nausea and no vomiting Genitourinary: no dysuria and no hematuria Musculoskeletal: as per Subjective / HPI Integumentary: no rash and no yellowing of the skin Neurologic: as per Subjective / HPI Physical Exam Physical Exam: General: awake, alert, NAD HEENT: no scleral icterus, moist oral mucosa Neck: supple, trachea midline Heart: RRR Lungs: CTA bilaterally on the anterior, no W/R/R Abdomen: soft, NT, +BS Extremities: no pedal edema, RLE with dressing C/D/I Neurologic: Ox3, no confusion or dysarthria, moving all extremities, no focal deficit, Musculoskeletal: +tender in mid-right buttock Results & Data Results & Data Vital Signs (Past 12 Hours) Vital Signs Temp Pulse Pulse Resp BP BP Pulse Ox 06/15/24 12:35 70 17 170/91 H 99 06/15/24 12:29 72 06/15/24 10:22 99 06/15/24 10:02 69 16 164/68 H 99 06/15/24 08:05 36.6 C 74 15 164/84 H 100 06/15/24 07:56 75 06/15/24 07:48 36.6 C 77 13 164/84 H 93 O2 Del Method O2 Flow Rate 06/15/24 12:35 Room Air 06/15/24 12:29 06/15/24 10:22 Room Air 06/15/24 10:02 Nasal Cannula 2 06/15/24 08:05 Room Air 06/15/24 07:56 06/15/24 07:48 Room Air Laboratory Results Lab Results 06/15/24 Range/Units 08:23 WBC 8.59 (4.8-10.8) K/ul RBC 3.68 L (4.20-5.40) M/uL Hgb 11.3 L (12.0-16.0) g/dl Hct 35.1 L (37.0-47.0) % MCV 95.4 (80.0-100.0) fL MCH 30.7 (25.0-34.0) pg MCHC 32.2 (32.0-36.0) g/dL RDW Std Deviation 43.2 (36.4-46.3) fL RDW Coeff of Octavia 12.4 (11.5-14.5) % Plt Count 153 (130-400) K/uL MPV 11.5 (9.4-12.4) fL Immature Gran % (Auto) 0.5 % Neut % (Auto) 74.1 % Lymph % (Auto) 17.5 % Benton % (Auto) 5.0 % Eos % (Auto) 2.3 % Baso % (Auto) 0.6 % Neut # (Auto) 6.37 (1.40-6.50) K/uL Lymph # (Auto) 1.50 (1.20-3.40) K/uL Benton # (Auto) 0.43 (0.11-0.59) K/uL Eos # (Auto) 0.20 (0.00-0.50) K/uL Baso # (Auto) 0.05 (0.00-0.20) K/uL Immature Gran # (Auto) 0.04 (0.01-0.20) K/uL ESR 35 H (0-30) mm/hr Sodium 140 (136-145) mmol/L Potassium 4.4 (3.5-5.1) mmol/L Chloride 106 (98-107) mmol/L Carbon Dioxide 28 (21-32) mmol/L Anion Gap 6 (3-11) BUN 26 H (6-23) mg/dl Creatinine 1.04 (0.6-1.2) mg/dl Est Cr Clr Drug Dosing 32.4 ml/min Est GFR ( Amer) 57.5 ml/min Est GFR (Non-Af Amer) 49.6 ml/min BUN/Creatinine Ratio 25.0 H (10-20) Glucose 93 (70-99(Fasting)) mg/dl Calcium 9.5 (8.6-10.3) mg/dl C-Reactive Protein 1.51 H (0-0.5) mg/dl Diagnostic Findings Lumbar Spine CT 06/15/24 09:21 CT SCAN OF THE LUMBAR SPINE WITHOUT IV CONTRAST CLINICAL HISTORY: Right-sided sciatica. COMPARISON STUDY: CT lumbar spine dated 07/18/2023. TECHNIQUE: CT scan of the lumbar spine is performed from the lower thoracic spine to the sacrum. Images are reviewed in the axial, sagittal, and coronal p lanes. IV contrast was not administered for this examination. A dose lowering technique was utilized adhering to the principles of ALARA. CT DOSE: 1745.06 mGy.cm FINDINGS: The skeletal structures are osteopenic. There is an acute to subacute appearing superior endplate compression fracture of L4 with mild loss of height. No retropulsion of fragments is seen. Mild paravertebral edema is noted. Vertebral body height is otherwise maintained throughout the lumbar spine. There is a right-sided pars defect at L5. There is a 10 mm of anterolisthesis at L5- S1. There is minimal retrolisthesis is seen at L1-L2, L2-L3, and L3-L4. There is mild hyperlordosis of the lumbar spine. Anterior and lateral marginal osteophytes are seen throughout. No lytic or blastic lesion is seen. The transverse processes appear intact. There is postoperative change from laminectomy at L3-S1. A neurostimulator device is present in the right supragluteal tissues. Leads enter the central spinal canal at T11-T12 and extend superiorly into the thoracic region. There is moderate to severe disc space narrowing at all lumbar levels, greatest at L2-L3 and L5-S1. Posterior disc osteophyte complexes are seen at all lumbar levels. There is a large right posterolateral disc protrusion at L3-L4 with an inferiorly extruded fragment. This is best seen on axial image #195 and impinges on the transiting right-sided nerve roots. This contributes to severe right-sided neural foraminal stenosis at L3-L4 with impingement on the exiting right L3 nerve root. There is also severe left-sided neural foraminal stenosis at this level with impingement on the exiting left L3 nerve root. There is also moderate to severe bilateral neural foraminal stenosis at L4-L5 and L5-S1. The visualized sacrum and bony pelvis appear intact. Postoperative change is seen posterior to the thecal sac, and there is fatty atrophy of the paraspinous musculature. No retroperitoneal lymphadenopathy is seen. There are chronic/healed bilateral posterior rib fractures. IMPRESSION: 1. There is an acute to subacute appearing superior endplate compression fracture of L4 with mild loss of height. No retropulsion of fragments is seen. Correlate for point tenderness. 2. No additional acute fracture is seen. 3. Large right posterolateral disc protrusion at L3-L4 with an inferiorly extruded fragment. 4. Additional degenerative and postsurgical changes as above. ACT 112: Negative or not required by law. Electronically signed by: Medardo Elizondo M.D. 06/15/2024 12:[address] 06/15/24 09:21 CT pelvis wo con CLINICAL HISTORY: severe right hip pain TECHNIQUE: Helical axial images of the pelvis were obtained and displayed at 5 and 1 mm intervals. Automated dose lowering techniques and/or adjustment according to patient size were utilized for this exam. This exam was performed without intravenous contrast. COMPARISON: Comparison is made to pelvis radiograph 07/29/2017 FINDINGS: Bladder: Unremarkable. Reproductive organs: Unremarkable. Bowel: Unremarkable. Lymph nodes Pelvic: Unremarkable. Mesenteric: Unremarkable. Peritoneum: Normal Vessels: Atherosclerotic calcifications are seen. Abdominal wall: Bilateral fat-containing inguinal hernias. Bones: Right total hip arthroplasty is seen. Degenerative changes are seen most prominently at the pubic symphysis. There are acute appearing fractures of the superior endplate of L4 which are partially visualized. No retropulsion is seen although there are severe bilateral degenerative changes with likely severe neuroforaminal stenosis. IMPRESSION: Acute fractures of the superior endplate of L4. Degenerative changes with severe neuroforaminal stenosis of L4-L5 partially visualized. No other acute abnorma lities and in particular no evidence of right hip fracture. ACT 112: Negative or not required by law. Electronically signed by: Rolly Wilks M.D. 06/15/2024 11:27 AM Medications Administered Discontinued Medications Dexamethasone Sodium Phosphate (DexamethasonePf 10 Mg/Ml Vial) 10 mg IV NOW ONE Stop: 06/15/24 12:08 Last Admin: 06/15/24 12:14 Dose: 10 mg Documented By: DONN Fentanyl Citrate (Fentanyl Citrate Pf 100 Mcg/2 Ml Vial) 50 mcg IV NOW STA Stop: 06/15/24 08:13 Last Admin: 06/15/24 08:27 Dose: 50 mcg Documented By: DONN Fentanyl Citrate (Fentanyl Citrate Pf 100 Mcg/2 Ml Vial) 100 mcg IV NOW STA Stop: 06/15/24 09:22 Last Admin: 06/15/24 09:27 Dose: 100 mcg Documented By: DONN Fentanyl Citrate (Fentanyl Citrate Pf 100 Mcg/2 Ml Vial) 75 mcg IV NOW STA Stop: 06/15/24 12:08 Last Admin: 06/15/24 12:13 Dose: 75 mcg Documented By: DONN Hydromorphone HCl (Hydromorphone Inj 1 Mg/Ml Syringe) 1 mg IV NOW STA Stop: 06/15/24 09:08 Last Admin: 06/15/24 09:12 Dose: Not Given Documented By: DONN Sodium Chloride (Nss) 500 mls @ 999 mls/hr IV .Q31M ONE Stop: 06/15/24 08:42 Last Infusion: 06/15/24 09:10 Dose: Infused Documented By: Admin: 06/15/24 08:35 Dose: 999 mls/hr Documented By: DONN Ondansetron HCl (Ondansetron Inj 2 Mg/Ml 2 Ml Vial) 4 mg IV NOW STA Stop: 06/15/24 08:13 Last Admin: 06/15/24 08:28 Dose: 4 mg Documented By: DONN Code Status & VTE Plan VTE Prophylaxis Plan VTE Prophylaxis will be ordered: Yes Supervising Physician Co-Signing Physician Notes Attending Addendum: Case reviewed with the advanced practitioner. I have personally performed a history and physical examination on the patient. I have reviewed the advanced practitioner's documentation on the date of service referenced in note, and I agree with, and take responsibility for the plan of care. please refer to her notes for full details patient seen and examined, records reviewed by myself as well ASSESSMENT AND PLAN Vaughn Marcano MD (3) Rheumatoid arthritis Rheumatoid arthritis location: unspecified site Rheumatoid factor presence: unspecified presence Qualified Code(s): M06.9 - Rheumatoid arthritis, unspecified (4) Traumatic open wound of right lower leg Encounter type: initial encounter Qualified Code(s): S81.801A - Unspecified o pen wound, right lower leg, initial encounter (5) Hypothyroidism Hypothyroidism type: acquired Qualified Code(s): E03.9 - Hypothyroidism, unspecified (6) GERD (gastroesophageal reflux disease) Esophagitis presence: esophagitis presence not specified Qualified Code(s): K21.9 - Gastro-esophageal reflux disease without esophagitis
[2024-06-15] MEDS: ACETAMINOPHEN 1,000 MG/100 ML VIAL IV STA (15:01)
[2024-06-15] MEDS: LIDOCAINE 5% 1 PATCH TD STA (15:07)
[2024-06-15] MEDS: prednisoLONE sod phos 1% 10 ML BTL OP SCH (18:27)
[2024-06-15] MEDS: dexAMETHasone 4 MG in SYRINGE 0 ML IV SCH (19:30)
[2024-06-15] MEDS: FLUTICASONE PROPIONATE NA SPR 16 GM BTL SCH (20:41)
[2024-06-15] MEDS: ATENOLOL 50 MG TABLET PO SCH (20:43)
[2024-06-15] MEDS: HEPARIN SOD 5,000 UNIT/0.5 ML VIAL SQ SCH (20:43)
[2024-06-15] MEDS: ROSUVASTATIN CALCIUM 10 MG TAB PO SCH (20:44)
[2024-06-15] MEDS: VITAMIN B COMPLEX TAB PO SCH (20:44)
[2024-06-15] MEDS: GABAPENTIN 300 MG CAP PO SCH (20:44)
[2024-06-15] MEDS: PANTOprazole 40 MG TAB PO SCH (20:44)
[2024-06-15] MEDS: ACETAMINOPHEN 1,000 MG/100 ML VIAL IV SCH (22:06)
[2024-06-16] MEDS: traMADol HCL 50 MG TABLET PO PRN (03:24)
[2024-06-16] MEDS: LEVOTHYROXINE SODIUM 50 MCG TABLET PO SCH (05:32)
--- NOTE | 2024-06-16 07:56 | Hospitalist Progress Note ---
Date of Service June 16, 2024 Assessment & Plan (1) Intractable back pain: (2) Herniation of intervertebral disc at L3-L4 level: Plan: This is an 83 y/o female with rheumatoid arthritis, hypothyroidism, HTN, hyperlipidemia, GERD, osteoporosis, and other history as outlined below who presents to the ED today with worsening pain in the right hip and buttock area. This was preceded by flare of lower back pain, that was treated with course of prednisone. She was evaluated by rheumatology due to concern that this was a potential RA flare but they did not think the clinical picture was c/w a flare. She has been trying to manage her pain at home but symptoms are worsening so came to the ED for evaluation. In the ED, she required multiple doses of IV medication to get pain under some level of control, and there were concerns regarding her ability to ambulate safely at home. CT showed acute to subacute superior endplate compression fracture of L4 w/ mild loss of height, large right posterolateral disc protrusion at L3-L4 w/ an inferiorly extruded fragment. Pt referred for admission for IV pain control and additional evaluation. Intractable back pain Herniation of intervertebral disc and L3-L4: Acute Pelvis CT in ED: Acute fractures of the superior endplate of L4. Degenerative changes with severe neuroforaminal stenosis of L4-L5 partially visualized. No other acute abnormalities and in particular no evidence of right hip fracture. Lumbar Spine CT: There is an acute to subacute appearing superior endplate compression fracture of L4 with mild loss of height. No retropulsion of fragments is seen. Correlate for point tenderness. Negative for fractures. Large right posterolateral disc protrusion at L3-L4 with an inferiorly extruded fragment. Patient much improved today. IV dexamethasone started in ED; plan to DC tomorrow with taper pack in place. scheduled tylenol providing relief along with Lidocaine patch Pain management saw patient; started on Flexeril 10 mg BID. Patient states she is sensitive to Flexeril and requesting just HS dosing. Continue Tramadol as chronic home medication. Ortho saw patient; cannot get an MRI due to pt's pacemaker and spinal stimulator. conservative treatment. A trigger point injection into the area but she does have open wounds currently so contraindicated. Ortho does not suspect a myelogram would be necssary. Gabapentin started last week; continue PRN oxycodone, tramadol for breakthrough due to pt's multiple allergies PT/OT (3) Rheumatoid arthritis: Plan: Chronic, stable Follows with rheumatology who did not think current symptoms were consistent with a flare Takes chronic steroids intermittently; will provide taper pack on DC after DC IV methylprednisone (4) Traumatic open wound of right lower leg: Plan: Following with outpatient wound care, completed course of cephalexin Arterial Duplex Bilateral US obtained: Unable to obtain right ankle brachial index due to wounds. Normal bilateral toe to brachial indices and left ankle to brachial index. Mild atherosclerotic plaque within the lower extremities. No evidence for hemodynamically significant stenosis. Patent vessels within the lower extremities. Predominantly biphasic flow throughout the lower extremities. WOCN saw patient; plan for Santyl to be applied to RLE daily with Optifoam as dressing (5) Hypothyroidism: Plan: Chronic, stable Continue levothyroxine (6) GERD (gastroesophageal reflux disease): Plan: Chronic, stable Continue PPI therapy Plan Code status: DNR/DNI (daughter, Yocasta, is POA if patient unable to make decisions for herself) DVT prophylaxis: subQ heparin Likely DC 1-2 days I spent a total of 62 minutes coordinating, documenting, and providing care for this patient excluding time spent in the performance of separately billed services. All of the aforementioned completed while collaborating with the assigned attending physician for a full treatment plan. Please see their addendum for further details. Admission and Anticipated Discharge Date Admission Date: June 15, 2024 Supervising Physician Co-Signing Physician Notes Patient was seen and examined at bedside. Active managements Intractable back pain Hernia of intervertebral disc L3-L4 Neuroforaminal stenosis L4-L5 Patient on steroid and pain management. Patient reports improving pain today. Pain management and orthospine evaluated. For conservative management now. On exam: Patient on room air, heart/lung/abdomen examination WNL. RLE wound with no signs of infection. Rest of the examination as above. I have seen and examined the patient and have discussed the case with the provider above. I agree with the assessment and plan as stated. Subjective Pt sitting in her hospital bedside chair in no apparent distress She is feeling significantly better and was able to go into detail about her medical history which includes RA She has been intermittently on and off steroids for years She is in the process of moving to [place] and feels that she was 'overdoing it' more recently. Pt denies Marshall, dizziness, SOB, chest pain, N/V/D, overall pain. Her pain is reportedly much improved. Likely DC 1-2 days Review of Systems Review of Systems: Neuro: (-) Falls, trauma, slurred speech HEENT: (-) MARSHALL, dizziness, dysphagia, visual or auditory changes CV: (-) CP, palpitations, swelling Resp: (-) SOB GI: (-) appetite changes, N/V/D, bowel changes : (-) urinary changes Skin: (-) rashes Psych: (-) anxiety, depression Physical Exam Physical Exam: Neuro: AAOx4, PERRLA, no aphagia, memory changes, CNII-XII grossly intact HEENT: head normocephalic, moist mucus membranes CV: S1/S2, (-) M/G/R, (-) edema, cap refill < 3 seconds Resp: Lungs CTA in all amador. On RA GI: Abdomen S/NT/ND, Ax4 bowel sounds, (-) CVA tenderness Musculoskeletal: 5/5 B/L UE strength, 5/5 B/L LE strength. No gait disturbance Skin: (-) rashes , (-) erythema. RLE with open wound; minimal drainage. Psych: euthymic mood Results & Data Results & Data Vital Signs (Past 12 Hours) Vital Signs Temp Pulse Resp BP Pulse Ox O2 Del Method 06/16/24 06:56 36.5 C 66 16 149/79 H 98 Room Air Laboratory Results Short CBC 06/15/24 Range/Units 08:23 WBC 8.59 (4.8-10.8) K/ul Hgb 11.3 L (12.0-16.0) g/dl Hct 35.1 L (37.0-47.0) % Plt Count 153 (130-400) K/uL BMP 06/15/24 08:23 Sodium 140 Potassium 4.4 Chloride 106 Carbon Dioxide 28 BUN 26 H Creatinine 1.04 Glucose 93 Calcium 9.5 (3) Rheumatoid arthritis Rheumatoid arthritis location: unspecified site Rheumatoid factor presence: unspecified presence Qualified Code(s): M06.9 - Rheumatoid arthritis, unspecified (4) Traumatic open wound of right lower leg Encounter type: initial encounter Qualified Code(s): S81.801A - Unspecified open wound, right lower leg, initial encounter (5) Hypothyroidism Hypothyroidism type: acquired Qualified Code(s): E03.9 - Hypothyroidism, unspecified (6) GERD (gastroesophageal reflux disease) Esophagitis presence: esophagitis presence not specified Qualified Code(s): K21.9 - Gastro-esophageal reflux disease without esophagitis
[2024-06-16 07:57] LABS: Basophils # (auto) 0.01 K/uL (0.00-0.20); Basophils % (auto) 0.1 %; Hematocrit (blood only) 30.5 % (37.0-47.0); Immature Granulocytes # (auto) 0.06 K/uL (0.01-0.20); Immature Granulocytes % (auto) 0.8 %; Lymphocytes # (auto) 0.69 K/uL (1.20-3.40); Lymphocytes % (auto) 8.9 %; Mean Corpuscular Hemoglobin 30.7 pg (25.0-34.0); Mean Corpuscular Hgb Conc 32.8 g/dL (32.0-36.0); Mean Corpuscular Volume 93.6 fL (80.0-100.0); Mean Platelet Volume 12.2 fL (9.4-12.4); Monocytes # (auto) 0.05 K/uL (0.11-0.59); Monocytes % (auto) 0.6 %; Neutrophils # (auto) 6.95 K/uL (1.40-6.50); Neutrophils % (auto) 89.6 %; Platelet Count 135 K/uL (130-400); RDW Coefficient of Variation 12.2 % (11.5-14.5); RDW Standard Deviation 42.2 fL (36.4-46.3); Red Blood Count 3.26 M/uL (4.20-5.40); White Blood Count 7.76 K/ul (4.8-10.8)
[2024-06-16] MEDS: LOSARTAN POTASSIUM 50 MG TAB PO SCH (08:04)
[2024-06-16] MEDS: LIDOCAINE 5% 1 PATCH TD SCH (08:05)
--- NOTE | 2024-06-16 08:14 | Orthopedic Consultation ---
Date of Service June 16, 2024 History of Present Illness Reason for Consultation: Back pain Requesting Physician: . Attending Physician: Vaughn Marcano MD 83 y/o female with rheumatoid arthritis, along with other medical problems, presented to the ED today with worsening pain in the right hip and buttock area. This was preceded by flare of lower back pain, that was treated with course of prednisone. She was evaluated by rheumatology due to concern that this was a potential RA flare but they did not think the clinical picture was c/w a flare. She has been trying to manage her pain at home but symptoms are worsening so came to the ED for evaluation. In the ED, she required multiple doses of IV medication to get pain under some level of control, and there were concerns regarding her ability to ambulate safely at home. CT showed acute to subacute superior endplate compression fracture of L4 w/ mild loss of height, large right posterolateral disc protrusion at L3-L4 w/ an inferiorly extruded fragment. Pt referred for admission for IV pain control and additional evaluation. Patient states that she does not recall any recent falls, but she started developing some back pain over the last several months, but she was managing it with ibuprofen and using a cane and/or walker. Of note is the fact that she has been packing up her house that she is in the process of moving. Today preceding, she was merely on the toilet and just twisted that is when her symptoms worsen with pain radiating to the right buttock region as the main area of symptoms. She denies any specific right lower extremity symptoms, and the patient this morning on the notes a distinct improvement of her symptoms versus yesterday. Patient reports having some type of lower lumbar surgery around the year 1999. Exam reveals her to have intact strength in the lower extremities, all groups are 5/5 in testing, she had a negative straight leg raise. The patient ind icated pain in the right buttock region as the main area focus of symptoms. CT scan images from [facility] from June 15, 2024, this my separate interpretation, this reveals the patient to have had prior decompressive surgery extending to a lesser extent at L3-4 down to L5-S1. There is grade 1 bordering grade 2 spondylolisthesis at L5-S1 with evidence of pars defect, highly degenerative disc at the L5-S1 level. There is retrolisthesis at L3-4 and vacuum disc phenomena at this level and also L4-5. L2-3 appears to be autofused with some retrolisthesis of L2 on L3 and then additional degenerative changes cephalad. Limited imaging at the L3-4 disc relative to the disc protrusion. There is evidence of superior endplate compression fracture at L4 which is new when compared to previous CT scan from July 2023 but indeterminate as to age. CT SCAN OF THE LUMBAR SPINE WITHOUT IV CONTRAST 06/15/24 CLINICAL HISTORY: Right-sided sciatica. COMPARISON STUDY: CT lumbar spine dated 07/18/2023. TECHNIQUE: CT scan of the lumbar spine is performed from the lower thoracic spine to the sacrum. Images are reviewed in the axial, sagittal, and coronal planes. IV contrast was not administered for this examination. A dose lowering technique was utilized adhering to the principles of ALARA. FINDINGS: The skeletal structures are osteopenic. There is an acute to subacute appearing superior endplate compression fracture of L4 with mild loss of height. No retropulsion of fragments is seen. Mild paravertebral edema is noted. Vertebral body height is otherwise maintained throughout the lumbar spine. There is a right-sided pars defect at L5. There is a 10 mm of anterolisthesis at L5- S1. There is minimal retrolisthesis is seen at L1-L2, L2-L3, and L3-L4. There is mild hyperlordosis of the lumbar spine. Anterior and lateral marginal osteophytes are seen throughout. No lytic or blastic lesion is seen. The transverse processes appear intact. There is postoperative change from laminectomy at L3-S1. A neurostimulator device is present in the right supragluteal tissues. Leads enter the central spinal canal at T11-T12 and extend superiorly into the thoracic region. There is moderate to severe disc space narrowing at all lumbar levels, greatest at L2-L3 and L5-S1. Posterior disc osteophyte complexes are seen at all lumbar levels. There is a large right posterolateral disc protrusion at L3-L4 with an inferiorly extruded fragment. This is best seen on axial image #195 and impinges on the transiting right-sided nerve roots. This contributes to severe right-sided neural foraminal stenosis at L3-L4 with impingement on the exiting right L3 nerve root. There is also severe left-sided neural foraminal stenosis at this level with impingement on the exiting left L3 nerve root. There is also moderate to severe bilateral neural foraminal stenosis at L4-L5 and L5-S1. The visualized sacrum and bony pelvis appear intact. Postoperative change is seen posterior to the thecal sac, and there is fatty atrophy of the paraspinous musculature. No retroperitoneal lymphadenopathy is seen. There are chronic/healed bilateral posterior rib fractures. IMPRESSION: 1. There is an acute to subacute appearing superior endplate compression fracture of L4 with mild loss of height. No retropulsion of fragments is seen. Correlate for point tenderness. 2. No additional acute fracture is seen. 3. Large right posterolateral disc protrusion at L3-L4 with an inferiorly extruded fragment. 4. Additional degenerative and postsurgical changes as above. Impression: Recent onset worsening of low back pain with it more chronic in nature over the last several weeks. What appears to be degenerative changes notable at L3-4 and L4-5 with vacuum disc but main complaint centering around right buttock lumbosacral region. Plan: Today I discussed with the patient the nature of her symptoms, certainly she is notably improved today with the oral steroids and other pain medications. I would recommend continuing with the currently outlined plan of now beginning to mobilize her with physical therapy and appropriate medications. Patient most likely cannot have an MRI due to the age of the pacemaker, further evaluation would have to include a CT myelogram but I do not think that is necessary at this point as she is improved. Also I think the patient should be evaluated by pain management if her symptoms do not improve as she may benefit from an epidural injection, she was in agreement with this plan, and follow-up if she does not continue on the path of improvement. Allergies Allergy/AdvReac Type Severity Reaction Status Date / Time clindamycin Allergy Intermediate Rash Verified 06/15/24 08:57 Sulfa (Sulfonamide Allergy Mild Rash Verified 06/15/24 08:57 Antibiotics) aspirin AdvReac Intermediate Thrombocyto Verified 06/15/24 08:57 penia clavulanic acid AdvReac Intermediate Severe Verified 06/15/24 08:57 diarrhea phenylbutazone AdvReac Intermediate Thrombocyto Verified 06/15/24 08:57 penia hydromorphone AdvReac Mild N/V Verified 06/15/24 08:57 ketamine AdvReac Mild Hallucinati Verified 06/15/24 08:57 ons morphine AdvReac Mild N/V Verified 06/15/24 08:57 Home Medications Medication Instructions Recorded Confirmed Type atenolol 50 mg tablet 50 mg PO BID 10/21/18 06/15/24 History levothyroxine 50 mcg capsule 50 mcg PO QAM 10/21/18 06/15/24 History omeprazole 20 mg delayed 1 tab PO HS 10/21/18 06/15/24 History release,disintegrating tablet fluticasone propionate 50 2 spray intranasal HS 05/19/20 06/15/24 History mcg/actuation nasal spray,suspension acetaminophen 500 mg tablet 1,000 mg PO Q8H PRN Pain 11/03/21 06/15/24 History tramadol 50 mg tablet 50 mg PO Q6H PRN pain #20 tabs 10/11/22 06/15/24 Rx vitamin B complex 1 tab PO BID 02/15/23 06/15/24 History cyclobenzaprine 10 mg tablet 10 mg PO Q12H PRN muscle spasm #20 03/06/23 06/15/24 Rx tabs gabapentin 300 mg capsule 300 mg PO HS 06/12/24 06/15/24 History lorazepam 0.5 mg tablet (Ativan) 0.5 mg PO TID PRN Anxiety 06/12/24 06/15/24 History prednisolone sodium phosphate 1 % 1 drp ophthalmic (eye) Q2H 06/12/24 06/15/24 History eye drops ibuprofen 200 mg tablet 600 mg PO Q6H PRN PAIN/FEVER 06/15/24 06/15/24 History ketoconazole 2 % shampoo 1 applic topical 2XWK PRN Rash 06/15/24 06/15/24 History losartan 50 mg tablet 50 mg PO QAM 06/15/24 06/15/24 History rosuvastatin 10 mg tablet 10 mg PO HS 06/15/24 06/15/24 History triamcinolone acetonide 0.1 % 1 applic topical BID PRN psoriasis 06/15/24 06/15/24 History topical cream Past Med/Surg History Problem List Intractable back pain (Acute) Herniation of intervertebral disc at L3-L4 level (Acute) Right sided sciatica (Acute) History of recent steroid use (Acute) Rheumatoid arthritis (Acute) Bilateral leg pain (Acute) Weakness (Acute) Traumatic open wound of right lower leg (Acute) Painful orthopaedic hardware Biceps tendonitis on right Carpal tunnel syndrome, left Idiopathic polyneuropathy Cervical radicular pain Lumbosacral radiculopathy Lumbar post-laminectomy syndrome Lumbar spinal stenosis Status post reverse total replacement of right shoulder (~03/2023) Encounter for pre-operative examination Hypothyroidism (Chronic) Tachy-jacinto syndrome (Chronic) Rheumatoid arthritis (Chronic) Pacemaker (Chronic) GERD (gastroesophageal reflux disease) (Chronic) Osteoporosis (Chronic) History of PSVT (paroxysmal supraventricular tachycardia) (Chronic) Amputated finger (Chronic) History of hip surgery (Chronic) History of carpal tunnel surgery (Chronic) Status post total knee replacement (Acute 07/01/14) Hx of tonsillectomy (Chronic) H/O shoulder surgery (Chronic) H/O foot surgery (Chronic) S/P closed reduction of dislocated total hip prosthesis Dyspnea (Acute) Chest pain (Acute) Hypoxia (Acute) Shoulder pain HTN (hypertension) Medial meniscus tear Carpal tunnel syndrome Syncope (Acute) Acute head injury (Acute) Avulsion of skin of left lower leg (Acute) Facial laceration (Acute) Fracture of left wrist (Acute) Fracture of scaphoid bone of left wrist Traumatic open wound of lower leg (Acute) Encounter for pre-operative examination S/P carpal tunnel release Hip pain, left Traumatic wound (Acute) History of reverse total replacement of left shoulder joint Left reverse TSA (05/16/20): Grade view 1, [place]ouard#2, ETT 7.5 + PNB at [facility]. No issues noted per post-op anesthesia progress note. Medical History (Updated 06/15/24 @ 18:48 by Amada Sevilla PA-C) Iritis Borderline diabetic Hx of Clostridium difficile infection 2019, treated > "cleared" History of pericarditis 1998 Hx of supraventricular tachycardia Follows with Dr. Gardner ([facility]) Vertigo Vertigo/right ear crystal. Follows with Dr. Jd Joseph ([facility]). 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, s/p slow AV node pathway ablation in 1997 Hyperlipidemia Hypertension Hx MRSA infection 15 years ago in finger (since removed), has been tested since > "cleared" Osteoporosis Spinal stenosis Cervical, lumbar Rheumatoid arthritis Osteoarthritis Esophageal spasm Occasional episodes over the last 20+ years GERD (gastroesophageal reflux disease) Hypothyroidism Thrombocytopenia Remote hx felt to be medication related (resolved with medication/ASA discontinuation) MVP (mitral valve prolapse) MV anatomy normal, trace MR per 05/2022 echo Pacemaker Medtronic, last check 2022, placed for sinus arrest 2/2 esophageal spasm with strong vagal response Surgical History S/P insertion of spinal cord stimulator [place] [facility] [place] of dilatation and curettage History of repair of rotator cuff LEFT History of bunionectomy X2 ON RIGHT SIDE, X1 ON LEFT SIDE Hx of knee surgery LEFT KNEE (7 TOTAL SURGERIES) History of endoscopic sinus surgery History of anesthesia reaction KETAMINE-BAD DREAMS History of total hip arthroplasty RT HIP (2 SURGERY) History of total knee replacement LEFT History of carpal tunnel release RT Hx of thumb surgery LEFT HAND History of amputation RT MIDDLE FINGER (INFECTION) History of arthroscopy RT SHOULDER - ATTEMPT TO REPAIR ROTATOR CUFF History of esophagogastroduodenoscopy (EGD) History of colonoscopy History of tooth extraction History of tonsillectomy History of adenoidectomy History of myringotomy LEFT EAR Macular hole REPAIRED> RIGHT History of cataract surgery RT/LEFT History of cardiac radiofrequency ablation 1995 AND 2001 ([facility]OS) Family History (Updated 06/15/24 @ 13:00 by Amada Sevilla PA-C) Father , age 78 of a stroke AAA (abdominal aortic aneurysm) Hypertension Stroke Mother , age 89 of sepsis COPD (chronic obstructive pulmonary disease) Sepsis Mother COPD (chronic obstructive pulmonary disease) Other No family history of adverse response to anesthesia Social History Smoking Status: Never smoker Second Hand Exposure: Yes (hx- smoked a pipe); Do You Dip or Chew Tobacco: No; Hx Alcohol Use: No Hx Substance Use: No Preferred Language: Korean Communication Ability: Effective Visual Impairment: Partially Limited Hearing Ability: Use of Hearing Aid [employer] Attendant Required: No Beliefs That Will Affect Care: None marital status: / Current Living Situation: Alone current occupational status: retired current occupation: former [employer] RN Other Information That Helps Us Care for You: No Feels Safe at Home: Yes Safety Concerns: Feels Safe At This Time Diet: regular Assistive Devices: Glasses Review of Systems All systems reviewed & are unremarkable except as noted in HPI & below. Physical Exam . Results & Data Results & Data Laboratory Results . Diagnostic Findings . PG Care Time/CCT Total # of Minutes Spent Total Time Spent with Patient: Total time spent is greater than 50% in coordination of care (as documented) at patient's floor/unit and/or counseling patient: Coding Level of Care Code 53211 IN/OBS CONSULT LVL 3,45M
[2024-06-16 08:23] LABS: BUN Creatinine Ratio 27.6 (10-20); Calcium 9.1 mg/dl (8.6-10.3); Creatinine Clr Calc Pharmacy 44.7 ml/min; Est GFR (African American) 84.1 ml/min; Est GFR (Non-African American) 72.5 ml/min; Potassium 4.7 mmol/L (3.5-5.1)
--- NOTE | 2024-06-16 09:09 | Pain Management Consultation ---
Date of Consultation June 16, 2024 Assessment & Plan (1) Pain in right buttock: Plan Pain is located in the right buttock. I do suspect the pain to be myofascial related - piriformis muscle? On imaging she was found to have a acute/subacute L4 compression fracture as well urgent right L3-4 disc protrusion and fragment which could be causing the referred pain into the buttock as well. I would offer to perform a trigger point injection into the area but she does have open wounds currently. Same situation for possibly trying an epidural injection into the lumbar region. I have placed an order for physical therapy to evaluate and treat her. She does have Flexeril 10mg BID and Tramadol ordered which she does take chronically. Lidocaine patch and Oxycodone if needed. History of Present Illness Reason for Consultation: Right buttock pain Attending Physician: Vaughn Marcano MD History of Present Illness This is an 80-year-old female admitted for right buttock pain. She is in the process of packing up and moving to [place] in 2 weeks. She has been trying to implement the amount of lifting and bending she does packing. She states that over the last 3 weeks she has been experiencing increased pain along the right buttock. There is a questionable radicular pain down the thigh and unsure if any dermatomal pattern. Pain became significantly worse when she was twisting to wipe on the commode. She is found to have an acute to subacute L4 compression fracture as well as a large right L3-L4 disc protrusion and fragment on lumbar CT imaging. She does have a significant history of a lumbar laminectomy and spinal cord stimulator. At home she does chronically take Flexeril and tramadol. Recently she started gabapentin 300 mg at bedtime. She does feel like the right leg is weaker than left. No bowel/bladder incontinence, saddle anesthesia, foot drop, falls. Case discussed with Dr. Michelle Pal Allergies Allergy/AdvReac Type Severity Reaction Status Date / Time clindamycin Allergy Intermediate Rash Verified 06/15/24 08:57 Sulfa (Sulfonamide Allergy Mild Rash Verified 06/15/24 08:57 Antibiotics) aspirin AdvReac Intermediate Thrombocyto Verified 06/15/24 08:57 penia clavulanic acid AdvReac Intermediate Severe Verified 06/15/24 08:57 diarrhea phenylbutazone AdvReac Intermediate Thrombocyto Verified 06/15/24 08:57 penia hydromorphone AdvReac Mild N/V Verified 06/15/24 08:57 ketamine AdvReac Mild Hallucinati Verified 06/15/24 08:57 ons morphine AdvReac Mild N/V Verified 06/15/24 08:57 Home Medications Medication Instructions Recorded Confirmed Type atenolol 50 mg tablet 50 mg PO BID 10/21/18 06/15/24 History levothyroxine 50 mcg capsule 50 mcg PO QAM 10/21/18 06/15/24 History omeprazole 20 mg delayed 1 tab PO HS 10/21/18 06/15/24 History release,disintegrating tablet fluticasone propionate 50 2 spray intranasal HS 05/19/20 06/15/24 History mcg/actuation nasal spray,suspension acetaminophen 500 mg tablet 1,000 mg PO Q8H PRN Pain 11/03/21 06/15/24 History tramadol 50 mg tablet 50 mg PO Q6H PRN pain #20 tabs 10/11/22 06/15/24 Rx vitamin B complex 1 tab PO BID 02/15/23 06/15/24 History cyclobenzaprine 10 mg tablet 10 mg PO Q12H PRN muscle spasm #20 03/06/23 06/15/24 Rx tabs gabapentin 300 mg capsule 300 mg PO HS 06/12/24 06/15/24 History lorazepam 0.5 mg tablet (Ativan) 0.5 mg PO TID PRN Anxiety 06/12/24 06/15/24 History prednisolone sodium phosphate 1 % 1 drp ophthalmic (eye) Q2H 06/12/24 06/15/24 History eye drops ibuprofen 200 mg tablet 600 mg PO Q6H PRN PAIN/FEVER 06/15/24 06/15/24 History ketoconazole 2 % shampoo 1 applic topical 2XWK PRN Rash 06/15/24 06/15/24 History losartan 50 mg tablet 50 mg PO QAM 06/15/24 06/15/24 History rosuvastatin 10 mg tablet 10 mg PO HS 06/15/24 06/15/24 History triamcinolone acetonide 0.1 % 1 applic topical BID PRN psoriasis 06/15/24 06/15/24 History topical cream Patient History Medical History Iritis Borderline diabetic Hx of Clostridium difficile infection 2019, treated > "cleared" History of pericarditis 1998 Hx of supraventricular tachycardia Follows with Dr. Gardner ([facility]) Vertigo Vertigo/right ear crystal. Follows with Dr. Jd Joseph ([facility] V[facility] center). 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, s/p slow AV node pathway ablation in 1997 Hyperlipidemia Hypertension Hx MRSA infection 15 years ago in finger (since removed), has been tested since > "cleared" Osteoporosis Spinal stenosis Cervical, lumbar Rheumatoid arthritis Osteoarthritis Esophageal spasm Occasional episodes over the last 20+ years GERD (gastroesophageal reflux disease) Hypothyroidism Thrombocytopenia Remote hx felt to be medication related (resolved with medication/ASA discontinuation) MVP (mitral valve prolapse) MV anatomy normal, trace MR per 05/2022 echo Pacemaker Med[employer], last check 2022, placed for sinus arrest 2/2 esophageal spasm with strong vagal response Surgical History S/P insertion of spinal cord stimulator [place] [facility] [place] of dilatation and curettage History of repair of rotator cuff LEFT History of bunionectomy X2 ON RIGHT SIDE, X1 ON LEFT SIDE Hx of knee surgery LEFT KNEE (7 TOTAL SURGERIES) History of endoscopic sinus surgery History of anesthesia reaction KETAMINE-BAD DREAMS History of total hip arthroplasty RT HIP (2 SURGERY) History of total knee replacement LEFT History of carpal tunnel release RT Hx of thumb surgery LEFT HAND History of amputation RT MIDDLE FINGER (INFECTION) History of arthroscopy RT SHOULDER - ATTEMPT TO REPAIR ROTATOR CUFF History of esophagogastroduodenoscopy (EGD) History of colonoscopy History of tooth extraction History of tonsillectomy History of adenoidectomy History of myringotomy LEFT EAR Macular hole REPAIRED> RIGHT History of cataract surgery RT/LEFT History of cardiac radiofrequency ablation 1995 AND 2001 ([facility]) Family History Father , age 78 of a stroke AAA (abdominal aortic aneurysm) Hypertension Stroke Mother , age 89 of sepsis COPD (chronic obstructive pulmonary disease) Sepsis Mother COPD (chronic obstructive pulmonary disease) Other No family history of adverse response to anesthesia Social History Smoking Status: Never smoker Second Hand Exposure: Yes (hx- smoked a pipe); Do You Dip or Chew Tobacco: No; Hx Alcohol Use: No Hx Substance Use: No Preferred Language: Moldovan Communication Ability: Effective Visual Impairment: Partially Limited Hearing Ability: Use of Hearing Aid [employer] Required: No Beliefs That Will Affect Care: None marital status: / Current Living Situation: Alone current occupational status: retired current occupation: former [employer] Other Information That Helps Us Care for You: No Feels Safe at Home: Yes Safety Concerns: Feels Safe At This Time Diet: regular Assistive Devices: Glasses Physical Exam Physical Exam: GENERAL: This is an 83-year-old female that does not appear in any acute distress. HEAD/FACE: Normocephalic and atraumatic. EYES: No drainage or conjunctival injection. ENT: Nose without bleeding or discharge. Oral mucosa moist. NECK: Full ROM without apparent pain. No swelling or masses noted. RESPIRATORY: Patient with unlabored breathing. No signs of respiratory distress. CHEST/AXILLA: Chest movement symmetrical. No deformities noted. ABDOMEN/GI: No distension BACK: Mild loss of lumbar lordosis. No midline, facet joint, SI joint tenderness. There is exquisite tenderness along the right piriformis muscle. SKIN: [place], warm and dry. No rash noted. MS/EXTREMITY: No swelling, no deformities. Moving extremities appropriately. NEURO: Alert and appears oriented. Speech is fluent. Cranial Nerves are grossly intact. PSYCH: Alert, pleasant, affect is calm Results (Pain Clinic) Diagnostic Review CT Findings: CT SCAN OF THE LUMBAR SPINE WITHOUT IV CONTRAST CLINICAL HISTORY: Right-sided sciatica. COMPARISON STUDY: CT lumbar spine dated 07/18/2023. TECHNIQUE: CT scan of the lumbar spine is performed from the lower thoracic spine to the sacrum. Images are reviewed in the axial, sagittal, and coronal planes. IV contrast was not administered for this examination. A dose lowering technique was utilized adhering to the principles of ALARA. CT DOSE: 1745.06 mGy.cm FINDINGS: The skeletal structures are osteopenic. There is an acute to subacute appearing superior endplate compression fracture of L4 with mild loss of height. No retropulsion of fragments is seen. Mild paravertebral edema is noted. Vertebral body height is otherwise maintained throughout the lumbar spine. There is a right-sided pars defect at L5. There is a 10 mm of anterolisthesis at L5- S1. There is minimal retrolisthesis is seen at L1-L2, L2-L3, and L3-L4. There is mild hyperlordosis of the lumbar spine. Anterior and lateral marginal osteophytes are seen throughout. No lytic or blastic lesion is seen. The transverse processes appear intact. There is postoperative change from laminectomy at L3-S1. A neurostimulator device is present in the right supragluteal tissues. Leads enter the central spinal canal at T11-T12 and extend superiorly into the thoracic region. There is moderate to severe disc space narrowing at all lumbar levels, greatest at L2-L3 and L5-S1. Posterior disc osteophyte complexes are seen at all lumbar levels. There is a large right posterolateral disc protrusion at L3-L4 with an inferiorly extruded fragment. This is best seen on axial image #195 and impinges on the transiting right-sided nerve roots. This contributes to severe right-sided neural foraminal stenosis at L3-L4 with impingement on the exiting right L3 nerve root. There is also severe left-sided neural foraminal stenosis at this level with impingement on the exiting left L3 nerve root. There is also moderate to severe bilateral neural foraminal stenosis at L4-L5 and L5-S1. The visualized sacrum and bony pelvis appear intact. Postoperative change is seen posterior to the thecal sac, and there is fatty atrophy of the paraspinous musculature. No retroperitoneal lymphadenopathy is seen. There are chronic/healed bilateral posterior rib fract ures. IMPRESSION: 1. There is an acute to subacute appearing superior endplate compression fracture of L4 with mild loss of height. No retropulsion of fragments is seen. Correlate for point tenderness. 2. No additional acute fracture is seen. 3. Large right posterolateral disc protrusion at L3-L4 with an inferiorly extruded fragment. 4. Additional degenerative and postsurgical changes as above. ACT 112: Negative or not required by law. Electronically signed by: Medardo Elizondo M.D. 06/15/2024 12:28 PM Dictated: 06/15/24 1109 Transcribed: 06/15/24 1109
[2024-06-16] MEDS: CYCLOBENZAPRINE HCL 10 MG TAB PO PRN (11:58)
--- NOTE | 2024-06-16 12:21 | Ultrasound Report ---
BILATERAL LOWER EXTREMITY ARTERIAL DOPPLER ULTRASOUND CLINICAL HISTORY: chronic LE wound COMPARISON STUDY: No previous studies for comparison. TECHNIQUE: Color and duplex Doppler sonography of the arterial systems of both lower extremities was performed. FINDINGS: Due to wounds, the right ankle to brachial index could not be obtained. The right toe to br achial index measured 0.86 which is within normal limits. The left posterior tibial artery was noncom pressible. The left ankle-brachial index measured 1.16 when using the dorsalis pedis. The left toe to brachial index measured 0.86 which is within normal limits. There is mild atherosclerotic plaque wit hin the lower extremities. No elevated velocities were identified. There is predominantly biphasic fl ow throughout the vessels within the lower extremities. The vessels are patent. IMPRESSION: 1. Unable to obtain right ankle brachial index due to wounds. Normal bilateral toe to brachial indice s and left ankle to brachial index. 2. Mild atherosclerotic plaque within the lower extremities. No evidence for hemodynamically signific ant stenosis. 3. Patent vessels within the lower extremities. Predominantly biphasic flow throughout the lower extr emities. ACT 112: Negative or not required by law. Electronically signed by: Rashel Ochoa M.D. 06/16/2024 12:19 PM
[2024-06-16] MEDS ORDERED: COLLAGENASE OINT 30 GM TUBE EXT PRN (14:51)
[2024-06-16] MEDS: CYCLOBENZAPRINE HCL 10 MG TAB PO SCH (19:49)
[2024-06-17] MEDS: oxyCODONE HCL IR 5 MG TAB (IMMEDIATE RELEASE) PO PRN (00:16)
--- NOTE | 2024-06-17 07:41 | Discharge Summary ---
Date of Service June 17, 2024 Admission HPI Per Admitting Provider This is an 83 y/o female with rheumatoid arthritis, hypothyroidism, HTN, hyperlipidemia, GERD, osteoporosis, and other history as outlined below who presents to the ED today with worsening pain in the right hip and buttock area. Pt reports the pain started about ten days ago with a severe cramping in the area. She does note having lower back pain in later May that was treated with a course of prednisone with improvement though not full resolution. She was seen in the ED on 06/04 for the hip pain but a specific cause was not identified though she was told her symptoms may be related to a flare of her known RA. She saw her PCP then rheumatology in follow-up who told her that the clinical pattern was not consistent with an RA flare. She has been taking Tramadol alternating with ibuprofen 600 mg so that she is taking something every three hours. Last week, she was given gabapentin to try, which she has been taking at . She also has cyclobenzaprine but has been holding this since starting the gabapentin. She is moving to [place] in two weeks so she has been packing her house up and moving boxes, which she thinks may be contributing to her symptoms. She also has increased stress due to the upcoming move so she was given lorazepam to try, which she took last week but had a reaction becoming more lethargic and having visual hallucinations so she has not taken this again. She describes the pain as soreness and aching in the right hip and right buttock area. Pain radiates to her upper thigh, both anterior and posterior at times, less to the right groin. Initially, the Tramadol and ibuprofen seemed to be keeping the pain manageable. However, today, she was sitting on the toilet and turned to the side with resultant severe pain in the area. Since then, she is having trouble ambulating due to the severity of the pain. She received multiple doses of Fentanyl in the ED, which has helped, but pain still significant so she was referred for admission. Pt notes recent diagnosis of iritis for which she is following with [facility] and is on prednisolone drops. She had a recent traumatic wound to her RLE from a car door that was sutured initially in the ED, sutures since removed, pt following with wound care. She has been using a walker/cane but limited ambulation over the last several days due to pain - leg has not given out on her, no overt weakness. Admission Exam Per Admitting Provider General: awake, alert, NAD HEENT: no scleral icterus, moist oral mucosa Neck: supple, trachea midline Heart: RRR Lungs: CTA bilaterally on the anterior, no W/R/R Abdomen: soft, NT, +BS Extremities: no pedal edema, RLE with dressing C/D/I Neurologic: Ox3, no confusion or dysarthria, moving all extremities, no focal deficit, Musculoskeletal: +tender in mid-right buttock Principal Diagnosis intractable back pain Discharge Exam Neuro: AAOx4, PERRLA, no aphagia, memory changes, CNII-XII grossly intact HEENT: head normocephalic, moist mucus membranes CV: S1/S2, (-) M/G/R, (-) edema, cap refill < 3 seconds Resp: Lungs CTA in all amador. On RA GI: Abdomen S/NT/ND, Ax4 bowel sounds, (-) CVA tenderness Musculoskeletal: 5/5 B/L UE strength, 5/5 B/L LE strength. No gait disturbance Skin: (-) rashes , (-) erythema. RLE with open wound; minimal drainage. Psych: euthymic mood Discharge Data Allergies Allergy/AdvReac Type Severity Reaction Status Date / Time clindamycin Allergy Intermediate Rash Verified 06/15/24 08:57 Sulfa (Sulfonamide Allergy Mild Rash Verified 06/15/24 08:57 Antibiotics) aspirin AdvReac Intermediate Thrombocyto Verified 06/15/24 08:57 penia clavulanic acid AdvReac Intermediate Severe Verified 06/15/24 08:57 diarrhea phenylbutazone AdvReac Intermediate Thrombocyto Verified 06/15/24 08:57 penia hydromorphone AdvReac Mild N/V Verified 06/15/24 08:57 ketamine AdvReac Mild Hallucinati Verified 06/15/24 08:57 ons morphine AdvReac Mild N/V Verified 06/15/24 08:57 Consultations 06/15/24 12:59 ED Decision to Admit Stat 06/15/24 16:46 Consult Orthopedic Spine Surgery Routine Consult Pain Management Routine Ordered Studies 06/15/24 09:21 CT lumbar spine wo con Stat CT pelvis wo con Stat 06/16/24 08:52 US arterial duplex LE BI Routine Hospital Course (1) Intractable back pain: (2) Herniation of intervertebral disc at L3-L4 level: This is an 83 y/o female with rheumatoid arthritis, hypothyroidism, HTN, hyperlipidemia, GERD, osteoporosis, and other history as outlined below who presents to the ED today with worsening pain in the right hip and buttock area. This was preceded by flare of lower back pain, that was treated with course of prednisone. She was evaluated by rheumatology due to concern that this was a potential RA flare but they did not think the clinical picture was c/w a flare. She has been trying to manage her pain at home but symptoms are worsening so came to the ED for evaluation. In the ED, she required multiple doses of IV me dication to get pain under some level of control, and there were concerns regarding her ability to ambulate safely at home. CT showed acute to subacute superior endplate compression fracture of L4 w/ mild loss of height, large right posterolateral disc protrusion at L3-L4 w/ an inferiorly extruded fragment. Pt referred for admission for IV pain control and additional evaluation. Intractable back pain Herniation of intervertebral disc and L3-L4: Acute Pelvis CT in ED: Acute fractures of the superior endplate of L4. Degenerative changes with severe neuroforaminal stenosis of L4-L5 partially visualized. No other acute abnormalities and in particular no evidence of right hip fracture. Lumbar Spine CT: There is an acute to subacute appearing superior endplate compression fracture of L4 with mild loss of height. No retropulsion of fragments is seen. Correlate for point tenderness. Negative for fractures. Large right posterolateral disc protrusion at L3-L4 with an inferiorly extruded fragment. Patient much improved today. IV dexamethasone started in ED; plan to DC tomorrow with taper pack in place. scheduled tylenol providing relief along with Lidocaine patch Pain management saw patient; started on Flexeril 10 mg BID. Patient states she is sensitive to Flexeril and requesting just HS dosing. Continue Tramadol as chronic home medication. Ortho saw patient; cannot get an MRI due to pt's pacemaker and spinal stimulator. conservative treatment. A trigger point injection into the area but she does have open wounds currently so contraindicated. Ortho does not suspect a myelogram would be necssary. Gabapentin started last week; continue PRN oxycodone, tramadol for breakthrough due to pt's multiple allergies PT/OT (3) Rheumatoid arthritis: Chronic, stable Follows with rheumatology who did not think current symptoms were consistent with a flare Takes chronic steroids intermittently; will provide taper pack on DC after DC IV methylprednisone (4) Traumatic open wound of right lower leg: Following with outpatient wound care, completed course of cephalexin Arterial Duplex Bilateral US obtained: Unable to obtain right ankle brachial index due to wounds. Normal bilateral toe to brachial indices and left ankle to brachial index. Mild atherosclerotic plaque within the lower extremities. No evidence for hemodynamically significant stenosis. Patent vessels within the lower extremities. Predominantly biphasic flow throughout the lower extremities. WOCN saw patient; plan for Santyl to be applied to RLE daily with Optifoam as dressing (5) Hypothyroidism: Chronic, stable Continue levothyroxine (6) GERD (gastroesophageal reflux disease): Chronic, stable Continue PPI therapy Plan Code status: DNR/DNI (daughter, Yocasta, is POA if patient unable to make decisions for herself) DVT prophylaxis: subQ heparin Likely DC 1-2 days I spent a total of 62 minutes coordinating, documenting, and providing care for this patient excluding time spent in the performance of separately billed services. All of the aforementioned completed while collaborating with the assigned attending physician for a full treatment plan. Please see their addendum for further details. Total Time Total Time Spent Total Time Spent (In Minutes): I spent a total of 62 minutes coordinating, documenting, and providing care for this patient excluding time spent in the performance of separately billed services. All of the aforementioned completed while collaborating with the as signed attending physician for a full treatment plan. Please see their addendum for further details. Discharge Plan Discharge Items Patient Disposition: Home - Self-Care Reason For Visit: INTRACTABLE HIP PAIN Discharge Diagnosis: Intractable back pain Activity: Resume your previous activity Bathing: No limitations Non-emergency contact: Primary Care Provider Call non-emergency contact if: you have any medication questions, your symptoms worsen, your pain is not controlled and your temperature is above 101 Follow-up/Referrals: Cha Esqueda DO [Primary Care Provider] - (Date & Time 06/24/2024 8:40 AM Provider hCa Esqueda DO Department Family [facility] [address] [place] ) Diet: Regular Addtl Attending Provider Instructions: You were admitted on 06/15 for intractable back pain. A lumbar CT was performed on 06/15 revealing: an acute to subacute appearing superior endplate compression fracture of L4 with mild loss of height. No retropulsion of fragments is seen. Correlate for point tenderness. No additional acute fracture is seen. Large right posterolateral disc protrusion at L3-L4 with an inferiorly extruded fragment. A pelvis CT was performed with results indicating the following: Acute fractures of the superior endplate of L4. Degenerative changes with severe neuroforaminal stenosis of L4-L5 partially visualized. No other acute abnormalities and in particular no evidence of right hip fracture. You were not experiencing loss of bowel or bladder function during your hospital stay. As you have a right lower extremity wound, we did obtain an ultrasound of both of your lower extremities which were unable to obtain right ankle brachial index due to wounds. Normal bilateral toe to brachial indices and left ankle to brachial index. There was mild atherosclerotic plaque within the lower extremities. No evidence for hemodynamically significant stenosis. Patent vessels within the lower extremities. Predominantly biphasic flow throughout the lower extremities. Orthopedics was able to see you while you were at the hospital and due to your pacemaker and spinal stimulator, would not be able to obtain an MRI. A trigger point injection was discussed however, due to your open wound on your leg, would not be recommended. You were started on Gabapentin which was started last week. Your pain was controlled with oxycodone and tramadol. Pain management saw you during this admission as well and started you on Flexeril. In the ER you were started on steroids and will continue a taper steroid pack as you are discharged. NEW MEDICATIONS: You advised me that you have enough gabapentin and flexeril at home so I will not be sending a new prescription in for you * Prednisone taper pack; continue taking Prednisone taper pack 1 pill orally daily until completed * Oxycodone 5 mg by mouth every 6 hours as needed. If you run out of this medication, you will need to discuss with your PCP to obtain another prescription * You will be prescribed Santyl to place on your R lower extremity wound as directed RECOMMENDATIONS FOR FOLLOW-UP: * You have an appointment scheduled with Dr. Esqueda on Sunday 06/24 @ 8:40 AM OTHER INSTRUCTIONS: * Please consider purchasing a gel or cushioned toilet seat cover to ease your bathroom use with your discomfort Seek medical attention if you have: * temperature above 101 * chest pain or trouble breathing * abdominal pain, nausea, vomiting * diarrhea, dark stools or bloody stools * any unanswered questions or concerns Call 911 if symptoms are severe. It has been a pleasure taking care of you. Please take care of yourself. If you have any questions regarding your recent hospitalization please contact [facility] and request David Her @ [phone]. -Hannah ALCALA Pending Studies at Discharge: No Stand-Alone Forms: My [facility], Smoking Cessation Medications and DC Order Prescriptions: New Santyl 250 unit/gram Ointment 1 applic EXT DAILY PRN (Reason: wound care) Qty: 30 0RF methylprednisolone [Medrol (Joel)] 4 mg tablets,dose pack 4 mg PO UD Qty: 21 0RF oxycodone 5 mg tablet 5 mg PO Q6H PRN (Reason: pain (scale score 7-10)) Qty: 20 0RF tramadol 50 mg tablet 50 mg PO Q8H PRN (Reason: pain (scale score 4-6)) 3 Days Qty: 9 0RF Continued lorazepam [Ativan] 0.5 mg tablet 0.5 mg PO TID PRN (Reason: Anxiety) gabapentin 300 mg capsule 300 mg PO HS prednisolone sodium phosphate 1 % drops 1 drp ophthalmic (eye) Q2H atenolol 50 mg Tablet 50 mg PO BID levothyroxine 50 mcg Capsule 50 mcg PO QAM omeprazole 20 mg Tablet,Disintegrat, Delay Rel 1 tab PO HS fluticasone propionate 50 mcg/actuation spray,suspension 2 spray INTRANASAL HS acetaminophen 500 mg tablet 1,000 mg PO Q8H PRN (Reason: Pain) vitamin B complex Tablet 1 tab PO BID losartan 50 mg tablet 50 mg PO QAM ibuprofen 200 mg Tablet 600 mg PO Q6H PRN (Reason: PAIN/FEVER) rosuvastatin 10 mg tablet 10 mg PO HS ketoconazole 2 % shampoo 1 applic TOPICAL 2XWK PRN (Reason: Rash) triamcinolone acetonide 0.1 % cream 1 applic TOPICAL BID PRN (Reason: psoriasis) Discontinued tramadol 50 mg tablet 50 mg PO Q6H PRN (Reason: pain) Qty: 20 0RF cyclobenzaprine 10 mg tablet 10 mg PO Q12H PRN (Reason: muscle spasm) Qty: 20 0RF Discharge Orders: Discharge Order (Routine); Ordered 06/17/24 Ordered By: Hannah Sharma/Other Patient Handouts: Back Safety: Bending, Back Safety: Sleeping Positions, Back Safety: Sitting Admission Data Admit Date/Time: 06/15/24 14:05 Attending Provider: Marifer Luna Admit Provider: Vaughn Marcano Primary Care Provider: Cha Esqueda Other Providers: Vaughn Marcano; Elan Fisher; Michelle Pal Other Interventions: Discharge Summary Assessment (RN) Last Done: 06/17/24 11:50 Supervising Physician Co-Signing Physician Notes Patient was seen and examined at bedside. Active managements Intractable back pain Hernia of intervertebral disc L3-L4 Neuroforaminal stenosis L4-L5 Patient on steroid and pain management. Patient reports improving pain, is hemodynamically stable and would like to go home. Pain management and orthospine evaluated. For conservative management now. On exam: Patient on room air, heart/lung/abdomen examination WNL. RLE wound with no signs of infection. Rest of the examination as above. I have seen and examined the patient and have discussed the case with the provider above. I agree with the assessment and plan as stated.
[2024-06-17 08:10] LABS: Hematocrit (blood only) 29.1 % (37.0-47.0); Hemoglobin 9.7 g/dl (12.0-16.0); Mean Corpuscular Hemoglobin 30.9 pg (25.0-34.0); Mean Corpuscular Hgb Conc 33.3 g/dL (32.0-36.0); Mean Corpuscular Volume 92.7 fL (80.0-100.0); Platelet Count 169 K/uL (130-400); RDW Coefficient of Variation 12.2 % (11.5-14.5); Red Blood Count 3.14 M/uL (4.20-5.40); White Blood Count 11.82 K/ul (4.8-10.8)
[2024-06-17 08:32] LABS: Anion Gap 9 (3-11); BUN Creatinine Ratio 33.3 (10-20); Blood Urea Nitrogen 26 mg/dl (6-23); C Reactive Protein < 0.50 mg/dl (0-0.5); Calcium 8.7 mg/dl (8.6-10.3); Carbon Dioxide 23 mmol/L (21-32); Chloride 103 mmol/L (98-107); Creatinine Clr Calc Pharmacy 43.6 ml/min; Est GFR (African American) 81.5 ml/min; Est GFR (Non-African American) 70.3 ml/min; Glucose 162 mg/dl (70-99(Fasting)); Potassium 4.6 mmol/L (3.5-5.1); Sodium 135 mmol/L (136-145)
== END 2024-06-17 16:54 | disposition home or self-care (01) | DRG 552 ==
LOC: ED 07:47 → 3W 14:05 → SUATTDRO 14:05 → 3W 16:19

== ENCOUNTER 2024-06-25 04:28 | Observation (INO) ==
--- NOTE | 2024-06-25 04:49 | Emergency Department Note ---
Impression & Plan Weakness, Lower back pain, Lumbar disc herniation, Leukocytosis ED Provider Note NAME: NEHAL GOODRICH AGE: 83 SEX: F : 1940 ARRIVES VIA: Ambulance INFORMANT: [Patient] ED PROVIDER(S): [Medardo Elmore MD] CHIEF COMPLAINT: Back pain HISTORY OF PRESENT ILLNESS: The patient is an 83-year-old female who was discharged from our hospital about 8 days ago. She was diagnosed with an L4 compression fracture and an L3-L4 right-sided disc herniation. This was diagnosed via CT imaging as the patient cannot undergo an MRI--her pacemaker is noncompatible. In the hospital, the patient was doing well on steroids and pain control. She was discharged with a prednisone taper and oxycodone. She is no longer taking prednisone. In the last few days, the patient's pain has increased. Tonight, she could not stand up off the toilet because of discomfort. She has noticed increasing right leg weakness as well as spasms in the right thigh. There has been no fever, no new fall, she has not lifted anything heavy. She is making her urine without difficulty. No burning with urination. The patient has seen spinal surgery. For now, they are opting for medical management. The patient is currently recovering from a right leg wound. She cannot have any injections in the spine until the wound is healed. Of note, the patient received 100 mcg of IV fentanyl in route, this has significantly helped her pain. This medication was administered via medical command. PMHx/PSHx/Social Hx: See Below PHYSICAL EXAM: GENERAL: Patient is in no acute distress. HEENT: No acute trauma, normocephalic atraumatic, mucous membranes dry, no nasal congestion. NECK: No stridor, no adenopathy, no meningismus, trachea is midline. LUNGS: Clear to auscultation bilaterally, no wheeze, no rhonchi, breath sounds equal. HEART: Without murmurs gallops or rubs, regular rate and rhythm. ABDOMEN: Soft, nontender, no peritonitis. EXTREMITIES: No cyanosis, full range of motion of all the joints without pain or difficulty. There is a bandaged wound in the mid right anterior tib-fib area. No surrounding erythema or warmth. NEUROLOGIC: Oriented x 3. She seems to have equal great toe dorsiflexion. She has equal foot plantarflexion. I can elicit a subtle 1/4 reflex to the left Achilles. I cannot elicit reflexes in her knees or the right Achilles. SKIN: No jaundice, no diaphoresis. DIFFERENTIAL DIAGNOSIS: Disc herniation, fracture, sprain, strain, acute on chronic pain, UTI, failed outpatient management, among others. EMERGENCY DEPARTMENT PROCEDURES: MEDICAL DECISION MAKING: There is a mild leukocytosis, this could be from her pain or possibly, her recent steroid use. There is a normal hemoglobin and platelet count. No renal failure or significant electrolyte abnormality. No concerning liver enzyme elevation. Lumbar spine CT shows similar findings to the previous CT imaging. The most dramatic finding is the right L3-L4 disc herniation causing severe nerve root encroachment. There was no new acute lumbar fracture seen. On exam, the patient was not febrile or toxic. Her pain was improved status post the IV fentanyl given prior to arrival. Patient received a 500 cc saline bolus. She was ordered for fentanyl as needed as needed for pain. She received 6 mg of IV Decadron. Given the worsening situation at home, given her weakness, the inability to stand, I do think she requires a repeat hospitalization. She may benefit from an injection at the area of disc herniation. I did speak with the patient and family, I spoke with the on-call hospitalist. Case management has been involved. Of note, urinalysis result is currently pending. Prior/Outside records/notes reviewed: Previous discharge summary from 06/17/2024 discussing her findings, care during her hospital stay and plan outpatient. Imaging/x-ray results per my interpretation: Chronic Medical/Social conditions affecting care: Advanced age. Recent hospitalization. Care/Management discussed with: Case management, the on-call hospitalist. Level of care consideration(s): After review of the information above and other included data: --I believe the patient requires escalation of care to admission DISPOSITION: Admission Past Med/Surg History Problem List Leukocytosis (Acute) Lumbar disc herniation (Acute) Lower back pain (Acute) Weakness (Acute) Pain in right buttock Intractable back pain (Acute) Herniation of intervertebral disc at L3-L4 level (Acute) Right sided sciatica (Acute) Traumatic open wound of right lower leg (Acute) Painful orthopaedic hardware Biceps tendonitis on right Carpal tunnel syndrome, left Idiopathic polyneuropathy Cervical radicular pain Lumbosacral radiculopathy Lumbar post-laminectomy syndrome Lumbar spinal stenosis Status post reverse total replacement of right shoulder (~03/2023) Encounter for pre-operative examination Hypothyroidism (Chronic) Tachy-jacinto syndrome (Chronic) Rheumatoid arthritis (Chronic) Pacemaker (Chronic) GERD (gastroesophageal reflux disease) (Chronic) Osteoporosis (Chronic) History of PSVT (paroxysmal supraventricular tachycardia) (Chronic) Amputated finger (Chronic) History of hip surgery (Chronic) History of carpal tunnel surgery (Chronic) Status post total knee replacement (Acute 07/01/14) Hx of tonsillectomy (Chronic) H/O shoulder surgery (Chronic) H/O foot surgery (Chronic) S/P closed reduction of dislocated total hip prosthesis Dyspnea (Acute) Chest pain (Acute) Hypoxia (Acute) Shoulder pain HTN (hypertension) Medial meniscus tear Carpal tunnel syndrome Syncope (Acute) Acute head injury (Acute) Avulsion of skin of left lower leg (Acute) Facial laceration (Acute) Fracture of left wrist (Acute) Fracture of scaphoid bone of left wrist Traumatic open wound of lower leg (Acute) Encounter for pre-operative examination S/P carpal tunnel release Hip pain, left Traumatic wound (Acute) History of reverse total replacement of left shoulder joint Left reverse TSA (05/16/20): Grade view 1, Edouard#2, ETT 7.5 + PNB at [facility]. No issues noted per post-op anesthesia progress note. Medical History Iritis Borderline diabetic Hx of Clostridium difficile infection 2019, treated > "cleared" History of pericarditis 1998 Hx of supraventricular tachycardia Follows with Dr. Gardner ([facility]) Vertigo Vertigo/right ear crystal. Follows with Dr. Jd Joseph ([facility] Vestibular center). 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, s/p slow AV node pathway ablation in 1997 Hyperlipidemia Hypertension Hx MRSA infection 15 years ago in finger (since removed), has been tested since > "cleared" Osteoporosis Spinal stenosis Cervical, lumbar Rheumatoid arthritis Osteoarthritis Esophageal spasm Occasional episodes over the last 20+ years GERD (gastroesophageal reflux disease) Hypothyroidism Thrombocytopenia Remote hx felt to be medication related (resolved with medication/ASA discontinuation) MVP (mitral valve prolapse) MV anatomy normal, trace MR per 05/2022 echo Pacemaker Medtronic, last check 2022, placed for sinus arrest 2/2 esophageal spasm with strong vagal response Surgical History S/P insertion of spinal cord stimulator History of lumbar laminectomy L4-L[place] [facility] [place] History of dilatation and curettage History of repair of rotator cuff LEFT History of bunionectomy X2 ON RIGHT SIDE, X1 ON LEFT SIDE Hx of knee surgery LEFT KNEE (7 TOTAL SURGERIES) History of endoscopic sinus surgery History of anesthesia reaction KETAMINE-BAD DREAMS History of total hip arthroplasty RT HIP (2 SURGERY) History of total knee replacement LEFT History of carpal tunnel release RT Hx of thumb surgery LEFT HAND History of amputation RT MIDDLE FINGER (INFECTION) History of arthroscopy RT SHOULDER - ATTEMPT TO REPAIR ROTATOR CUFF History of esophagogastroduodenoscopy (EGD) History of colonoscopy History of tooth extraction History of tonsillectomy History of adenoidectomy History of myringotomy LEFT EAR Macular hole REPAIRED> RIGHT History of cataract surgery RT/LEFT History of cardiac radiofrequency ablation 1995 AND 2001 ([facility]) Family History Father , age 78 of a stroke AAA (abdominal aortic aneurysm) Hypertension Stroke Mother , age 89 of sepsis COPD (chronic obstructive pulmonary disease) Sepsis Mother COPD (chronic obstructive pulmonary disease) Other No family history of adverse response to anesthesia Social History Smoking Status: Never smoker Second Hand Exposure: Yes (hx- smoked a pipe); Do You Dip or Chew Tobacco: No; Hx Alcohol Use: No Hx Substance Use: No Preferred Language: Croatian Communication Ability: Effective Visual Impairment: Partially Limited Hearing Ability: Use of Hearing Aid Electric Cutter Operator Required: No Beliefs That Will Affect Care: None marital status: / Current Living Situation: Alone current occupational status: retired current occupation: former [employer] RN Feels Safe at Home: Yes Diet: regular Assistive Devices: Walker Allergies Allergies Allergy/AdvReac Type Severity Reaction Status Date / Time clindamycin Allergy Intermediate Rash Verified 06/23/24 08:19 Sulfa (Sulfonamide Allergy Mild Rash Verified 06/23/24 08:19 Antibiotics) aspirin AdvReac Intermediate Thrombocyto Verified 06/23/24 08:19 penia clavulanic acid AdvReac Intermediate Severe Verified 06/23/24 08:19 diarrhea phenylbutazone AdvReac Intermediate Thrombocyto Verified 06/23/24 08:19 penia hydromorphone AdvReac Mild N/V Verified 06/23/24 08:19 ketamine AdvReac Mild Hallucinati Verified 06/23/24 08:19 ons morphine AdvReac Mild N/V Verified 06/23/24 08:19 Home Meds Home Medications Medication Instructions Recorded Confirmed atenolol 50 mg tablet 50 mg PO BID 10/21/18 06/15/24 levothyroxine 50 mcg capsule 50 mcg PO QAM 10/21/18 06/15/24 omeprazole 20 mg delayed 1 tab PO HS 10/21/18 06/15/24 release,disintegrating tablet fluticasone propionate 50 2 spray intranasal HS 05/19/20 06/15/24 mcg/actuation nasal spray,suspension acetaminophen 500 mg tablet 1,000 mg PO Q8H PRN Pain 11/03/21 06/15/24 vitamin B complex 1 tab PO BID 02/15/23 06/15/24 gabapentin 300 mg capsule 300 mg PO HS 06/12/24 06/15/24 lorazepam 0.5 mg tablet (Ativan) 0.5 mg PO TID PRN Anxiety 06/12/24 06/15/24 prednisolone sodium phosphate 1 % 1 drp ophthalmic (eye) Q2H 06/12/24 06/15/24 eye drops ibuprofen 200 mg tablet 600 mg PO Q6H PRN PAIN/FEVER 06/15/24 06/23/24 ketoconazole 2 % shampoo 1 applic topical 2XWK PRN Rash 06/15/24 06/23/24 losartan 50 mg tablet 50 mg PO QAM 06/15/24 06/23/24 rosuvastatin 10 mg tablet 10 mg PO HS 06/15/24 06/23/24 triamcinolone acetonide 0.1 % 1 applic topical BID PRN psoriasis 06/15/24 06/23/24 topical cream Previous Rx's Medication Instructions Recorded collagenase clostridium histo. 250 1 applic EXT DAILY PRN wound care 06/17/24 unit/gram topical ointment (Santyl) #30 grams methylprednisolone 4 mg tablets in 4 mg PO UD #21 ea 06/17/24 a dose pack (Medrol (Joel)) oxycodone 5 mg tablet 5 mg PO Q6H PRN pain (scale score 06/17/24 7-10) #20 tabs Results & Data (ED) Vital Signs Vital Signs - 24 hr 06/25/24 03:59 06/25/24 04:35 06/25/24 04:38 Temperature 36.8 C Temperature Source Oral Pulse Rate 71 71 74 Respiratory Rate 20 20 Blood Pressure 107/91 Blood Pressure Mean 96 Pulse Oximetry 97 97 Oxygen Delivery Method Room Air Room Air Sepsis Recent Fever Within 48 Hours No Sepsis New/Unexplained Change in Mental Status No Sepsis Action Taken by Nursing No Action Required Home Medications Current Medication List: was personally reviewed by me Laboratory Data Attestation: I reviewed the patient's lab results. 06/25/24 04:52 06/25/24 04:52 Lab Results 06/25/24 Range/Units 04:52 WBC 12.33 H (4.8-10.8) K/ul RBC 3.84 L (4.20-5.40) M/uL Hgb 12.0 (12.0-16.0) g/dl Hct 36.8 L (37.0-47.0) % MCV 95.8 (80.0-100.0) fL MCH 31.3 (25.0-34.0) pg MCHC 32.6 (32.0-36.0) g/dL RDW Std Deviation 45.1 (36.4-46.3) fL RDW Coeff of Octavia 13.0 (11.5-14.5) % Plt Count 291 (130-400) K/uL MPV 10.2 (9.4-12.4) fL Immature Gran % (Auto) 4.7 % Neut % (Auto) 60.4 % Lymph % (Auto) 24.8 % Smyth % (Auto) 7.9 % Eos % (Auto) 1.6 % Baso % (Auto) 0.6 % Neut # (Auto) 7.44 H (1.40-6.50) K/uL Lymph # (Auto) 3.06 (1.20-3.40) K/uL Smyth # (Auto) 0.97 H (0.11-0.59) K/uL Eos # (Auto) 0.20 (0.00-0.50) K/uL Baso # (Auto) 0.08 (0.00-0.20) K/uL Immature Gran # (Auto) 0.58 H (0.01-0.20) K/uL Sodium 136 (136-145) mmol/L Potassium 3.9 (3.5-5.1) mmol/L Chloride 104 (98-107) mmol/L Carbon Dioxide 25 (21-32) mmol/L Anion Gap 7 (3-11) BUN 24 H (6-23) mg/dl Creatinine 0.74 (0.6-1.2) mg/dl Est Cr Clr Drug Dosing 45.0 ml/min Est GFR ( Amer) 86.8 ml/min Est GFR (Non-Af Amer) 74.9 ml/min BUN/Creatinine Ratio 32.4 H (10-20) Glucose 111 H (70-99(Fasting)) mg/dl Calcium 9.4 (8.6-10.3) mg/dl Total Bilirubin 0.4 (0.2-1.0) mg/dl AST 17 (13-39) U/L ALT 15 (7-52) U/L Alkaline Phosphatase 99 (34-104) U/L Total Protein 7.1 (6.0-8.3) gm/dl Albumin 4.2 (3.4-5.0) gm/dl Globulin 2.9 (2.5-4.0) gm/dl Albumin/Globulin Ratio 1.4 (0.9-2) Administered Medications Fentanyl Citrate (Fentanyl Citrate Pf 100 Mcg/2 Ml Vial) 50 mcg IV Q15M PRN PRN Reason: Pain Stop: 07/09/24 04:45 Last Admin: 06/25/24 04:55 Dose: 50 mcg Documented By: FAINA Discontinued Medications Dexamethasone Sodium Phosphate (DexamethasonePf 10 Mg/Ml Vial) 6 mg IV NOW ONE Stop: 06/25/24 04:47 Last Admin: 06/25/24 04:56 Dose: 6 mg Documented By: FAINA Sodium Chloride (Nss) 500 mls @ 999 mls/hr IV .Q31M ONE Stop: 06/25/24 05:28 Last Infusion: 06/25/24 05:51 Dose: Infused Documented By: Admin: 06/25/24 05:25 Dose: 999 mls/hr Documented By: FAINA Imaging Data Radiologist's Impression: Lumbar Spine CT 06/25/24 04:46 Exam(s): CT L SPINE EXAM: CT Lumbar Spine Without Intravenous Contrast CLINICAL HISTORY: Reason for exam: fx, hist of herniated disc, pacer. TECHNIQUE: Axial computed tomography images of the lumbar spine without intravenous contrast. CTDI is 37.39 mGy and DLP is 880.27 mGy-cm. Automated exposure control was utilized for the study. A dose lowering technique was utilized adhering to the principles of ALARA. COMPARISON: No relevant prior studies available. FINDINGS: Vertebrae: L3-L4: Compression deformity superior endplate of L4 compressed approximately 25-50% anterior superior endplate no indication at this is acute. Diffuse disc bulge broad-based posterior disc osteophyte complex intravertebral osteochondrosis , retrolisthesis with approximately 0.7 cm of posterior slip moderate central canal stenosis and moderate to severe right and moderate left neural foramen encroachment. L4-5: Diffuse disc bulge. Facet hypertrophic changes with moderate to severe bilateral neural foramen encroachment mild to moderate central canal stenosis with removal of the central posterior elements. L5-S1: Anterolisthesis with approximately 1.1 cm in maximal anterior slip, moderate central canal stenosis moderate bilateral neural foramen encroachment. There is spondylotic spurring demonstrated at multiple levels of a moderate to severe degree. Facet hypertrophic changes at most levels. Sacrum/coccyx: There is some anterior cortical angulation of a minor degree at the superior aspect of the S2 segment. Discs/spinal canal/neural foramina: See above. Soft tissues: Unremarkable. Vasculature: Retroperitoneum reveals calcific atherosclerotic vascular disease. Tubes, lines and devices: Presumed stimulator battery pack demonstrated superior lumbar spine to the right of midline. IMPRESSION: Multilevel severe degenerative change. There may be subacute fracturing anterior cortex of S2. Electronically signed by: Oren Villalta MD 06/25/24 05:49 AM 06/15/2024--CT SCAN OF THE LUMBAR SPINE WITHOUT IV CONTRAST CLINICAL HISTORY: Right-sided sciatica. COMPARISON STUDY: CT lumbar spine dated 07/18/2023. TECHNIQUE: CT scan of the lumbar spine is performed from the lower thoracic spine to the sacrum. Images are reviewed in the axial, sagittal, and coronal planes. IV contrast was not administered for this examination. A dose lowering technique was utilized adhering to the principles of ALARA. CT DOSE: 1745.06 mGy.cm FINDINGS: The skeletal structures are osteopenic. There is an acute to subacute appearing superior endplate compression fracture of L4 with mild loss of height. No retropulsion of fragments is seen. Mild paravertebral edema is noted. Vertebral body height is otherwise maintained throughout the lumbar spine. There is a right-sided pars defect at L5. There is a 10 mm of anterolisthesis at L5- S1. There is minimal retrolisthesis is seen at L1-L2, L2-L3, and L3-L4. There is mild hyperlordosis of the lumbar spine. Anterior and lateral marginal osteophytes are seen throughout. No lytic or blastic lesion is seen. The transverse processes appear intact. There is postoperative change from laminectomy at L3-S1. A neurostimulator device is present in the right supragluteal tissues. Leads enter the central spinal canal at T11-T12 and extend superiorly into the thoracic region. There is moderate to severe disc space narrowing at all lumbar levels, greatest at L2-L3 and L5-S1. Posterior disc osteophyte complexes are seen at all lumbar levels. There is a large right posterolateral disc protrusion at L3-L4 with an inferiorly extruded fragment. This is best seen on axial image #195 and impinges on the transiting right-sided nerve roots. This contributes to severe right-sided neural foraminal stenosis at L3-L4 with impingement on the exiting right L3 nerve root. There is also severe left-sided neural foraminal stenosis at this level with impingement on the exiting left L3 nerve root. There is also moderate to severe bilateral neural foraminal stenosis at L4-L5 and L5-S1. The visualized sacrum and bony pelvis appear intact. Postoperative change is seen posterior to the thecal sac, and there is fatty atrophy of the paraspinous musculature. No retroperitoneal lymphadenopathy is seen. There are chronic/healed bilateral posterior rib fractures. IMPRESSION: 1. There is an acute to subacute appearing superior endplate compression fracture of L4 with mild loss of height. No retropulsion of fragments is seen. Correlate for point tenderness. 2. No additional acute fracture is seen. 3. Large right posterolateral disc protrusion at L3-L4 with an inferiorly extruded fragment. 4. Additional degenerative and postsurgical changes as above. Discharge Plan Visit Data Chief Complaint: Back Injury/Pain Stated Complaint: BACK PAIN, FX OF L4/L5 FX ED Provider: Medardo Elmore Discharge Problem: Weakness, Lower back pain, Lumbar disc herniation, Leukocytosis Patient Disposition: Admitted As Inpatient Condition: Good Forms Stand Alone Forms: [facility] Prescriptions Prescriptions: No Action lorazepam [Ativan] 0.5 mg tablet 0.5 mg PO TID PRN (Reason: Anxiety) gabapentin 300 mg capsule 300 mg PO HS prednisolone sodium phosphate 1 % drops 1 drp ophthalmic (eye) Q2H atenolol 50 mg Tablet 50 mg PO BID levothyroxine 50 mcg Capsule 50 mcg PO QAM omeprazole 20 mg Tablet,Disintegrat, Delay Rel 1 tab PO HS fluticasone propionate 50 mcg/actuation spray,suspension 2 spray INTRANASAL HS acetaminophen 500 mg tablet 1,000 mg PO Q8H PRN (Reason: Pain) vitamin B complex Tablet 1 tab PO BID losartan 50 mg tablet 50 mg PO QAM ibuprofen 200 mg Tablet 600 mg PO Q6H PRN (Reason: PAIN/FEVER) rosuvastatin 10 mg tablet 10 mg PO HS ketoconazole 2 % shampoo 1 applic TOPICAL 2XWK PRN (Reason: Rash) triamcinolone acetonide 0.1 % cream 1 applic TOPICAL BID PRN (Reason: psoriasis) Santyl 250 unit/gram Ointment 1 applic EXT DAILY PRN (Reason: wound care) Qty: 30 0RF methylprednisolone [Medrol (Joel)] 4 mg tablets,dose pack 4 mg PO UD Qty: 21 0RF oxycodone 5 mg tablet 5 mg PO Q6H PRN (Reason: pain (scale score 7-10)) Qty: 20 0RF Referrals Referrals: Cha Esqueda DO [Primary Care Provider] - Discharge Problem: Lower back pain Qualifiers: Chronicity: acute Back pain laterality: right Sciatica presence: with sciatica Sciatica laterality: sciatica of right side Qualified Code(s): M54.41 - Lumbago with sciatica, right side Leukocytosis Qualifiers: Leukocytosis type: unspecified Qualified Code(s): D72.829 - Elevated white blood cell count, unspecified
[2024-06-25] MEDS: fentaNYL citrate PF 100 MCG/2 ML VIAL IV PRN (04:55)
[2024-06-25] MEDS: dexAMETHasone**PF** 10 MG/ML VIAL IV ONE (04:56)
[2024-06-25 05:07] LABS: Basophils # (auto) 0.08 K/uL (0.00-0.20); Basophils % (auto) 0.6 %; Eosinophils % (auto) 1.6 %; Hematocrit (blood only) 36.8 % (37.0-47.0); Immature Granulocytes # (auto) 0.58 K/uL (0.01-0.20); Immature Granulocytes % (auto) 4.7 %; Lymphocytes # (auto) 3.06 K/uL (1.20-3.40); Lymphocytes % (auto) 24.8 %; Mean Corpuscular Hemoglobin 31.3 pg (25.0-34.0); Mean Corpuscular Hgb Conc 32.6 g/dL (32.0-36.0); Mean Corpuscular Volume 95.8 fL (80.0-100.0); Mean Platelet Volume 10.2 fL (9.4-12.4); Monocytes # (auto) 0.97 K/uL (0.11-0.59); Monocytes % (auto) 7.9 %; Neutrophils # (auto) 7.44 K/uL (1.40-6.50); Neutrophils % (auto) 60.4 %; Platelet Count 291 K/uL (130-400); RDW Standard Deviation 45.1 fL (36.4-46.3); Red Blood Count 3.84 M/uL (4.20-5.40); White Blood Count 12.33 K/ul (4.8-10.8)
[2024-06-25 05:23] LABS: Albumin Globulin Ratio 1.4 (0.9-2); Albumin Level 4.2 gm/dl (3.4-5.0); BUN Creatinine Ratio 32.4 (10-20); Bilirubin,Total 0.4 mg/dl (0.2-1.0); Calcium 9.4 mg/dl (8.6-10.3); Est GFR (African American) 86.8 ml/min; Est GFR (Non-African American) 74.9 ml/min; Globulin 2.9 gm/dl (2.5-4.0); Potassium 3.9 mmol/L (3.5-5.1); Total Protein 7.1 gm/dl (6.0-8.3)
[2024-06-25] MEDS: SODIUM CHLORIDE 0.9% 500 ML IV ONE (05:25)
--- NOTE | 2024-06-25 05:50 | CT Scan Report ---
Exam(s): CT L SPINE EXAM: CT Lumbar Spine Without Intravenous Contrast CLINICAL HISTORY: Reason for exam: fx, hist of herniated disc, pacer. TECHNIQUE: Axial computed tomography images of the lumbar spine without intravenous contrast. CTDI is 37.39 mGy and DLP is 880.27 mGy-cm. Automated exposure control was utilized for the study. A dose lowering technique was utilized adhering to the principles of ALARA. COMPARISON: No relevant prior studies available. FINDINGS: Vertebrae: L3-L4: Compression deformity superior endplate of L4 compressed approximately 25-50% anterior superior endplate no indication at this is acute. Diffuse disc bulge broad-based posterior disc osteophyte complex intravertebral osteochondrosis , retrolisthesis with approximately 0.7 cm of posterior slip moderate central canal stenosis and moderate to severe right and moderate left neural foramen encroachment. L4-5: Diffuse disc bulge. Facet hypertrophic changes with moderate to severe bilateral neural foramen encroachment mild to moderate central canal stenosis with removal of the central posterior elements. L5-S1: Anterolisthesis with approximately 1.1 cm in maximal anterior slip, moderate central canal stenosis moderate bilateral neural foramen encroachment. There is spondylotic spurring demonstrated at multiple levels of a moderate to severe degree. Facet hypertrophic changes at most levels. Sacrum/coccyx: There is some anterior cortical angulation of a minor degree at the superior aspect of the S2 segment. Discs/spinal canal/neural foramina: See above. Soft tissues: Unremarkable. Vasculature: Retroperitoneum reveals calcific atherosclerotic vascular disease. Tubes, lines and devices: Presumed stimulator battery pack demonstrated superior lumbar spine to the right of midline. IMPRESSION: Multilevel severe degenerative change. There may be subacute fracturing anterior cortex of S2. Electronically signed by: Oren Villalta MD 06/25/24 05:49 AM
[2024-06-25] MEDS: LIDOCAINE 5% 1 PATCH TD SCH (06:46)
--- NOTE | 2024-06-25 06:46 | History & Physical Report ---
Date of Service June 25, 2024 Assessment & Plan (1) Lower back pain: Plan: With bilateral leg weakness History lumbar compression fracture Possible subacute S2 anterior cortex fracture on imaging today Leg cramps rule out DVT hx SSS status post PPM PSVT as per records PVD hypertension, BP on the lower side hyperlipidemia on statin Rx DM2 diet-controlled, well-controlled as of hemoglobin A1c of 5.9 last month hypothyroidism, TSH last month elevated at 9 hx rheumatoid arthritis chronic anemia, hemoglobin better than baseline possibly from hemoconcentration OBS [facility] spine consult RE bilateral leg weakness, follow-up eval (Patient seen by Dr. Fisher last week.) LE venous Dopplers rule out DVT PT OT eval following orthopedics eval Basal bolus insulin, ISS BG goal 1 10-1 40, carb count coverage DVT prophylaxis. SCDs if no blood clot on LE venous Dopplers re: possible procedure DNR Patient daughter requesting updates providers. Ms. Yocasta Ozuna contact number, [phone]. Text document was generated using Tellyo voice recognition software. It may contain grammatical or spelling errors. Kindly contact undersigned for clarification of any documentation item in question. History of Present Illness Chief Complaint: Bilateral leg weakness, cannot stand up Primary Care Provider: Cha Esqueda DO History obtained from patient, family, and records. Medical history significant for SSS status post PPM, PSVT as per records, trace AR, PVD, hypertension, hyperlipidemia, DM2 diet-controlled, hypothyroidism, GERD, rheumatoid arthritis, skin cancer as per records, chronic anemia (baseline hemoglobin 10-11). Recent confinement last week for intractable back pain attributed to subacute endplate lumbar compression fracture. No operative intervention. Trigger point injection contraindicated by traumatic RLE wound as per report. Patient discharged home with steroid course. 2 days ago, patient noted increasing bilateral leg weakness and leg cramps. No incontinence symptoms. Back pain not as bad. No new falls. No chest pain, no SOB. Patient brought to ER for evaluation. Medical History as above Surgical History : Bunion surgery, finger surgery, knee surgery, carpal tunnel surgery, tympanostomy, foot/toe surgery, back surgery, PPM, laser trabeculoplasty, tonsillectomy/adenoidectomy, shoulder surgery, hip surgery, vitrectomy Family History : Heart disease, stroke, COPD, AAA Personal/Social history : Non-smoker, occasional EtOH intake, retired TRAINING DIRECTOR Allergies Allergy/AdvReac Type Severity Reaction Status Date / Time clindamycin Allergy Intermediate Rash Verified 06/23/24 08:19 Sulfa (Sulfonamide Allergy Mild Rash Verified 06/23/24 08:19 Antibiotics) aspirin AdvReac Intermediate Thrombocyto Verified 06/23/24 08:19 penia clavulanic acid AdvReac Intermediate Severe Verified 06/23/24 08:19 diarrhea phenylbutazone AdvReac Intermediate Thrombocyto Verified 06/23/24 08:19 penia hydromorphone AdvReac Mild N/V Verified 06/23/24 08:19 ketamine AdvReac Mild Hallucinati Verified 06/23/24 08:19 ons morphine AdvReac Mild N/V Verified 06/23/24 08:19 Home Medications Medication Instructions Recorded Confirmed Type atenolol 50 mg tablet 50 mg PO BID 10/21/18 06/25/24 History levothyroxine 50 mcg capsule 50 mcg PO QAM 10/21/18 06/25/24 History omeprazole 20 mg delayed 1 tab PO HS 10/21/18 06/25/24 History release,disintegrating tablet fluticasone propionate 50 2 spray intranasal HS 05/19/20 06/25/24 History mcg/actuation nasal spray,suspension acetaminophen 500 mg tablet 1,000 mg PO Q8H PRN Pain 11/03/21 06/25/24 History vitamin B complex 1 tab PO BID 02/15/23 06/25/24 History gabapentin 300 mg capsule 300 mg PO HS 06/12/24 06/25/24 History lorazepam 0.5 mg tablet (Ativan) 0.5 mg PO TID PRN Anxiety 06/12/24 06/25/24 History prednisolone sodium phosphate 1 % 1 drp ophthalmic (eye) Q2H 06/12/24 06/25/24 History eye drops ibuprofen 200 mg tablet 600 mg PO Q6H PRN PAIN/FEVER 06/15/24 06/25/24 History ketoconazole 2 % shampoo 1 applic topical 2XWK PRN Rash 06/15/24 06/25/24 History losartan 50 mg tablet 50 mg PO QAM 06/15/24 06/25/24 History rosuvastatin 10 mg tablet 10 mg PO HS 06/15/24 06/25/24 History triamcinolone acetonide 0.1 % 1 applic topical BID PRN psoriasis 06/15/24 06/25/24 History topical cream collagenase clostridium histo. 250 1 applic EXT DAILY PRN wound care 06/17/24 06/25/24 Rx unit/gram topical ointment (Santyl) #30 grams methylprednisolone 4 mg tablets in 4 mg PO UD #21 ea 06/17/24 06/25/24 Rx a dose pack (Medrol (Joel)) oxycodone 5 mg tablet 5 mg PO Q6H PRN pain (scale score 06/17/24 06/25/24 Rx 7-10) #20 tabs Past Med/Surg History Problem List Leukocytosis (Acute) Lumbar disc herniation (Acute) Lower back pain (Acute) Weakness (Acute) Pain in right buttock Intractable back pain (Acute) Herniation of intervertebral disc at L3-L4 level (Acute) Right sided sciatica (Acute) Traumatic open wound of right lower leg (Acute) Painful orthopaedic hardware Biceps tendonitis on right Carpal tunnel syndrome, left Idiopathic polyneuropathy Cervical radicular pain Lumbosacral radiculopathy Lumbar post-laminectomy syndrome Lumbar spinal stenosis Status post reverse total replacement of right shoulder (~03/2023) Encounter for pre-operative examination Hypothyroidism (Chronic) Tachy-jacinto syndrome (Chronic) Rheumatoid arthritis (Chronic) Pacemaker (Chronic) GERD (gastroesophageal reflux disease) (Chronic) Osteoporosis (Chronic) History of PSVT (paroxysmal supraventricular tachycardia) (Chronic) Amputated finger (Chronic) History of hip surgery (Chronic) History of carpal tunnel surgery (Chronic) Status post total knee replacement (Acute 07/01/14) Hx of tonsillectomy (Chronic) H/O shoulder surgery (Chronic) H/O foot surgery (Chronic) S/P closed reduction of dislocated total hip prosthesis Dyspnea (Acute) Chest pain (Acute) Hypoxia (Acute) Shoulder pain HTN (hypertension) Medial meniscus tear Carpal tunnel syndrome Syncope (Acute) Acute head injury (Acute) Avulsion of skin of left lower leg (Acute) Facial laceration (Acute) Fracture of left wrist (Acute) Fracture of scaphoid bone of left wrist Traumatic open wound of lower leg (Acute) Encounter for pre-operative examination S/P carpal tunnel release Hip pain, left Traumatic wound (Acute) History of reverse total replacement of left shoulder joint Left reverse TSA (05/16/20): Grade view 1, [place]ouard#2, ETT 7.5 + PNB at [facility]. No issues noted per post-op anesthesia progress note. Medical History Iritis Borderline diabetic Hx of Clostridium difficile infection 2019, treated > "cleared" History of pericarditis 1998 Hx of supraventricular tachycardia Follows with Dr. Gardner ([facility]) Vertigo Vertigo/right ear crystal. Follows with Dr. Jd Joseph ([facility] Vestibular center). 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, s/p slow AV node pathway ablation in 1997 Hyperlipidemia Hypertension Hx MRSA infection 15 years ago in finger (since removed), has been tested since > "cleared" Osteoporosis Spinal stenosis Cervical, lumbar Rheumatoid arthritis Osteoarthritis Esophageal spasm Occasional episodes over the last 20+ years GERD (gastroesophageal reflux disease) Hypothyroidism Thrombocytopenia Remote hx felt to be medication related (resolved with medication/ASA discontinuation) MVP (mitral valve prolapse) MV anatomy normal, trace MR per 05/2022 echo Pacemaker Medtronic, last check 2022, placed for sinus arrest 2/2 esophageal spasm with strong vagal response Surgical History S/P insertion of spinal cord stimulator History of lumbar l[place] [facility] [place] of dilatation and curettage History of repair of rotator cuff LEFT History of bunionectomy X2 ON RIGHT SIDE, X1 ON LEFT SIDE Hx of knee surgery LEFT KNEE (7 TOTAL SURGERIES) History of endoscopic sinus surgery History of anesthesia reaction KETAMINE-BAD DREAMS History of total hip arthroplasty RT HIP (2 SURGERY) History of total knee replacement LEFT History of carpal tunnel release RT Hx of thumb surgery LEFT HAND History of amputation RT MIDDLE FINGER (INFECTION) History of arthroscopy RT SHOULDER - ATTEMPT TO REPAIR ROTATOR CUFF History of esophagogastroduodenoscopy (EGD) History of colonoscopy History of tooth extraction History of tonsillectomy History of adenoidectomy History of myringotomy LEFT EAR Macular hole REPAIRED> RIGHT History of cataract surgery RT/LEFT History of cardiac radiofrequency ablation 1995 AND 2001 ([facility]BBI RAMOS) Family History Father , age 78 of a stroke AAA (abdominal aortic aneurysm) Hypertension Stroke Mother , age 89 of sepsis COPD (chronic obstructive pulmonary disease) Sepsis Mother COPD (chronic obstructive pulmonary disease) Other No family history of adverse response to anesthesia Social History Smoking Status: Never smoker Second Hand Exposure: Yes (hx- smoked a pipe); Do You Dip or Chew Tobacco: No; Hx Alcohol Use: No Hx Substance Use: No Preferred Language: Anguill[place] Communication Ability: Effective Visual Impairment: Partially Limited Hearing Ability: Use of Hearing Aid Line Mover Required: No Beliefs That Will Affect Care: None marital status: / Current Living Situation: Alone current occupational status: retired current occupation: former [employer] RN Feels Safe at Home: Yes Diet: regular Assistive Devices: Walker Review of Systems Review of Systems: As per HPI, all other systems reviewed and negative Physical Exam Physical Exam: GENERAL: Comfortable, pleasant, no respiratory distress SKIN: Pallor, warm HEENT: Pale palpebral conjunctivae, no ptosis, dry buccal mucosa NECK : Supple, no tenderness CHEST : CTA, no tenderness HEART : RRR, no obvious murmurs ABDOMEN: Some distention, nontender BACK : Low back tenderness, negative straight leg raise test EXTREMITIES : RLE dressing, bilateral LE swelling, no LE tenderness, no other conspicuous deformities noted NEUROLOGIC : Coherent, no facial asymmetry, gait and stance not assessed Results & Data Results & Data Vital Signs (Past 12 Hours) Vital Signs Temp Pulse Resp BP Pulse Ox O2 Del Method 06/25/24 04:38 74 06/25/24 04:35 71 20 97 Room Air 06/25/24 03:59 36.8 C 71 20 107/91 97 Room Air Laboratory Results Laboratory Results WBC 12.33 K/ul (4.8-10.8) H 06/25/24 04:52 RBC 3.84 M/uL (4.20-5.40) L 06/25/24 04:52 Hgb 12.0 g/dl (12.0-16.0) 06/25/24 04:52 Hct 36.8 % (37.0-47.0) L 06/25/24 04:52 MCV 95.8 fL (80.0-100.0) 06/25/24 04:52 MCH 31.3 pg (25.0-34.0) 06/25/24 04:52 MCHC 32.6 g/dL (32.0-36.0) 06/25/24 04:52 RDW Std Deviation 45.1 fL (36.4-46.3) 06/25/24 04:52 RDW Coeff of Octavia 13.0 % (11.5-14.5) 06/25/24 04:52 Plt Count 291 K/uL (130-400) 06/25/24 04:52 MPV 10.2 fL (9.4-12.4) 06/25/24 04:52 Immature Gran % (Auto) 4.7 % 06/25/24 04:52 Neut % (Auto) 60.4 % 06/25/24 04:52 Lymph % (Auto) 24.8 % 06/25/24 04:52 [place] % (Auto) 7.9 % 06/25/24 04:52 Eos % (Auto) 1.6 % 06/25/24 04:52 Baso % (Auto) 0.6 % 06/25/24 04:52 Neut # (Auto) 7.44 K/uL (1.40-6.50) H 06/25/24 04:52 Lymph # (Auto) 3.06 K/uL (1.20-3.40) 06/25/24 04:52 [place] # (Auto) 0.97 K/uL (0.11-0.59) H 06/25/24 04:52 Eos # (Auto) 0.20 K/uL (0.00-0.50) 06/25/24 04:52 Baso # (Auto) 0.08 K/uL (0.00-0.20) 06/25/24 04:52 Immature Gran # (Auto) 0.58 K/uL (0.01-0.20) H 06/25/24 04:52 Sodium 136 mmol/L (136-145) 06/25/24 04:52 Potassium 3.9 mmol/L (3.5-5.1) 06/25/24 04:52 Chloride 104 mmol/L (98-107) 06/25/24 04:52 Carbon Dioxide 25 mmol/L (21-32) 06/25/24 04:52 Anion Gap 7 (3-11) 06/25/24 04:52 BUN 24 mg/dl (6-23) H 06/25/24 04:52 Creatinine 0.74 mg/dl (0.6-1.2) 06/25/24 04:52 Est Cr Clr Drug Dosing 45.0 ml/min 06/25/24 04:52 Est GFR ( Amer) 86.8 ml/min 06/25/24 04:52 Est GFR (Non-Af Amer) 74.9 ml/min 06/25/24 04:52 BUN/Creatinine Ratio 32.4 (10-20) H 06/25/24 04:52 Glucose 111 mg/dl (70-99(Fasting)) H 06/25/24 04:52 Calcium 9.4 mg/dl (8.6-10.3) 06/25/24 04:52 Total Bilirubin 0.4 mg/dl (0.2-1.0) 06/25/24 04:52 AST 17 U/L (13-39) 06/25/24 04:52 ALT 15 U/L (7-52) 06/25/24 04:52 Alkaline Phosphatase 99 U/L (34-104) 06/25/24 04:52 Total Protein 7.1 gm/dl (6.0-8.3) 06/25/24 04:52 Albumin 4.2 gm/dl (3.4-5.0) 06/25/24 04:52 Globulin 2.9 gm/dl (2.5-4.0) 06/25/24 04:52 Albumin/Globulin Ratio 1.4 (0.9-2) 06/25/24 04:[address] 06/25/24 04:46 Exam(s): CT L SPINE EXAM: CT Lumbar Spine Without Intravenous Contrast CLINICAL HISTORY: Reason for exam: fx, hist of herniated disc, pacer. TECHNIQUE: Axial computed tomography images of the lumbar spine without intravenous contrast. CTDI is 37.39 mGy and DLP is 880.27 mGy-cm. Automated exposure control was utilized for the study. A dose lowering technique was utilized adhering to the principles of ALARA. COMPARISON: No relevant prior studies available. FINDINGS: Vertebrae: L3-L4: Compression deformity superior endplate of L4 compressed approximately 25-50% anterior superior endplate no indication at this is acute. Diffuse disc bulge broad-based posterior disc osteophyte complex intravertebral osteochondrosis , retrolisthesis with approximately 0.7 cm of posterior slip moderate central canal stenosis and moderate to severe right and moderate left neural foramen encroachment. L4-5: Diffuse disc bulge. Facet hypertrophic changes with moderate to severe bilateral neural foramen encroachment mild to moderate central canal stenosis with removal of the central posterior elements. L5-S1: Anterolisthesis with approximately 1.1 cm in maximal anterior slip, moderate central canal stenosis moderate bilateral neural foramen encroachment. There is spondylotic spurring demonstrated at multiple levels of a moderate to severe degree. Facet hypertrophic changes at most levels. Sacrum/coccyx: There is some anterior cortical angulation of a minor degree at the superior aspect of the S2 segment. Discs/spinal canal/neural foramina: See above. Soft tissues: Unremarkable. Vasculature: Retroperitoneum reveals calcific atherosclerotic vascular disease. Tubes, lines and devices: Presumed stimulator battery pack demonstrated superior lumbar spine to the right of midline. IMPRESSION: Multilevel severe degenerative change. There may be subacute fracturing anterior cortex of S2. Electronically signed by: Oren Villalta MD 06/25/24 05:49 AM (1) Lower back pain Back pain laterality: right Chronicity: acute Sciatica laterality: sciatica of right side Sciatica presence: with sciatica Qualified Code(s): M54.41 - Lumbago with sciatica, right side
[2024-06-25] MEDS ORDERED: PROMETHAZINE HCL 6.25 MG in SODIUM CHLORIDE 0.9% 50 ML IV PRN (06:50)
[2024-06-25 07:12] LABS: Magnesium 1.8 mg/dl (1.7-2.4)
[2024-06-25] MEDS ORDERED: GLUCOSE 40% GEL 15 GM TUBE PO PRN (07:20)
[2024-06-25] MEDS ORDERED: GLUCAGON FOR INJ 1 MG VIAL SQ PRN (07:20)
[2024-06-25] MEDS ORDERED: DEXTROSE 50% 50 ML SYRINGE IV PRN (07:20)
[2024-06-25] MEDS ORDERED: CARBOHYDRATES FOR HYPOGLYCEMIA PO PRN (07:20)
[2024-06-25] MEDS ORDERED: GLUCOSE 10 TAB/TUBE PO PRN (07:20)
--- NOTE | 2024-06-25 07:45 | Ultrasound Report ---
US venous doppler LE BI CLINICAL HISTORY: leg cramps TECHNIQUE: Bilateral lower extremity real-time compression venous ultrasound with Color Doppler imagi ng. Utilizing real-time ultrasonic imaging multiple real time high-resolution ultrasonic images with compression and noncompression maneuvers of the deep venous system in addition to color doppler imagi ng were performed from the common femoral vein through the proximal calf veins. COMPARISON: None available at the time of this dictation. FINDINGS/IMPRESSION: Currently there is normal compressibility of the deep venous system from the common femoral vein thro ugh the proximal calf veins. No superficial venous thrombosis is identified. ACT 112: Negative or not required by law. Electronically signed by: Rolly Wilks M.D. 06/25/2024 7:44 AM
--- OUTSIDE RECORDS SUMMARY | 2024-06-25 07:52 | External Medical Summary | Summary of Care ---
Author Name Unknown Organization [facility] Address [address] [place] [address] Phone [phone] Care Team Providers Care All Around Presser Name Role Phone Cha Esqueda DO Primary Care Provider Encounter Details Date Type Department Care Team (Late st Contact Info) Description 06/19/2024 Orders Only Family Practice [address] [place] [address] [place] [phone] Cha Esqueda DO [address] [place] [address] Allergies Active Allergy Reactions Criticality Noted Date [...] as of this encounter (statuses as of 06/19/2024) Medications Medication Sig Dispensed Refills Start Date [...] as of this encounter (statuses as of 06/19/2024) Active Problems Problem Noted Date Diagnosed Date [...] 12/31/2001 Other psoriasis GENERAL OSTEOARTHROSIS DISC DIS [id number] documented as of this encounter (statuses as of 06/19/2024) Resolved Problems Problem Noted Date Diagnosed Date [...] Pt is a participant in the [facility] (Consortium of Rheumatology Researchers of [place]) national data collection study. For further information please call Dr Medardo Orr or Halina Angulo, RN, CCRC at [phone] [facility] RESEARCH OTHER*[id number] 12/17/2003 05/29/2010 Overview: Renamed Per Clinical Trials Billing Project. Pt is a participant in the [facility] (Consortium of Rheumatology Researchers of [place]) national data collection study. For further information please call Dr Medardo Orr or Halina Angulo, RN, CCRC at [phone] Osteoporosis 03/05/2003 09/05/2011 PAROXYSMAL SVT- hx of 12/07/20022018 ARTHRITIS,RHEUMATOID 09/04/2001 016 INFORMATION 12/04/2006 Ankylosing spondylitis 01/04 Chronic sinusitis 06/15/2020 documented as of this encounter (statuses as of 06/19/2024) Immunizations Name Administration Dates Next Due COVID-19 [...] 8:40 AM EDT Office Visit Family Practice [address] [place] [phone] Cha Esqueda, [address] [place] [address] 06/24/2024 8:40 AM EDT Nurse Only Family Practice [address] [phone] [place], Nurse [facility] [address] [place] [phone] Scheduled Procedures Name Priority Associated Diagnoses Date/Ti [...] exists Albumin/Creatinine Ratio 08/06/2024 023, 08/02/2022, 12/20/2020 HbA1c 11/04/2024 05/05/2024, 10/02, 04/04/2023, Additional history exists Depression Screening 11/06/2024 11/06/2023 GFR 05/05/2025 05/05/2024, 01/30, 10/17/2023, Additional history exists TSH 05/05/2025 05/05/2024, 0503/2023, 08/08/2022, Additional history exists Diabetic Eye Exam 06/19/2025 06/08/2024, , 09/17/2023, Additional history exists Colonoscopy 07/19/2025 07/19/2020, 07/02, 12/30/2006 DTaP,Tdap,and Td Vaccines (3 - Td or Tdap) 10/10/2031 10/10/2021, 01/05/2011, 04/29/2001 Pneumococcal Vaccine: 65+ Years Completed 07/02/2016, 01/14/2008, 09/17/2001 VITAMIN D LEVEL ONCE IN A LIFETIME-USE SMARTSET# [id number] Completed 05/08/2018, 12/09/2015, 12/08/2014, Additional history exists [...] this encounter Medical Devices Implanted Type Area Research Recruiter Device Identifier Shelf Expiration Date Model / Serial / Lot Tube Modified T [id number] - [id number] Implanted:Qty: 1 on 07/25/2017 by Marcelino Madison DO at OR [facility] Left: Ear GYRUS : ENT 11/13/2026 [id number] / / [id number] Trident Hemispherical Muli - [id number] Implanted:Qty: 1 on 12/13/2017 by Pardeep Martinez MD at OR [facility] [place] [place] Right: Hip CHELSEA : ORTHOPAEDICS 09/26/2022 [id number] / / [id number] Screw Acetabular 6.5mm Yuli 20m - [id number] Implanted:Qty: 1 on 12/13/2017 by Pardeep Martinez MD at OR [facility] [place] [place] Right: Hip CHELSEA : ORTHOPAEDICS 10/07/[id number] / / [id number] Bone Screw Cancellous 65 45 - [id number] Implanted:Qty: 1 on 12/13/2017 by Pardeep Martinez MD at OR [facility] [place] [place] Right: Hip CHELSEA : ORTHOPAEDICS 08/05/[id number] / / [id number] Screw Acetabular 6.5mm Yuli 20m - [id number] Implanted:Qty: 1 on 12/13/2017 by Pardeep Martinez MD at OR [facility] [place] [place] Right: Hip CHELSEA : ORTHOPAEDICS 10/07/[id number] / / [id number] Liner 42mm - [id number] Implanted:Qty: 1 on 12/13/2017 by Pardeep Martinez MD at OR [facility] [place] [place] Right: Hip CHELSEA : ORTHOPAEDICS 08/27/2021 [id number] / / [id number] Insert 28mm - [id number] Implanted:Qty: 1 on 12/13/2017 by Pardeep Martinez MD at OR [facility] [place] [place] Right: Hip CHELSEA : ORTHOPAEDICS 07/03/2022 [id number] / / [id number] Head Delta Cer 12 14 28mm 5.0 - [id number] Implanted:Qty: 1 on 12/13/2017 by Pardeep Martinez MD at OR [facility] [place] [place] Right: Hip SYNTHES : DEPUY 10/01/2022 [id number] / / [id number] Duragen Plus 1x3 Dp 1013 Min5 - [id number] - [id number] Implanted:Qty: 1 on 07/29/2020 by Tadeo Bonilla MD at OR [facility] [place] [place] INTEGRA Covermate ProductsCIENCES JEMIMA [id number] 05/01/2023 [id number] / [id number] / [id number] Vectris Surescan Mri 1x8 Compact Implanted:Qty: 1 on 08/01/2021 by Arnoldo Regan MD at OR [facility] N/A: Back Medtronic 03/06/2025 [id number] / / [id number] Description:Part of a kit. Vectris Surescan Mri 1x8 Compact Implanted:Qty: 1 on 08/01/2021 by Arnoldo Regan MD at OR [facility] N/A: Back Medtronic 07/04/2025 [id number] / / [id number] Description:Part of a kit. Neurostimul Intellis Adaptiv - [id number] - [id number] Implanted:Qty: 1 on 08/01/2021 by Arnoldo Regan MD at OR [facility] N/A: Back [employer] 04/28/2022 [id number] / [id number] / Description:Part of a kit. Envelope Antibacterial Tyrx - [id number] Implanted:Qty: 1 on 08/01/2021 by Arnoldo Regan MD at OR [facility] N/A: Back MEDTRONIC : CRM 05/05/2022 [id number] / / [id number] documented as of this encounter Procedures Procedure Name Priority Date/Time Associated Diagnosis Comments DIABETIC EYE EXAM Routine 06/08/2024 documented in this encounter Results * DIABETIC EYE EXAM (06/08/2024) 06/08/2024 History Per Patient OTHER OUTSIDE LAB (SEE SCANNED REPORT) documented in this encounter Advance Directives Documents on File Type Date Recorded Patient Mannequin Wig Maker Expl anation Advance Directives and Living Will 11/20/2020 ADVANCE DIRECTIVE REVISED/DURABLE POA HEALTHCARE/LIVING WILL 11/05/19 Power of Care Management Assistant 07/18/2017 POWER OF A TTORNEY POA * [...] the patient have Health Care Power of Care Management Assistant? Yes, not currently available * Full Code Date Activated Date Inactivated Comments 12/13/2017 7:47 PM 12/15/2017 6:34 PM This order r eflects the patients wishes and were consensually agreed upon. Question Answer Comments Discussion of Advance Directives occurred with: Patient Does the patient have a Living Will? No Does the patient have Health Care Power of Attor price? No Care Teams All Around Presser Relationship Specialty Start Date End Date Cha Eqsueda DO [address] [place] [address] PCP - General Family Medicine 05/25/24 documented as of this encounter
--- OUTSIDE RECORDS SUMMARY | 2024-06-25 07:52 | External Medical Summary | Summary of Care ---
Author Name Unknown Organization [facility] Address [address] [place] [address] Phone [phone] Care Team Providers Care Lead Javascript Developer Name Role Phone Unavailable Primary Care Provider Unavailabl e Reason for Visit * Reason Onset Date Comments Order Request 06/24/202406/24 Encounter Details Date Type Department Care Team (Late st Contact Info) Description 06/24/2024 Telephone Family Practice [address] [place] [address] [place] [id number] [address] [place] [address] Order Request (06/24) Allergies Active Allergy Reactions Criticality Noted Date Comments Aspirin 01/07/2001 thrombocytopenia Lorazepam 06/24/2024 Clavulanic Acid 11/09/2003 diarrhea Clindamycin 05/22/2022 Rash Raloxifene Rash 09/12/2020 Hydromorphone Low 10/29/2023 Other Reaction(s): N/V Ketamine Neuro complications (Please comment) 12/12/2018 Morphine 12/12/2016 Phenylbutazone 01/16/2001 thrombocytopenia Sulfa Antibiotics 01/07/2001 rash Tizanidine Low 07/31/2020 Causes severe dizziness and diaphoresis per patient Levocetirizine Other (Please comment) Nightmares, dizziness, impaired balance. documented as of this encounter (statuses as of 06/24/2024) Medications Medication Sig Dispensed Refills Start Date [...] As needed. 270 Tablet 3 11/06/2023 Active Additional Information Patient taking differently:10 mg OralBID (.AM/PM), Takes late morning and bedtime an additional one in morning when worsening pain, Reported on 06/24/2024 Ibuprofen 200 MG Oral Tablet (Motrin) Take [...] every evening. 100 Tablet 3 05/05/2024 Active prednisoLONE Acetate 1 % Ophthalmic Suspension (Pred Forte) Instill 1 Drop into the right eye every 2 hours. 06/01/2024 Active Ketoconazole 2 % External Shampoo (Nizoral) Apply topically to affected area every 3 days. Shampoo twice a week 360 mL 1 06/10/2024 Active Gabapentin 300 MG Oral Capsule (Neurontin)Indicati ons:Acute right-sided low back pain with right-sided sciatica,Lumbar disc herniation Take 1 Capsule by mouth at bedtime. 90 Capsule 1 06/24/2024 Active oxyCODONE HCl 5 MG Oral Tablet (Oxy IR)Indications:Acut e right-sided low back pain with right-sided sciatica,Lumbar disc herniation Take 1 Tablet by mouth every 6 hours as needed for Pain, Moderate. 30 Tablet 06/24/2024 Active traMADol HCl 50 MG Oral Tablet (Ultram)Indications :Acute right-sided low back pain with right-sided sciatica,Lumbar disc herniation Take 1 Tablet by mouth every 6 hours as needed for Pain, Severe. 30 Tablet 06/24/2024 Active documented as of this encounter (statuses as of 06/24/2024) Active Problems Problem Noted Date Diagnosed Date [facility] without rheumatoid factor 06/24/2024 Pain of toe of right foot 03/03/2024 [...] Historical. Status post right hip replacement 09/30/2017 [facility] current use of systemic steroids 05/23 DDD [...] 12/31/2001 Other psoriasis GENERAL OSTEOARTHROSIS DISC DIS [id number] documented as of this encounter (statuses as of 06/24/2024) Resolved Problems Problem Noted Date Diagnosed Date [...] factor 12/12/2016 06/12/20 17 [facility] without rheumatoid factor 09/26/2016 06/20/2020 History [...] Orr or Halina Angulo, RN, CCRC at [phone] [facility] RESEARCH OTHER*[id number] 12/17/2003 05/29/2010 Overview: Renamed Per Clinical Trials Billing Project. Pt is a participant in the [employer] (Consortium of Rheumatology Researchers of [place]) national data collection study. For further information please call Dr Medardo Orr or Halina Angulo, RN, CCRC at [phone] Osteoporosis 03/05/2003 09/05/2011 PAROXYSMAL SVT- hx of 12/07/20022018 ARTHRITIS,RHEUMATOID 09/04/2001 016 INFORMATION 12/04/2006 Ankylosing spondylitis 01/04 Chronic sinusitis 06/15/2020 documented as of this encounter (statuses as of 06/24/2024) Immunizations Name Administration Dates Next Due COVID-19 [...] encounter Miscellaneous Notes * Telephone Encounter - Lian Schneider LPN - 06/24/2024 2:19 PM EDT Wound care dressing supply request submitted through [employer]. documented in this encounter Plan of Treatment Scheduled Procedures Name Priority Associated Diagnoses Date/Ti me COLONOSCOPY FLEXIBLE PROXIMAL DIAGNOSTIC Recall History of colon polyps Health Maintenance Due Date Last Done Comments *BISPHONATE OR OTHER ACCEPTABLE MEDICATION NEEDED FOR OSTEOPOROSIS (REFER TO SMARTSET #1146) 05/28/2020 COVID-19 Vaccine ( season) 2023 08/23/2023, 04/25/2023, 09/05/2022, Additional history exists Influenza Vaccine (FLU shot) (#1) 2024 09/13/2023, 09/13/2022, 08/22/2021, Additional history exists Albumin/Creatinine Ratio 08/06/2024 023, 08/02/2022, 12/20/2020 HbA1c 11/04/2024 05/05/2024, 10/02, 04/04/2023, Additional history exists Depression Screening 11/06/2024 11/06/2023 GFR 05/05/2025 05/05/2024, 01/30, 10/17/2023, Additional history exists TSH 05/05/2025 05/05/2024, 05/0 03/2023, 08/08/2022, Additional history exists Diabetic Eye Exam 06/08/2025 06/08/2024, , 09/17/2023, Additional history exists Diabetic Foot Exam 06/24/2025 06/24/2024, 0 06/24/2024, 06/06/2023, Additional history exists Colonoscopy 07/19/2025 07/19/2020, 07/02, 12/30/2006 DTaP,Tdap,and Td Vaccines (3 - Td or Tdap) 10/10/2031 10/10/2021, 01/05/2011, 04/29/2001 Pneumococcal Vaccine: 65+ Years Completed 07/02/2016, 01/14/2008, 09/17/2001 VITAMIN D LEVEL ONCE IN A LIFETIME-USE SMARTSET# 83504 Completed 05/08/2018, 12/09/2015, 12/08/2014, Additional history exists [...] this encounter Medical Devices Implanted Type Area Start Up Specialist Device Identifier Shelf Expiration Date Model / Serial / Lot Tube Modified T [id number] - [id number] Implanted:Qty: 1 on 07/25/2017 by Marcelino Madison DO at OR [facility] Left: Ear GYRUS : ENT 11/13/2026 [id number] / / [id number] Trident Hemispherical Muli - [id number] Implanted:Qty: 1 on 12/13/2017 by Pardeep Martinez MD at OR [facility] Right: Hip CHELSEA : ORTHOPAEDICS 09/26/2022 [id number] / / [id number] Screw Acetabular 6.5mm Yuli 20m - [id number] Implanted:Qty: 1 on 12/13/2017 by Pardeep Martinez MD at OR [facility] Right: Hip CHELSEA : ORTHOPAEDICS 10/07/20226067-7930- / / [id number] Bone Screw Cancellous 65 45 - [id number] Implanted:Qty: 1 on 12/13/2017 by Pardeep Martinez MD at OR [facility] Right: Hip CHELSEA : ORTHOPAEDICS 08/05/20222960-2661- / / [id number] Screw Acetabular 6.5mm Yuli 20m - [id number] Implanted:Qty: 1 on 12/13/2017 by Pardeep Martinez MD at OR [facility] Right: Hip CHELSEA : ORTHOPAEDICS 10/07/20226000-4304-1 / / [id number] Liner 42mm - [id number] Implanted:Qty: 1 on 12/13/2017 by Pardeep Martinez MD at OR [facility] Right: Hip CHELSEA : ORTHOPAEDICS 08/27/2021 [id number] / / [id number] Insert 28mm - [id number] Implanted:Qty: 1 on 12/13/2017 by Pardeep Martinez MD at OR [facility] Right: Hip CHELSEA : ORTHOPAEDICS 07/03/2022 [id number] / / [id number] Head Delta Cer 12 14 28mm 5.0 - [id number] Implanted:Qty: 1 on 12/13/2017 by Pardeep Martinez MD at OR [facility] Right: Hip SYNTHES : DEPUY 10/01/2022 [id number] / / [id number] Duragen Plus 1x3 Dp 1013 Min5 - [id number] - [id number] Implanted:Qty: 1 on 07/29/2020 by Tadeo Bonilla MD at OR [facility] InviteDEV [id number] 05/01/2023 [id number] / [id number] / [id number] Vectris Surescan Mri 1x8 Compact Implanted:Qty: 1 on 08/01/2021 by Arnoldo Regan MD at OR [facility] N/A: Back Medtronic 03/06/2025 [id number] / / [id number] Description:Part of a kit. Vectris Surescan Mri 1x8 Compact Implanted:Qty: 1 on 08/01/2021 by Arnoldo Regan MD at OR [facility] N/A: Back Medtronic 07/04/2025 [id number] / / [id number] Description:Part of a kit. Neurostimul Intellis Adaptiv - [id number] - [id number] Implanted:Qty: 1 on 08/01/2021 by Arnoldo Regan MD at OR [facility] N/A: Back [employer] 04/28/2022 [id number] / [id number] / Description:Part of a kit. Envelope Antibacterial Tyrx - [id number] Implanted:Qty: 1 on 08/01/2021 by Arnoldo Regan MD at OR [facility] N/A: Back [employer] : CRM 05/05/2022 [id number] / / [id number] documented as of this encounter Advance Directives Documents on File Type Date Recorded Patient Help Desk Administrator Expl anation Advance Directives and Living Will 11/20/2020 ADVANCE DIRECTIVE REVISED/DURABLE POA HEALTHCARE/LIVING WILL 11/05/19 Power of Supervisor [employer] 07/18/2017 POWER OF A TTORNEY POA * [...] the patient have Health Care Power of Supervisor [employer]? Yes, not currently available * Full Code [...]
--- OUTSIDE RECORDS SUMMARY | 2024-06-25 07:52 | External Medical Summary | Summary of Care ---
Author Name Unknown Organization [facility] Address [address] [place] [address] Phone [phone] Care Team Providers Care Employment Advisor Name Role Phone Unavailable Primary Care Provider Unavailabl e Reason for Referral * Evaluate & Treat - Unlimited Visits (Within 10 days (routine)) - Authorized Specialty Diagnoses / Procedures Referred By Jesica t Referred To Contact Physical Therapy / Physical Medicine And Rehab Diagnoses Acute right-sided low back pain with right-sided sciatica Lumbar disc herniation Compression fracture of L4 vertebra with routine healing, subsequent encounter Cha Esqueda DO [address] [place] [address] Referral ID Status Reason Start Date Expiration Date Visits Requested Visits Authorized [id number] Authorized Specialty Services Required 06/24/[phone] Question Answer Referral Priority Within 10 days (routine) Where should this appointment be scheduled? [facility] Reason for Visit * Reason Onset Date Comments Hospital Follow-Up Hospital Follow-Up 06/24/2024 Encounter Details Date Type Department Care Team (Late st Contact Info) Description 06/24/2024 8:40 AM EDT Office Visit Family Practice [address], [place] [address] [place] [id number] Cha Esqueda DO [address] 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 90 Capsule 1 06/24/2024 Active oxyCODONE HCl 5 MG Oral Tablet (Oxy IR)Indications:[facility] right-sided low back pain with right-sided sciatica,Lumbar disc herniation Take 1 Tablet by mouth every 6 hours as needed for Pain, Moderate. 30 Tablet 06/24/2024 Active traMADol HCl 50 MG Oral Tablet (Ultram)Indicatio ns:Acute right-sided low back pain with right-sided sciatica,Lumbar disc herniation Take 1 Tablet by mouth every 6 hours as needed for Pain, Severe. 30 Tablet 06/24/2024 Active predniSONE 10 MG Oral Tablet (Deltasone)Indica tions:DDD (degenerative disc disease), cervical Take 4 tabs for 2 days, 3 tabs for 2 days, 2 tabs for 2 days 1 tab for 2 days 20 Tablet 05/25/2024 4 Discontinue d(Medicatio n List Clean Up) traMADol HCl 50 MG Oral Tablet (Ultram) Take 1 Tablet by mouth every 6 hours as needed for Pain, Severe. 30 Tablet 06/03/2024 4 Discontinue d(Refill) LORazepam 0.5 MG Oral Tablet (Ativan) Take 1 Tablet by mouth 3 times a day as needed for Anxiety. 30 Tablet 06/09/2024 4 Discontinue d(Medicatio n List Clean Up) Gabapentin 300 MG Oral Capsule (Neurontin)Indica tions:Acute right-sided low back pain with right-sided sciatica Take 1 Capsule by mouth at bedtime. 30 Capsule 5 06/10/2024 4 Discontinue d(Refill) oxyCODONE HCl 5 MG Oral Tablet (Oxy IR) Take 1 Tablet by mouth every 6 hours as needed. 06/17/2024 4 Discontinue d(Refill) documented as of this encounter (statuses as of 06/24/2024) Active Problems Problem Noted Date Diagnosed Date Rheumatoid arthritis of [facility] without rheumatoid factor 06/24/2024 Pain [...] Historical. Status post right hip replacement 09/30/2017 watermelon inspector current use of systemic steroids 05/23 [...] 12/31/2001 Other psoriasis GENERAL OSTEOARTHROSIS DISC DIS [id number]-BITU documented as of this encounter (statuses as [...] Orr or Halina Angulo, RN, CCRC at [phone] [facility] RESEARCH OTHER*[id number] 12/17/2003 05/29/2010 Overview: Renamed Per Clinical Trials Billing Project. Pt is a participant in the [employer] (Consortium of Rheumatology Researchers of [place]) national data collection study. For further information please call Dr Medardo Orr or Halina Angulo, RN, CCRC at [phone] Osteoporosis 03/05/2003 09/05/2011 PAROXYSMAL SVT- hx of [...] Sign Reading Time Taken Comments Blood Pressure 124/76 06/24/2024 8:39 AM EDT Pulse 76 06/24/2024 8:39 AM EDT Temperature 37.1 C (98.7 F) 06/24/2024 8:39 AM ED T Respiratory Rate 14 06/24/2024 8:39 AM EDT Oxygen Saturation 97% 06/24/2024 8:39 AM EDT Inhaled Oxygen Concentration - - Weight 59.5 kg (131 lb 1.6 oz) 06/24/2024 8:39 A M EDT Height 148.6 cm (4' 10.5") 06/24/2024 8:39 AM ED T Body Mass Index 26.93 06/24/2024 8:39 AM EDT documented in this encounter Functional Status [...] No 07/29/2020 documented as of this encounter Patient Instructions * Patient Instructions* Leandra Herring, TILE GRADER - 06/24/2024 8:38 AM EDT Diabetes: Keeping Feet Healthy Inspect your feet every day for signs of a problem. Diabetes can damage nerves in your feet and cause neuropathy. This condition makes it hard for you to feel injuries or sore spots. Diabetes can also change blood flow, making it harder for small problems, like a blister, to heal properly. In fact, minor injuries can quickly become serious infections that send you to the hospital. Practice self-care to protect your feet and keep them healthy. Take Special Care Inspect your feet daily for problems such as redness, blisters, cracks, dry skin, or numbness. Use a mirror to see the bottoms of your feet. Or, ask for help. Manage your diabetes. Monitor and control your blood sugar. Take all your medications as prescribed. Avoid walking barefoot, even indoors. Wash your feet with warm water and mild soap. Dry well, especially between toes. Dont treat corns or calluses yourself. Talk to your doctor or window shade cutter (a doctor who specializes in foot care) if you need assistance trimming your toenails. Use moisturizing cream or lotion if you have dry skin, but dont use it between toes. Dont use heating pads on your feet. If you have neuropathy, you could get a burn and not feel it. Stop smoking. Smoking restricts blood flow and can make it harder for wounds to heal. Have Regular Checkups Foot problems can develop quickly. So be sure to follow your healthcare teams schedule for regular checkups. During office visits, take off your shoes and socks as soon as you get in the exam room. Ask your healthcare provider to examine your feet for problems. This will make it easier to find and treat small skin irritations before they get worse. Regular checkups can also help keep track of the blood flow and feeling in your feet. If you have neuropathy, you may need to have checkups more often. Wear Proper Footwear Wearing proper footwear is very important. If areas of your feet have been damaged by too much pressure, your healthcare provider may recommend changing your footwear. In some cases, avoiding high heels or tight work boots may be all thats needed. Or, your healthcare provider may recommend special shoes or custom inserts. These help protect your feet and keep existing irritations from getting worse. If you need special footwear, ask your healthcare provider if you qualify for [employer] diabetic shoe program. Make Sure Shoes and Socks Fit Any pair of shoes--new or old--should feel comfortable as soon as you put them on. There shouldnt be any rubbing when you walk. Wear the right shoe for any activity. For instance, a running shoe is designed to keep your feet injury-free while jogging. Buy shoes at the end of the day, when your feet are larger. Make sure they provide support without feeling too loose. Make sure your socks fit, t oo. Wear soft, seamless, well-padded socks for activity. Cotton or microfiber socks are best to help to absorb sweat. To protect your feet, avoid shoes that are open-toed or open-heeled. If you have questions about what kinds of shoes and socks are best, talk to your healthcare team. Get Regular Exercise Regular exercise improves blood flow in your feet. It also increases foot strength and flexibility.Gentle exercises, like walking or riding a stationary bicycle, are best. You can also do special foot exercises. Just be sure to talk with your healthcare provider before starting any exercise program. Also mention if any exercise causes pain, redness, or other signs of foot problems. Note: If you have any kind of break in the skin of your foot or ankle, keep the area clean. Then call your doctor--especially if the area doesnt appear to be healing. [phone] [employer], [address] [place] [address], [place] [phone]. All rights reserved. This information is not intended as a substitute for professional medical care. Always follow your healthcare professional's instructions. documented in this encounter Progress Notes * Leandra Herring LPN - 06/24/2024 8:37 AM EDT Socks and Shoes Removed for Annual Diabetic Foot Screening RIGHT FOOT: No Reddened, Cracking, Or Open Areas Noted. RIGHT Dorsalis Pedis Pulse: Palpable RIGHT Posterior Tibial Pulse: Palpable RIGHT Monofilament:Patient reports feeling monofilament pressure on plantar surface of foot Does have bandage on left foot 2nd and 3rd foot, sees podiatry. No open area. Did look Right foot, has bandaid on 5th digit to prevent open area LEFT FOOT: No Reddened, Cracking or Open Areas Noted. LEFT Dorsalis Pedis Pulse: Palpable LEFT Posterior Tibial Pulse: Palpable LEFT Monofilament:Patient reports feeling monofilament pressure on plantar surface of foot Do you need diabetic shoes: N/A DM Foot Exam completed today. Provider aware. Leandra Herring LPN * Cha Esqueda DO - 06/24/2024 8:31 AM EDT SUBJECTIVE: Chief Complaint Patient presents with Hospital Follow-Up HPI: Barby Means is a 83 year old female who presents today for hospital follow-up. Pt was admitted with L3-L4 disc herniation and endplate compression fracture of L4. She was discharged with prednisone, lidocaine patch and tylenol. She was given oxycodone and tramadol for breakthrough pain. She was continued on gabapentin. Pt notes that she is feeling much better. She remains on tramadol at night. She will occasionally use an oxycodone. She did start PT. She hopes to continue this when she moves. She is following with wound care. They are having difficulty getting her wound dressings through [facility]. She did f/u with eye doctor. Some improvement in iritis. Still on prednisolone drops. 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 Other psoriasis GENERAL OSTEOARTHROSIS DISC DIS IGF-DBK-MSCU Hypothyroidism due to acquired atrophy of thyroid Sensorineural hearing loss, bilateral Chronic rhinitis Senile osteoporosis GERD (gastroesophageal reflux disease) Diffuse esophageal spasm Epiretinal membrane (ERM) of right eye Central perforation of tympanic membrane Actinic keratosis watermelon inspector current use of systemic steroids DDD (degenerative disc disease), cervical Status post right hip replacement History of supraventricular tachycardia Dyslipidemia, goal LDL below 100 Essential hypertension with goal blood pressure less than 140/90 H/O rheumatoid arthritis Status post lumbar laminectomy Postoperative anemia due to acute blood loss Medical marijuana use Ataxic gait Paroxysmal SVT (supraventricular tachycardia) (HCC) Dupuytren's disease of palm Type 2 diabetes mellitus without complication (HCC) Pain of toe of right foot Hammertoe of right foot Rheumatoid arthritis of multiple 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 As needed. (Patient taking differently: Take 1 Tablet by mouthin the morning and 1 Tablet before bedtime. Takes late morning and bedtime an additional one in morning when worsening pain.) 270 Tablet 3 Ibuprofen 200 MG Oral [...] by mouth every afternoon. 100 Capsule 3 Fluticasone Propionate 50 MCG/ACT Nasal Suspension (Flonase) Administer 2 Sprays into nostril in the morning. 48 g 3 Rosuvastatin Calcium 10 MG Oral Tablet (Crestor) Take 1 Tablet by mouth every evening. 100 Tablet 3 traMADol HCl 50 MG Oral Tablet (Ultram) Take 1 Tablet by mouth every 6 hours as needed for Pain, Severe. 30 Tablet 0 Gabapentin 300 MG Oral Capsule (Neurontin) Take 1 Capsule by mouth at bedtime. 30 Capsule 5 oxyCODONE HCl 5 MG Oral Tablet (Oxy IR) Take 1 Tablet by mouth every 6 hours as needed. Triamcinolone Acetonide 0.1 % External Cream (Aristocort) APPLY TO RED RASH TWICE DAILY NEEDED 80 g 2 FiberCel Oral Powder Take by mouth. prednisoLONE Acetate 1 % Ophthalmic Suspension (Pred Forte) Instill 1 Drop into the right eye every2 hours. Ketoconazole 2 % External Shampoo (Nizoral) Apply topically to affected area every 3 days. Shampoo twice a week 360 mL 1 No current facility-administered medications for this visit. Past Medical History: Diagnosis Date ACQUIRED HYPOTHYROID NEC 04/21/2010 Acute pericarditis 1998 ADVANCE DIRECTIVE INFORMATION 06/18/2005 No, Advance Directive brochure given to patient at prior appointment. Cardiac pacemaker in situ 12/31/2001 Chronic rhinitis 09/25/2011 Chronic sinusitis Cortical senile cataract Diabetes mellitus without complication ([facility]) 06/26/2022 Diffuse esophageal spasm 06/11/2012 Disc disorder [...] 12/28/2011 H/O rheumatoid arthritis 06/20/2020 Hip fracture ([facility]) 12/2016 Hypermetropia OU INFORMATION pacemaker Macular puckering of retina 10/01/2013 right eye PPV/MPDr. Andersen Mitral valve disorder Mitral Valve Prolapse [...] loss, bilateral 10/06/2010 Spinal stenosis Tachy-jacinto syndrome ([facility]) 12/31/2001 pacemaker replaced 07/02/09 Thoracic vertebral fracture ([facility]) old fx Vertebral fracture, osteoporotic ([facility]) 11/08/2008 Per Osteoporotic Vertebral Fracture Protocol # [...] performed by Heidi Silveira MD at ENDOSCOPY [facility] CREATE EARDRUM OPENING,GEN'L ANESTH Left 07/25/2017 TYMPANOSTOMY INSERTION TUBE GENERAL ANESTHESIA performed by Marcelino Madison DO at OR [facility] EGD, FLEXIBLE, INSERT WIRE, PASS DILATOR 07/30/2011 two gastric polyps, bxs, dilation EGD, FLEXIBLE, W/BIOPSY 07/30/2011 acid reflux ESOPHAGEAL MOTILITY STUDY 10/17/2011 with 24 hour pH--see letter EVAL NEUROSTIM PULSE GEN, W/ REPROGRAM N/A 06/20/2021 NEUROSTIMULATOR PULSE GENERATOR/ TRANSMITTER, WITH INTRAOPERATIVE OR SUBSEQUENT PROGRAMMING performed by Arnoldo Regan MD at OR [facility] EVAL NEUROSTIM PULSE GEN, W/ REPROGRAM N/A 08/01/2021 NEUROSTIMULATOR PULSE GENERATOR/ TRANSMITTER, WITH INTRAOPERATIVE OR SUBSEQUENT PROGRAMMING performed by Arnoldo Regan MD at OR [facility] FOOT/TOE SURGERY NEC 09/10/2011 right Hammer Toe/bone spur Repair IMPLANT EPIDURAL NEUROELECTRODES N/A 06/20/2021 PERCUTANEOUS IMPLANTATION NEUROSTIMULATOR EPIDURAL performed by Arnoldo Regan MD at OR [facility] IMPLANT EPIDURAL NEUROELECTRODES N/A 08/01/2021 PERCUTANEOUS IMPLANTATION NEUROSTIMULATOR EPIDURAL performed by Arnoldo Reagn MD at OR [facility] IMPLANT SPINAL NEURORECEIVER N/A 08/01/2021 INSERTION OR REPLACEMENT SPINAL NEUROSTIMULATOR GENERATOR performed by Arnoldo Regan MD atOR [facility] INFORMATION Left 05/2020 left shoulder replacement INJECTION LUMBAR/SACRAL 07/04/2015 INJECTION SPINE LUMBAR OR SACRAL performed by Aaron Lopez, DO at OR [facility] INJECTION LUMBAR/SACRAL 01/02/2016 INJECTION SPINE LUMBAR OR SACRAL performed by Aaron Lopez, DO at [facility] INJECTION LUMBAR/SACRAL 02/28/2016 INJECTION SPINE LUMBAR OR SACRAL performed by Aaron Lopez, DO at OR [facility] INSERT PACEMAKER BY THORACOTOMY 12/03 INSERT/REPLACE PULSE GEN ONLY, DOUBLE Left 06/12/2019 NEW DDD PACEMAKER GENERATOR ONLY performed by Adrianna Saleh IV, MD at [facility] INSERT/REPLACE PULSE GEN ONLY, SINGLE 07/14/2009 pacemaker generator change 07/14/09, [facility], Dr. Chapa KNEE ARTHROSCOPY, DIAGNOSTIC left KNEE ARTHROSCOPY, DIAGNOSTIC 1991 left LASER TRABECULOPLASTY 11/17/2013 Laser procedure OD, REMOVE LUMBAR SPINE LAMINA, 1 SEG N/A 07/29/2020 LAMINECTOMY FACETECTOMY AND FORAMINOTOMY LUMBAR performed by Tadeo Bonilla MD at OR [facility] REMOVE TONSILS & ADENOIDS, UNDER 12 Tonsillectomy/Adenoids,<12 Y/O REPAIR RUPTURED ROTATOR CUFF, ACUTE 2007 Right attempted repair, anterior & lateral REVISION OF TOTAL HIP JOINT SURGERY Right 12/13/2017 REVISION HIP ARTHROPLASTY BOTH COMPONENTS performed by Pardeep Martinez MD at OR [facility] TOTAL HIP REPLACEMENT & PROSTHESIS Right VITRECTOMY W/ REMOVE OF EPIRETINAL MEMBRANE 10/01/2013 OD PPV/MP, Dr. Andersen Review of patient's allergies indicates: Allergen Reactions Aspirin thrombocytopenia Ativan [Lorazepam] Clavulanic Acid diarrhea Clindamycin Rash Evista [Raloxifene] Rash Ketamine Neuro complications (Please comment) Morphine Phenylbutazone thrombocytopenia Sulfa Antibiotics rash Xyzal [Levocetirizine] Other (Please comment) Nightmares, dizziness, impaired balance. Hydromorphone Other Reaction(s): N/V Tizanidine Causes severe dizziness and diaphoresis per [...] chills, fatigue, fever and unexpected weight change. Eyes: As per HPI Respiratory: Negative for cough, chest tightness, shortness of breath and wheezing. Cardiovascular: Negative for chest pain, palpitations and leg swelling. Gastrointestinal: Negative for abdominal pain, constipation, diarrhea, nausea and vomiting. Musculoskeletal: Positive for arthralgias and back pain. Negative for gait problem and joint swelling. Skin: Positive for wound. Negative for color change, pallor and rash. OBJECTIVE: BP 124/76 | Pulse 76 | Temp 37.1 C (98.7 F) | Resp 14 | Ht 1.486 m (4' 10.5") | Wt 59.5 kg (131lb 1.6 oz) | SpO2 97% | BMI 26.93 kg/m | BSA 1.57 m PHYSICAL EXAM: Physical Exam Constitutional: General: [...] tenderness. There is no guarding. Musculoskeletal: General: No tenderness or deformity. Normal range of motion. Skin: General: Skin is warm and dry. Coloration: Skin is not pale. Findings: No erythema or rash. Comments: Dressing in place over large wound on right peres Neurological: Mental Status: She is alert and oriented to person, place, and time. ASSESSMENT/PLAN: (Z09) Hospital discharge follow-up (primary encounter diagnosis) (M54.41) Acute right-sided low back pain with right-sided sciatica (S32.040D) Compression fracture of L4 vertebra with routine healing, subsequent encounter (M51.26) Lumbar disc herniation Plan: Gabapentin 300 MG Oral Capsule (Neurontin), oxyCODONE HCl 5 MG Oral Tablet (Oxy IR), traMADol HCl 50 MG Oral Tablet (Ultram), PHYSICAL THERAPY REFERRAL OP, DISCH MED RECON CUR MED LIS Pt currently in PT. Referral placed. She is advised to continue once she has moved to [place]. [place] to establish with orthopedics there. Refills of pain medications sent. 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 She had been doing quite well until the stress of the move really set things off.She has multiple nodes on arms. Has developed iritis. She is following with rheumatology and her eye doctor. Will need to establish ANA when she moves next week. (S81.801D) Leg wound, right, subsequent encounter Plan: DURABLE MEDICAL EQUIPMENT Will attempt to get appropriate dressing covered through [email or web address]. She will need wound clinic f/u upon arrival to [place]. (E11.9) Type 2 diabetes mellitus without complication, without long-term current use of insulin (HCC) Plan: ALBUMIN / CREATININE RATIO, URINE, DIABETES FOOT EXAM Pt will continue on current regimen. No changes. Has been controlled. (E11.9) DM type 2 nursing care encounter (HCC) Plan: DIABETES FOOT EXAM See nursing note. Follow-up: Encouraged to establish with a physician ANA. Total time today including reviewing chart before the visit, pertinent labs, imaging reports, face to face time, and documentation time was 44 minutes. Cha Esqueda DO documented in this encounter Nursing Notes * Leandra Herring LPN - 06/24/2024 8:34 AM EDT Here for hospital follow up, pain is at a 2 documented in this encounter Plan of Treatment Scheduled Orders Name Type Priority Associated Diagnoses Orde r Schedule ALBUMIN / CREATININE RATIO, URINE Lab Routine Type 2 diabetes mellitus without complication, without long-term current use of insulin (HCC) Expected: 06/24/2024, Expires: 06/24/2025 Scheduled Procedures Name Priority Associated Diagnoses Date/Ti pr COLONOSCOPY FLEXIBLE PROXIMAL DIAGNOSTIC Recall History of colon polyps Scheduled Referrals Name Type Priority Associated Diagnoses Orde r Schedule PHYSICAL THERAPY REFERRAL OP Referral Within 10 days (routine) Acute right-sided low back pain with right-sided sciatica Lumbar disc herniation Compression fracture of L4 vertebra with routine healing, subsequent encounter Ordered: 06/24/2024 Health Maintenance Due Date Last Done Comments [...] D LEVEL ONCE IN A LIFETIME-USE SMARTSET# [id number] Completed 05/08/2018, 12/09/2015, 12/08/2014, Additional history exists [...] this encounter Medical Devices Implanted Type Area Medical Anthropology Director Device Identifier Shelf Expiration Date Model / Serial / Lot Tube Modified T [id number] - [id number] Implanted:Qty: 1 on 07/25/2017 by Marcelino Madison DO at OR [facility] Left: Ear GYRUS : ENT 11/13/2026 [id number] / / [id number] Trident Hemispherical Muli - [id number] Implanted:Qty: 1 on 12/13/2017 by Pardeep Martinez MD at OR [facility] Right: Hip CHELSEA : ORTHOPAEDICS 09/26/2022 [id number] / / [id number] Screw Acetabular 6.5mm Yuli 20m - [id number] Implanted:Qty: 1 on 12/13/2017 by Pardeep Martinez MD at OR [facility] Right: Hip CHELSEA : ORTHOPAEDICS 10/07/2022 [id number] / / [id number] Bone Screw Cancellous 65 45 - [id number] Implanted:Qty: 1 on 12/13/2017 by Pardeep Martinez MD at OR [facility] Right: Hip CHELSEA : ORTHOPAEDICS 08/05/[id number] / / [id number] Screw Acetabular 6.5mm Yuli 20m - [id number] Implanted:Qty: 1 on 12/13/2017 by Pardeep Martinez MD at OR [facility] Right: Hip CHELSEA : ORTHOPAEDICS 10/07/[id number] / / [id number] Liner 42mm - [id number] Implanted:Qty: 1 on 12/13/2017 by Pardeep Martinez MD at OR [facility] Right: Hip CHELSEA : ORTHOPAEDICS 08/27/2021 [id number] / / [id number] Insert 28mm - [id number] Implanted:Qty: 1 on 12/13/2017 by Pardeep Martinez MD at OR [facility] Right: Hip CHELSEA : ORTHOPAEDICS 07/03/2022 [id number] / / [id number] Head Delta Cer 12 14 28mm 5.0 - [id number] Implanted:Qty: 1 on 12/13/2017 by Pardeep Martinez MD at OR [facility] Right: Hip SYNTHES : DEPUY 10/01/2022 [id number] / / [id number] Duragen Plus 1x3 Dp 1013 Min5 - [id number] - [id number] Implanted:Qty: 1 on 07/29/2020 by Tadeo Bonilla MD at OR [facility] INTEGRA NEURONIXCIDocuTAP JEMIMA [id number] 05/01/2023 [id number] / [id number] / [id number] Vectris Surescan Mri 1x8 Compact Implanted:Qty: 1 on 08/01/2021 by Arnoldo Regan MD at OR [facility] N/A: Back Medtronic 03/06/2025 [id number] / / [id number] Description:Part of a kit. Vectris Surescan Mri 1x8 Compact Implanted:Qty: 1 on 08/01/2021 by Arnoldo Regan MD at OR [facility] N/A: Back Medtronic 07/04/2025 [id number] / / [id number] Description:Part of a kit. Neurostimul Intellis [employer]iv - [id number] - [id number] Implanted:Qty: 1 on 08/01/2021 by Arnoldo Regan MD at OR [facility] N/A: Back [employer] 04/28/2022 [id number] / [id number] / Description:Part of a kit. 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 factor (HCC) Rheumatoid arthritis Leg wound, right, subsequent encounter Type 2 diabetes mellitus without complication, without long-term current use of insulin (HCC) DM type 2 nursing care encounter ([facility]) Type II or unspecified type diabetes mellitus without mention of complication, not stated as uncontrolled documented in this encounter Advance Directives Documents on File Type Date Recorded Patient Machine Filler Shredder Expl anation Advance Directives and Living Will 11/20/2020 ADVANCE DIRECTIVE REVISED/DURABLE POA HEALTHCARE/LIVING WILL 11/05/19 Power of Blasting Machine Operator 07/18/2017 POWER OF A TTORNEY POA [...] the patient have Health Care Power of Blasting Machine Operator? Yes, not currently available * Full [...]
--- OUTSIDE RECORDS SUMMARY | 2024-06-25 07:53 | External Medical Summary | Summary of Care ---
Author Name Unknown Organization [facility] Address [address] [place] [address] Phone [phone] Care Team Providers Care Drapery And Upholstery Measurer Name Role Phone Cha Esqueda DO Primary Care Provider [phone] Reason for Visit * Reason Onset Date Comments Information 06/15/2024 Er visit Encounter Details Date Type Department Care Team (Late st Contact Info) Description 06/15/2024 Telephone Family Practice [address], [place] [address] [place] [phone] Cha Esqueda DO [address] [place], [place] [phone] Information (Er visit ) Allergies Active Allergy Reactions Criticality Noted Date [...] as of this encounter (statuses as of 06/15/2024) Medications Medication Sig Dispensed Refills Start Date [...] as of this encounter (statuses as of 06/15/2024) Active Problems Problem Noted Date Diagnosed Date [...] Historical. Status post right hip replacement 09/30/2017 shelter current use of systemic steroids 05/23 DDD [...] 12/31/2001 Other psoriasis GENERAL OSTEOARTHROSIS DISC DIS [id number] documented as of this encounter (statuses as of 06/15/2024) Resolved Problems Problem Noted Date Diagnosed Date [...] Pt is a participant in the [facility] (Consortium of Rheumatology Researchers of [place]) national data collection study. For further information please call Dr Medardo Orr or Halina Angulo, RN, CCRC at [phone] [facility] RESEARCH OTHER*[id number] 12/17/2003 05/29/2010 Overview: Renamed Per Clinical Trials Billing Project. Pt is a participant in the [facility] (Consortium of Rheumatology Researchers of [place]) national data collection study. For further information please call Dr Medardo Orr or Halina Angulo, RN, CCRC at [phone] Osteoporosis 03/05/2003 09/05/2011 PAROXYSMAL SVT- hx of 12/07/20022018 ARTHRITIS,RHEUMATOID 09/04/2001 016 INFORMATION 12/04/2006 Ankylosing spondylitis 01/04 Chronic sinusitis 06/15/2020 documented as of this encounter (statuses as of 06/15/2024) Immunizations Name Administration Dates Next Due COVID-19 [...] encounter Miscellaneous Notes * Telephone Encounter - Leandra Herring LPN - 06/15/2024 2:27 PM EDT Upon ER visit reviews, was calling patient to discuss er visit. Patient is currently in ER will follow up at later with patient regarding ER visit. Thank you documented in this encounter Plan of Treatment Upcoming Encounters Date Type Department Care Team (Late st Contact Info) Description 06/24/2024 8:40 AM EDT Office Visit Family Practice [address], [place] [address] [place] [address] Cha Esqueda DO [address] [place] [address] Scheduled Procedures Name Priority Associated Diagnoses Date/Ti [...] D LEVEL ONCE IN A LIFETIME-USE SMARTSET# 24431 Completed 05/08/2018, 12/09/2015, 12/08/2014, Additional history exists [...] this encounter Medical Devices Implanted Type Area Tank Operator Device Identifier Shelf Expiration Date Model / Serial / Lot Tube Modified T [id number] - [id number] Implanted:Qty: 1 on 07/25/2017 by Marcelino Madison DO at OR [facility] Left: Ear GYRUS : ENT 11/13/2026 [id number] / / [id number] Trident Hemispherical Muli - [id number] Implanted:Qty: 1 on 12/13/2017 by Pardeep Martinez MD at OR [facility] Right: Hip CHELSEA : ORTHOPAEDICS 09/26/2022 508-11-52E / / [id number] Screw Acetabular 6.5mm Yuli 20m - [id number] Implanted:Qty: 1 on 12/13/2017 by Pardeep Martinez MD at OR [facility] Right: Hip CHELSEA : ORTHOPAEDICS 10/07/202220292624-3037-1 / / [id number] Bone Screw Cancellous 65 45 - [id number] Implanted:Qty: 1 on 12/13/2017 by Pardeep Martinez MD at OR [facility] Right: Hip CHELSEA : ORTHOPAEDICS 08/05/202220297290-2833-1 / / [id number] Screw Acetabular 6.5mm Yuli 20m - [id number] Implanted:Qty: 1 on 12/13/2017 by Pardeep Martinez MD at OR [facility] Right: Hip CHELSEA : ORTHOPAEDICS 10/07/202220297107-1217-1 / / [id number] Liner 42mm - [id number] Implanted:Qty: 1 on 12/13/2017 by Pardeep Martinez MD at OR [facility] Right: Hip CHELSEA : ORTHOPAEDICS 08/27/2021 626-00-42E / / [id number] Insert 28mm - [id number] Implanted:Qty: 1 on 12/13/2017 by Pardeep Martinez MD at OR [facility] Right: Hip CHELSEA : ORTHOPAEDICS 07/03/2022 1236-2-848 / / [id number] Head Delta Cer 12 14 28mm 5.0 - [id number] Implanted:Qty: 1 on 12/13/2017 by Pardeep Martinez MD at OR [facility] Right: Hip SYNTHES : DEPUY 10/01/2022 [id number] / / [id number] Duragen Plus 1x3 Dp 1013 Min5 - [id number] - [id number] Implanted:Qty: 1 on 07/29/2020 by Tadeo Bonilla MD at OR [facility] Gigturn JEMIMA [id number] 05/01/2023 [id number] / [id number] / [id number] Vectris Surescan Mri 1x8 Compact Implanted:Qty: 1 on 08/01/2021 by Arnoldo Regan MD at OR [facility] N/A: Back Medtronic 03/06/2025 [id number] / / [id number] Description:Part of a kit. Vectris Surescan Mri 1x8 Compact Implanted:Qty: 1 on 08/01/2021 by Arnoldo Regan MD at OR [facility] N/A: Back Medtronic 07/04/2025 [id number] / / [id number] Description:Part of a kit. Neurostimul Intellis Adaptiv - [id number] - [id number] Implanted:Qty: 1 on 08/01/2021 by Arnoldo Regan MD at OR [facility] N/A: Back [employer] 04/28/2022 [id number] / [id number] / Description:Part of a kit. Envelope Antibacterial Tyrx - [id number] Implanted:Qty: 1 on 08/01/2021 by Arnoldo Regan MD at OR [facility] N/A: Back [employer] : CRM 05/05/2022 [id number] / / [id number] documented as of this encounter Advance Directives Documents on File Type Date Recorded Patient Cooler Servicer Expl anation Advance Directives and Living Will 11/20/2020 ADVANCE DIRECTIVE REVISED/DURABLE POA HEALTHCARE/LIVING WILL 11/05/19 Power of Chaplain Resident 07/18/2017 POWER OF A TTORNEY POA * [...] the patient have Health Care Power of Chaplain Resident? Yes, not currently available * Full Code Date Activated Date Inactivated Comments 12/13/2017 7:47 PM 12/15/2017 6:34 PM This order r eflects the patients wishes and were consensually agreed upon. Question Answer Comments Discussion of Advance Directives occurred with: Patient Does the patient have a Living Will? No Does the patient have Health Care Power of Attor price? No Care Teams Drapery And Upholstery Measurer Relationship Specialty Start Date End Date Cha Esqueda DO [address] [place] [address] PCP - General Family Medicine 05/25/24 documented as of this encounter
--- OUTSIDE RECORDS SUMMARY | 2024-06-25 07:53 | External Medical Summary | Summary of Care ---
Author Name Unknown Organization [facility] Address [address] [place] [facility] [place] [address] Phone [phone] Care Team Providers Care Enterprise Application Developer Name Role Phone Cha Esqueda Primary Care Provider Encounter Details Date Type Department Care Team (Late st Contact Info) Description 06/18/2024 Population Health External Data Unspecified Department Allergies Active Allergy Reactions Criticality Noted Date [...] as of this encounter (statuses as of 06/18/2024) Medications Medication Sig Dispensed Refills Start Date [...] as of this encounter (statuses as of 06/18/2024) Active Problems Problem Noted Date Diagnosed Date [...] 12/31/2001 Other psoriasis GENERAL OSTEOARTHROSIS DISC DIS [id number] documented as of this encounter (statuses as of 06/18/2024) Resolved Problems Problem Noted Date Diagnosed Date [...] Project. Pt is a participant in the [facility] (Consortium of Rheumatology Researchers of [facility]) national data collection study. For further information please call Dr Medardo Orr or Halina Angulo, RN, CCRC at [phone] [facility] RESEARCH OTHER*[id number] 12/17/2003 05/29/2010 Overview: Renamed Per Clinical Trials Billing Project. Pt is a participant in the [employer] (Consortium of Rheumatology Researchers of [facility]) national data collection study. For further information please call Dr Medardo Orr or Halina Angulo, RN, CCRC at [phone] Osteoporosis 03/05/2003 09/05/2011 PAROXYSMAL SVT- hx of 12/07/20022018 ARTHRITIS,RHEUMATOID 09/04/2001 016 INFORMATION 12/04/2006 Ankylosing spondylitis 01/04 Chronic sinusitis 06/15/2020 documented as of this encounter (statuses as of 06/18/2024) Immunizations Name Administration Dates Next Due COVID-19 mRNA, LNP-s, No Pre serve, 2-Dose Series (Moderna) 09/14/2021,01/29/2021,12/22/2020 COVID-19, MRNA-LNP, 23-24, P F, 30 MCG/0.3 mL, 12 YRS AND ABOVE, IM ([facility] 08/23/2023 COVID-19, mRNA, LNP-s, PF, B ooster, [...] 8:40 AM EDT Office Visit Family Practice [address] [place] [phone] Cha Esqueda, [address] [place] [address] 06/24/2024 8:40 AM EDT Nurse Only Family Practice [address] [place] [address] [address] [place] [address] College, Nurse [facility] [address] [place] [address] Scheduled Procedures Name Priority Associated Diagnoses Date/Ti [...] D LEVEL ONCE IN A LIFETIME-USE SMARTSET# 80433 Completed 05/08/2018, 12/09/2015, 12/08/2014, Additional history exists [...] this encounter Medical Devices Implanted Type Area Content Curator Device Identifier Shelf Expiration Date Model / Serial / Lot Tube Modified T [id number] - [id number] Implanted:Qty: 1 on 07/25/2017 by Marcelino Madison DO at OR [facility] Left: Ear GYRUS : ENT 11/13/2026 [id number] / / [id number] Trident Hemispherical Muli - [id number] Implanted:Qty: 1 on 12/13/2017 by Pardeep Martinez MD at OR [facility] Right: Hip CHELSEA : ORTHOPAEDICS 09/26/2022 508-11-52E / / [id number] Screw Acetabular 6.5mm Yuli 20m - [id number] Implanted:Qty: 1 on 12/13/2017 by Pardeep Martinez MD at OR [facility] Right: Hip CHELSEA : ORTHOPAEDICS 10/07/202220293939-6593- / / [id number] Bone Screw Cancellous 65 45 - [id number] Implanted:Qty: 1 on 12/13/2017 by Pardeep Martinez MD at OR [facility] Right: Hip CHELSEA : ORTHOPAEDICS 08/05/202220298337-8381- / / [id number] Screw Acetabular 6.5mm Yuli 20m - [id number] Implanted:Qty: 1 on 12/13/2017 by Pardeep Martinez MD at OR [facility] Right: Hip CHELSEA : ORTHOPAEDICS 10/07/202220297083-8634-1 / / [id number] Liner 42mm - [id number] Implanted:Qty: 1 on 12/13/2017 by Pardeep Martinez MD at OR [facility] Right: Hip CHELSEA : ORTHOPAEDICS 08/27/2021 626-00-42E / / [id number] Insert 28mm - [id number] Implanted:Qty: 1 on 12/13/2017 by Pardeep Martinez MD at OR [facility] Right: Hip CHELSEA : ORTHOPAEDICS 07/03/2022 1236-2-848 / / [id number] Head Delta Cer 12 14 28mm 5.0 - [id number] Implanted:Qty: 1 on 12/13/2017 by Pardeep Martinez MD at OR [facility] Right: Hip SYNTHES : DEPUY 10/01/2022 [id number] / / [id number] Duragen Plus 1x3 Dp 1013 Min5 - [id number] - [id number] Implanted:Qty: 1 on 07/29/2020 by Tadeo Bonilla MD at OR [facility] INTEGRA Trulia [facility] [id number] 05/01/2023 [id number] / [id number] / [id number] Vectris Surescan Mri 1x8 Compact Implanted:Qty: 1 on 08/01/2021 by [facility] N[facility]A: Back Medtronic 03/06/2025 [id number] / / [id number] Description:Part of a kit. Vectris Surescan Mri 1x8 Compact Implanted:Qty: 1 on 08/01/2021 by [facility]o Regan [facility] N/A: Back Medtronic 07/04/2025 [id number] / / [id number] Description:Part of a kit. Neurostimul Intellis Adaptiv - [id number] - [id number] Implanted:Qty: 1 on 08/01/2021 by [facility]o Regan [facility] N/A: Back [employer] 04/28/2022 [id number] / [id number] / Description:Part of a kit. Envelope Antibacterial Tyrx - [id number] Implanted:Qty: 1 on 08/01/2021 by [facility]o Regan [facility] N/A: Back [employer] : CRM 05/05/2022 [id number] / / [id number] documented as of this encounter Advance Directives Documents on File Type Date Recorded Patient Rubber Factory Worker Expl anation Advance Directives and Living Will 11/20/2020 ADVANCE DIRECTIVE REVISED/DURABLE POA HEALTHCARE/LIVING WILL 11/05/19 Power of Clerical Specialist 07/18/2017 POWER OF A TTORNEY POA [...] the patient have Health Care Power of Clerical Specialist? Yes, not currently available * Full Code Date Activated Date Inactivated Comments 12/13/2017 7:47 PM 12/15/2017 6:34 PM This order r eflects the patients wishes and were consensually agreed upon. Question Answer Comments Discussion of Advance Directives occurred with: Patient Does the patient have a Living Will? No Does the patient have Health Care Power of Attor price? No Care Teams Enterprise Application Developer Relationship Specialty Start Date End Date Cha Esqueda DO [address] [place] [address] PCP - General Family Medicine 05/25/24 documented as of this encounter
--- OUTSIDE RECORDS SUMMARY | 2024-06-25 07:53 | External Medical Summary | Summary of Care ---
Author Name Unknown Organization [facility] Address [address] [place] [address] Phone [phone] Care Team Providers Care Team Assembler Name Role Phone Cha Esqueda Primary Care Provider Reason for Visit * Reason Onset Date Comments Advice 06/10/2024 Xray results Encounter Details Date Type Department Care Team (Late st Contact Info) Description 06/10/2024 Telephone Rheumatology [facility], [place] [address] [place] [address] Solomon Whipple PA-C [address] [facility] [place] [id number] Advice (Xray results) Allergies Active Allergy Reactions [...] as of this encounter (statuses as of 06/16/2024) Medications Medication Sig Dispensed Refills Start Date [...] as of this encounter (statuses as of 06/16/2024) Active Problems Problem Noted Date Diagnosed Date [...] Status post right hip replacement 09/30/2017 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 Pt is a participant in the [facility] (Consortium of Rheumatology Researchers of [place]) national data collection study. For further information please call Dr Medardo Orr or Halina Angulo, RN, CCRC at [phone] [facility] RESEARCH OTHER*[id number] 12/17/2003 05/29/2010 Overview: Renamed Per Clinical Trials Billing Project. Pt is a participant in the [facility] (Consortium of Rheumatology Researchers of [place]) national data collection study. For further information please call Dr Medardo Orr or Halina Angulo, RN, CCRC at [phone] Osteoporosis 03/05/2003 09/05/2011 PAROXYSMAL SVT- hx of 12/07/20022018 ARTHRITIS,RHEUMATOID 09/04/2001 016 INFORMATION 12/04/2006 Ankylosing spondylitis 01/04 Chronic sinusitis 06/15/2020 documented as of this encounter (statuses as of 06/16/2024) Immunizations Name Administration Dates Next Due COVID-19 [...] Telephone Encounter - Cha Esqueda DO - 06/16/2024 10:50 AM EDT Pt admitted. * Telephone Encounter - Solomon Whipple PA-C [...] EDT Office Visit Family Practice [address], [place] [address] [place] [address] Cha Esqueda DO [address] [place] [address] Scheduled Procedures Name Priority Associated Diagnoses Date/Ti [...] D LEVEL ONCE IN A LIFETIME-USE SMARTSET# 77910 Completed 05/08/2018, 12/09/2015, 12/08/2014, Additional history exists [...] this encounter Medical Devices Implanted Type Area Jacquard Plate Maker Device Identifier Shelf Expiration Date Model / Serial / Lot Tube Modified T [id number] - [id number] Implanted:Qty: 1 on 07/25/2017 by Marcelino Madison DO at OR [facility] Left: Ear GYRUS : ENT 11/13/2026 [id number] / / [id number] Trident Hemispherical Muli - [id number] Implanted:Qty: 1 on 12/13/2017 by Pardeep Martinez MD at OR [facility] Right: Hip CHELSEA : ORTHOPAEDICS 09/26/2022 508-11-52E / / [id number] Screw Acetabular 6.5mm Yuli 20m - [id number] Implanted:Qty: 1 on 12/13/2017 by Pardeep Martinez MD at OR [facility] Right: Hip CHELSEA : ORTHOPAEDICS 10/07/20225264-9617- / / [id number] Bone Screw Cancellous 65 45 - [id number] Implanted:Qty: 1 on 12/13/2017 by Pardeep Martinez MD at OR [facility] Right: Hip CHELSEA : ORTHOPAEDICS 08/05/20224916-8808- / / [id number] Screw Acetabular 6.5mm Yuli 20m - [id number] Implanted:Qty: 1 on 12/13/2017 by Pardeep Martinez MD at OR [facility] Right: Hip CHELSEA : ORTHOPAEDICS 10/07/20223829-3973-1 / / [id number] Liner 42mm - [id number] Implanted:Qty: 1 on 12/13/2017 by Pardeep Martinez MD at OR [facility] Right: Hip CHELSEA : ORTHOPAEDICS 08/27/2021 626-00-42E / / [id number] Insert 28mm - [id number] Implanted:Qty: 1 on 12/13/2017 by Pardeep Martinez MD at OR [facility] Right: Hip CHELSEA : ORTHOPAEDICS 07/03/2022 1236-2-848 / / [id number] Head Delta Cer 12 14 28mm 5.0 - [id number] Implanted:Qty: 1 on 12/13/2017 by Pardeep Martinez MD at OR [facility] Right: Hip SYNTHES : DEPUY 10/01/2022 [id number] / / [id number] Duragen Plus 1x3 Dp 1013 Min5 - [id number] - [id number] Implanted:Qty: 1 on 07/29/2020 by Tadeo Bonilla MD at OR [facility] Vacatia JEMIMA [id number] 05/01/2023 [id number] / [id number] / [id number] Vectris Surescan Mri 1x8 Compact Implanted:Qty: 1 on 08/01/2021 by Arnoldo Regan MD at OR [facility] N/A: Back Medtronic 03/06/2025 [id number] / / [id number] Description:Part of a kit. Vectris Surescan Mri 1x8 Compact Implanted:Qty: 1 on 08/01/2021 by Arnoldo Regan MD at OR [facility] N/A: Back Medtronic 07/04/2025 [id number] / / [id number] Description:Part of a kit. Neurostimul Intellis Adaptiv - [id number] - [id number] Implanted:Qty: 1 on 08/01/2021 by Arnoldo Regan MD at OR [facility] N/A: Back [employer] 04/28/2022 57580 / [id number] / Description:Part of a kit. Envelope Antibacterial Tyrx - [id number] Implanted:Qty: 1 on 08/01/2021 by Arnoldo Regan MD at OR [facility] N/A: Back [employer] : CRM 05/05/2022 [id number] / / [id number] documented as of this encounter Advance Directives Documents on File Type Date Recorded Patient Healthcare Receptionist Expl anation Advance Directives and Living Will 11/20/2020 ADVANCE DIRECTIVE REVISED/DURABLE POA HEALTHCARE/LIVING WILL 11/05/19 Power of Yarn Finisher 07/18/2017 POWER OF A TTORNEY POA * [...] the patient have Health Care Power of Yarn Finisher? Yes, not currently available * Full Code Date Activated Date Inactivated Comments 12/13/2017 7:47 PM 12/15/2017 6:34 PM This order r eflects the patients wishes and were consensually agreed upon. Question Answer Comments Discussion of Advance Directives occurred with: Patient Does the patient have a Living Will? No Does the patient have Health Care Power of Attor price? No Care Teams Team Assembler Relationship Specialty Start Date End Date Cha Esqueda DO [address] [place] [address] PCP - General Family Medicine 05/25/24 documented as of this encounter
--- OUTSIDE RECORDS SUMMARY | 2024-06-25 07:54 | External Medical Summary ---
Author Name Unknown Address Unknown Organization : Laboratory Report Ordering Provider Test Date Status RUDY TRUJILLO 06/12/2024 15:01:27 Final Observation Date Value Abnormality Reference (Units ) Status TPMT ACTIVITY 06/12/2024 15:01:27 9 Below low normal Final Units: nmol/hr/mL RBC
Re ference Range for TPMT Activity:
>12 Normal
4-12 Heterozygote or low metabolizer
<4 Homozygote Deficient Range
This test was developed and its analytical
performance characteristics have been determined
by [facility]. It has not been cleared or
approved by FDA. This assay has been validated
pursuant to the CLIA regulations and is used for
clinical purposes.
Test performed by [facility]
[address],
[place] [address]

Public Relations Writer: Roselyn Denson MD,PHD,RANDY
Test Reported by [facility],
[facility],
[address] [place], [place]
Keny Goldstein M.D., Ph.D., Director of Laboratories
, CLIA [id number] Performing Location
[2024-06-25] MEDS: SODIUM CHLORIDE 0.9% 1,000 ML IV ONE (08:00)
[2024-06-25] MEDS: oxyCODONE HCL IR 5 MG TAB (IMMEDIATE RELEASE) PO PRN (08:35)
[2024-06-25] MEDS ORDERED: oxyCODONE HCL IR 5 MG TAB (IMMEDIATE RELEASE) PO PRN (09:50)
[2024-06-25] MEDS ORDERED: LORazepam 0.5 MG TAB PO PRN (09:50)
[2024-06-25] MEDS: INSULIN ASPART PER UNIT CHARGE SC SCH (09:55)
[2024-06-25] MEDS: LOSARTAN POTASSIUM 50 MG TAB PO SCH (10:02)
[2024-06-25] MEDS: prednisoLONE sod phos 1% 10 ML BTL OP SCH (10:24)
[2024-06-25] MEDS: LEVOTHYROXINE SODIUM 50 MCG TABLET PO SCH (10:25)
[2024-06-25] MEDS: VITAMIN B COMPLEX TAB PO SCH (10:25)
[2024-06-25] MEDS: ATENOLOL 50 MG TABLET PO SCH (10:25)
[2024-06-25] MEDS: ACETAMINOPHEN 325 MG TAB PO PRN (12:15)
--- NOTE | 2024-06-25 12:53 | Communication Note ---
Date of Service: June 25, 2024 Patient was seen and examined at bedside. 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 No incontinence symptoms. Back pain not as bad as prior presentation. She denies any falls or trauma. She is being managed for the following: Low back pain with radicular symptoms [right greater than left] History of lumbar compression fracture Possible subacute S2 anterior cortex fracture Lumbar spine CT: Multilevel severe degenerative change. Possible subacute fracturing anterior cortex of S2. LE US Doppler: Negative for DVT. Pain management, bowel regimen as needed [facility] consult, await recommendation PT OT. Other chronic medical conditions: Continue with/resume home meds as and when able. SSS status post PPM PSVT as per records PVD hypertension, BP fairly stable. hyperlipidemia on statin Rx DM2 diet-controlled, well-controlled as of hemoglobin A1c of 5.9 last month, SSI while inpatient. hypothyroidism, TSH last month elevated at 9, TFT in 2-4 weeks on dc. hx rheumatoid arthritis chronic anemia, monitor. DVT prophylaxis. SCDs re: possible procedure DNR Patient daughter Ms. Yocasta Ozuna contact number, [phone]. Text document was generated using [employer] voice recognition software. It may contain grammatical or spelling errors. Kindly contact undersigned for clarification of any documentation item in question. For detailed information on the patient, refer to today's H&P note.
[2024-06-25 14:51] VITALS: RESP 16
[2024-06-25] MEDS: CYCLOBENZAPRINE HCL 10 MG TAB PO PRN (16:11)
--- NOTE | 2024-06-25 18:25 | Orthopedic Consultation ---
Date of Service June 25, 2024 Assessment & Plan (1) Lumbar disc herniation: (2) Lower back pain: (3) Lumbar post-laminectomy syndrome: (4) Lumbar spinal stenosis: History of Present Illness Reason for Consultation: Low back and right leg pain. Requesting Physician: . Attending Physician: Marifer Luna MD 83-year-old female who was discharged from our hospital about 8 days ago. She was diagnosed with an L4 compression fracture which appears to be chronic in nature and an L3-L4 right-sided disc herniation. This was diagnosed via CT imaging as the patient cannot undergo an MRI--her pacemaker is noncompatible. In the hospital, the patient was doing well on steroids and pain control. She was discharged with a prednisone taper and oxycodone. She is no longer taking prednisone.patient reports that she was up and around even 2 days ago without even utilizing the walker at all times, but then yesterday and in the evening the patient's pain has increased. Last night she could not stand up off the toilet because of discomfort. She has noticed increasing right leg weakness as well as spasms in the right thigh. There has been no fever, no new fall, she has not lifted anything heavy. She is making her urine without difficulty. No burning with urination. The patient is currently recovering from a right leg wound. She cannot have any injections in the spine until the wound is healed. Exam reveals the patient to be alert awake and cooperative she appears comfortable and sitting in a chair. She does not demonstrate any specific areas of tenderness in the lower extremities, she had intact strength to manual testing for EHL ankle plantar dorsiflexion knee flexion extension strength, hip flexion. Exam(s): CT L SPINE June 25, 2024 CT Lumbar Spine Without Intravenous Contrast COMPARISON: No relevant prior studies available. FINDINGS: Vertebrae: L3-L4: Compression deformity superior endplate of L4 compressed approximately 25-50% anterior superior endplate no indication at this is acute. Diffuse disc bulge broad-based posterior disc osteophyte complex intravertebral osteochondrosis , retrolisthesis with approximately 0.7 cm of posterior slip moderate central canal stenosis and moderate to severe right and moderate left neural foramen encroachment. L4-5: Diffuse disc bulge. Facet hypertrophic changes with moderate to severe bilateral neural foramen encroachment mild to moderate central canal stenosis with removal of the central posterior elements. L5-S1: Anterolisthesis with approximately 1.1 cm in maximal anterior slip, moderate central canal stenosis moderate bilateral neural foramen encroachment. There is spondylotic spurring demonstrated at multiple levels of a moderate to severe degree. Facet hypertrophic changes at most levels. Sacrum/coccyx: There is some anterior cortical angulation of a minor degree at the superior aspect of the S2 segment. Discs/spinal canal/neural foramina: See above. Soft tissues: Unremarkable. Vasculature: Retroperitoneum reveals calcific atherosclerotic vascular disease. Tubes, lines and devices: Presumed stimulator battery pack demonstrated superior lumbar spine to the right of midline. IMPRESSION: Multilevel severe degenerative change. There may be subacute fracturing anterior cortex of S2. CT scan images from June 25, 2024 of the lumbar spine, this my separate interpretation, these radiographs were compared to the previous CT scan which was available from June 15 but not reviewed by the radiologist, I do not see any substantive changes in the images with the patient having multilevel degenerative changes, the L4 superior endplate compression fracture appears to be subacute. Indeterminate as to whether or not there is actually a fracture at S2 as this is not well-visualized on the previous CT scan. Without evidence of fall it is probably unlikely. Impression: Exacerbation of pain in her right hip and right lumbosacral region but also pain radiating to the right thigh, Multilevel degenerative changes which appear to be chronic in nature. Plan: Today I discussed the patient's findings with her, there was also a DVT scan which was negative. I related to her that I would still recommend conservative measures as patient clearly indicated she was not interested in any surgical options. I related that we would first have to have a CT myelogram before making any surgical considerations but the patient would be a candidate for injections from pain management once her lower extremity is healed. Until that time appropriate medication management along with physical therapy would be recommended. I indicated the patient should follow-up my office if she does not approve these measures I would then proceed with a CT myelogram to evaluate if there is any operative indications. Allergies Allergy/AdvReac Type Severity Reaction Status Date / Time clindamycin Allergy Intermediate Rash Verified 06/23/24 08:19 Sulfa (Sulfonamide Allergy Mild Rash Verified 06/23/24 08:19 Antibiotics) aspirin AdvReac Intermediate Thrombocyto Verified 06/23/24 08:19 penia clavulanic acid AdvReac Intermediate Severe Verified 06/23/24 08:19 diarrhea phenylbutazone AdvReac Intermediate Thrombocyto Verified 06/23/24 08:19 penia hydromorphone AdvReac Mild N/V Verified 06/23/24 08:19 ketamine AdvReac Mild Hallucinati Verified 06/23/24 08:19 ons morphine AdvReac Mild N/V Verified 06/23/24 08:19 Home Medications Medication Instructions Recorded Confirmed Type atenolol 50 mg tablet 50 mg PO BID 10/21/18 06/25/24 History levothyroxine 50 mcg capsule 50 mcg PO QAM 10/21/18 06/25/24 History omeprazole 20 mg delayed 1 tab PO HS 10/21/18 06/25/24 History release,disintegrating tablet fluticasone propionate 50 2 spray intranasal HS 05/19/20 06/25/24 History mcg/actuation nasal spray,suspension acetaminophen 500 mg tablet 1,000 mg PO Q8H PRN Pain 11/03/21 06/25/24 History vitamin B complex 1 tab PO BID 02/15/23 06/25/24 History gabapentin 300 mg capsule 300 mg PO HS 06/12/24 06/25/24 History lorazepam 0.5 mg tablet (Ativan) 0.5 mg PO TID PRN Anxiety 06/12/24 06/25/24 History prednisolone sodium phosphate 1 % 1 drp ophthalmic (eye) Q2H 06/12/24 06/25/24 History eye drops ibuprofen 200 mg tablet 600 mg PO Q6H PRN PAIN/FEVER 06/15/24 06/25/24 History ketoconazole 2 % shampoo 1 applic topical 2XWK PRN Rash 06/15/24 06/25/24 History losartan 50 mg tablet 50 mg PO QAM 06/15/24 06/25/24 History rosuvastatin 10 mg tablet 10 mg PO HS 06/15/24 06/25/24 History triamcinolone acetonide 0.1 % 1 applic topical BID PRN psoriasis 06/15/24 06/25/24 History topical cream collagenase clostridium histo. 250 1 applic EXT DAILY PRN wound care 06/17/24 06/25/24 Rx unit/gram topical ointment (Santyl) #30 grams methylprednisolone 4 mg tablets in 4 mg PO UD #21 ea 06/17/24 06/25/24 Rx a dose pack (Medrol (Joel)) oxycodone 5 mg tablet 5 mg PO Q6H PRN pain (scale score 06/17/24 06/25/24 Rx 7-10) #20 tabs Past Med/Surg History Problem List Leukocytosis (Acute) Lumbar disc herniation (Acute) Lower back pain (Acute) Weakness (Acute) Pain in right buttock Intractable back pain (Acute) Herniation of intervertebral disc at L3-L4 level (Acute) Right sided sciatica (Acute) Traumatic open wound of right lower leg (Acute) Painful orthopaedic hardware Biceps tendonitis on right Carpal tunnel syndrome, left Idiopathic polyneuropathy Cervical radicular pain Lumbosacral radiculopathy Lumbar post-laminectomy syndrome Lumbar spinal stenosis Status post reverse total replacement of right shoulder (~03/2023) Encounter for pre-operative examination Hypothyroidism (Chronic) Tachy-jacinto syndrome (Chronic) Rheumatoid arthritis (Chronic) Pacemaker (Chronic) GERD (gastroesophageal reflux disease) (Chronic) Osteoporosis (Chronic) History of PSVT (paroxysmal supraventricular tachycardia) (Chronic) Amputated finger (Chronic) History of hip surgery (Chronic) History of carpal tunnel surgery (Chronic) Status post total knee replacement (Acute 07/01/14) Hx of tonsillectomy (Chronic) H/O shoulder surgery (Chronic) H/O foot surgery (Chronic) S/P closed reduction of dislocated total hip prosthesis Dyspnea (Acute) Chest pain (Acute) Hypoxia (Acute) Shoulder pain HTN (hypertension) Medial meniscus tear Carpal tunnel syndrome Syncope (Acute) Acute head injury (Acute) Avulsion of skin of left lower leg (Acute) Facial laceration (Acute) Fracture of left wrist (Acute) Fracture of scaphoid bone of left wrist Traumatic open wound of lower leg (Acute) Encounter for pre-operative examination S/P carpal tunnel release Hip pain, left Traumatic wound (Acute) History of reverse total replacement of left shoulder joint Left reverse TSA (05/16/20): Grade view 1, [place]ouard#2, ETT 7.5 + PNB at [facility]. No issues noted per post-op anesthesia progress note. Medical History Iritis Borderline diabetic Hx of Clostridium difficile infection 2019, treated > "cleared" History of pericarditis 1998 Hx of supraventricular tachycardia Follows with Dr. Gardner ([facility]) Vertigo Vertigo/right ear crystal. Follows with Dr. Jd Joseph ([facility] center). 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, s/p slow AV node pathway ablation in 1997 Hyperlipidemia Hypertension Hx MRSA infection 15 years ago in finger (since removed), has been tested since > "cleared" Osteoporosis Spinal stenosis Cervical, lumbar Rheumatoid arthritis Osteoarthritis Esophageal spasm Occasional episodes over the last 20+ years GERD (gastroesophageal reflux disease) Hypothyroidism Thrombocytopenia Remote hx felt to be medication related (resolved with medication/ASA discontinuation) MVP (mitral valve prolapse) MV anatomy normal, trace MR per 05/2022 echo Pacemaker Medtronic, last check 2022, placed for sinus arrest 2/2 esophageal spasm with strong vagal response Surgical History S/P insertion of spinal cord stimulator History of lumbar laminectomy L4-L5 @ [facility] [place] History of dilatation and curettage History of repair of rotator cuff LEFT History of bunionectomy X2 ON RIGHT SIDE, X1 ON LEFT SIDE Hx of knee surgery LEFT KNEE (7 TOTAL SURGERIES) History of endoscopic sinus surgery History of anesthesia reaction KETAMINE-BAD DREAMS History of total hip arthroplasty RT HIP (2 SURGERY) History of total knee replacement LEFT History of carpal tunnel release RT Hx of thumb surgery LEFT HAND History of amputation RT MIDDLE FINGER (INFECTION) History of arthroscopy RT SHOULDER - ATTEMPT TO REPAIR ROTATOR CUFF History of esophagogastroduodenoscopy (EGD) History of colonoscopy History of tooth extraction History of tonsillectomy History of adenoidectomy History of myringotomy LEFT EAR Macular hole REPAIRED> RIGHT History of cataract surgery RT/LEFT History of cardiac radiofrequency ablation 1995 AND 2001 ([facility]) Family History Father , age 78 of a stroke AAA (abdominal aortic aneurysm) Hypertension Stroke Mother , age 89 of sepsis COPD (chronic obstructive pulmonary disease) Sepsis Mother COPD (chronic obstructive pulmonary disease) Other No family history of adverse response to anesthesia Social History Smoking Status: Never smoker Second Hand Exposure: No; Do You Dip or Chew Tobacco: No; Hx Alcohol Use: No Hx Substance Use: No Preferred Language: Croatian Communication Ability: Effective Visual Impairment: Partially Limited Hearing Ability: Use of Hearing Aid Gauger Chief Required: No Beliefs That Will Affect Care: None marital status: / Current Living Situation: Alone current occupational status: retired current occupation: former [employer] RN Feels Safe at Home: Yes Diet: regular Assistive Devices: Glasses and Walker Review of Systems All systems reviewed & are unremarkable except as noted in HPI & below. Physical Exam . Results & Data Results & Data Laboratory Results . Diagnostic Findings . PG Care Time/CCT Total # of Minutes Spent Total Time Spent with Patient: Total time spent is greater than 50% in coordination of care (as documented) at patient's floor/unit and/or counseling patient: Coding Level of Care Code 09109 IN/OBS CONSULT LVL 3,45M Diagnoses Lumbar disc herniation M51.26 Lower back pain M54.41 Back pain laterality: right Chronicity: acute Sciatica laterality: sciatica of right side Sciatica presence: with sciatica Lumbar post-laminectomy syndrome M96.1 Lumbar spinal stenosis M48.061 (2) Lower back pain Back pain laterality: right Chronicity: acute Sciatica laterality: sciatica of right side Sciatica presence: with sciatica Qualified Code(s): M54.41 - Lumbago with sciatica, right side
[2024-06-25] MEDS: FLUTICASONE PROPIONATE NA SPR 16 GM BTL SCH (20:34)
[2024-06-25] MEDS: GABAPENTIN 300 MG CAP PO SCH (20:34)
[2024-06-25] MEDS: ROSUVASTATIN CALCIUM 10 MG TAB PO SCH (20:37)
[2024-06-25] MEDS: PANTOprazole 40 MG TAB PO SCH (20:37)
[2024-06-25] MEDS: traMADol HCL 50 MG TABLET PO PRN (21:00)
[2024-06-26 07:47] LABS: Basophils # (auto) 0.03 K/uL (0.00-0.20); Basophils % (auto) 0.2 %; Eosinophils # (auto) 0.01 K/uL (0.00-0.50); Eosinophils % (auto) 0.1 %; Hematocrit (blood only) 31.6 % (37.0-47.0); Hemoglobin 10.4 g/dl (12.0-16.0); Immature Granulocytes # (auto) 0.39 K/uL (0.01-0.20); Immature Granulocytes % (auto) 2.1 %; Lymphocytes # (auto) 1.19 K/uL (1.20-3.40); Lymphocytes % (auto) 6.4 %; Mean Corpuscular Hemoglobin 30.9 pg (25.0-34.0); Mean Corpuscular Hgb Conc 32.9 g/dL (32.0-36.0); Mean Corpuscular Volume 93.8 fL (80.0-100.0); Mean Platelet Volume 10.9 fL (9.4-12.4); Monocytes # (auto) 1.42 K/uL (0.11-0.59); Monocytes % (auto) 7.6 %; Neutrophils % (auto) 83.6 %; Platelet Count 182 K/uL (130-400); RDW Coefficient of Variation 12.8 % (11.5-14.5); RDW Standard Deviation 43.8 fL (36.4-46.3); Red Blood Count 3.37 M/uL (4.20-5.40); White Blood Count 18.64 K/ul (4.8-10.8)
[2024-06-26 08:01] VITALS: BP 129/79; PULSE 64; TEMP 97.5; O2SAT 99
[2024-06-26 08:44] LABS: BUN Creatinine Ratio 32.9 (10-20); Calcium 9.2 mg/dl (8.6-10.3); Creatinine Clr Calc Pharmacy 47.6 ml/min; Est GFR (African American) 92.9 ml/min; Est GFR (Non-African American) 80.1 ml/min; Magnesium 1.8 mg/dl (1.7-2.4); Potassium 4.5 mmol/L (3.5-5.1)
--- NOTE | 2024-06-26 12:15 | Discharge Summary ---
Date of Service June 26, 2024 Admission HPI Per Admitting Provider History obtained from patient, family, and records. Medical history significant for SSS status post PPM, PSVT as per records, trace AR, PVD, hypertension, hyperlipidemia, DM2 diet-controlled, hypothyroidism, GERD, rheumatoid arthritis, skin cancer as per records, chronic anemia (baseline hemoglobin 10-11). Recent confinement last week for intractable back pain attributed to subacute endplate lumbar compression fracture. No operative intervention. Trigger point injection contraindicated by traumatic RLE wound as per report. Patient discharged home with steroid course. 2 days ago, patient noted increasing bilateral leg weakness and leg cramps. No incontinence symptoms. Back pain not as bad. No new falls. No chest pain, no SOB. Patient brought to ER for evaluation. 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 Exam Per Admitting Provider GENERAL: Comfortable, pleasant, no respiratory distress SKIN: Pallor, warm HEENT: Pale palpebral conjunctivae, no ptosis, dry buccal mucosa NECK : Supple, no tenderness CHEST : CTA, no tenderness HEART : RRR, no obvious murmurs ABDOMEN: Some distention, nontender BACK : Low back tenderness, negative straight leg raise test EXTREMITIES : RLE dressing, bilateral LE swelling, no LE tenderness, no other conspicuous deformities noted NEUROLOGIC : Coherent, no facial asymmetry, gait and stance not assessed Principal Diagnosis Low back pain with radicular symptoms [right greater than left] History of lumbar compression fracture Possible subacute S2 anterior cortex fracture Discharge Exam GENERAL: Comfortable, pleasant, no respiratory distress SKIN: Pallor, warm HEENT: Pale palpebral conjunctivae, no ptosis, moist buccal mucosa NECK : Supple, no tenderness CHEST : CTA, no tenderness HEART : RRR, no obvious murmurs ABDOMEN: Some distention, nontender BACK : Low back tenderness, negative straight leg raise test EXTREMITIES : RLE dressing, bilateral LE swelling, no LE tenderness, no other conspicuous deformities noted NEUROLOGIC : Coherent, no facial asymmetry, gait and stance not assessed Discharge Data Allergies Allergy/AdvReac Type Severity Reaction Status Date / Time clindamycin Allergy Intermediate Rash Verified 06/23/24 08:19 Sulfa (Sulfonamide Allergy Mild Rash Verified 06/23/24 08:19 Antibiotics) aspirin AdvReac Intermediate Thrombocyto Verified 06/23/24 08:19 penia clavulanic acid AdvReac Intermediate Severe Verified 06/23/24 08:19 diarrhea phenylbutazone AdvReac Intermediate Thrombocyto Verified 06/23/24 08:19 penia hydromorphone AdvReac Mild N/V Verified 06/23/24 08:19 ketamine AdvReac Mild Hallucinati Verified 06/23/24 08:19 ons morphine AdvReac Mild N/V Verified 06/23/24 08:19 Consultations 06/25/24 06:00 ED Decision to Admit Stat 06/25/24 06:50 Consult Orthopedic Spine Surgery Routine Ordered Studies 06/25/24 04:46 CT lumbar spine wo con Stat 06/25/24 06:46 US leg [US venous doppler LE BI] Stat Hospital Course (1) Lower back pain: Plan 83-year-old lady with PMH of SSS s/p PPM, PSVT, trace AR, PVD, HTN, HLD, T2DM diet-controlled, hypothyroidism, GERD, rheumatoid arthritis, skin cancer, chronic anemia [baseline hemoglobin of 10-11] who was recently admitted for intractable low back pain attributed to subacute endplate lumbar compression fracture/managed conservatively presented with complaint of increasing bilateral leg weakness and pain [right greater than left] for 2 days ago [employer]. No incontinence symptoms. Back pain not as bad as prior presentation. She denies any falls or trauma. She was managed for the following: Low back pain with radicular symptoms [right greater than left] History of lumbar compression fracture Possible subacute S2 anterior cortex fracture Lumbar spine CT: Multilevel severe degenerative change. Possible subacute fracturing anterior cortex of S2. LE US Doppler: Negative for DVT. Pain management, bowel regimen as needed Orthospine evaled, conservative mx for now pt reports improving pain, and would like to go home. She is aware she needs to f/u w/ orthospine as an OP for ongoing eval. PT OT. Other chronic medical conditions: Continue with/resume home meds as and when able. SSS status post PPM PSVT as per records PVD hypertension, BP fairly stable. hyperlipidemia on statin Rx DM2 diet-controlled, well-controlled as of hemoglobin A1c of 5.9 last month, SSI while inpatient. hypothyroidism, TSH last month elevated at 9, TFT in 2-4 weeks on dc. hx rheumatoid arthritis chronic anemia, monitor. DVT prophylaxis. SCDs re: possible procedure DNR Patient daughter Ms. Yocasta Ozuna contact number, [phone]. Text document was generated using [facility] voice recognition software. It may contain grammatical or spelling errors. Kindly contact undersigned for clarification of any documentation item in question. Patient is being discharged with following instructions at the point of discharge: Follow-up with your primary care physician within a week time and likely you will need labs CBC/CMP/magnesium/phosphorus. You will be discharged on pain medications, you will be given oxycodone for few days, if ongoing pain/worsening pain you will need further evaluation by your orthospine office or PCP office for further pain management prescription. Follow up with your orthospine on discharge. Continue to take [id number] bowel regimen with a goal of 1-2 bowel movements a day while you are on opiate pain medication. Take your medications as prescribed. Please make sure that you are able to get your medications today by calling your pharmacy before you leave the hospital so that your treatment continuity is not broken. Home Health Attestation I certify that this patient is under my care and that I, or a physicians project administrative assistant working with me, had a face to-face encounter that meets the home health [id number] encounter requirements with this patient. The encounter with the patient was in whole, or in part, for the following medical condition, which is the primary reason for home health care (list medical condition): I certify that, based on my findings, the following services are medically necessary home health services: My clinical findings support the need for the above services because: Further, I certify that my clinical findings support that this patient is homebound (i.e. absences from home require considerable and taxing effort and are for medical reasons or druze services or infrequently or of short duration when for other reasons) because: Certification for Home Health Services: Based on the above findings, I certify that this patient is confined to the home and needs intermittent jail care, physical therapy and/or speech therapy or continues to need occupational therapy. The patient is under my care, and I have initiated the establishment of the plan of care. This patient will be followed by a physician who will periodically review the plan of care. Total Time Total Time Spent Total Time Spent (In Minutes): 45 Discharge Plan Discharge Items Patient Disposition: Home - Self-Care Reason For Visit: BACK PAIN Discharge Diagnosis: Low back pain with radicular symptoms [right greater than left] History of lumbar compression fracture Possible subacute S2 anterior cortex fracture Condition on Discharge: Good Activity: Resume your previous activity Activity Comment: continue with physical therapy on discharge. Non-emergency contact: Primary Care Provider Call non-emergency contact if: you have any medication questions, your symptoms worsen and your pain is worsening Follow-up/Referrals: Cha Esqueda DO [Primary Care Provider] - Diet: Carb Consistent or DM2 and Heart Healthy Addtl Attending Provider Instructions: Follow-up with your primary care physician within a week time and likely you will need labs CBC/CMP/magnesium/phosphorus. You will be discharged on pain medications, you will be given oxycodone for few days, if ongoing pain/worsening pain you will need further evaluation by your orthospine office or PCP office for further pain management prescription. Follow up with your orthospine on discharge. Continue to take [id number] bowel regimen with a goal of 1-2 bowel movements a day while you are on opiate pain medication. Take your medications as prescribed. Please make sure that you are able to get your medications today by calling your pharmacy before you leave the hospital so that your treatment continuity is not broken. Pending Studies at Discharge: No Stand-Alone Forms: My [employer], Smoking Cessation Medications and DC Order Prescriptions: New tramadol 50 mg Tablet 50 mg PO Q6H PRN (Reason: moderate pain (scale score 5-6)) Qty: 20 0RF Continued lorazepam [Ativan] 0.5 mg tablet 0.5 mg PO TID PRN (Reason: Anxiety) gabapentin 300 mg capsule 300 mg PO HS prednisolone sodium phosphate 1 % drops 1 drp ophthalmic (eye) Q2H atenolol 50 mg Tablet 50 mg PO BID levothyroxine 50 mcg Capsule 50 mcg PO QAM omeprazole 20 mg Tablet,Disintegrat, Delay Rel 1 tab PO HS fluticasone propionate 50 mcg/actuation spray,suspension 2 spray INTRANASAL HS acetaminophen 500 mg tablet 1,000 mg PO Q8H PRN (Reason: Pain) vitamin B complex Tablet 1 tab PO BID oxycodone 5 mg tablet 5 mg PO Q6H PRN (Reason: pain (scale score 7-10)) Qty: 20 0RF losartan 50 mg tablet 50 mg PO QAM ibuprofen 200 mg Tablet 600 mg PO Q6H PRN (Reason: PAIN/FEVER) rosuvastatin 10 mg tablet 10 mg PO HS ketoconazole 2 % shampoo 1 applic TOPICAL 2XWK PRN (Reason: Rash) triamcinolone acetonide 0.1 % cream 1 applic TOPICAL BID PRN (Reason: psoriasis) Santyl 250 unit/gram Ointment 1 applic EXT DAILY PRN (Reason: wound care) Qty: 30 0RF Discontinued methylprednisolone [Medrol (Joel)] 4 mg tablets,dose pack 4 mg PO UD Qty: 21 0RF Discharge Orders: Discharge Order (Routine); Ordered 06/26/24 Ordered By: Marifer Luna Admission Data Admit Date/Time: 06/25/24 06:50 Attending Provider: Marifer Luna Admit Provider: Bert Quinones Primary Care Provider: Cha Esqueda Other Providers: Bert Quinones; Elan Fisher
--- OUTSIDE RECORDS SUMMARY | 2024-06-26 17:53 | External Medical Summary | Summary of Care ---
Author Name Unknown Organization [facility] Address [address] [place] [address] Phone [phone] Care Team Providers Care Multiple Effect Evaporator Operator Name Role Phone Unavailable Primary Care Provider Unavailabl e Encounter Details Date Type Department Care Team (Late st Contact Info) Description 06/25/2024 Orders Only Family Practice [address] [place] [address] [place] [id number] Cha Esqueda, DO [address] [place] [address] Allergies Active Allergy Reactions Criticality Noted Date [...] as of this encounter (statuses as of 06/25/2024) Medications Medication Sig Dispensed Refills Start Date [...] as of this encounter (statuses as of 06/25/2024) Active Problems Problem Noted Date Diagnosed Date 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 Status post right hip replacement 09/30/2017 skilled nursing current use of systemic steroids 05/23 DDD [...] 12/31/2001 Other psoriasis GENERAL OSTEOARTHROSIS DISC DIS [id number] documented as of this encounter (statuses as of 06/25/2024) Resolved Problems Problem Noted Date Diagnosed Date [...] Orr or Halina Angulo, RN, CCRC at [phone] [facility] RES[facility]ARCH OTHER*[id number] 12/17/2003 05/29/2010 Overview: Renamed Per Clinical Trials Billing Project. Pt is a participant in the [employer] (Consortium of Rheumatology Researchers of [place]) national data collection study. For further information please call Dr Medardo Orr or Halina Angulo, RN, CCRC at [phone] Osteoporosis 03/05/2003 09/05/2011 PAROXYSMAL SVT- hx of 12/07/20022018 ARTHRITIS,RHEUMATOID 09/04/2001 016 INFORMATION 12/04/2006 Ankylosing spondylitis 01/04 Chronic sinusitis 06/15/2020 documented as of this encounter (statuses as of 06/25/2024) Immunizations Name Administration Dates Next Due COVID-19 mRNA, LNP-s, No Pre serve, 2-Dose Series (Moderna) 09/14/2021,01/29/2021,12/22/2020 COVID-19, MRNA-LNP, 23-24, P F, 30 MCG/0.3 mL, 12 YRS AND ABOVE, IM ([facility]) 08/23/2023 COVID-19, mRNA, LNP-s, PF, B ooster, [...] as of this encounter Plan of Treatment Scheduled Procedures [...] Additional history exists Diabetic Eye Exam 06/19/2025 06/19/2024, , 10/17/2023, Additional history exists Diabetic Foot Exam 06/24/2025 06/24/2024, 0 06/24/2024, 06/06/2023, Additional history exists Colonoscopy 07/19/2025 07/19/2020, 07/02, 12/30/2006 DTaP,Tdap,and Td Vaccines (3 - Td or Tdap) 10/10/2031 10/10/2021, 01/05/2011, 04/29/2001 Pneumococcal Vaccine: 65+ Years Completed 07/02/2016, 01/14/2008, 09/17/2001 VITAMIN D LEVEL ONCE IN A LIFETIME-USE SMARTSET# [id number] Completed 05/08/2018, 12/09/2015, 12/08/2014, Additional history exists [...] this encounter Medical Devices Implanted Type Area Pharmacy Affairs Assistant Device Identifier Shelf Expiration Date Model / Serial / Lot Tube Modified T [id number] - [id number] Implanted:Qty: 1 on 07/25/2017 by Marcelino Madison DO at OR [facility] Left: Ear GYRUS : ENT 11/13/2026 [id number] / / [id number] Trident Hemispherical Muli - [id number] Implanted:Qty: 1 on 12/13/2017 by Pardeep Martinez MD at [place] [facility] [place] Right: Hip CHELSEA : ORTHOPAEDICS 09/26/2022 [id number] / / [id number] Screw Acetabular 6.5mm Yuli 20m - [id number] Implanted:Qty: 1 on 12/13/2017 by Pardeep Martinez MD at [place] [facility] [place] Right: Hip CHELSEA : ORTHOPAEDICS 10/07/2022 / / [id number] Bone Screw Cancellous 65 45 - [id number] Implanted:Qty: 1 on 12/13/2017 by Pardeep Martinez MD at [place] [facility] [place] Right: Hip [employer]HELSEA : ORTHOPAEDICS 08/05/[id number]- / / [id number] Screw Acetabular 6.5mm Yuli 20m - [id number] Implanted:Qty: 1 on 12/13/2017 by Pardeep Martinez MD at [place] [facility] [place] Right: Hip CHELSEA : ORTHOPAEDICS 10/07/2022 / / [id number] Liner 42mm - [id number] Implanted:Qty: 1 on 12/13/2017 by Pardeep Martinez MD at [place] [facility] [place] Right: Hip CHELSEA : ORTHOPAEDICS 08/27/2021 [id number] / / [id number] Insert 28mm - [id number] Implanted:Qty: 1 on 12/13/2017 by Pardeep Martinez MD at OR [facility] [place] Right: Hip CHELSEA : ORTHOPAEDICS 07/03/2022 [id number] / / [id number] Head Delta Cer 12 14 28mm 5.0 - [id number] Implanted:Qty: 1 on 12/13/2017 by Pardeep Martinez MD at [place] [facility] [place] Right: Hip SYNTHES : DEPUY 10/01/2022 [id number] / / [id number] Duragen Plus 1x3 Dp 1013 Min5 - [id number] - [id number] Implanted:Qty: 1 on 07/29/2020 by Tadeo Bonilla MD at [place] [facility] [place] RadioFrame JEMIMA [id number] 05/01/2023 [id number] / [id number] / [id number] Vectris Surescan Mri 1x8 Compact Implanted:Qty: 1 on 08/01/2021 by Arnoldo Regan MD at OR [facility] N/A: Back Medtronic 03/06/2025 [id number] / / [id number] Description:Part of a kit. Vectris Surescan Mri 1x8 Compact Implanted:Qty: 1 on 08/01/2021 by Arnoldo Regan MD at OR [facility] N/A: Back Medtronic 07/04/2025 [id number] / / [id number] Description:Part of a kit. Neurostimul Intellis Adaptiv - [id number] - [id number] Implanted:Qty: 1 on 08/01/2021 by Arnoldo Regan MD at OR [facility] N/A: Back [employer] 04/28/2022 [id number] / [id number] / Description:Part of a kit. Envelope Antibacterial Tyrx - [id number] Implanted:Qty: 1 on 08/01/2021 by Arnoldo Regan MD at OR [facility] N/A: Back [employer]TRONIC : CRM 05/05/2022 [id number] / / [id number] documented as of this encounter Procedures Procedure Name Priority Date/Time Associated Diagnosis Comments DIABETIC EYE EXAM Routine 06/19/2024 documented in this encounter Results * DIABETIC EYE EXAM (06/19/2024) 06/19/2024 History Per Patient OTHER OUTSIDE LAB (SEE SCANNED REPORT) documented in this encounter Advance Directives Documents on File Type Date Recorded Patient Prepared Foods Associate Expl anation Advance Directives and Living Will 11/20/2020 ADVANCE DIRECTIVE REVISED/DURABLE [facility] HEALTHCARE/LIVING WILL 11/05/19 Power of Director Of Officiating 07/18/2017 POWER OF A TTORNEY POA * [...] the patient have Health Care Power of Director Of Officiating? Yes, not currently available * Full Code [...]
--- NOTE | 2024-07-09 08:04 | Coding Query ---
A supporting diagnosis is required for the test/procedure performed on this patient in order for us to be reimbursed by the patient's insurance. Please provide a supporting diagnosis for the following test/procedure listed below next to the test name along with your signature. *If there is no additional diagnosis for this patient that would support the following test/procedure please document that below next to the test/procedure. Test(s)/Procedure(s) that require a supporting diagnosis: * 42786, Lower extremity venous duplex. DIAGNOSIS:leg swelling Provider Signature: JNO Date: ____07/15/24___ Thank you Radha Butt Health Information Management Once completed, please kindly fax back to [phone] For questions please call [phone] [facility]
== END 2024-06-26 13:45 | disposition home or self-care (01) ==
LOC: ED 04:28 → 3N 04:28